=== PATIENT | male | born 1935 | race Caucasian/White ===

== ENCOUNTER → 2016-12-24 | Outpatient (CLI) | payer OTHER ==
[~2016-12-24] MED LIST: ASPCH81 PO; CYAN100020 PO; EZET10TA63 PO; FLAX1CAP6 PO; METO25TA3 PO; METO25TA56 PO; NAPR1CAP12 PO; NIAC500T11 PO; ULT/50 PO; Vitamin D3 PO
[2016-12-30 02:35] LABS: ANTI-CENTROMERE AB <1.0 NEG AI (<1.0 NEG); ANTI-SS-A <1.0 NEG AI (<1.0 NEG); ANTI-SS-B <1.0 NEG AI (<1.0 NEG); DNA ds CRITHIDIA NEGATIVE (NEGATIVE); Sm Antibody <1.0 NEG AI (<1.0 NEG)
== END | disposition home or self-care (01) ==
LOC: C.LABBC 09:54
PROVIDERS: ATTEND Psychiatry & Neurology Neurology
DX: M48.06 Spinal stenosis, lumbar region (principal)

== ENCOUNTER 2017-06-17 08:20 | Day surgery (SDC) | payer OTHER ==
[2017-06-17] VITALS (11 sets, daily range): BP systolic 119–146; BP diastolic 53–66; PULSE 55–61; TEMP 36.7–37; O2SAT 93–98; Ht 177.8 cm; Wt 109.0 kg
[~2017-06-17] VITALS: Ht 177.8 cm; Wt 109.0 kg
[~2017-06-17 08:20] MED LIST changes: -CYAN100020 PO; -METO25TA56 PO; -Vitamin D3 PO
[2017-06-17] MEDS ORDERED: METO25TA56 PO (09:19)
[2017-06-17] MEDS ORDERED: CYAN100020 PO (09:23)
[2017-06-17] MEDS ORDERED: Vitamin D3 PO (09:23)
--- NOTE | 2017-06-17 11:27 | Discharge Instructions ---
Discharge Instructions Procedure Procedure Date: Jun 17, 2017. Reason for visit: Cidp *With Opening Pressure*. Discharge Discharge Date: Jun 17, 2017. Discharge Diagnosis: same Instructions Activity Recommendations: No limitations Return to School/Work: no limitations Recommended Home Diet: Resume Previous Diet Provider Instructions: ACTIVITY RECOMMENDATIONS: * Rest today. * Resume regular activity in one day. MEDICATIONS: * May take Tylenol or Ibuprofen as needed for pain. DIET: * Resume previous diet. SPECIAL CARE INSTRUCTIONS: Call your doctor if: * Temperature above 101 degrees F. * Pain not relieved by pain medicine ordered. * Increased drainage or redness from incision. * Notify your doctor with any questions or concerns. Call your doctor or go to the nearest Emergency Department if you experience: * Increased chest pain or shortness of breath. FOLLOW UP VISIT: Follow-up with Referring Physician as scheduled. Allergies Coded Allergies: HMG-CoA-R Inhibitors (Verified Allergy, Unknown, "STATIN" ALLERGY, 06/17/17) Iodine (Verified Allergy, Unknown, 06/17/17) Uncoded Allergies: CONTRASTMEDIA (Allergy, Unknown, 12/15/09) [facility] Recommendations: Call your doctor if: * Temperature above 101 degrees * Pain not relieved by pain medicine ordered * There is increased drainage or redness from any incision * You have any unanswered questions or concerns. Your Doctors Instructions noted above were prepared by provider Collin Olson. Patient Signature Section: Patient Instructions Signature Page Dhaval Mcgraw Patient (or Guardian) Signature/Date: I have read and understand the instructions given to me by my caregivers. Caregiver/RN/Doctor Signature/Date: The above-named patient and/or guardian has received patient instructions on this date. + Original Patient Signature Page (only) stays with chart. Please make copy for patient.
--- NOTE | 2017-06-17 11:29 | DIAGNOSTIC IMAGING REPORT ---
FLUOROSCOPICALLY GUIDED LUMBAR PUNCTURE CLINICAL HISTORY: Polyneuropathy FLUOROSCOPY TIME: 0.2 minutes. A single fluoroscopic spot image. PROCEDURE: The procedure, risks and benefits were discussed with the patient including the risk of spinal headache, bleeding and infection. The patient agreed to the procedure and informed written consent was obtained. The procedure was performed by Dr. Olson following a timeout. The left L5-S1 interlaminar space was targeted. Skin overlying the space was prepped and draped in the usual sterile fashion and local anesthesia was achieved with 1% lidocaine. Under intermittent fluoroscopic guidance, a 20-gauge x 3 1/2 in. Sprotte needle was inserted into the thecal sac. A total of 10 cc of clear, colorless cerebral spinal fluid was obtained and spread amongst 4 vials. The patient tolerated the procedure well. There were no immediate complications. The specimens were sent to the laboratory at the request of the referring physician. IMPRESSION: Successful fluoroscopic guided lumbar puncture with removal of 10 cc of clear, colorless cerebral spinal fluid. No immediate complications. Opening pressure was 16 cm of H2O. Electronically signed by: Collin Olson M.D. 06/17/2017 11:28 AM Dictated Date/Time: 06/17/2017 11:25 AM
[2017-06-17 11:57] LABS: CSF TOTAL PROTEIN 52.9 mg/dl (15.0-45.0)
[2017-06-17 12:00] LABS: CSF APPEARANCE CLEAR; CSF COLOR COLORLESS; CSF XANTHOCHROMIC NO XANTHOCHROMIA
[2017-06-23 08:19] LABS: ALBUMIN 4.3 g/dL (3.2-4.6); IGG CSF 3.5 mg/dL (0.8-7.7); IGG SERUM 1300 mg/dL (694-1618); LYME DNA PCR CSF OR SYNOVIAL Not detected (Not Detected); LYME DNA SOURCE CSF; LYME IGG CSF NO BANDS DETECTED; LYME IGM CSF NO BANDS DETECTED; MYELIN BASIC PROTEIN 663 <2.0 mcg/L (0.0-4.0)
--- NOTE | 2017-06-24 07:31 | CODING QUERY MEDICAL NECESSITY ---
CQSUPPORTING DIAGNOSIS NEEDED A supporting diagnosis is required for the test/procedure performed on this patient in order for us to be reimbursed by the patient's insurance. Please provide a supporting diagnosis for the following test/procedure listed below next to the test name along with your signature. *If there is no additional diagnosis for this patient that would support the following test/procedure please document that below next to the test/procedure. Test(s)/Procedure(s) that require a supporting diagnosis: DOS 06/17/17 BLOOD GLUCOSE TEST SCREENING FOR SEXUALLY TRANSMITTED DISEASES TEST Provider Signature: Date: Thank you Martha [facility] Once completed, please kindly fax back to [phone] For questions please call [phone]
== END 2017-06-17 15:53 | disposition home or self-care (01) ==
LOC: C.ACU 08:20
PROVIDERS: ATTEND Psychiatry & Neurology Neurology
DX: G61.81 Chronic inflammatory demyelinating polyneuritis (principal); G62.9 Polyneuropathy, unspecified

== ENCOUNTER → 2018-01-07 | Outpatient (CLI) | payer OTHER ==
[~2018-01-07] MED LIST changes: +CYAN100020 PO; -EZET10TA63 PO; -METO25TA3 PO; +METO25TA56 PO; -NAPR1CAP12 PO; -NIAC500T11 PO; -ULT/50 PO; +Vitamin D3 PO
[2018-01-07 17:20] LABS: ALBUMIN 3.8 gm/dl (3.4-5.0); ALT/SGPT 27 U/L (12-78); AST/SGOT 26 U/L (15-37); BLOOD UREA NITROGEN 17 mg/dl (7-18); CALCIUM 9.4 mg/dl (8.5-10.1); CARBON DIOXIDE 27 mmol/L (21-32); CHOLESTEROL 295 mg/dl (0-200); CREATININE 1.01 mg/dl (0.60-1.40); GLUCOSE 93 mg/dl (70-99); POTASSIUM 4.3 mmol/L (3.5-5.1); SODIUM 137 mmol/L (136-145); TOTAL PROTEIN 8.2 gm/dl (6.4-8.2)
[2018-01-07 17:30] LABS: ALKALINE PHOSPHATASE 55 U/L (45-117); LDL CHOLESTEROL CALCULATED 208 mg/dl
[2018-01-08 06:51] LABS: HEMOGLOBIN A1C 5.5 % (4.5-5.6)
== END | disposition home or self-care (01) ==
LOC: C.LABBC 12:31
PROVIDERS: ATTEND Internal Medicine
DX: I25.10 Atherosclerotic heart disease of native coronary artery without angina pectoris (principal); I10 Essential (primary) hypertension; R06.09 Other forms of dyspnea; E78.5 Hyperlipidemia, unspecified; G61.81 Chronic inflammatory demyelinating polyneuritis; E55.9 Vitamin D deficiency, unspecified; G47.33 Obstructive sleep apnea (adult) (pediatric)

== ENCOUNTER 2018-12-22 09:43 | Observation (INO) ==
[2018-12-22] MEDS ORDERED: MECLIZINE HCL 25 MG TAB PO STA (09:59)
[2018-12-22] MEDS ORDERED: SODIUM CHLORIDE 0.9% 1000ML 1,000 ML IV SCH (10:00)
[2018-12-22 10:28] LABS: Basophils # (auto) 0.05 K/uL (0-0.2); Basophils % (auto) 0.9 %; Eosinophils # (auto) 0.09 K/uL (0-0.5); Eosinophils % (auto) 1.6 %; Hematocrit (blood only) 40.4 % (42-52); Hemoglobin 14.4 g/dL (14.0-18.0); Immature Granulocytes # (auto) 0.02 K/uL (0.00-0.02); Immature Granulocytes % (auto) 0.4 %; Lymphocytes # (auto) 2.15 K/uL (1.2-3.4); Lymphocytes % (auto) 37.8 %; Mean Corpuscular Hgb Conc 35.6 g/dL (32-36); Mean Corpuscular Volume 94.6 fL (80-100); Mean Platelet Volume 9.3 fL (7.4-10.4); Monocytes # (auto) 0.44 K/uL (0.11-0.59); Monocytes % (auto) 7.7 %; Neutrophils # (auto) 2.94 K/uL (1.4-6.5); Neutrophils % (auto) 51.6 %; Platelet Count 183 K/uL (130-400); RDW Coefficient of Variation 12.5 % (11.5-14.5); RDW Standard Deviation 43.4 fL (36.4-46.3); Red Blood Count 4.27 M/uL (4.7-6.1); White Blood Count 5.69 K/uL (4.8-10.8)
--- NOTE | 2018-12-22 10:32 | XRay Report ---
XR chest 1V portable CLINICAL HISTORY: dizzy COMPARISON STUDY: 01/17/2013 FINDINGS: There are postsurgical changes of midline sternotomy. The heart is normal in size. There is no failure. There is no focal pulmonary consolidation. There are no significant pleural effusions.[ IMPRESSION: No active disease in the chest. Electronically signed by: Fortunato Waller M.D. 12/22/2018 10:31 AM
[2018-12-22 10:40] LABS: Prothrombin Time 10.3 Seconds (9.0-12.0)
[2018-12-22 10:45] LABS: Alanine Aminotransferase 16 U/L (12-78); Albumin Level 3.8 gm/dl (3.4-5.0); Aspartate Aminotransferase 26 U/L (15-37); BUN Creatinine Ratio 14.1 (10-20); Blood Urea Nitrogen 13 mg/dl (7-18); Calcium 8.7 mg/dl (8.5-10.1); Carbon Dioxide 27 mmol/L (21-32); Chloride 105 mmol/L (98-107); Creatinine Clr Calc Pharmacy 73.3 ml/min; Est GFR (African American) 86.1; Est GFR (Non-African American) 74.2; Glucose 98 mg/dl (70-99); Potassium 3.9 mmol/L (3.5-5.1); Sodium 137 mmol/L (136-145)
[2018-12-22 10:49] LABS: Albumin Globulin Ratio 1.1 (0.9-2); Alkaline Phosphatase 51 U/L (45-117); Bilirubin,Total 0.5 mg/dl (0.2-1); Globulin 3.5 gm/dl (2.5-4.0); Total Protein 7.3 gm/dl (6.4-8.2); Troponin I < 0.015 ng/ml (0-0.045)
--- NOTE | 2018-12-22 10:55 | CT Scan Report ---
HEAD CT NONCONTRAST CT DOSE: 1232.78 mGy.cm HISTORY: dizzy with recurrent falls TECHNIQUE: Multiaxial CT images of the head were performed without the use of intravenous contrast. A utomated exposure control was utilized for this study. A dose lowering technique was utilized adheri ng to the principles of ALARA. Comparison: Head CT 08/13/2009. Findings: The paranasal sinuses and mastoid air cells are clear. The calvarium and skull base are int act. There is no mass, hematoma, midline shift, acute infarct. White matter hypodensity is nonspecifi c but suggestive of microvascular ischemic change. The ventricles and sulci demonstrate mild age-rela fabiana involutional changes. Impression: No acute intracranial abnormality. Atrophy and microvascular ischemic changes. Electronically signed by: Collin Olson M.D. 12/22/2018 10:53 AM
--- NOTE | 2018-12-22 11:02 | CT Scan Report ---
CERVICAL SPINE CT CT DOSE: HISTORY: recurrent falls TECHNIQUE: Multiaxial CT images of the cervical spine were performed and reformatted in the sagittal and coronal plane without the use of contrast. A dose lowering technique was utilized adhering to th e principles of ALARA. COMPARISON: None. FINDINGS: No fractures. No subluxation. Prevertebral soft tissues and the C1-C2 interval are intact. No pneumothorax. Moderate to space narrowing at C6-C7 and mild disc space narrowing at C7-T1 with end plate osteophytes. IMPRESSION: No fractures within the cervical spine. Electronically signed by: Collin Olson M.D. 12/22/2018 11:00 AM
--- NOTE | 2018-12-22 12:05 | History & Physical Report ---
Date of Service December 22, 2018 Assessment & Plan (1) Lightheaded: Leading to loss of balance and falls over the last 48hrs 1st degree AV block noted on EKG, no other EKGs in [facility] or [facility], family denies being told about this prior If new, could be cause of sx Given vision changes and sudden onset, will also pursue CVA workup CT head neg MRI/MRA pending ECHO 05/2018 with EF 60-65% and mild , will hold on repeat at this time pending neuro workup CBC, PRP, trop WNL B12, B1 pending Follows with Dr. Benítez and Dr. 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 Seems suddenly much worse Still taking sinemet Extensive neuro workup with [facility] [place] (4) Hyperlipidemia: Statin intolerant (5) HTN (hypertension): continue home meds (6) Aortic stenosis: ECHO as above (7) CAD (coronary artery disease): 81mg aspirin (8) ROBERT (obstructive sleep apnea): CPAP at home, continue (9) DVT prophylaxis: SCDs, Lovenox for DVT proph History of Present Illness Primary Care Provider: Mingo Sanches MD 83 y/o M c/o falls. Pt has fallen several times in the last 48 hrs. He fell 4 times yesterday and once today. He states he gets "dizzy" and then cannot maintain his balance. "Dizzy" is further defined as more of a lightheadedness, not room spinning. He described several settings where this occurred when he was bending over to do something. Pt does have hx of vertigo, but states this is different. He feels fine between these episodes. Pt denies fever, SOB, chest pain, abd pain, n/v/c/d, LE pain or swelling. Family states that pt has some word finding issues at times, but never any adeline confusion or hallucinations. Pt does feel that his peripheral vision is cloudy, which is also new. He has been eating without issue. Pt received meclizine in the ED and states his "head feels better". He cannot describe what this means other than noting his vision is more clear in the periphery. Pt has recently been worked up for possible Parkinson's due to a tremor. Family states that his workup is neg and current dx is chronic inflammatory demyelinating polyneuropathy. Denies being told that he has had 1st degree AV block on prior EKG. Allergies Allergy/AdvReac Type Severity Reaction Status Date / Time iodine Allergy Unknown Verified 12/22/18 10:48 CONTRASTMEDIA Allergy Unknown Unknown Uncoded 12/22/18 10:48 HMG-CoA-R Inhibitors Allergy Unknown "STATIN" Uncoded 12/22/18 10:48 ALLERGY Home Medications Home Medications Medication Instructions Recorded Confirmed Type aspirin 81 mg PO HS 12/22/18 12/22/18 History carbidopa-levodopa 2 tab PO TID 12/22/18 12/22/18 History fish oil-E-fatty [id number] 1 cap PO QAM 12/22/18 12/22/18 History [Flax, Fish and Borage Oil] metoprolol tartrate 25 mg PO BID 12/22/18 12/22/18 History pseudoephedrine HCl [Sudafed 24 240 mg PO DAILY PRN 12/22/18 12/22/18 History Hour] Past Med/Surg History Medical History Arrhythmia (Acute) Surgical History History of hernia surgery x3 Hx of CABG x4 Hx of shoulder surgery right and left Family History Father Heart attack Social History Current Living Situation: Spouse Other Information That Helps Us Care for You: No Feels Safe at Home: Yes Safety Concerns: Feels Safe At This Time Smoking Status: Former smoker Hx Alcohol Use: No Hx Substance Use: No Beliefs That Will Affect Care: None Preferred Language: [place]ambian Communication Ability: Effective Review of Systems Pertinent positives and negatives reviewed in HPI--all others negative Physical Exam 2 Vital Signs (Past 24 Hours): Last Vital Signs Temp 36.7 C 12/22/18 09:46 Pulse 58 L 12/22/18 11:36 Resp 20 12/22/18 11:36 BP 133/63 12/22/18 11:36 Pulse Ox 99 12/22/18 11:36 Constitutional: WD/WN, vitals as above Eyes: normal visual moore by confrontation and + anicteric sclerae Neck: normal visual inspection and trachea midline Respiratory: normal respiratory effort, lungs clear to auscultation Cardiovascular: Rate/Rhythm: regular rate and regular rhythm Gastrointestinal (Abdomen): Inspection/Auscultation: abdomen not distended Percussion/Palpation: abdomen soft; abdomen nontender Musculoskeletal: Head/Neck/Chest: normocephalic and head atraumatic negative for edema, peripheral pulses intact Skin: no rashes, warm and dry Neurologic: awake; not confused Speech / Cognition: normal speech Motor/ Sensory: + tremor (R UE) and + abnormal movement (R LE spasms) Psychiatric: A+Ox3, euthymic affect Results & Data Diagnostic Findings CT head: neg for acute CXR: neg for acute CT c-spine: neg for acute ECG Findings: + 1st degree AV block Code Status & VTE Plan Code Status Full code VTE Prophylaxis Plan VTE Prophylaxis will be ordered: Yes
--- NOTE | 2018-12-22 12:20 | Emergency Department Note ---
Entered by Herlinda Simmons acting as a scribe for Marin Abraham DO History of Present Illness General Chief complaint: Dizziness Stated complaint: DIZZY Time Seen by Provider: 12/22/18 09:50 Source: patient History of Present Illness Provider complaint: dizziness Onset (ago): day(s) 2 Location: head Quality: + other (dizziness) Associated symptoms: + denies other symptoms (denies abdominal pain) and + other (falls); no nausea/vomiting, no shortness of breath and no weakness (in legs) The patient is an 83 year old male who presents to the Emergency Room with complaints of dizziness beginning 2 days ago. The patient states that he has also been falling a lot and cannot walk secondary to the dizziness over the last 2 days. He states that he has fallen 4-5 times but denies hitting his head and denies any injuries from the falls. He reports that he has used a cane to walk over the last 2 days and states that otherwise he does not use a cane. The patient reports feeling unsteady on his feet. He states that he feels like everything is "not in focus" and reports that he is having this problem with both eyes. The patient denies having weakness or numbness in his legs or any ringing in his ears. He denies any new shortness of breath, nausea, vomiting, and abdominal pain. The patient does report that there was blood on the toilet seat this morning. He states that he takes Aspirin daily and states that he has not been placed on new medications recently. Home Medications Home Medications Medication Instructions Recorded Confirmed Type aspirin 81 mg PO HS 12/22/18 12/22/18 History carbidopa-levodopa 2 tab PO TID 12/22/18 12/22/18 History fish oil-E-fatty [id number] 1 cap PO QAM 12/22/18 12/22/18 History [Flax, Fish and Borage Oil] metoprolol tartrate 25 mg PO BID 12/22/18 12/22/18 History pseudoephedrine HCl [Sudafed 24 240 mg PO DAILY PRN 12/22/18 12/22/18 History Hour] Allergies Allergy/AdvReac Type Severity Reaction Status Date / Time iodine Allergy Unknown Verified 12/22/18 10:48 CONTRASTMEDIA Allergy Unknown Unknown Uncoded 12/22/18 10:48 HMG-CoA-R Inhibitors Allergy Unknown "STATIN" Uncoded 12/22/18 10:48 ALLERGY Past Med/Surg History Medical History Arrhythmia (Acute) Surgical History History of hernia surgery x3 Hx of CABG x4 Hx of shoulder surgery right and left Social History Current Living Situation: Spouse Other Information That Helps Us Care for You: No Feels Safe at Home: Yes Safety Concerns: Feels Safe At This Time Smoking Status: Former smoker Hx Alcohol Use: No Hx Substance Use: No Beliefs That Will Affect Care: None Preferred Language: [place]se Communication Ability: Effective Review of Systems See HPI for pertinent positives & negatives. and A total of 10 systems reviewed and were otherwise negative Physical Exam Vital Signs Vital Signs - 24 hr 12/22/18 09:46 12/22/18 10:23 12/22/18 10:49 Temperature 36.7 C Temperature Source Oral Sepsis Recent Fever Within 48 Hours No Sepsis New/Unexplained Change in Mental Status No Sepsis Action Taken by Nursing No Action Required Pulse Rate - Lying 59 L Pulse Rate - Sitting 62 Pulse Rate - Standing 60 Pulse Rate 61 Pulse Rate [Apical] 61 Respiratory Rate 18 16 Respiratory Effort / Characteristics Non-Labored Spontaneous Respiratory Depth Normal Respiratory Pattern Regular Blood Pressure - Lying 143/72 H Blood Pressure - Sitting 136/69 Blood Pressure- Standing 133/68 Blood Pressure 140/78 Blood Pressure [Left Arm] 133/63 Blood Pressure Mean 98 Blood Pressure Mean [Left Arm] 86 Pulse Oximetry 94 96 96 Oxygen Delivery Method Room Air Room Air Room Air 12/22/18 11:36 12/22/18 12:17 Temperature Temperature Source Sepsis Recent Fever Within 48 Hours Sepsis New/Unexplained Change in Mental Status Sepsis Action Taken by Nursing Pulse Rate - Lying Pulse Rate - Sitting Pulse Rate - Standing Pulse Rate Pulse Rate [Apical] 58 L 61 Respiratory Rate 20 22 Respiratory Effort / Characteristics Non-Labored Spontaneous Respiratory Depth Normal Respiratory Pattern Regular Blood Pressure - Lying Blood Pressure - Sitting Blood Pressure- Standing Blood Pressure Blood Pressure [Left Arm] 133/63 133/73 Blood Pressure Mean Blood Pressure Mean [Left Arm] 86 93 Pulse Oximetry 99 95 Oxygen Delivery Method Room Air Room Air GENERAL: Sitting up in bed, disheveled, alert, well appearing, well nourished, no acute distress, non-toxic EYE EXAM: normal conjunctiva. PERRL and EOM's intact. OROPHARYNX: no exudate, no erythema, lips, buccal mucosa, and tongue normal and mucous membranes are moist NECK: supple, no nuchal rigidity, no adenopathy, non-tender LUNGS: Clear to auscultation. Normal chest wall mechanics HEART: no murmurs, S1 normal and S2 normal ABDOMEN: abdomen soft, non-tender, normo-active bowel, sounds, no masses, no rebound or guarding. BACK: Back is symmetrical on inspection and there is no deformity, no midline tenderness, no CVA tenderness. SKIN: no rashes and no bruising UPPER EXTREMITIES: upper extremities are grossly normal. LOWER EXTREMITIES: No pitting edema. NEURO EXAM: Normal sensorium, cranial nerves II-XII grossly intact, normal speech, no gross weakness of arms, no gross weakness of legs. No drift. Finger to nose intact. Gross sensation intact. Resting tremor bilateral upper extremities. Course ED COURSE: Vital signs were reviewed and were normal. The patients medical record was reviewed The above diagnostic studies were performed and reviewed. ED treatments and interventions as stated above. 0951: Past medical records reviewed. The patient was evaluated in room B11B, and a complete history and physical examination were performed. 1113: I updated the patient who verbalized agreement and understanding of the treatment plan. 1116: I discussed the patient's case with Dr. Nelson Cunningham who will evaluate the patient for further management. Consultations Consultation #1: Dr. Nelson Cunningham Time: 11:16 Administered Medications Discontinued Medications Sodium Chloride (Nss 1000ml) 1,000 mls @ 999 mls/hr IV .Q1H1M JOSE J Stop: 12/22/18 11:00 Last Infusion: 12/22/18 11:29 Dose: 0 mls/hr Admin: 12/22/18 10:28 Dose: 999 mls/hr Meclizine HCl (Antivert) 25 mg PO NOW STA Stop: 12/22/18 10:00 Last Admin: 12/22/18 10:28 Dose: 25 mg Medical Decision Making Differential Diagnosis Differential diagnosis includes etiologies such as benign positional vertigo, dehydration, hypovolemia, anemia, tumor, infection, hypoglycemia, electrolyte abnormalities, cardiac sources, intracerebral event, toxicologic, neurologic, as well as others were entertained. Medical Records Attestation: I reviewed the patient's medical records. Home Medications Current Medication List: was personally reviewed by me Laboratory Data Attestation: I reviewed the patient's lab results. Result diagrams: 12/22/18 10:15 12/22/18 10:15 Lab Results 12/22/18 12/22/18 12/22/18 Range/Units 10:15 10:15 10:15 WBC 5.69 (4.8-10.8) K/uL RBC 4.27 L (4.7-6.1) M/uL Hgb 14.4 (14.0-18.0) g/dL Hct 40.4 L (42-52) % MCV 94.6 (80-100) fL MCH 33.7 (25-34) pg MCHC 35.6 (32-36) g/dL RDW Std Deviation 43.4 (36.4-46.3) fL RDW Coeff of Clau 12.5 (11.5-14.5) % Plt Count 183 (130-400) K/uL MPV 9.3 (7.4-10.4) fL Immature Gran % (Auto) 0.4 % Neut % (Auto) 51.6 % Lymph % (Auto) 37.8 % [place] % (Auto) 7.7 % Eos % (Auto) 1.6 % Baso % (Auto) 0.9 % Immature Gran # (Auto) 0.02 (0.00-0.02) K/uL Neut # (Auto) 2.94 (1.4-6.5) K/uL Lymph # (Auto) 2.15 (1.2-3.4) K/uL [place] # (Auto) 0.44 (0.11-0.59) K/uL Eos # (Auto) 0.09 (0-0.5) K/uL Baso # (Auto) 0.05 (0-0.2) K/uL PT 10.3 (9.0-12.0) Seconds INR 1.0 (0.9-1.1) Sodium 137 (136-145) mmol/L Potassium 3.9 (3.5-5.1) mmol/L Chloride 105 (98-107) mmol/L Carbon Dioxide 27 (21-32) mmol/L Anion Gap 5.0 (3-11) BUN 13 (7-18) mg/dl Creatinine 0.95 (0.6-1.4) mg/dl Est Cr Clr Drug Dosing 73.3 ml/min Est GFR ( Amer) 86.1 Est GFR (Non-Af Amer) 74.2 BUN/Creatinine Ratio 14.1 (10-20) Glucose 98 (70-99) mg/dl Calcium 8.7 (8.5-10.1) mg/dl Total Bilirubin 0.5 (0.2-1) mg/dl AST 26 (15-37) U/L ALT 16 (12-78) U/L Alkaline Phosphatase 51 (45-117) U/L Troponin I < 0.015 (0-0.045) ng/ml Total Protein 7.3 (6.4-8.2) gm/dl Albumin 3.8 (3.4-5.0) gm/dl Globulin 3.5 (2.5-4.0) gm/dl Albumin/Globulin Ratio 1.1 (0.9-2) Imaging Data Radiologist's Impression: Radiology results as stated below per my review and the radiologist's interpretation: XR chest 1V portable CLINICAL HISTORY: dizzy COMPARISON STUDY: 01/17/2013 FINDINGS: There are postsurgical changes of midline sternotomy. The heart is normal in size. There is no failure. There is no focal pulmonary consolidation. There are no significant pleural effusions.[ IMPRESSION: No active disease in the chest. Electronically signed by: Fortunato Waller M.D. 12/22/2018 10:[address] DOSE: 1232.78 mGy.cm HISTORY: dizzy with recurrent falls TECHNIQUE: Multiaxial CT images of the head were performed without the use of intravenous contrast. Automated exposure control was utilized for this study. A dose lowering technique was utilized adhering to the principles of ALARA. Comparison: Head CT 08/13/2009. Findings: The paranasal sinuses and mastoid air cells are clear. The calvarium and skull base are intact. There is no mass, hematoma, midline shift, acute infarct. White matter hypodensity is nonspecific but suggestive of microvascular ischemic change. The ventricles and sulci demonstrate mild age- related involutional changes. Impression: No acute intracranial abnormality. Atrophy and microvascular ischemic changes. Electronically signed by: Collin Olson M.D. 12/22/2018 10:[address] DOSE: HISTORY: recurrent falls TECHNIQUE: Multiaxial CT images of the cervical spine were performed and reformatted in the sagittal and coronal plane without the use of contrast. A dose lowering technique was utilized adhering to the principles of ALARA. COMPARISON: None. FINDINGS: No fractures. No subluxation. Prevertebral soft tissues and the C1-C2 interval are intact. No pneumothorax. Moderate to space narrowing at C6-C7 and mild disc space narrowing at C7-T1 with endplate osteophytes. IMPRESSION: No fractures within the cervical spine. Electronically signed by: Collin Olson M.D. 12/22/2018 11:00 AM ECG Data Attestation: I personally reviewed and interpreted this ECG as follows: Indication: other (dizziness) Rate (beats per minute): 60 Rhythm: sinus rhythm Findings: + left axis deviation; no PVC Blood Pressure Blood Pressure Findings: Normal blood pressure MDM Narrative Patient is an 83-year-old male who presents the ER for dizziness which is been present for the past 2-3 days. Patient notes he has been extremely unsteady on his feet. Has fallen 5 times in the past 24 hours. Labs were obtained and showed no significant leukocytosis or anemia. BMP along with LFTs and troponin was negative. EKG chest x-ray and CT head were unremarkable. Patient was updated bedside. He was given Antivert. He was neurologically intact. I discussed case with the patient and family and I am concerned that this could be a possible posterior CVA. Updated patient and discussed with the hospitalist for observation due to 5 falls in the dizziness. was updated at bedside. Previous charts were reviewed. Impression & Plan Dizziness, Ambulatory dysfunction, Recurrent falls Discharge Plan Visit Data Chief Complaint: Dizziness Stated Complaint: DIZZY ED Provider: Marin Abraham Discharge Problem: Dizziness, Ambulatory dysfunction, Recurrent falls Patient Disposition: Being Evaluated by Hospitalist Discharge Instructions Interventions: ED Discharge Assessment Last Done: 12/22/18 12:34 Forms Stand Alone Forms: My [facility] [employer] Prescriptions Prescriptions: No Action pseudoephedrine HCl [Sudafed 24 Hour] 240 mg Tablet Extended Release 24 Hr 240 mg PO DAILY PRN (Reason: Congestion) RF: 0 metoprolol tartrate 50 mg Tablet 25 mg PO BID RF: 0 aspirin 81 mg Tablet,Chewable 81 mg PO HS RF: 0 carbidopa-levodopa 25-100 mg Tablet 2 tab PO TID RF: 0 fish oil-E-fatty acid5-[id number] [Flax, Fish and Borage Oil] 400-5 mg-unit Capsule 1 cap PO QAM RF: 0 Referrals Referrals: Mingo Sanches MD [Primary Care Provider] - The scribe's documentation has been prepared under my direction and personally reviewed by me in its entirety. I confirm that the note above accurately reflects all work, treatment, procedures, and medical decision making performed by me.
[2018-12-22] MEDS ORDERED: MAGNESIUM HYDROXIDE SUSP 30 ML UDC PO PRN (12:58)
[2018-12-22] MEDS ORDERED: ONDANSETRON INJ 2 MG/ML 2 ML VIAL IV PRN (12:58)
[2018-12-22] MEDS ORDERED: PHARMACIST DISCHARGE MED REC CONSULT PRN (12:58)
[2018-12-22] MEDS ORDERED: ACETAMINOPHEN 325 MG TAB PO PRN (12:58)
[2018-12-22 13:47] LABS: Estimated Average Glucose 126 mg/dl
[2018-12-22] MEDS: CARBIDOPA/LEVODOPA 25/100MG TAB PO SCH ×2 (14:19→20:38)
[2018-12-22] MEDS ORDERED: GADOBUTROL 65ML VIAL IV PRN (17:46)
--- NOTE | 2018-12-22 17:49 | Magnetic Resonance Report ---
MR angio neck wo/w con HISTORY: Mental status change vision changes TECHNIQUE: Multiaxial CT angiography of the neck was performed IV contrast: 8.4 All measuremen ts were calculated based on NASCET criteria. Maximum intensity projection images were also obtained. A dose lowering technique was utilized adhering to the principles of ALARA. COMPARISON STUDY: None. FINDINGS: The aortic arch and proximal great vessels are widely patent. There is no significant sten osis, occlusion, or dissection identified within the bilateral common carotid, internal carotid, or v ertebral arteries. IMPRESSION: No significant stenosis, occlusion, or dissection identified within the carotid or vertebral arteries . Mild scattered atherosclerotic change. The above report was generated using voice recognition software. It may contain grammatical, syntax or spelling errors. Electronically signed by: Lucian Mcdowell M.D. 12/22/2018 5:48 PM
--- NOTE | 2018-12-22 17:50 | Magnetic Resonance Report ---
MR angio head wo con HISTORY: Mental status change vision changes TECHNIQUE: 3-D [id number] MRA of the brain was performed without contrast. COMPARISON STUDY: None. FINDINGS: Visualized intracranial internal carotid arteries, distal vertebral arteries, and basilar a rtery are widely patent. There is no significant stenosis, occlusion, or aneurysm seen within the lorin ateral ACAs, MCAs, or asset specialist. IMPRESSION: No significant stenosis, occlusion, or aneurysm within the [place]. The above report was generated using voice recognition software. It may contain grammatical, syntax or spelling errors. Electronically signed by: Lucian Mcdowell M.D. 12/22/2018 5:49 PM
--- NOTE | 2018-12-22 17:56 | Magnetic Resonance Report ---
MR brain wo/w con CLINICAL HISTORY: vision changes COMPARISON STUDY: No previous studies for comparison. TECHNIQUE: Utilizing a 1.5 Mary magnet and dedicated coil, multiplanar, multiecho imaging of the br ain was performed pre and postcontrast administration. IV administration of 8 mL of Gadavist contras t was uneventful. FINDINGS: Diffusion-weighted images are negative for an acute ischemic event. Ventricular system is m idline. There are moderate findings of chronic small vessel change throughout both cerebral hemispher es. The sella and parasellar regions are unremarkable. Postcontrast images show no evidence for abnor mal postcontrast enhancement. IMPRESSION: 1. Age-related atrophy and chronic small vessel change. No acute process. The above report was generated using voice recognition software. It may contain grammatical, syntax or spelling errors. Electronically signed by: Lucian Mcdowell M.D. 12/22/2018 5:55 PM
[2018-12-22] MEDS: METOPROLOL TARTRATE 25 MG TAB PO SCH (20:37)
[2018-12-22] MEDS ORDERED: ASPIRIN 81 MG CHEW PO SCH (21:00)
[2018-12-23 08:39] LABS: Chol HDL Ratio 9; Cholesterol 290 mg/dl (0-200); HDL Cholesterol 34 mg/dl; LDL Cholesterol Calculated 193 mg/dl; Triglycerides 317 mg/dl (0-150); VLDL Cholesterol 63 mg/dl
[2018-12-23] MEDS: CARBIDOPA/LEVODOPA 25/100MG TAB PO SCH ×2 (08:51→13:00)
[2018-12-23] MEDS: METOPROLOL TARTRATE 25 MG TAB PO SCH (08:51)
[2018-12-23] MEDS ORDERED: ENOXAPARIN INJ 40 MG/0.4 ML SYR SQ SCH (09:00)
--- NOTE | 2018-12-23 15:22 | Discharge Summary ---
Date of Service December 23, 2018 Admission HPI Per Admitting Provider 83 y/o M c/o falls. Pt has fallen several times in the last 48 hrs. He fell 4 times yesterday and once today. He states he gets "dizzy" and then cannot maintain his balance. "Dizzy" is further defined as more of a lightheadedness, not room spinning. He described several settings where this occurred when he was bending over to do something. Pt does have hx of vertigo, but states this is different. He feels fine between these episodes. Pt denies fever, SOB, chest pain, abd pain, n/v/c/d, LE pain or swelling. Family states that pt has some word finding issues at times, but never any adeline confusion or hallucinations. Pt does feel that his peripheral vision is cloudy, which is also new. He has been eating without issue. Pt received meclizine in the ED and states his "head feels better". He cannot describe what this means other than noting his vision is more clear in the periphery. Pt has recently been worked up for possible Parkinson's due to a tremor. Family states that his workup is neg and current dx is chronic inflammatory demyelinating polyneuropathy. Denies being told that he has had 1st degree AV block on prior EKG. Principal Diagnosis Near syncope Discharge Exam Constitutional WD/WN, vitals as above Eyes PERRL, conjunctivae normal, anicteric sclerae ENMT external ear and nose normal, oropharynx normal Neck trachea midline, no thyromegaly Respiratory normal respiratory effort, lungs clear to auscultation Cardiovascular Rate/Rhythm: regular rate and regular rhythm Heart Sounds: + murmur (2 out of 6 systolic) Gastrointestinal (Abdomen) normal bowel sounds, soft, nontender, no hepatosplenomegaly Musculoskeletal no cyanosis or clubbing, extremities motor strength 5/5 Skin no rashes, warm and dry Neurologic PERRL, EOMI, accommodation nl, no face palsy, no dysarthria normal touch/pain/proprioception, CN's II-XI intact bilaterally, moves all extremities and awake Discharge Data Allergies Allergy/AdvReac Type Severity Reaction Status Date / Time iodine Allergy Unknown Unknown Verified 12/23/18 13:56 Iodinated Contrast- Oral and Allergy Unknown Verified 12/23/18 13:56 IV Dye Smpzzom-Jol-Qnp Reductase Allergy Unknown Verified 12/23/18 13:56 Inhibitor Consultations 12/22/18 11:16 ED Decision to Admit Stat 12/22/18 12:58 Consult Case Management - Discharge Planning Routine Consult Case Management - Discharge Planning Routine Consult Health Information Management Stat Ordered Studies 12/22/18 09:59 CT cervical spine wo con Stat CT head/brain wo con Stat 12/22/18 12:58 MR angio head wo con Urgent MR angio neck wo/w con Routine MR brain wo/w con Routine [place], [place] [phone] Magnetic Resonance Report Patient: BRANDI MCGRAW EAdmit Date: 12/22/18 MR#: [id number]: [id number] Acct ID:[id number]: Date: 1935[facility] Zip: [place] [address] Age: 83Location: 2W Sex: M Room/Bed: [facility] Att Phy: Fabiana Garcia DODiagnosis: DIZZY Porsha Phy: Mingo Sanches M.D.Service Date: 12/22/18 Fam Phy: Interpreting Phy: Lucian Mcdowell MD Admit Phy: Fabaina Garcia DO Ordering Phy: Fabiana Garcia DO cc: ~ MR angio neck wo/w con HISTORY: Mental status change vision changes TECHNIQUE: Multiaxial CT angiography of the neck was performed IV contrast : 8.4 All measurements were calculated based on NASCET criteria. Maximum intensity projection images were also obtained. A dose lowering technique was utilized adhering to the principles of ALARA. COMPARISON STUDY: None. FINDINGS: The aortic arch and proximal great vessels are widely patent. There is no significant stenosis, occlusion, or dissection identified within the bilateral common carotid, internal carotid, or vertebral arteries. IMPRESSION: No significant stenosis, occlusion, or dissection identified within the carotid or vertebral arteries. Mild scattered atherosclerotic change. The above report was generated using voice recognition software. It may contain grammatical, syntax or spelling errors. Electronically signed by: Lucian Mcdowell M.D. Patient: BRANDI MCGRAW EAdmit Date: 12/22/18 MR#: [id number]: [id number] Acct ID:[id number]: Date: 1935[facility] Zip: [place] [address] Age: 83Location: 2W Sex: M Room/Bed: W253-2 Att Phy: Fabiana Garcia, DODiagnosis: DIZZY Porsha Phy: Mingo Sanches M.D.Service Date: 12/22/18 Fam Phy: Interpreting Phy: Lucian Mcdwoell MD Admit Phy: Fabiana Garcia DO Ordering Phy: Fabiana Garcia, cc: ~ MR angio head wo con HISTORY: Mental status change vision changes TECHNIQUE: 3-D [id number] MRA of the brain was performed without contrast. COMPARISON STUDY: None. FINDINGS: Visualized intracranial internal carotid arteries, distal vertebral arteries, and basilar artery are widely patent. There is no significant stenosis , occlusion, or aneurysm seen within the bilateral ACAs, MCAs, or play therapist. IMPRESSION: No significant stenosis, occlusion, or aneurysm within the [place]. The above report was generated using voice recognition software. It may contain grammatical, syntax or spelling errors. [facility], [place] [phone] Magnetic Resonance Report Patient: BRANDI MCGRAW EAit Date: 12/22/18 MR#: [id number]: [id number] Acct ID:[id number]: Date: [address] [place] [address] Zip: [place] [address] Age: 83Location: 2W Sex: M Room/Bed: W253-2 Att Phy: Fabiana Garcia, DODiagnosis: DIZZY Porsha Phy: Mingo Sanches M.D.Service Date: 12/22/18 Fam Phy: Interpreting Phy: Lucian Mcdowell MD Admit Phy: Fabiana Garcia DO Ordering Phy: Fabiana Garcia DO cc: ~ MR brain wo/w con CLINICAL HISTORY: vision changes COMPARISON STUDY: No previous studies for comparison. TECHNIQUE: Utilizing a 1.5 Mary magnet and dedicated coil, multiplanar, multiecho imaging of the brain was performed pre and postcontrast administration. IV administration of 8 mL of Gadavist contrast was uneventful. FINDINGS: Diffusion-weighted images are negative for an acute ischemic event. Ventricular system is midline. There are moderate findings of chronic small vessel change throughout both cerebral hemispheres. The sella and parasellar regions are unremarkable. Postcontrast images show no evidence for abnormal postcontrast enhancement. IMPRESSION: 1. Age-related atrophy and chronic small vessel change. No acute process. The above report was generated using voice recognition software. It may contain grammatical, syntax or spelling errors. Electronically signed by: Lucian Mcdowell M.D. 12/22/2018 5:55 PM Dictated: 12/22/181749 Transcribed: 12/22/181749 Hospital Course (1) Lightheaded: 83-year-old male with a past medical history of CAD status post CABG, hyperlipidemia, hypertension presents with dizziness and blurred peripheral vision for the past couple days. He has a past medical history of a tremor that is been worked up by neurology and is currently on Sinemet. Throughout the hospital course, we tried to evaluate potential causes for the patient's symptoms, including life-threatening causes such as stroke or carotid stenosis. CT and MRI imaging of the brain were negative for acute findings and showed small vessel changes. Head and neck MRA were negative for stenosis, occlusion, dissection. The patient states that his symptoms resolved in the ED following treatment with IV fluids and meclizine. EKG in the hospital demonstrated first-degree AV block. Patient was discharged with changes to the following medications�� reduction of dose of metoprolol to 12.5 mg twice daily and instructions to stop taking pseudoephedrine. His orthostatic vitals were checked at the time of discharge and they were negative. Symptoms possibly were multifactorial - dehydration, vertigo, sinemet. We recommend PCP follow-up with the first available appointment. (2) CAD (coronary artery disease): (3) Chronic inflammatory demyelinating neuropathy: (4) Aortic stenosis: (5) HTN (hypertension): (6) Hyperlipidemia: (7) ROBERT (obstructive sleep apnea): (8) Dizziness: (9) Ambulatory dysfunction: (10) Recurrent falls: Total Time Total Time Spent Total Time Spent (In Minutes): Greater than 30 minutes Total Time Includes: Examination of the Patient, Discharge Planning, Medication Reconciliation and Communication With Other Providers Discharge Plan Discharge Items Patient Disposition: Home - Home Health Services Reason For Visit: DIZZY Discharge Diagnosis: Near syncope Discharge Goals: Diagnostic testing Activity: Per 'Additional Instructions' section Non-emergency contact: Primary Care Provider and Neurologist Call non-emergency contact if: you have any medication questions Follow-up/Referrals: Mingo Sanches MD [Primary Care Provider] - 01/01/19 3:00 pm (Please, follow up with Dr. Mingo Sanches on FridayJanuary 01 at 3:00 pm. *If you need to change this appointment, call the office at [phone].) Diet: Heart Healthy [facility] Provider Instructions: Mr. Mcgraw, You were evaluated for recent visual changes and dizziness. The goal of our diagnostics here in the hospital were to determine if there was a life- threatening cause of your symptoms, such as a stroke or a hemorrhage. Imaging of your brain did not show concern for these issues. In addition, imaging of the vessels of your neck and head did not show any signs of significant disease of the blood vessels. We are recommending that you follow-up with your primary care doctor, your medical insurance claims specialist and your neurologist regarding your symptoms. We also think it is a good idea for you to get an eye appointment to evaluate your vision. While we did not find specifically the cause of your symptoms, there are some possibilities that it is related to the medications you take, namely metoprolol and Sinemet. We recommend cutting your dose of metoprolol to 12.5 mg twice daily. We are giving a new prescription for 25 mg pills that you can cut in half. We would like you to discuss the dosing of Sinemet with your doctors in the outpatient setting prior to making any changes. On your home medication list, I saw that you are on pseudoephedrine for sinus congestion. This medication is not recommended for you at your age and with your past medical history of heart disease. You would instead benefit from using a nasal steroid spray or a oral medication such as Claritin or Zyrtec. Prescriptions: New metoprolol tartrate 25 mg tablet 12.5 mg PO BID 30 Days Qty: 30 RF: 6 Continue aspirin 81 mg Tablet,Chewable 81 mg PO HS RF: 0 carbidopa-levodopa 25-100 mg Tablet 2 tab PO TID RF: 0 fish oil-E-fatty [id number] [Flax, Fish and Borage Oil] 400-5 mg-unit Capsule 1 cap PO QAM RF: 0 Discontinued pseudoephedrine HCl [Sudafed 24 Hour] 240 mg Tablet Extended Release 24 Hr 240 mg PO DAILY PRN (Reason: Congestion) RF: 0 metoprolol tartrate 50 mg Tablet 25 mg PO BID RF: 0 Stand-Alone Forms: [facility] Discharge Orders: Discharge Order (Routine); Ordered 12/23/18 Ordered By: Tacos Zhong Admission Data Admit Date/Time: 12/22/18 12:04 Attending Provider: Jasmine Thao Admit Provider: Fabiana Garcia Primary Care Provider: Mingo Sancehs Other Providers: Fabiana Garcia Service: Telemetry Other Interventions: Discharge Summary Assessment (RN) Last Done: 12/23/18 15:31 DC Date/Time DO NOT enter until pt leaves facility: 12/23/18 16:20 Supervising Physician Co-Signing Physician Notes Resident Physician Supervision Note: I independently interviewed and examined the patient and verified the bird history and physical, reviewed labs and image studies, discussed the case with the resident Dr. Zhong and agree with the findings and care plan. Time spent in discharge 35 min Resident Activity Tracking Resident Involvement: Resident Care Provided Care Provided: Adult Hospital Medicine
[2018-12-23] MEDS ORDERED: METOPROLOL TARTRATE 25 MG TAB PO SCH (21:00)
== END 2018-12-23 16:20 | disposition home health service (06) ==
LOC: ED 09:43 → 2W 09:43 → SUATTDRO 12:04 → 2W 12:34

== ENCOUNTER 2019-09-08 12:38 | Inpatient (IN) ==
[2019-09-08] MEDS ORDERED: SODIUM CHLORIDE 0.9% 500 ML IV SCH (14:00)
--- NOTE | 2019-09-08 14:47 | XRay Report ---
XR chest 1V portable CLINICAL HISTORY: weakness COMPARISON STUDY: 08/29/2019 FINDINGS: There are postsurgical changes of midline sternotomy. Linear basilar opacities are felt to represent subsegmental atelectasis. There is no failure. There is no lobar consolidation. There are n o significant pleural effusions.[ IMPRESSION: Minor basilar atelectasis. Otherwise no acute findings. Electronically signed by: Fortunato Waller M.D. 09/08/2019 2:46 PM
--- NOTE | 2019-09-08 14:48 | XRay Report ---
KUB HISTORY: Acute constipation constipation COMPARISON: Chest radiograph of same day, CT abdomen and pelvis 09/06/2019 FINDINGS: There multiple air-filled loops of both large and small bowel noted within the abdomen and pelvis with mild gaseous distention of the colon. No significant fecal impaction to suggest constipat ion. Prior median sternotomy. There is no organomegaly. No renal calculi. No ureteral calculi. No pn eumoperitoneum or pneumatosis. Degenerative changes of the spine, pelvis and hips. No fracture. IMPRESSION: 1. No evidence of significant constipation. 2. Mild gaseous distention of the colon. 3. Nonobstructive bowel gas pattern without evidence of pneumoperitoneum. Electronically signed by: Aureliano Lopez M.D. 09/08/2019 2:47 PM
[2019-09-08 14:55] LABS: INR 1.1 (0.9-1.1); Partial Thromboplastin Ratio 1.1; Partial Thromboplastin Time 30.2 Seconds (21.0-31.0); Prothrombin Time 11.2 Seconds (9.0-12.0)
--- NOTE | 2019-09-08 14:57 | CT Scan Report ---
LUMBAR SPINE CT WITHOUT CONTRAST CLINICAL HISTORY: fall, pain COMPARISON STUDY: Lumbar spine MRI November 18, 2016. TECHNIQUE: Axial images of the lumbar spine were obtained without IV contrast. Sagittal and coronal r econstructions were viewed. Automated exposure control was utilized for the study. A dose lowering t echnique was utilized adhering to the principles of ALARA. FINDINGS: For purposes of numbering on this exam, the L5-S1 disc space is assigned to axial image 331 of 387. Vertebral body heights are maintained. Note is made of a left L5 pars defect. There is no re trolisthesis. No acute lumbar spine fracture is noted. A Schmorl's node along the inferior endplate o f L3 is noted. No suspicious osseous lesion is identified. Paravertebral soft tissues are unremarkabl e. Central canal and neural foramen are suboptimally assessed given CT. There is moderate disc space narrowing at L3-L4 and L4-L5. There is severe facet arthrosis. There is no evidence for severe centra l canal stenosis. Suspected mild multilevel central canal stenosis is noted with moderate multilevel neural foraminal stenosis. IMPRESSION: 1. No acute lumbar spine fracture or subluxation. 2. Moderate multilevel degenerative disc disease and facet arthrosis within the lumbar spine. No mark anthony re central canal stenosis. Suspected mild multilevel central canal and moderate neural foraminal sten osis. 3. Left L5 pars defect. No anterolisthesis. Electronically signed by: Dagoberto Madrid M.D. 09/08/2019 2:55 PM
[2019-09-08 15:01] LABS: BUN Creatinine Ratio 12.6 (10-20); Calcium 9.4 mg/dl (8.5-10.1); Creatinine Clr Calc Pharmacy 59.1 ml/min; Est GFR (African American) 67.8; Est GFR (Non-African American) 58.5; Magnesium 2.2 mg/dl (1.8-2.4); Potassium 3.7 mmol/L (3.5-5.1)
[2019-09-08 15:23] LABS: Hematocrit (blood only) 43.8 % (42-52); Hemoglobin 15.7 g/dL (14.0-18.0); Mean Corpuscular Hemoglobin 33.1 pg (25-34); Mean Corpuscular Hgb Conc 35.8 g/dL (32-36); Mean Corpuscular Volume 92.2 fL (80-100); Mean Platelet Volume 9.8 fL (7.4-10.4); Platelet Count 56 K/uL (130-400); RDW Coefficient of Variation 12.6 % (11.5-14.5); RDW Standard Deviation 42.7 fL (36.4-46.3); Red Blood Count 4.75 M/uL (4.7-6.1); White Blood Count 2.96 K/uL (4.8-10.8)
[2019-09-08 15:24] LABS: Basophils # (auto) 0.01 K/uL (0-0.2); Basophils % (auto) 0.3 %; Immature Granulocytes # (auto) 0.02 K/uL (0.00-0.02); Immature Granulocytes % (auto) 0.7 %; Lymphocytes # (auto) 0.34 K/uL (1.2-3.4); Lymphocytes % (auto) 11.5 %; Monocytes # (auto) 0.09 K/uL (0.11-0.59); Neutrophils % (auto) 84.5 %; Platelet Estimate Decreased (Normal)
[2019-09-08] MEDS ORDERED: ONDANSETRON INJ 2 MG/ML 2 ML VIAL IV STA (15:31)
[2019-09-08] MEDS ORDERED: DOXYCYCLINE HYCLATE 100 MG CAP PO STA (15:33)
[2019-09-08] MEDS ORDERED: cefTRIAXone SODIUM 1,000 MG/50 ML BAG IV STA (15:33)
[2019-09-08] MEDS: fentaNYL citrate 100 MCG/2 ML VIAL IV PRN ×2 (15:41→18:44)
[2019-09-08 15:45] LABS: Appearance Urine Clear (Clear); Bacteria Urine Automated Negative (Negative); Bilirubin Urine Negative (Negative); Blood Urine 3+ (Negative); Color Urine Dark Yellow; Glucose Urine UA Negative (Negative); Ketones Urine Negative (Negative); Leukocyte Esterase Urine Negative (Negative); Nitrite Urine Negative (Negative); Protein Urine 2+ (Negative); Specific Gravity Urine 1.013 (1.000-1.030); Urobilinogen Urine Negative (Negative)
[2019-09-08 15:49] LABS: Lyme Ab IgG w/WB Rflx Negative (Negative); Lyme Ab IgM w/WB Rflx Negative (Negative)
[2019-09-08 16:07] LABS: Albumin Globulin Ratio 0.9 (0.9-2); Bilirubin,Total 1.2 mg/dl (0.2-1); Globulin 4.3 gm/dl (2.5-4.0); Thyroid Stimulating Hormone 1.72 uIu/ml (0.300-4.500); Total Protein 8.3 gm/dl (6.4-8.2); Troponin I 0.075 ng/ml (0-0.045)
--- NOTE | 2019-09-08 16:47 | Emergency Department Note ---
Entered by Mayelin Heart acting as a scribe for Edwin Pulido DO History of Present Illness General Chief complaint: Illness Stated complaint: FALL, BACK PAIN Source: patient History of Present Illness Provider complaint: Back Pain Onset (ago): day(s) 2 Location: back Radiation: non-radiation Maximum Pain Intensity: 4 Relieved By: + none Exacerbated By: + movement Associated symptoms: + denies other symptoms (Hematuria ) and + nausea/vomiting; no chest pain and no shortness of breath The patient is a 84 year old male who presents to the Emergency Room with complaints of back pain from a fall that occurred 2 days ago and reoccurred today. The patient states the pain does not radiate anywhere else on his body and is exacerbated by movement but is not relieved by anything specific. The patient reports experiencing nausea/vomiting but denies any chest pain, hematuria, or shortness of breath. The patient mentioned that he was at the ED on Friday for back problems that began when he noticed that he was constipated. The patient denies any history of strokes and does not have Parkinson's disease but does have noticeable tremors/ Home Medications Home Medications Medication Instructions Recorded Confirmed Type omega-3 acid ethyl esters 1 gram 1 cap PO DAILY cap 04/20/19 09/08/19 History capsule aspirin 81 mg chewable tablet 81 mg PO DAILY tab 05/21/19 09/08/19 History borage (borago officinalis) 1,000 0 mg PO DAILY cap 05/21/19 09/08/19 History mg capsule flaxseed oil 1,000 mg capsule 1,000 mg PO DAILY cap 05/21/19 09/08/19 History cyclobenzaprine 5 mg PO TID PRN #30 tab 09/06/19 09/08/19 Rx metoprolol tartrate 25 mg PO BID 09/06/19 09/08/19 History ondansetron 4 mg PO Q8H PRN #30 tab 09/06/19 09/08/19 Rx carbidopa-levodopa 1 tab PO UNKNOWN 09/08/19 09/08/19 History Allergies Allergy/AdvReac Type Severity Reaction Status Date / Time iodine Allergy Unknown Unknown Verified 09/08/19 14:53 atorvastatin Allergy Verified 09/08/19 14:53 Iodinated Contrast Media Allergy Unknown Verified 09/08/19 14:53 [Iodinated Contrast- Oral and IV Dye] rosuvastatin Allergy Verified 09/08/19 14:53 Ceekpuf-Ioy-Mju Reductase Allergy Unknown Verified 09/08/19 14:53 Inhibitor Contrast Media Ready-Box MISC Allergy Unknown Uncoded 09/08/19 14:53 Past Med/Surg History Family History Father Myocardial infarction Alcohol abuse Sister Cancer Breast cancer Social History Preferred Language: Wolof Communication Ability: Effective Scientific Photographer Required: No Beliefs That Will Affect Care: None marital status: Current Living Situation: Spouse Other Information That Helps Us Care for You: No Feels Safe at Home: Yes Safety Concerns: Feels Safe At This Time Smoking Status: Never smoker Hx Alcohol Use: No Hx Substance Use: No Review of Systems See HPI for pertinent positives & negatives. and A total of 10 systems reviewed and were otherwise negative Physical Exam Vital Signs Vital Signs - 24 hr 09/08/19 12:45 09/08/19 12:59 09/08/19 13:00 Temperature 37.4 C Temperature Source Oral Sepsis Recent Fever Within 48 Hours No Sepsis Action Taken by Nursing No Action Required Pulse Rate - Lying Pulse Rate - Sitting Pulse Rate - Standing Pulse Rate 91 H 91 H 83 Pulse Rate [Apical] Pulse Rate from SpO2 Sensor Pulse Rhythm Regular Respiratory Rate 20 16 23 Respiratory Effort / Characteristics Non-Labored Spontaneous Non-Labored Spontaneous Respiratory Depth Normal Normal Respiratory Pattern Regular Regular Blood Pressure - Lying Blood Pressure - Sitting Blood Pressure- Standing Blood Pressure 132/75 134/77 Blood Pressure [Right Arm] Blood Pressure Mean 94 96 Blood Pressure Mean [Right Arm] Pulse Oximetry 94 95 Oxygen Delivery Method Room Air Room Air 09/08/19 13:03 09/08/19 13:15 09/08/19 13:30 Temperature Temperature Source Sepsis Recent Fever Within 48 Hours Sepsis Action Taken by Nursing Pulse Rate - Lying Pulse Rate - Sitting Pulse Rate - Standing Pulse Rate 85 87 86 Pulse Rate [Apical] Pulse Rate from SpO2 Sensor 82 87 85 Pulse Rhythm Respiratory Rate 24 23 22 Respiratory Effort / Characteristics Respiratory Depth Respiratory Pattern Blood Pressure - Lying Blood Pressure - Sitting Blood Pressure- Standing Blood Pressure 155/73 H Blood Pressure [Right Arm] Blood Pressure Mean 100 Blood Pressure Mean [Right Arm] Pulse Oximetry 95 95 96 Oxygen Delivery Method 09/08/19 13:31 09/08/19 13:33 09/08/19 13:45 Temperature Temperature Source Sepsis Recent Fever Within 48 Hours Sepsis Action Taken by Nursing Pulse Rate - Lying Pulse Rate - Sitting Pulse Rate - Standing Pulse Rate 86 91 H Pulse Rate [Apical] 88 Pulse Rate from SpO2 Sensor 86 87 Pulse Rhythm Respiratory Rate 21 16 16 Respiratory Effort / Characteristics Respiratory Depth Respiratory Pattern Blood Pressure - Lying Blood Pressure - Sitting Blood Pressure- Standing Blood Pressure Blood Pressure [Right Arm] 155/73 H Blood Pressure Mean Blood Pressure Mean [Right Arm] 100 Pulse Oximetry 95 97 95 Oxygen Delivery Method Room Air 09/08/19 14:00 09/08/19 14:01 09/08/19 14:07 Temperature Temperature Source Sepsis Recent Fever Within 48 Hours Sepsis Action Taken by Nursing Pulse Rate - Lying Pulse Rate - Sitting Pulse Rate - Standing Pulse Rate 90 90 90 Pulse Rate [Apical] Pulse Rate from SpO2 Sensor 89 90 90 Pulse Rhythm Respiratory Rate 22 15 20 Respiratory Effort / Characteristics Respiratory Depth Respiratory Pattern Blood Pressure - Lying Blood Pressure - Sitting Blood Pressure- Standing Blood Pressure 158/82 H 169/87 H Blood Pressure [Right Arm] Blood Pressure Mean 107 114 Blood Pressure Mean [Right Arm] Pulse Oximetry 97 98 98 Oxygen Delivery Method 09/08/19 14:09 09/08/19 14:10 09/08/19 14:12 Temperature Temperature Source Sepsis Recent Fever Within 48 Hours Sepsis Action Taken by Nursing Pulse Rate - Lying 90 Pulse Rate - Sitting 93 H Pulse Rate - Standing 97 H Pulse Rate 93 H 101 H Pulse Rate [Apical] Pulse Rate from SpO2 Sensor 91 H 93 H Pulse Rhythm Respiratory Rate 24 21 Respiratory Effort / Characteristics Respiratory Depth Respiratory Pattern Blood Pressure - Lying 169/87 H Blood Pressure - Sitting 118/101 H Blood Pressure- Standing 150/89 H Blood Pressure 118/101 H 150/89 H Blood Pressure [Right Arm] Blood Pressure Mean 106 109 Blood Pressure Mean [Right Arm] Pulse Oximetry 98 Oxygen Delivery Method 09/08/19 14:15 09/08/19 15:28 09/08/19 15:30 Temperature Temperature Source Sepsis Recent Fever Within 48 Hours Sepsis Action Taken by Nursing Pulse Rate - Lying Pulse Rate - Sitting Pulse Rate - Standing Pulse Rate 90 94 H 91 H Pulse Rate [Apical] Pulse Rate from SpO2 Sensor 90 299 H 300 H Pulse Rhythm Respiratory Rate 31 H 19 34 H Respiratory Effort / Characteristics Respiratory Depth Respiratory Pattern Blood Pressure - Lying Blood Pressure - Sitting Blood Pressure- Standing Blood Pressure 166/97 H 172/90 H Blood Pressure [Right Arm] Blood Pressure Mean 120 117 Blood Pressure Mean [Right Arm] Pulse Oximetry 96 90 90 Oxygen Delivery Method 09/08/19 16:00 09/08/19 16:30 Temperature Temperature Source Sepsis Recent Fever Within 48 Hours Sepsis Action Taken by Nursing Pulse Rate - Lying Pulse Rate - Sitting Pulse Rate - Standing Pulse Rate 101 H 99 H Pulse Rate [Apical] Pulse Rate from SpO2 Sensor 223 H 99 H Pulse Rhythm Respiratory Rate 31 H 34 H Respiratory Effort / Characteristics Respiratory Depth Respiratory Pattern Blood Pressure - Lying Blood Pressure - Sitting Blood Pressure- Standing Blood Pressure 164/86 H 156/84 H Blood Pressure [Right Arm] Blood Pressure Mean 112 108 Blood Pressure Mean [Right Arm] Pulse Oximetry 76 L 100 Oxygen Delivery Method Room Air GENERAL: The patient is awake and responds to verbal commands. He appears to be somewhat uncomfortable. EYES: The conjunctivae are clear. The pupils are round and reactive. EARS, NOSE, MOUTH AND THROAT: The nose is without any evidence of any deformity. Mucous membranes are moist tongue is midline NECK: The neck is nontender and supple. RESPIRATORY: Normal respiratory effort is noted there is no evidence of wheezing rhonchi or rales CARDIOVASCULAR: Regular rate and rhythm noted there no murmurs rubs or gallops normal S1 normal S2 GASTROINTESTINAL: The abdomen is soft. Bowel sounds are present in all quadrants. Abdomen is nontender BACK: Lower lumbar spine tenderness was noted to palpation. There is no step- off. MUSCULOSKELETAL/EXTREMITIES: There is no evidence of gross deformity full range of motion is noted in the hips and shoulders SKIN: There is no obvious evidence of any rash. Pedal edema was noted bilaterally. NEUROLOGIC: Patient is oriented to person place and situation. Strength was symmetric but diminished in both lower extremities. Patellar tendon reflexes were 1+ bilaterally. Course 1350: Past medical records reviewed. The patient was evaluated in room C10. A complete history and physical exam was performed. 1654: I spoke with Dr. Hudson- Hospitalist about the patient's case and he charlie l accept the patient for further evaluation. Administered Medications Acetaminophen (Tylenol) 1,000 mg PO Q8H PRN PRN Reason: Pain or Fever Stop: 10/08/19 18:23 Last Admin: 09/08/19 18:44 Dose: 1,000 mg Documented by: [id number] Fentanyl Citrate (Fentanyl Citrate) 50 mcg IV Q15M PRN PRN Reason: Pain Stop: 09/22/19 15:30 Last Admin: 09/08/19 18:44 Dose: 50 mcg Documented by: [id number] Admin: 09/08/19 15:41 Dose: 50 mcg Documented by: [id number] Discontinued Medications Doxycycline Hyclate (Vibramycin) 100 mg PO NOW STA Stop: 09/08/19 15:34 Last Admin: 09/08/19 15:42 Dose: 100 mg Documented by: [id number] Sodium Chloride (Nss) 500 mls @ 999 mls/hr IV .Q31M JOSE J Stop: 09/08/19 14:30 Last Infusion: 09/08/19 15:10 Dose: 0 mls/hr Documented by: [id number] Admin: 09/08/19 14:35 Dose: 999 mls/hr Documented by: [id number] Ceftriaxone Sodium (Rocephin) 1,000 mg in 50 mls @ 100 mls/hr IV NOW STA Stop: 09/08/19 16:02 Last Infusion: 09/08/19 17:04 Dose: 0 mls/hr Documented by: [id number] Admin: 09/08/19 15:42 Dose: 100 mls/hr Documented by: [id number] Ondansetron HCl (Zofran) 4 mg IV NOW STA Stop: 09/08/19 15:32 Last Admin: 09/08/19 15:42 Dose: 4 mg Documented by: [id number] Medical Decision Making Differential Diagnosis Differential Diagnosis includes but is not limited to dehydration, stroke, anemia, hypoglycemia, hyponatremia, hypernatremia, urinary tract infection, pneumonia, bronchitis, sepsis, gastroenteritis, additional abdominal pathology, metabolic abnormalities and infections. Medical Records Attestation: I reviewed the patient's medical records. Home Medications Current Medication List: was personally reviewed by me Laboratory Data Attestation: I reviewed the patient's lab results. Result diagrams: 09/08/19 14:27 09/08/19 14:27 Lab Results 09/08/19 09/08/19 09/08/19 Range/Units 14:27 14:27 14:27 WBC 2.96 L (4.8-10.8) K/uL RBC 4.75 (4.7-6.1) M/uL Hgb 15.7 (14.0-18.0) g/dL Hct 43.8 (42-52) % MCV 92.2 (80-100) fL MCH 33.1 (25-34) pg MCHC 35.8 (32-36) g/dL RDW Std Deviation 42.7 (36.4-46.3) fL RDW Coeff of Clau 12.6 (11.5-14.5) % Plt Count 56 L (130-400) K/uL MPV 9.8 (7.4-10.4) fL Immature Gran % (Auto) 0.7 % Neut % (Auto) 84.5 % Lymph % (Auto) 11.5 % Sharkey % (Auto) 3.0 % Eos % (Auto) 0.0 % Baso % (Auto) 0.3 % Immature Gran # (Auto) 0.02 (0.00-0.02) K/uL Neut # (Auto) 2.50 (1.4-6.5) K/uL Lymph # (Auto) 0.34 L (1.2-3.4) K/uL Sharkey # (Auto) 0.09 L (0.11-0.59) K/uL Eos # (Auto) 0.00 (0-0.5) K/uL Baso # (Auto) 0.01 (0-0.2) K/uL Absolute Nucleated RBC 0.00 (0-0) K/uL Nucleated RBC % (auto) 0.0 % Platelet Estimate Decreased L (Normal) Peripher Smr Path Cons PT 11.2 (9.0-12.0) Seconds INR 1.1 (0.9-1.1) APTT 30.2 (21.0-31.0) Seconds PTT Ratio 1.1 Sodium 131 L (136-145) mmol/L Potassium 3.7 (3.5-5.1) mmol/L Chloride 96 L (98-107) mmol/L Carbon Dioxide 27 (21-32) mmol/L Anion Gap 8.0 (3-11) BUN 14 (7-18) mg/dl Creatinine 1.15 (0.6-1.4) mg/dl Est Cr Clr Drug Dosing 59.1 ml/min Est GFR ( Amer) 67.8 Est GFR (Non-Af Amer) 58.5 BUN/Creatinine Ratio 12.6 (10-20) Glucose 109 H (70-99) mg/dl Calcium 9.4 (8.5-10.1) mg/dl Magnesium 2.2 (1.8-2.4) mg/dl Total Bilirubin 1.2 H (0.2-1) mg/dl AST 305 H (15-37) U/L ALT 107 H (12-78) U/L Alkaline Phosphatase 95 (45-117) U/L Total Creatine Kinase 10996 H (39-308) U/L Troponin I 0.075 H* (0-0.045) ng/ml Total Protein 8.3 H (6.4-8.2) gm/dl Albumin 4.0 (3.4-5.0) gm/dl Globulin 4.3 H (2.5-4.0) gm/dl Albumin/Globulin Ratio 0.9 (0.9-2) TSH 1.720 (0.300-4.500) uIu/ml Urine Color Urine Appearance (Clear) Urine pH (4.5-7.5) Ur Specific [place] (1.000-1.030) Urine Protein (Negative) Urine Glucose (UA) (Negative) Urine Ketones (Negative) Urine Blood (Negative) Urine Nitrite (Negative) Urine Bilirubin (Negative) Urine Urobilinogen (Negative) Ur Leukocyte Esterase (Negative) Urine WBC (Auto) (0-5) /hpf Urine RBC (Auto) (0-4) /hpf U Hyaline Cast (Auto) (0-5) /lpf U Epithel Cells (Auto) (0-5) /lpf Urine Bacteria (Auto) (Negative) Anaplasma Smear See Comment A Lyme Disease IgG Ab (Negative) Lyme Disease IgM Ab (Negative) 09/08/19 09/08/19 Range/Units 14:27 15:20 WBC (4.8-10.8) K/uL RBC (4.7-6.1) M/uL Hgb (14.0-18.0) g/dL Hct (42-52) % MCV (80-100) fL MCH (25-34) pg MCHC (32-36) g/dL RDW Std Deviation (36.4-46.3) fL RDW Coeff of Clau (11.5-14.5) % Plt Count (130-400) K/uL MPV (7.4-10.4) fL Immature Gran % (Auto) % Neut % (Auto) % Lymph % (Auto) % Sharkey % (Auto) % Eos % (Auto) % Baso % (Auto) % Immature Gran # (Auto) (0.00-0.02) K/uL Neut # (Auto) (1.4-6.5) K/uL Lymph # (Auto) (1.2-3.4) K/uL Sharkey # (Auto) (0.11-0.59) K/uL Eos # (Auto) (0-0.5) K/uL Baso # (Auto) (0-0.2) K/uL Absolute Nucleated RBC (0-0) K/uL Nucleated RBC % (auto) % Platelet Estimate (Normal) Peripher Smr Path Cons PT (9.0-12.0) Seconds INR (0.9-1.1) APTT (21.0-31.0) Seconds PTT Ratio Sodium (136-145) mmol/L Potassium (3.5-5.1) mmol/L Chloride (98-107) mmol/L Carbon Dioxide (21-32) mmol/L Anion Gap (3-11) BUN (7-18) mg/dl Creatinine (0.6-1.4) mg/dl Est Cr Clr Drug Dosing ml/min Est GFR ( Amer) Est GFR (Non-Af Amer) BUN/Creatinine Ratio (10-20) Glucose (70-99) mg/dl Calcium (8.5-10.1) mg/dl Magnesium (1.8-2.4) mg/dl Total Bilirubin (0.2-1) mg/dl AST (15-37) U/L ALT (12-78) U/L Alkaline Phosphatase (45-117) U/L Total Creatine Kinase (39-308) U/L Troponin I (0-0.045) ng/ml Total Protein (6.4-8.2) gm/dl Albumin (3.4-5.0) gm/dl Globulin (2.5-4.0) gm/dl Albumin/Globulin Ratio (0.9-2) TSH (0.300-4.500) uIu/ml Urine Color Dark Yellow Urine Appearance Clear (Clear) Urine pH 6.0 (4.5-7.5) Ur Specific [place] 1.013 (1.000-1.030) Urine Protein 2+ H (Negative) Urine Glucose (UA) Negative (Negative) Urine Ketones Negative (Negative) Urine Blood 3+ H (Negative) Urine Nitrite Negative (Negative) Urine Bilirubin Negative (Negative) Urine Urobilinogen Negative (Negative) Ur Leukocyte Esterase Negative (Negative) Urine WBC (Auto) 1-5 (0-5) /hpf Urine RBC (Auto) 10-30 H (0-4) /hpf U Hyaline Cast (Auto) 1-5 (0-5) /lpf U Epithel Cells (Auto) 10-20 H (0-5) /lpf Urine Bacteria (Auto) Negative (Negative) Anaplasma Smear Lyme Disease IgG Ab Negative (Negative) Lyme Disease IgM Ab Negative (Negative) Imaging Data Radiologist's Impression: Radiology results as stated below per my review and the radiologist's interpretation: KUB HISTORY: Acute constipation constipation COMPARISON: Chest radiograph of same day, CT abdomen and pelvis 09/06/2019 FINDINGS: There multiple air-filled loops of both large and small bowel noted within the abdomen and pelvis with mild gaseous distention of the colon. No significant fecal impaction to suggest constipation. Prior median sternotomy. There is no organomegaly. No renal calculi. No ureteral calculi. No pneumoperitoneum or pneumatosis. Degenerative changes of the spine, pelvis and hips. No fracture. IMPRESSION: 1. No evidence of significant constipation. 2. Mild gaseous distention of the colon. 3. Nonobstructive bowel gas pattern without evidence of pneumoperitoneum. Electronically signed by: Aureliano Lopez M.D. 09/08/2019 2:47 PM XR chest 1V portable CLINICAL HISTORY: weakness COMPARISON STUDY: 08/29/2019 FINDINGS: There are postsurgical changes of midline sternotomy. Linear basilar opacities are felt to represent subsegmental atelectasis. There is no failure. There is no lobar consolidation. There are no significant pleural effusions.[ IMPRESSION: Minor basilar atelectasis. Otherwise no acute findings. Electronically signed by: Fortunato Waller M.D. 09/08/2019 2:[address] WITHOUT CONTRAST CLINICAL HISTORY: fall, pain COMPARISON STUDY: Lumbar spine MRI November 18, 2016. TECHNIQUE: Axial images of the lumbar spine were obtained without IV contrast. Sagittal and coronal reconstructions were viewed. Automated exposure control was utilized for the study. A dose lowering technique was utilized adhering to the principles of ALARA. FINDINGS: For purposes of numbering on this exam, the L5-S1 disc space is assig tamara to axial image 331 of 387. Vertebral body heights are maintained. Note is made of a left L5 pars defect. There is no retrolisthesis. No acute lumbar spine fracture is noted. A Schmorl's node along the inferior endplate of L3 is noted. No suspicious osseous lesion is identified. Paravertebral soft tissues are unremarkable. Central canal and neural foramen are suboptimally assessed given CT. There is moderate disc space narrowing at L3-L4 and L4-L5. There is severe facet arthrosis. There is no evidence for severe central canal stenosis. Suspected mild multilevel central canal stenosis is noted with moderate multilevel neural foraminal stenosis. IMPRESSION: 1. No acute lumbar spine fracture or subluxation. 2. Moderate multilevel degenerative disc disease and facet arthrosis within the lumbar spine. No severe central canal stenosis. Suspected mild multilevel central canal and moderate neural foraminal stenosis. 3. Left L5 pars defect. No anterolisthesis. Electronically signed by: Dagoberto Madrid M.D. 09/08/2019 2:55 PM ECG Data Attestation: I personally reviewed and interpreted this ECG as follows: Indication: back/shoulder pain Rate (beats per minute): 89 Rhythm: normal sinus ECG ST segments: Normal ST segments ECG Findings: Other (Low voltage throughout) Comparison ECG Date: from (09/06/2019) Change: no significant change Blood Pressure Blood Pressure Findings: Elevated blood pressure Blood Pressure Disposition: further management by hospitalist MDM Narrative The patient is an 84-year-old male who presented to the emergency department with multiple complaints including back pain and frequent falls. The patient was seen in our facility recently with similar complaints. The patient did have a recent tick bite. Patient was treated with pain medication in the emergency department. He was also treated with IV antibiotic's. The patient was found to have signs of anaplasmosis on peripheral smear but also had other signs of possible other tickborne illnesses. He was treated with Rocephin and doxycycline. He was reevaluated multiple times. I discussed the patient's laboratory and radiographic studies with him. I also discussed his case with the on-call [facility] hospitalist group. They have agreed to evaluate the patient in the emergency department for further management disposition. Impression & Plan Weakness, Anaplasmosis, Thrombocytopenia, Chronic lower back pain, Hematuria, Rhabdomyolysis, Abnormal LFTs Discharge Plan Visit Data Chief Complaint: Illness Stated Complaint: FALL, BACK PAIN ED Provider: Edwin Pulido Discharge Problem: Weakness, Anaplasmosis, Thrombocytopenia, Chronic lower back pain, Hematuria, Rhabdomyolysis, Abnormal LFTs Patient Disposition: Still a Patient Discharge Instructions Interventions: ED Discharge Assessment Last Done: 09/08/19 19:29 Discharge Problem: Chronic lower back pain Qualifiers: Back pain laterality: unspecified Sciatica presence: unspecified whether sciatica present Qualified Code(s): M54.5 - Low back pain Hematuria Qualifiers: Hematuria type: unspecified type Qualified Code(s): R31.9 - Hematuria, unspecified Rhabdomyolysis Qualifiers: Rhabdomyolysis type: non-traumatic Qualified Code(s): M62.82 - Rhabdomyolysis The scribe's documentation has been prepared under my direction and personally reviewed by me in its entirety. I confirm that the note above accurately reflects all work, treatment, procedures, and medical decision making performed by me.
--- NOTE | 2019-09-08 16:57 | History & Physical Report ---
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 No severe central canal stenosis. Suspected mild multilevel central canal and moderate neural foraminal stenosis. PT/OT (5) Obstructive sleep apnea: May use own cpap (6) Parkinsonism: Continue home carbidopa-levodopa (7) Elevated troponin: Trop 0.075, will repeat in 6 hours Denies chest pain or sob, no acute changes on EKG (8) Rhabdomyolysis: CK 15,496 - patient did have a number of falls over the last couple of days will repeat am Gentle fluids given history of CAD - NSS @ 80 mls/hr (9) Dilated pupil: left pupil is dilated and fixed but otherwise no focal findings. Family reports they have never noticed this before, I don't see it documented in his last admission or pcp visit. CT head without bleeding MR brain to rule out CVA (10) DVT prophylaxis: SCDs, TEDS, no chemoprophylaxis for thrombocytopenia History of Present Illness Mr. Mcgraw presents with his and daughter for increased weakness and falls. He presented to the emergency department on Friday for the same complaint and has been getting worse since that time. He denies any fevers but does feel he has aches and chills. He is rather drowsy while we talk but oriented and able to answer questions. His family reports he has had multiple falls but has not hit his head. He denies headache or neck stiffness but has been dizzy. His lumbar spine is very painful and has been since Friday but does not extend into his legs. 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, no alcohol Family hx: non contributory Primary Care Provider: Mingo Sanches MD Allergies Allergy/AdvReac Type Severity Reaction Status Date / Time iodine Allergy Unknown Unknown Verified 09/08/19 14:53 atorvastatin Allergy Verified 09/08/19 14:53 Iodinated Contrast Media Allergy Unknown Verified 09/08/19 14:53 [Iodinated Contrast- Oral and IV Dye] rosuvastatin Allergy Verified 09/08/19 14:53 Tzhzocz-Zrq-Zqj Reductase Allergy Unknown Verified 09/08/19 14:53 Inhibitor Contrast Media Ready-Box MISC Allergy Unknown Uncoded 09/08/19 14:53 Home Medications Home Medications Medication Instructions Recorded Confirmed Type omega-3 acid ethyl esters 1 gram 1 cap PO DAILY cap 04/20/19 09/08/19 History capsule aspirin 81 mg chewable tablet 81 mg PO DAILY tab 05/21/19 09/08/19 History borage (borago officinalis) 1,000 0 mg PO DAILY cap 05/21/19 09/08/19 History mg capsule flaxseed oil 1,000 mg capsule 1,000 mg PO DAILY cap 05/21/19 09/08/19 History cyclobenzaprine 5 mg PO TID PRN #30 tab 09/06/19 09/08/19 Rx metoprolol tartrate 25 mg PO BID 09/06/19 09/08/19 History ondansetron 4 mg PO Q8H PRN #30 tab 09/06/19 09/08/19 Rx carbidopa-levodopa 1 tab PO UNKNOWN 09/08/19 09/08/19 History Past Med/Surg History Family History Father Myocardial infarction Alcohol abuse Sister Cancer Breast cancer Social History Preferred Language: Korean Communication Ability: Effective Beliefs That Will Affect Care: None marital status: Current Living Situation: Spouse Feels Safe at Home: Yes Smoking Status: Never smoker Hx Alcohol Use: No Hx Substance Use: No Review of Systems Review of Systems: All systems reviewed & are unremarkable except as noted in HPI & below Physical Exam Physical Exam: General: no distress Eyes: normal inspection, left pupil enlarged and non reactive Respiratory: chest non tender, clear to auscultation, normal breath sounds, no respiratory distress, no accessory muscle use Cardiac: regular rate and rhythm, no rub or gallop, no murmur, no edema, no jvd GI/: active bowel sounds, no abd pain or tenderness, soft, non distended Extremities: normal range of motion, normal strength, non tender Neuro/Psych: drowsy and oriented x 3, normal mood and affect, besides pupil finding, other hand umbrella tipper intact, no drift Skin: normal color, dry Results & Data Vital Signs (Past 12 Hours) Vital Signs Temp Pulse Pulse Resp BP BP Pulse Ox 09/08/19 16:30 99 H 34 H 156/84 H 100 09/08/19 16:00 101 H 31 H 164/86 H 76 L 09/08/19 15:30 91 H 34 H 172/90 H 90 09/08/19 15:28 94 H 19 166/97 H 90 09/08/19 14:15 90 31 H 96 09/08/19 14:10 101 H 21 150/89 H 09/08/19 14:09 93 H 24 118/101 H 98 09/08/19 14:07 90 20 169/87 H 98 09/08/19 14:01 90 15 98 09/08/19 14:00 90 22 158/82 H 97 09/08/19 13:45 91 H 16 95 09/08/19 13:33 88 16 155/73 H 97 09/08/19 13:31 86 21 95 09/08/19 13:30 86 22 155/73 H 96 09/08/19 13:15 87 23 95 09/08/19 13:03 85 24 95 09/08/19 13:00 83 23 134/77 09/08/19 12:59 91 H 16 95 09/08/19 12:45 37.4 C 91 H 20 132/75 94 PG Care Time/CCT Total # of Minutes Spent Total Time Spent with Patient: Total time spent is greater than 50% in coordination of care (as documented) at patient's floor/unit and/or counseling patient: (1) Coronary artery disease Associated angina: without angina Coronary Disease-Associated Artery/Lesion type: [place] artery [place] vs. transplanted heart: [place] heart Qualified Code(s): I25.10 - Atherosclerotic heart disease of [place] coronary artery without angina pectoris (2) Rhabdomyolysis Rhabdomyolysis type: non-traumatic Qualified Code(s): M62.82 - Rhabdomyolysis (3) Parkinsonism Parkinsonism type: Parkinson's disease Qualified Code(s): G20 - Parkinson's disease
--- NOTE | 2019-09-08 17:29 | CT Scan Report ---
CT head/brain wo con CT DOSE: 614.27 mGy.cm HISTORY: Mental status change rule out hemorrhage TECHNIQUE: Multiaxial CT images of the head were performed without the use of intravenous contrast. A dose lowering technique was utilized adhering to the principles of ALARA. Comparison: 09/06/2019 Findings: The paranasal sinuses and mastoid air cells are clear. The calvarium and skull base are int act. The ventricles and sulci are within normal limits. There is no mass, hematoma, midline shift, or acute infarct. Age-related atrophy and chronic small vessel change Impression: No acute intracranial abnormality. Chronic and age-related change. No change from the prior study. The above report was generated using voice recognition software. It may contain grammatical, syntax or spelling errors. Electronically signed by: Lucian Mcdowell M.D. 09/08/2019 5:28 PM
[2019-09-08] MEDS ORDERED: HYDROCODONE/APAP 2.5MG/108MG ELIX 5 ML UDP PO PRN (18:24)
[2019-09-08] MEDS: ACETAMINOPHEN 500 MG TAB PO PRN (18:44)
[2019-09-08] MEDS ORDERED: SODIUM CHLORIDE 0.9% 1000ML 1,000 ML IV SCH (20:57)
[2019-09-08] MEDS ORDERED: ONDANSETRON INJ 2 MG/ML 2 ML VIAL IV PRN (20:57)
[2019-09-08] MEDS ORDERED: POLYETHYLENE (MIRALAX) 17 GM PACK PO PRN (20:57)
[2019-09-08] MEDS ORDERED: DOXYCYCLINE HYCLATE 100 MG in DEXTROSE 5% 100 ML IV SCH (21:00)
[2019-09-08] MEDS ORDERED: HYDROCODONE/ACETAMOPHEN 5/325MG TAB PO PRN (21:01)
[2019-09-08] MEDS: METOPROLOL TARTRATE 25 MG TAB PO SCH (21:23)
--- NOTE | 2019-09-08 22:14 | Magnetic Resonance Report ---
MR brain wo con HISTORY: Mental status change rule out cva TECHNIQUE: Multiplanar multisequence MRI of the brain was performed without the use of contrast. COMPARISON STUDY: CT 09/08/2019 MRI 12/22/2018 FINDINGS: There are no areas of restricted diffusion to suggest acute infarction. The midline structu res are intact. The paranasal sinuses are clear. The mastoid air cells are clear. The ventricles and sulci are within normal limits for age. There is no mass, hematoma, midline shift. The major vascular flow-voids at the skull base are well maintained. Age-related components of cerebellar as well as ce rebral atrophy. Age-related chronic small vessel change of the periventricular and deep white matter regions. IMPRESSION: 1. No acute intracranial abnormality. 2. Age-related atrophy and components of chronic small vessel change. 3. No change from the prior exam. The above report was generated using voice recognition software. It may contain grammatical, syntax or spelling errors. Electronically signed by: Lucian Mcdowell M.D. 09/08/2019 10:12 PM
[2019-09-08] MEDS: SODIUM CHLORIDE 0.9% 1000ML 1,000 ML IV SCH (22:18)
[2019-09-08] MEDS: CARBIDOPA/LEVODOPA 25/100MG TAB PO SCH (22:18)
[2019-09-08] MEDS: DOXYCYCLINE HYCLATE 100 MG in DEXTROSE 5% 100 ML IV SCH (23:39)
[2019-09-09] MEDS: ACETAMINOPHEN 500 MG TAB PO PRN (02:32)
[2019-09-09 04:04] LABS: Hematocrit (blood only) 38.3 % (42-52); Hemoglobin 13.5 g/dL (14.0-18.0); Mean Corpuscular Hemoglobin 32.8 pg (25-34); Mean Corpuscular Hgb Conc 35.2 g/dL (32-36); RDW Coefficient of Variation 12.8 % (11.5-14.5); RDW Standard Deviation 43.4 fL (36.4-46.3); Red Blood Count 4.12 M/uL (4.7-6.1); White Blood Count 2.03 K/uL (4.8-10.8)
[2019-09-09 04:05] LABS: BUN Creatinine Ratio 12.6 (10-20); Bilirubin Direct 0.2 mg/dl (0-0.2); Calcium 8.4 mg/dl (8.5-10.1); Creatinine Clr Calc Pharmacy 57.1 ml/min; Est GFR (African American) 65.1; Est GFR (Non-African American) 56.2; Potassium 3.3 mmol/L (3.5-5.1)
[2019-09-09 04:07] LABS: Mean Platelet Volume 10.1 fL (7.4-10.4); Platelet Count 50 K/uL (130-400)
[2019-09-09 04:10] LABS: Basophils # (auto) 0.01 K/uL (0-0.2); Basophils % (auto) 0.5 %; Lymphocytes # (auto) 0.49 K/uL (1.2-3.4); Lymphocytes % (auto) 24.1 %; Monocytes # (auto) 0.13 K/uL (0.11-0.59); Monocytes % (auto) 6.4 %; RBC Morphology Unremarkable
[2019-09-09 04:29] LABS: Bilirubin,Total 0.7 mg/dl (0.2-1); Total Protein 6.6 gm/dl (6.4-8.2)
[2019-09-09 04:30] LABS: Troponin I 0.083 ng/ml (0-0.045)
[2019-09-09] MEDS ORDERED: POTASSIUM CHLORIDE 20 MEQ TABCR PO STA (08:05)
[2019-09-09] MEDS: CARBIDOPA/LEVODOPA 25/100MG TAB PO SCH ×4 (08:29→20:19)
[2019-09-09] MEDS: METOPROLOL TARTRATE 25 MG TAB PO SCH ×2 (08:29→20:20)
[2019-09-09] MEDS: DOXYCYCLINE HYCLATE 100 MG in DEXTROSE 5% 100 ML IV SCH (08:33)
--- NOTE | 2019-09-09 10:39 | Infectious Disease Consult ---
Date of Consultation September 09, 2019 Assessment & Plan (1) Anaplasmosis: 84-year-old male with anaplasmosis. Doxycycline appropriate therapy, can change to oral doxycycline and would give 7-day course. Expect full recovery. Monitor platelet count and white count along with liver enzymes over the next several days. Will follow while in hospital. History of Present Illness Reason for Consultation: Anaplasmosis Attending Physician: Shara Carvalho MD History of Present Illness 84-year-old male with history of hypertension, hyperlipidemia, aortic stenosis, obstructive sleep apnea, coronary artery disease, chronic inflammatory demyelinating neuropathy, who was in usual state of health until 2 days prior to admission when he was noted to have increasing weakness and fatigue, and suffered several falls. He did not have any fever, but noted chills and mild myalgias. He was brought to the hospital where he was found to have neutropenia and thrombocytopenia along with elevation of AST, and review of peripheral smear showed inclusions consistent with a diagnosis of anaplasmosis. He has been started on IV doxycycline and feels significantly better this morning. Has remained afebrile. Of note, patient remembers removing a tick from his leg several weeks ago. Allergies Allergy/AdvReac Type Severity Reaction Status Date / Time iodine Allergy Unknown Unknown Verified 09/08/19 14:53 atorvastatin Allergy Verified 09/08/19 14:53 Iodinated Contrast Media Allergy Unknown Verified 09/08/19 14:53 [Iodinated Contrast- Oral and IV Dye] rosuvastatin Allergy Verified 09/08/19 14:53 Blcndak-Ywf-Zdo Reductase Allergy Unknown Verified 09/08/19 14:53 Inhibitor Contrast Media Ready-Box MISC Allergy Unknown Uncoded 09/08/19 14:53 Home Medications Home Medications Medication Instructions Recorded Confirmed Type omega-3 acid ethyl esters 1 gram 1 cap PO DAILY cap 04/20/19 09/08/19 History capsule aspirin 81 mg chewable tablet 81 mg PO DAILY tab 05/21/19 09/08/19 History borage (borago officinalis) 1,000 0 mg PO DAILY cap 05/21/19 09/08/19 History mg capsule flaxseed oil 1,000 mg capsule 1,000 mg PO DAILY cap 05/21/19 09/08/19 History cyclobenzaprine 5 mg PO TID PRN #30 tab 09/06/19 09/08/19 Rx metoprolol tartrate 25 mg PO BID 09/06/19 09/08/19 History ondansetron 4 mg PO Q8H PRN #30 tab 09/06/19 09/08/19 Rx carbidopa-levodopa 1 tab PO UNKNOWN 09/08/19 09/08/19 History Patient History Medical History Mild aortic stenosis (Acute) Hypertension (Acute) Hyperlipidemia (Acute) History of basal cell carcinoma (Acute) Coronary artery disease (Acute) Arrhythmia (Acute) Surgical History History of hernia surgery x3 Hx of CABG x4 Hx of shoulder surgery right and left Family History Father Myocardial infarction Alcohol abuse Sister Cancer Breast cancer Social History Preferred Language: Slovenian Communication Ability: Effective 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 Photographer Required: No Beliefs That Will Affect Care: None marital status: Current Living Situation: Spouse Other Information That Helps Us Care for You: No Feels Safe at Home: Yes Safety Concerns: Feels Safe At This Time Smoking Status: Never smoker Hx Alcohol Use: No Hx Substance Use: No Review of Systems Review of Systems: All systems reviewed & are unremarkable except as noted in HPI & below Physical Exam Constitutional: WD/WN, vitals as above comfortable; no acute distress Eyes: PERRL, conjunctivae normal, anicteric sclerae ENMT: external ear and nose normal, oropharynx normal Neck: trachea midline, no thyromegaly neck nontender Respiratory: normal respiratory effort, lungs clear to auscultation normal percussion; does not use accessory muscles Cardiovascular: Rate/Rhythm: regular rate and regular rhythm Heart Sounds: normal S1 and normal S2; no gallop, no murmur and no cardiac rub Vessels: normal peripheral pulses; no JVD Gastrointestinal (Abdomen): normal bowel sounds, soft, nontender, no hepatosplenomegaly Musculoskeletal: no cyanosis or clubbing, extremities motor strength 5/5 Spine: thoracic spine normal to inspection and lumbar spine normal to inspection; no cervical spinal tenderness Skin: no rashes, warm and dry normal turgor; no lesions Neurologic: patellar DTR's 2+ bilat, sensation intact no focal motor deficits Psychiatric: A+Ox3, euthymic affect Orientation: cooperative Lymphatic: no cervical or axillary lymphadenopathy no inguinal lymphadenopathy Results & Data Vital Signs (Past 12 Hours) Vital Signs Temp Pulse Pulse Resp BP BP Pulse Ox 09/09/19 07:51 36.6 C 68 18 105/66 96 09/09/19 00:57 36.8 C 74 20 107/64 95 09/08/19 23:05 71 Laboratory Results Short CBC 09/08/19 09/09/19 Range/Units 14:27 02:12 WBC 2.96 L 2.03 L (4.8-10.8) K/uL Hgb 15.7 13.5 L (14.0-18.0) g/dL Hct 43.8 38.3 L (42-52) % Plt Count 56 L 50 L (130-400) K/uL BMP 09/08/19 09/09/19 14:27 02:12 Sodium 131 L 136 Potassium 3.7 3.3 L Chloride 96 L 101 Carbon Dioxide 27 29 BUN 14 15 Creatinine 1.15 1.19 Glucose 109 H 116 H Calcium 9.4 8.4 L Cardiac Enzymes 09/08/19 09/08/19 09/09/19 Range/Units 14:27 21:13 02:12 Total Creatine Kinase 86175 H 61907 H (39-308) U/L Troponin I 0.075 H* 0.130 H* 0.083 H* (0-0.045) ng/ml Liver Function 09/08/19 09/09/19 Range/Units 14:27 02:12 Total Bilirubin 1.2 H 0.7 D (0.2-1) mg/dl Direct Bilirubin 0.2 (0-0.2) mg/dl AST 305 H 295 H (15-37) U/L ALT 107 H 33 (12-78) U/L Alkaline Phosphatase 95 92 (45-117) U/L Albumin 4.0 3.0 L (3.4-5.0) gm/dl Urine 09/08/19 Range/Units 15:20 Urine Color Dark Yellow Urine Appearance Clear (Clear) Urine pH 6.0 (4.5-7.5) Ur Specific [place] 1.013 (1.000-1.030) Urine Protein 2+ H (Negative) Urine Glucose (UA) Negative (Negative) Diagnostic Findings cc: ~ MR brain wo con HISTORY: Mental status change rule out cva TECHNIQUE: Multiplanar multisequence MRI of the brain was performed without the use of contrast. COMPARISON STUDY: CT 09/08/2019 MRI 12/22/2018 FINDINGS: There are no areas of restricted diffusion to suggest acute infarction. The midline structures are intact. The paranasal sinuses are clear. The mastoid air cells are clear. The ventricles and sulci are within normal limits for age. There is no mass, hematoma, midline shift. The major vascular flow-voids at the skull base are well maintained. Age-related components of cerebellar as well as cerebral atrophy. Age-related chronic small vessel change of the periventricular and deep white matter regions. IMPRESSION: 1. No acute intracranial abnormality. 2. Age-related atrophy and components of chronic small vessel change. 3. No change from the prior exam. The above report was generated using voice recognition software. It may contain grammatical, syntax or spelling errors. PG Care Time/CCT Total # of Minutes Spent Total Time Spent with Patient: Total time spent is greater than 50% in coordination of care (as documented) at patient's floor/unit and/or counseling patient:
[2019-09-09] MEDS: SODIUM CHLORIDE 0.9% 1000ML 1,000 ML IV SCH ×2 (13:04→18:42)
[2019-09-09] MEDS ORDERED: METOPROLOL TARTRATE 25 MG TAB PO SCH (13:20)
[2019-09-09] MEDS ORDERED: CYCLOBENZAPRINE HCL 5 MG TAB PO PRN (13:20)
[2019-09-09] MEDS ORDERED: CARBIDOPA/LEVODOPA 25/100MG TAB PO SCH (13:20)
--- NOTE | 2019-09-09 14:32 | Hospitalist Progress Note ---
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 No severe central canal stenosis. Suspected mild multilevel central canal and moderate neural foraminal stenosis. PT/OT (5) Obstructive sleep apnea: May use own cpap (6) Parkinsonism: Continue home carbidopa-levodopa (7) Elevated troponin: Secondary to demand ischemia due to infection Trop peaked at 0.13 and trended down No chest pain or sob, no acute changes on EKG Will order echo, patient sees Dr. Chaves and will need to follow up Will resume ASA once platelets are rebounding (8) Rhabdomyolysis: CK peaked 15,496 and is trending down- patient did have a number of falls over the last couple of days. His daughter reports his CK runs high but I don't see past values in our system Gentle fluids given history of CAD - NSS @ 80 mls/hr (9) Dilated pupil: left pupil is dilated and fixed but otherwise no focal findings. Family reports they have never noticed this before, I din't see it documented in his last admission or pcp visit so sent patient for MRI and CT head given patient's presentation and also decreased platelets with history of fall placed him at higher risk for bleed. Both were negative for acute * follow up with ophthalmology after discharge. Patient sees Dr. Owens (10) DVT prophylaxis: SCDs, TEDS, no chemoprophylaxis for thrombocytopenia Supervising Physician Co-Signing Physician Notes I examined and seen patient with TESSIE Barboza and agree with assessment and plan. Subjective Mr. Mcgraw is feeling much better today than yesterday. He has no complaints. His daughter is bedside and I answered all of their questions ROS Constitutional: no chills, aches, sweats or fever Respiratory: no sob,cough, sputum, or wheezing Cardiac: no chest pain, palpitations, edema, orthopnea or lightheadedness GI: no abdominal pain, nausea, vomiting, diarrhea or constipation : no dysuria or hesitancy Extremities: no joint pain or weakness Skin: no rash All other systems reviewed and negative Physical Exam Physical Exam: General: no distress Eyes: normal inspection, left pupil larger than right Respiratory: chest non tender, clear to auscultation, normal breath sounds, no respiratory distress, no accessory muscle use Cardiac: regular rate and rhythm, no rub or gallop, no murmur, no edema, no jvd GI/: active bowel sounds, no abd pain or tenderness, soft, non distended Extremities: normal range of motion, normal strength, non tender Neuro/Psych: alert and oriented x 3, normal mood and affect Skin: normal color, dry Results & Data Vital Signs (Past 12 Hours) Vital Signs Temp Pulse Pulse Resp BP Pulse Ox 09/09/19 11:30 36.9 C 63 18 112/64 94 09/09/19 08:20 66 09/09/19 07:51 36.6 C 68 18 105/66 96 PG Care Time/CCT Total # of Minutes Spent Total Time Spent with Patient: Total time spent is greater than 50% in coordination of care (as documented) at patient's floor/unit and/or counseling p atient: (1) Coronary artery disease Associated angina: without angina Coronary Disease-Associated Artery/Lesion type: [place] artery [place] vs. transplanted heart: [place] heart Qualified Code(s): I25.10 - Atherosclerotic heart disease of [place] coronary artery without angina pectoris (2) Rhabdomyolysis Rhabdomyolysis type: non-traumatic Qualified Code(s): M62.82 - Rhabdomyolysis (3) Parkinsonism Parkinsonism type: Parkinson's disease Qualified Code(s): G20 - Parkinson's disease
[2019-09-09] MEDS ORDERED: ALUMINUM/MAGNESIUM SUSP 30 ML UDC PO PRN (17:43)
[2019-09-09] MEDS ORDERED: ALUMINUM/MAGNESIUM SUSP 72 ML, LIDOCAINE HCL VISCOUS 2% 24 ML, BARCODE IDENTIFIER 1 EA PO PRN (19:00)
[2019-09-09] MEDS: DOXYCYCLINE HYCLATE 100 MG CAP PO SCH (20:20)
[2019-09-09] MEDS ORDERED: HydrALAZINE HCL 20 MG/ML VIAL IV ONE (20:29)
[2019-09-09] MEDS ORDERED: ACETAMINOPHEN 325 MG TAB PO STA (20:59)
[2019-09-09] MEDS: HYDROCODONE/ACETAMOPHEN 5/325MG TAB PO PRN (22:48)
[2019-09-10] MEDS ORDERED: FAMOTIDINE 20 MG in SYRINGE 3 ML IV ONE (01:15)
[2019-09-10 06:41] LABS: Hematocrit (blood only) 41.1 % (42-52); Hemoglobin 14.9 g/dL (14.0-18.0); Mean Corpuscular Hgb Conc 36.3 g/dL (32-36); Mean Corpuscular Volume 90.9 fL (80-100); RDW Coefficient of Variation 12.7 % (11.5-14.5); RDW Standard Deviation 42.7 fL (36.4-46.3); Red Blood Count 4.52 M/uL (4.7-6.1); White Blood Count 7.25 K/uL (4.8-10.8)
--- NOTE | 2019-09-10 06:47 | XRay Report ---
XR KUB/Abdomen 1 view CLINICAL HISTORY: abdominal pain COMPARISON STUDY: 09/08/2019 FINDINGS: There is gas present within nondilated colonic and small bowel loops. There are no transiti on zones indicate bowel obstruction. Pelvic basin calcifications remain similar to the prior study an d likely represent phleboliths. IMPRESSION: No evidence of pathologic bowel dilatation. Electronically signed by: Fortunato Waller M.D. 09/10/2019 6:46 AM
[2019-09-10 06:51] LABS: Mean Platelet Volume 10.6 fL (7.4-10.4); Platelet Count 52 K/uL (130-400)
[2019-09-10 07:05] LABS: BUN Creatinine Ratio 13.5 (10-20); Calcium 8.4 mg/dl (8.5-10.1); Creatinine Clr Calc Pharmacy 80.3 ml/min; Est GFR (African American) 94.3; Est GFR (Non-African American) 81.4; Potassium 3.7 mmol/L (3.5-5.1)
[2019-09-10] MEDS: SODIUM CHLORIDE 0.9% 1000ML 1,000 ML IV SCH ×2 (07:26→20:29)
[2019-09-10 07:41] LABS: ANC (manual) 4.89 K/uL (1.4-6.5); Lymphocytes # (manual) 1.21 K/uL (1.2-3.4); Lymphocytes % (manual) 16.7 %; Monocytes # (manual) 0.25 K/uL (0.11-0.59); Monocytes % (manual) 3.5 %; Neutrophils # (manual) 4.89 K/uL (1.4-6.5); Neutrophils % (manual) 67.5 %; RBC Morphology Unremarkable; Reactive Lymphocytes # (manual) 0.89 K/uL; Reactive Lymphocytes % (manual) 12.3 %
[2019-09-10] MEDS: HYDROCODONE/ACETAMOPHEN 5/325MG TAB PO PRN (08:05)
[2019-09-10] MEDS: DOXYCYCLINE HYCLATE 100 MG CAP PO SCH ×2 (08:53→20:30)
[2019-09-10] MEDS: CARBIDOPA/LEVODOPA 25/100MG TAB PO SCH ×4 (08:54→20:30)
[2019-09-10] MEDS: METOPROLOL TARTRATE 25 MG TAB PO SCH ×2 (08:54→20:31)
[2019-09-10] MEDS: FAMOTIDINE 20 MG in SYRINGE 3 ML IV SCH ×2 (09:26→20:32)
[2019-09-10 11:09] LABS: Troponin I 0.045 ng/ml (0-0.045)
--- NOTE | 2019-09-10 11:28 | Ultrasound Report ---
US abdomen limited CLINICAL HISTORY: epigastric pain COMPARISON STUDY: 09/06/2019 FINDINGS: The pancreas was not visualized. No focal hepatic masses are visualized. The pancreas was essentially nonvisualized due to overlying bowel gas shadowing. The gallbladder was distended measuring 12.5 x 6.1 x 5.9 cm. There is evidence for echogenic bile/slu dge. No shadowing calculi are visualized. There is no wall thickening. The technologist reports a neg ative sonographic Gibbs sign. There is no ductal dilatation. The common bile duct measures 5 mm. There is no right-sided hydronephrosis IMPRESSION: 1. Nondiagnostic evaluation of pancreas 2. Distended gallbladder containing echogenic bile/sludge. No shadowing calculi identified 3. No evidence of ductal dilatation Electronically signed by: Fortunato Waller M.D. 09/10/2019 11:27 AM
--- NOTE | 2019-09-10 14:09 | Hospitalist Progress Note ---
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 Continue doxycycline 100 mg bid Lyme is negative (2) Thrombocytopenia: Platelets about the same as yesterday 52,000 Secondary to anaplasmosis repeat CBC am (3) Coronary artery disease: Hold ASA for thrombocytopenia, continue metoprolol (4) Abdominal pain: 09/10 - Right upper quadrant pain/epigastric pain Lipase, troponin wnl, no changes on EKG RUQ US with biliary sludge and gallbladder distention - will consult gen surg (5) Lumbar back pain: Pain control with hydrocodone/apap prn CT lumbar spine IMPRESSION: No acute lumbar spine fracture or subluxation, Moderate multilevel degenerative disc disease and facet arthrosis within the lumbar spine. No severe central canal stenosis. Suspected mild multilevel central canal and moderate neural foraminal stenosis. PT/OT (6) Obstructive sleep apnea: May use own cpap (7) Parkinsonism: Continue home carbidopa-levodopa (8) Elevated troponin: Secondary to demand ischemia due to infection Trop peaked at 0.13 and trended down Echo without WMA, normal EF Patient sees Dr. 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 His daughter reports his CK runs high but I don't see past values in our system Gentle fluids given history of CAD - NSS @ 80 mls/hr (10) Dilated pupil: left pupil is dilated and fixed but otherwise no focal findings. Family reports they have never noticed this before, I didn't see it documented in his last admission or pcp visit so sent patient for MRI and CT head given patient's presentation and also decreased platelets with history of fall placed him at higher risk for bleed. Both were negative for acute * follow up with ophthalmology after discharge. Patient sees Dr. Owens (11) DVT prophylaxis: SCDs, TEDS, no chemoprophylaxis for thrombocytopenia Subjective Mr. Mcgraw is having severe right upper quadrant/epigastric/substernal pain start over the night. He reports some mild sob. KUB over the night did not show any obstruction. No nausea or vomiting ROS Constitutional: no chills, aches, sweats or fever Respiratory: no sob,cough, sputum, or wheezing Cardiac: no chest pain, palpitations, edema, orthopnea or lightheadedness GI: see HPI : no dysuria or hesitancy Extremities: no joint pain or weakness Skin: no rash All other systems reviewed and negative Physical Exam Physical Exam: General: no distress Eyes: normal inspection, PERLL Respiratory: chest non tender, clear to auscultation, normal breath sounds, no respiratory distress, no accessory muscle use Cardiac: regular rate and rhythm, no rub or gallop, no murmur, no edema, no jvd GI/: active bowel sounds, right upper quadrant/epigastric tenderness to palpation, soft, non distended Extremities: normal range of motion, normal strength, non tender Neuro/Psych: alert and oriented x 3, normal mood and affect Skin: normal color, dry Results & Data Vital Signs (Past 12 Hours) Vital Signs Temp Pulse Pulse Resp BP BP Pulse Ox 09/10/19 12:58 37.2 C 70 20 173/77 H 93 09/10/19 12:53 37.2 C 70 20 173/77 H 93 09/10/19 08:24 37.3 C 82 18 163/85 H 92 09/10/19 07:16 85 09/10/19 04:35 36.9 C 75 18 157/83 H 95 PG Care Time/CCT Total # of Minutes Spent Total Time Spent with Patient: Total time spent is greater than 50% in coordination of care (as documented) at patient's floor/unit and/or counseling patient: (1) Coronary artery disease Coronary Disease-Associated Artery/Lesion type: [place] artery Ruby vs. transplanted heart: [place] heart Associated angina: without angina Qualified Code(s): I25.10 - Atherosclerotic heart disease of [place] coronary artery without angina pectoris (2) Parkinsonism Parkinsonism type: Parkinson's disease Qualified Code(s): G20 - Parkinson's disease (3) Rhabdomyolysis Rhabdomyolysis type: non-traumatic Qualified Code(s): M62.82 - Rhabdomyolysis (4) Abdominal pain Abdominal location: unspecified location Qualified Code(s): R10.9 - Unspecified abdominal pain
--- NOTE | 2019-09-10 14:43 | Surgery Consultation ---
Date of Consultation September 10, 2019 Assessment & Plan (1) Abdominal pain: pt is a 84 year-old male who had 2 days history RUQ pain, U/S study- US abdomen limited CLINICAL HISTORY: epigastric pain COMPARISON STUDY: 09/06/2019 FINDINGS: The pancreas was not visualized. No focal hepatic masses are visualized. The pancreas was essentially nonvisualized due to overlying bowel gas shadowing. The gallbladder was distended measuring 12.5 x 6.1 x 5.9 cm. There is evidence for echogenic bile/sludge. No shadowing calculi are visualized. There is no wall thickening. The technologist reports a negative sonographic Gibbs sign. There is no ductal dilatation. The common bile duct measures 5 mm. There is no right-sided hydronephrosis IMPRESSION: 1. Nondiagnostic evaluation of pancreas 2. Distended gallbladder containing echogenic bile/sludge. No shadowing calculi identified 3. No evidence of ductal dilatation IMP: acute abdominal pain, gallbladder sludge, possible cholecystitis, Plan, I recommend spikemaking supervisor consult for pre-op cardiac clearance, for possible laparoscopic cholecystectomy on Friday please order MRCP, to R/O acute cholecystitis, possible transfusion platelet pre-surgery if platelet lower than 8,0000 repeat labs in am, pt can have clear diet if he can tolerated it. NPO after MN on 09/12/2019 education reviewer surgeon will cover this weekend thanks, History of Present Illness Attending Physician: Jamin Yeboah MD CC: abdominal pain for 2 days, HPI: Mr. Mcgraw presents with his and daughter for increased weakness and falls. He presented to the emergency department on Friday for the same complaint and has been getting worse since that time. He denies any fevers but does feel he has aches and chills. He is rather drowsy while we talk but oriented and able to answer questions. His family reports he has had multiple falls but has not hit his head. He denies headache or neck stiffness but has been dizzy. His lumbar spine is very painful and has been since Friday but does not extend into his legs. I ( Bharath Rosenberg MD ) reviewed pt's H/P with pt, pt started to have RUQ pain for 2 days ago, some nausea, no vomiting, the pain is localed at RUQ, pt denies fever, no back pain, no chest pain, I also reviewed U/S study. 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, never smoker, no alcohol Family hx: non contributory Allergies Allergy/AdvReac Type Severity Reaction Status Date / Time iodine Allergy Unknown Unknown Verified 09/08/19 14:53 atorvastatin Allergy Verified 09/08/19 14:53 Iodinated Contrast Media Allergy Unknown Verified 09/08/19 14:53 [Iodinated Contrast- Oral and IV Dye] rosuvastatin Allergy Verified 09/08/19 14:53 [id number] Reductase Allergy Unknown Verified 09/08/19 14:53 Inhibitor Contrast Media Ready-Box MISC Allergy Unknown Uncoded 09/08/19 14:53 Home Medications Home Medications Medication Instructions Recorded Confirmed Type omega-3 acid ethyl esters 1 gram 1 cap PO DAILY cap 04/20/19 09/08/19 History capsule aspirin 81 mg chewable tablet 81 mg PO DAILY tab 05/21/19 09/08/19 History borage (borago officinalis) 1,000 0 mg PO DAILY cap 05/21/19 09/08/19 History mg capsule flaxseed oil 1,000 mg capsule 1,000 mg PO DAILY cap 05/21/19 09/08/19 History cyclobenzaprine 5 mg PO TID PRN #30 tab 09/06/19 09/08/19 Rx metoprolol tartrate 25 mg PO BID 09/06/19 09/08/19 History ondansetron 4 mg PO Q8H PRN #30 tab 09/06/19 09/08/19 Rx carbidopa-levodopa 1 tab PO UNKNOWN 09/08/19 09/08/19 History Patient History Medical History Mild aortic stenosis (Acute) Hypertension (Acute) Hyperlipidemia (Acute) History of basal cell carcinoma (Acute) Coronary artery disease (Acute) Arrhythmia (Acute) Surgical History History of hernia surgery x3 Hx of CABG x4 Hx of shoulder surgery right and left Family History Father Myocardial infarction Alcohol abuse Sister Cancer Breast cancer Social History Preferred Language: [place] Communication Ability: Effective Service Center Representative Required: No Beliefs That Will Affect Care: None marital status: Current Living Situation: Spouse Other Information That Helps Us Care for You: No Feels Safe at Home: Yes Safety Concerns: Feels Safe At This Time Smoking Status: Never smoker Hx Alcohol Use: No Hx Substance Use: No Review of Systems Review of Systems: All systems reviewed & are unremarkable except as noted in HPI & below Physical Exam Constitutional: WD/WN, vitals as above well developed and well nourished ENMT: external ear and nose normal, oropharynx normal Neck: trachea midline, no thyromegaly normal visual inspection Respiratory: normal respiratory effort, lungs clear to auscultation normal respiratory effort Cardiovascular: RRR, no murmur, no edema Rate/Rhythm: regular rate and regular rhythm Heart Sounds: normal S1 and normal S2 middle line scar on chest, Gastrointestinal (Abdomen): normal bowel sounds, soft, nontender, no hepatosplenomegaly Inspection/Auscultation: abdomen normal to inspection Percussion/Palpation: + abdomen tender and abdomen soft tenderness at RUQ, no rebound pain, BS + Musculoskeletal: no cyanosis or clubbing, extremities motor strength 5/5 Skin: no rashes, warm and dry Neurologic: patellar DTR's 2+ bilat, sensation intact Psychiatric: Orientation: alert and oriented x 3 Results & Data Vital Signs (Past 12 Hours) Vital Signs Temp Pulse Pulse Resp BP BP Pulse Ox 09/10/19 12:58 37.2 C 70 20 173/77 H 93 09/10/19 12:53 37.2 C 70 20 173/77 H 93 09/10/19 08:24 37.3 C 82 18 163/85 H 92 09/10/19 07:16 85 09/10/19 04:35 36.9 C 75 18 157/83 H 95 Laboratory Results Abnormal lab results 09/10/19 09/10/19 09/10/19 Range/Units 06:25 06:25 10:11 RBC 4.52 L (4.7-6.1) M/uL Hct 41.1 L (42-52) % MCHC 36.3 H (32-36) g/dL Plt Count 52 L (130-400) K/uL MPV 10.6 H (7.4-10.4) fL Sodium 133 L (136-145) mmol/L Glucose 132 H (70-99) mg/dl Calcium 8.4 L (8.5-10.1) mg/dl Total Creatine Kinase 7311 H (39-308) U/L Diagnostic Findings US abdomen limited CLINICAL HISTORY: epigastric pain COMPARISON STUDY: 09/06/2019 FINDINGS: The pancreas was not visualized. No focal hepatic masses are visualized. The pancreas was essentially nonvisualized due to overlying bowel gas shadowing. The gallbladder was distended measuring 12.5 x 6.1 x 5.9 cm. There is evidence for echogenic bile/sludge. No shadowing calculi are visualized. There is no wall thickening. The technologist reports a negative sonographic Gibbs sign. There is no ductal dilatation. The common bile duct measures 5 mm. There is no right-sided hydronephrosis IMPRESSION: 1. Nondiagnostic evaluation of pancreas 2. Distended gallbladder containing echogenic bile/sludge. No shadowing calculi identified 3. No evidence of ductal dilatation (1) Abdominal pain Abdominal location: unspecified location Qualified Code(s): R10.9 - Unspecified abdominal pain
--- NOTE | 2019-09-10 15:34 | Infectious Disease Progress Nt ---
Date of Service September 10, 2019 Assessment & Plan (1) Anaplasmosis: 84-year-old male with anaplasmosis. To be continued on doxycycline. Although can experience significant abdominal complaints with Anaplasma infection, further work-up for possible cholecystitis in progress. Will follow. Subjective Patient seen in follow-up for anaplasmosis. Complaining of severe abdominal pain, sonogram with biliary sludge and dilatation, MRCP ordered. Surgical consult noted. Review of Systems Review of Systems: All systems reviewed & are unremarkable except as noted in HPI & below Physical Exam Constitutional: WD/WN, vitals as above comfortable; no acute distress Eyes: PERRL, conjunctivae normal, anicteric sclerae ENMT: external ear and nose normal, oropharynx normal Neck: trachea midline, no thyromegaly neck nontender Respiratory: normal respiratory effort, lungs clear to auscultation normal percussion; does not use accessory muscles Cardiovascular: Rate/Rhythm: regular rate and regular rhythm Heart Sounds: normal S1 and normal S2; no gallop, no murmur and no cardiac rub Vessels: normal peripheral pulses; no JVD Gastrointestinal (Abdomen): Inspection/Auscultation: normal bowel sounds Percussion/Palpation: + abdomen tender (Right upper quadrant); no hepatosplenomegaly and no abdominal mass Musculoskeletal: no cyanosis or clubbing, extremities motor strength 5/5 Spine: thoracic spine normal to inspection and lumbar spine normal to inspection; no cervical spinal tenderness Skin: no rashes, warm and dry normal turgor; no lesions Neurologic: patellar DTR's 2+ bilat, sensation intact no focal motor deficits Psychiatric: A+Ox3, euthymic affect Orientation: cooperative Lymphatic: no cervical or axillary lymphadenopathy no inguinal lymphadenopathy Results & Data Vital Signs (Past 12 Hours) Vital Signs Temp Pulse Pulse Resp BP BP Pulse Ox 09/10/19 12:58 37.2 C 70 20 173/77 H 93 09/10/19 12:53 37.2 C 70 20 173/77 H 93 09/10/19 08:24 37.3 C 82 18 163/85 H 92 09/10/19 07:16 85 09/10/19 04:35 36.9 C 75 18 157/83 H 95 Laboratory Results Short CBC 09/10/19 Range/Units 06:25 WBC 7.25 (4.8-10.8) K/uL Hgb 14.9 (14.0-18.0) g/dL Hct 41.1 L (42-52) % Plt Count 52 L (130-400) K/uL BMP 09/10/19 06:25 Sodium 133 L Potassium 3.7 Chloride 99 Carbon Dioxide 28 BUN 11 Creatinine 0.83 D Glucose 132 H Calcium 8.4 L Cardiac Enzymes 09/10/19 09/10/19 Range/Units 10:11 10:11 Total Creatine Kinase Cancelled 7311 H Troponin I 0.045 (0-0.045) ng/ml Diagnostic Findings cc: ~ US abdomen limited CLINICAL HISTORY: epigastric pain COMPARISON STUDY: 09/06/2019 FINDINGS: The pancreas was not visualized. No focal hepatic masses are visualized. The pancreas was essentially nonvisualized due to overlying bowel gas shadowing. The gallbladder was distended measuring 12.5 x 6.1 x 5.9 cm. There is evidence for echogenic bile/sludge. No shadowing calculi are visualized. There is no wall thickening. The technologist reports a negative sonographic Gibbs sign. There is no ductal dilatation. The common bile duct measures 5 mm. There is no right-sided hydronephrosis IMPRESSION: 1. Nondiagnostic evaluation of pancreas 2. Distended gallbladder containing echogenic bile/sludge. No shadowing calculi identified 3. No evidence of ductal dilatation Electronically signed by: Fortunato Waller M.D. 09/10/2019 11:27 AM Dictated: 09/10/19 1125 PG Care Time/CCT Total # of Minutes Spent Total Time Spent with Patient: Total time spent is greater than 50% in coordination of care (as documented) at patient's floor/unit and/or counseling patient:
--- NOTE | 2019-09-10 17:05 | Magnetic Resonance Report ---
MRCP CLINICAL HISTORY: RUQ pain TECHNIQUE: Utilizing a 1.5 Mary magnet and dedicated coil, multiplanar, multiecho imaging of the upp er abdomen was performed utilizing heavily T2 weighted pulsing sequences without IV contrast. COMPARISON STUDY: CT of the abdomen and pelvis August 29, 2019. Abdominal ultrasound performed renay ier today. FINDINGS: The gallbladder is markedly distended. This has increased since CT of September 06, 2019. The re is trace pericholecystic fluid. Trace perihepatic fluid is noted. No calculi within the gallbladde r are noted. No common bile duct are noted. There is no biliary ductal dilatation. The course and rosalee iber of the main pancreatic duct is normal. Unenhanced images of the liver, spleen, adrenal glands an d pancreas are unremarkable with the exception of a few suspected subcentimeter right renal cysts. Th ere is no hydronephrosis. IMPRESSION: 1. Marked gallbladder distention with mild pericholecystic fluid. No calculi identified. Acalculus ch olecystitis cannot be excluded. 2. No biliary ductal dilatation. No common bile duct calculi. Electronically signed by: Dagoberto Madrid M.D. 09/10/2019 5:04 PM
[2019-09-10] MEDS ORDERED: PIPERACILL/TAZOBAC CONSULT ACTIVE PRN (17:22)
[2019-09-10] MEDS ORDERED: PIPERACILLIN/TAZOBACTAM 4.5 GM in DEXTROSE 5% 100 ML IV ONE (18:00)
[2019-09-10] MEDS: PIPERACILLIN/TAZOBACTAM 4.5 GM in DEXTROSE 5% 100 ML IV SCH (23:39)
[2019-09-11 07:15] LABS: Hematocrit (blood only) 37.1 % (42-52); Hemoglobin 13.5 g/dL (14.0-18.0); Mean Corpuscular Hemoglobin 33.3 pg (25-34); Mean Corpuscular Hgb Conc 36.4 g/dL (32-36); Mean Corpuscular Volume 91.6 fL (80-100); Mean Platelet Volume 10.4 fL (7.4-10.4); Platelet Count 83 K/uL (130-400); RDW Standard Deviation 43.8 fL (36.4-46.3); Red Blood Count 4.05 M/uL (4.7-6.1); White Blood Count 10.13 K/uL (4.8-10.8)
[2019-09-11 07:28] LABS: Albumin Level 2.7 gm/dl (3.4-5.0); BUN Creatinine Ratio 9.9 (10-20); Bilirubin Direct 0.3 mg/dl (0-0.2); Calcium 8.3 mg/dl (8.5-10.1); Est GFR (African American) 86.6; Est GFR (Non-African American) 74.7; Potassium 3.4 mmol/L (3.5-5.1)
[2019-09-11] MEDS: SODIUM CHLORIDE 0.9% 1000ML 1,000 ML IV SCH (07:37)
[2019-09-11] MEDS: PIPERACILLIN/TAZOBACTAM 4.5 GM in DEXTROSE 5% 100 ML IV SCH (07:37)
[2019-09-11 07:43] LABS: Total Protein 6.3 gm/dl (6.4-8.2)
[2019-09-11] MEDS ORDERED: POTASSIUM CHLORIDE 20 MEQ TABCR PO STA (07:53)
[2019-09-11 08:09] LABS: ALC (manual) 5.46 K/uL (1.2-3.4); Lymphocytes # (manual) 0.97 K/uL (1.2-3.4); Lymphocytes % (manual) 9.6 %; Monocytes # (manual) 0.17 K/uL (0.11-0.59); Monocytes % (manual) 1.7 %; Neutrophils % (manual) 44.4 %; RBC Morphology Unremarkable; Reactive Lymphocytes # (manual) 4.49 K/uL; Reactive Lymphocytes % (manual) 44.3 %
[2019-09-11] MEDS: METOPROLOL TARTRATE 25 MG TAB PO SCH ×3 (08:10→20:35)
[2019-09-11] MEDS: FAMOTIDINE 20 MG in SYRINGE 3 ML IV SCH ×2 (08:10→20:35)
[2019-09-11] MEDS: CARBIDOPA/LEVODOPA 25/100MG TAB PO SCH ×4 (08:10→20:36)
[2019-09-11] MEDS: DOXYCYCLINE HYCLATE 100 MG CAP PO SCH ×2 (08:10→20:36)
--- NOTE | 2019-09-11 09:10 | Cardiology Consultation ---
Date of Consultation September 11, 2019 Assessment & Plan (1) Preop cardiovascular exam: (2) CAD (coronary artery disease), [place] coronary artery: (3) Rhabdomyolysis: (4) Elevated troponin I level: (5) Moderate aortic stenosis: (6) Acalculous cholecystitis: (7) Anaplasmosis: (8) Thrombocytopenia: 84-year-old patient evaluated for preoperative cardiovascular stratification prior to cholecystectomy secondary to acalculus cholecystitis. Patient is moderate cardiovascular risk for perioperative complications. Mildly elevated troponin likely secondary to rhabdomyolysis on admission in the setting of multiple falls. CPK trending downward. No ischemic ECG changes or regional wall motion abnormalities per echocardiogram. Moderate aortic stenosis noted. Fluid balance positive > 2.5L since admission. Recommend Lasix 20 mg IV x1 now. Titrate metoprolol to 25 mg 3 times daily to improve blood pressure control and lower resting heart rate. Other cardiovascular medications will be continued as previously ordered. Follow platelet count daily. Restart aspirin in a.m. if platelets continue to trend upward. Antibiotics per infectious disease. Thank you for allowing to participate in the care of your patient. History of Present Illness Reason for Consultation: Preoperative cardiovascular evaluation. Requesting Physician: Dr. Jamin Yeboah Attending Physician: Jamin Yeboah MD History of Present Illness 84-year-old patient admitted with falls and subsequently diagnosed with anaplasmosis. Treated with doxycycline for the past few days. Rhabdomyolysis noted on admission with CPK in excess of 15,000. Fluid balance positive more than 2.5 L. Patient reported abdominal discomfort approximately for the last 2 days. MRCP demonstrates possible acalculous cholecystitis. Cardiology consultation requested for preoperative or stratification. Patient feeling well from a cardiovascular perspective. Denies chest pain or unusual shortness of breath. Chronic dyspnea on exertion stable. Notes ambulatory dysfunction and utilizes a cane to avoid falls. Denies any recent decline in functional capacity. ECGs performed during admission demonstrates sinus rhythm without ischemic changes. A resting 2D transthoracic echocardiogra m demonstrates preserved LV systolic function, no regional wall motion on normalities, and moderate aortic stenosis. Mildly elevated troponins noted in the setting of rhabdomyolysis. Carries a history of coronary artery bypass grafting x4 in 2001. Most recent stress test on record performed 2006. Lost to cardiology follow-up for nearly 9 years. Currently patient is resting comfortably. Tolerating a clear liquid diet however notes right lower quadrant abdominal discomfort. Denies nausea or vomiting. No diarrhea or melena. Somewhat of a poor historian. Offers no other concerns/complaints at this time. Denies orthopnea, PND, lower extremity edema, palpitations, lightheadedness, dizziness, or claudication. Telemetry demonstrates sinus rhythm with occasional PVCs. Allergies Allergy/AdvReac Type Severity Reaction Status Date / Time Iodinated Contrast Media Allergy Intermediate Hypotension Verified 09/10/19 18:34 [Iodinated Contrast- Oral and IV Dye] iodine Allergy Unknown Unknown Verified 09/08/19 14:53 atorvastatin AdvReac Intermediate Muscle Pain Verified 09/10/19 18:34 rosuvastatin AdvReac Intermediate Muscle Pain Verified 09/10/19 18:34 Home Medications Home Medications Medication Instructions Recorded Confirmed Type omega-3 acid ethyl esters 1 gram 1 cap PO DAILY cap 04/20/19 09/08/19 History capsule aspirin 81 mg chewable tablet 81 mg PO DAILY tab 05/21/19 09/08/19 History borage (borago officinalis) 1,000 0 mg PO DAILY cap 05/21/19 09/08/19 History mg capsule flaxseed oil 1,000 mg capsule 1,000 mg PO DAILY cap 05/21/19 09/08/19 History cyclobenzaprine 5 mg PO TID PRN #30 tab 09/06/19 09/08/19 Rx metoprolol tartrate 25 mg PO BID 09/06/19 09/08/19 History ondansetron 4 mg PO Q8H PRN #30 tab 09/06/19 09/08/19 Rx carbidopa-levodopa 1 tab PO UNKNOWN 09/08/19 09/08/19 History Patient History Medical History Abdominal pain (Acute) Mild aortic stenosis (Acute) Hypertension (Acute) Hyperlipidemia (Acute) History of basal cell carcinoma (Acute) Coronary artery disease (Acute) Arrhythmia (Acute) Surgical History History of hernia surgery x3 Hx of CABG x4 Hx of shoulder surgery right and left Family History Father Myocardial infarction Alcohol abuse Sister Cancer Breast cancer Social History (Reviewed 09/11/19 @ 09:06 by NELDA Redmond Preferred Language: [place]adeshi Communication Ability: Effective Electrical Controls Designer Required: No Beliefs That Will Affect Care: None marital status: Current Living Situation: Spouse Other Information That Helps Us Care for You: No Feels Safe at Home: Yes Safety Concerns: Feels Safe At This Time Smoking Status: Never smoker Hx Alcohol Use: No Hx Substance Use: No Review of Systems Review of Systems: All systems reviewed & are unremarkable except as noted in HPI & below Right-sided abdominal discomfort. Chronic dyspnea on exertion. Physical Exam Physical Exam: General: NAD, AAO x3, well nourished.Overweight. HEENT: Normocephalic. Atraumatic. Conjunctiva pink, no scleral icterus. Neck: No carotid bruits, the carotid upstrokes are brisk. No JVD. No HJR Heart: Regular normal S-1 and S-2. 3/6 low pitched mid peaking systolic ejection murmur heard throughout the precordium, however, best at the right second intercostal space without radiation. PMI is not displaced. No RV heave. Lungs: Clear bilateral without rales , rhonchi, or wheeze. Abdomen: Soft, diffusely tender. No rebound or guarding. + Bowel sounds. Extremities: No clubbing, cyanosis, or edema. Pulses: radial=2/4, Dorsalis pedis =2/4, posterior tibial=2/4. Neuro: Cranial nerves grossly intact. No focal motor deficit. Results & Data Vital Signs (Past 12 Hours) Vital Signs Temp Pulse Pulse Resp BP BP Pulse Ox 09/11/19 07:48 36.8 C 82 18 146/79 H 92 09/11/19 07:23 74 09/11/19 02:43 37 C 77 19 135/74 91 09/11/19 01:20 36.9 C 09/10/19 22:48 37.8 C H 76 18 137/73 93
[2019-09-11] MEDS ORDERED: FUROSEMIDE 20 MG in SYRINGE 0 ML IV ONE (09:15)
--- NOTE | 2019-09-11 12:54 | Surgery Progress Note ---
Date of Service pt feels better, some lower abdominal pain, no nausea, no vomiting, no fever, MRCP reviewed- IMPRESSION: 1. Marked gallbladder distention with mild pericholecystic fluid. No calculi identified. Acalculus cholecystitis cannot be excluded. 2. No biliary ductal dilatation. No common bile duct calculi. September 11, 2019 Assessment & Plan (1) Abdominal pain: pt is a 84 year-old male who had 2 days history RUQ pain, U/S study- US abdomen limited CLINICAL HISTORY: epigastric pain COMPARISON STUDY: 09/06/2019 FINDINGS: The pancreas was not visualized. No focal hepatic masses are visualized. The pancreas was essentially nonvisualized due to overlying bowel gas shadowing. The gallbladder was distended measuring 12.5 x 6.1 x 5.9 cm. There is evidence for echogenic bile/sludge. No shadowing calculi are visualized. There is no wall thickening. The technologist reports a negative sonographic Gibbs sign. There is no ductal dilatation. The common bile duct measures 5 mm. There is no right-sided hydronephrosis IMPRESSION: 1. Nondiagnostic evaluation of pancreas 2. Distended gallbladder containing echogenic bile/sludge. No shadowing calculi identified 3. No evidence of ductal dilatation IMP: acute abdominal pain, gallbladder sludge, possible cholecystitis, Plan, I recommend manager automotive consult for pre-op cardiac clearance, for possible laparoscopic cholecystectomy on Friday please order MRCP, to R/O acute cholecystitis, possible transfusion platelet pre-surgery if platelet lower than 8,0000 repeat labs in am, pt can have clear diet if he can tolerated it. 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 Complaining of severe abdominal pain, sonogram with biliary sludge and dilatation, MRCP ordered. Surgical consult noted. Physical Exam Constitutional: WD/WN, vitals as above well developed and well nourished Neck: trachea midline, no thyromegaly Respiratory: normal respiratory effort, lungs clear to auscultation Cardiovascular: RRR, no murmur, no edema Gastrointestinal (Abdomen): soft, mild tenderness at lower abdomen, no distend, no rebound pain, Results & Data Vital Signs (Past 12 Hours) Vital Signs Temp Pulse Pulse Resp BP BP Pulse Ox 09/11/19 07:48 36.8 C 82 18 146/79 H 92 09/11/19 07:23 74 09/11/19 02:43 37 C 77 19 135/74 91 09/11/19 01:20 36.9 C Laboratory Results Abnormal lab results 09/11/19 09/11/19 Range/Units 06:49 06:49 RBC 4.05 L (4.7-6.1) M/uL Hgb 13.5 L (14.0-18.0) g/dL Hct 37.1 L (42-52) % MCHC 36.4 H (32-36) g/dL Plt Count 83 L D (130-400) K/uL Lymphocytes # (Manual) 0.97 L (1.2-3.4) K/uL Total Abs Lymphocytes 5.46 H (1.2-3.4) K/uL Potassium 3.4 L (3.5-5.1) mmol/L BUN/Creatinine Ratio 9.9 L (10-20) Glucose 109 H (70-99) mg/dl Calcium 8.3 L (8.5-10.1) mg/dl Direct Bilirubin 0.3 H (0-0.2) mg/dl AST 215 H (15-37) U/L Total Creatine Kinase 2891 H (39-308) U/L Total Protein 6.3 L (6.4-8.2) gm/dl Albumin 2.7 L (3.4-5.0) gm/dl Diagnostic Findings MRCP-IMPRESSION: 1. Marked gallbladder distention with mild pericholecystic fluid. No calculi identified. Acalculus cholecystitis cannot be excluded. 2. No biliary ductal dilatation. No common bile duct calculi. (1) Abdominal pain Abdominal location: unspecified location Qualified Code(s): R10.9 - Unspecifi ed abdominal pain
--- NOTE | 2019-09-11 13:52 | Hospitalist Progress Note ---
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 Continue Zosyn Plan tentatively is for cholecystectomy Friday, NPO Friday night Continue clear liquid diet Cardiology consulted for preop clearance - feel he is a moderate risk for perioperative complications Will order CXR for am to help assess fluid balance preop (5) Lumbar back pain: Pain control with hydrocodone/apap prn CT lumbar spine IMPRESSION: No acute lumbar spine fracture or subluxation, Moderate multilevel degenerative disc disease and facet arthrosis within the lumbar spine. No severe central canal stenosis. Suspected mild multilevel central canal and moderate neural foraminal stenosis. PT/OT (6) Obstructive sleep apnea: May use own cpap (7) Parkinsonism: Continue home carbidopa-levodopa (8) Elevated troponin: Secondary to demand ischemia due to infection Trop peaked at 0.13 and trended down Echo without WMA, normal EF Patient sees Dr. 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 Family reports they have never noticed this before, I didn't see it documented in his last admission or pcp visit so sent patient for MRI and CT head given patient's presentation and also decreased platelets with history of fall placed him at higher risk for bleed. Both were negative for acute * follow up with ophthalmology after discharge. Patient sees Dr. Owens (11) Fluid overload: Echo without reduced EF Patient up 2.5 liters secondary to fluids for rhabdomyolysis - stopped fluids, cardiology gave dose of lasix (12) DVT prophylaxis: SCDs, TEDS, no chemoprophylaxis for thrombocytopenia Dispo: PT/OT evals. CM consulted. Of note, patient's mentioned that at times he can be very angry which was previously out of character for him but occasionally makes her fear for her safety. Discussed with her and her daughter. I did discuss the need for a plan to get to safety should there be an instance at home that escalates however she did not really feel that the situation was extreme enough that she would need that. She is more concerned for the change in his demeanor. I did recommend re-evaluation with neuro who he sees for Parkinsons after he gets through this admission. Appreciate any help CM could provide for support services. Subjective Mr. Mcgraw has intermittent mild abdominal pain. No nausea or vomiting. No chest pain. He is somewhat short of breath. Daughter and were at bedside and updated ROS Constitutional: no chills, aches, sweats or fever Respiratory: no cough, sputum, or wheezing Cardiac: no chest pain, palpitations, edema, orthopnea or lightheadedness GI: no abdominal pain, nausea, vomiting, diarrhea or constipation : no dysuria or hesitancy Extremities: no joint pain or weakness Skin: no rash All other systems reviewed and negative Physical Exam Physical Exam: General: no distress Eyes: normal inspection, PERLL Respiratory: chest non tender, clear to auscultation, normal breath sounds, no respiratory distress, no accessory muscle use Cardiac: regular rate and rhythm, no rub or gallop, no murmur, no edema, no jvd GI/: active bowel sounds, no abd pain or tenderness, soft, non distended Extremities: normal range of motion, normal strength, non tender Neuro/Psych: alert and oriented x 3, normal mood and affect Skin: normal color, dry Results & Data Vital Signs (Past 12 Hours) Vital Signs Temp Pulse Pulse Resp BP BP Pulse Ox 09/11/19 13:20 89 126/65 09/11/19 07:48 36.8 C 82 18 146/79 H 92 09/11/19 07:23 74 09/11/19 02:43 37 C 77 19 135/74 91 PG Care Time/CCT Total # of Minutes Spent Total Time Spent with Patient: Total time spent is greater than 50% in emergency preparedness coordinator rdination of care (as documented) at patient's floor/unit and/or counseling patient: (1) Coronary artery disease Coronary Disease-Associated Artery/Lesion type: [place] artery [place] vs. transplanted heart: [place] heart Associated angina: without angina Qualified Code(s): I25.10 - Atherosclerotic heart disease of [place] coronary artery without angina pectoris (2) Abdominal pain Abdominal location: unspecified location Qualified Code(s): R10.9 - Unspecified abdominal pain (3) Parkinsonism Parkinsonism type: Parkinson's disease Qualified Code(s): G20 - Parkinson's disease (4) Rhabdomyolysis Rhabdomyolysis type: non-traumatic Qualified Code(s): M62.82 - Rhabdomyolysis
[2019-09-11 14:31] LABS: Ehrlichia chaff DNA Bld Not Detected (Not Detected)
[2019-09-11] MEDS: PIPERACILLIN/TAZOBACTAM 3.375 GM in DEXTROSE 5% 100 ML IV SCH ×2 (16:36→23:54)
[2019-09-12 07:07] LABS: Hematocrit (blood only) 37.6 % (42-52); Hemoglobin 13.2 g/dL (14.0-18.0); Mean Corpuscular Hgb Conc 35.1 g/dL (32-36); Platelet Count 123 K/uL (130-400); RDW Coefficient of Variation 13.4 % (11.5-14.5); RDW Standard Deviation 46.3 fL (36.4-46.3); White Blood Count 9.65 K/uL (4.8-10.8)
--- NOTE | 2019-09-12 07:29 | XRay Report ---
SINGLE VIEW CHEST CLINICAL HISTORY: Fluid overload. FINDINGS: An AP, portable, upright chest radiograph is compared to study dated 09/08/2019 and correla fabiana with chest CT dated 08/13/2009. The examination is degraded by portable technique and patient rota tion. The patient is status post midline sternotomy. The heart is top normal for projection. The pulm onary vasculature is noncongested. There is dependent atelectasis. Trace pleural effusions are suspec fabiana. No pneumothorax is seen. The skeletal structures are osteopenic. The bony thorax is grossly inta ct. IMPRESSION: 1. There is no radiographic evidence of congestive failure. 2. There is dependent atelectasis and trace pleural effusions are suspected. Electronically signed by: Gómez Freeman M.D. 09/12/2019 7:28 AM
[2019-09-12 07:37] LABS: Creatinine Clr Calc Pharmacy 69.8 ml/min; Est GFR (African American) 85.5; Est GFR (Non-African American) 73.7
[2019-09-12] MEDS: PIPERACILLIN/TAZOBACTAM 3.375 GM in DEXTROSE 5% 100 ML IV SCH ×2 (07:43→16:29)
[2019-09-12] MEDS: METOPROLOL TARTRATE 25 MG TAB PO SCH ×3 (08:04→20:25)
[2019-09-12] MEDS: DOXYCYCLINE HYCLATE 100 MG CAP PO SCH ×2 (08:04→20:25)
[2019-09-12] MEDS: CARBIDOPA/LEVODOPA 25/100MG TAB PO SCH ×4 (08:04→20:25)
[2019-09-12] MEDS: FAMOTIDINE 20 MG in SYRINGE 3 ML IV SCH ×2 (08:05→20:25)
[2019-09-12] MEDS: ASPIRIN 81 MG ECTAB PO SCH (08:19)
[2019-09-12 08:49] LABS: Basophils # (auto) 0.03 K/uL (0-0.2); Basophils % (auto) 0.3 %; Eosinophils # (auto) 0.07 K/uL (0-0.5); Eosinophils % (auto) 0.7 %; Immature Granulocytes # (auto) 0.06 K/uL (0.00-0.02); Immature Granulocytes % (auto) 0.6 %; Lymphocytes # (auto) 4.96 K/uL (1.2-3.4); Lymphocytes % (auto) 51.4 %; Monocytes # (auto) 0.75 K/uL (0.11-0.59); Monocytes % (auto) 7.8 %; Neutrophils # (auto) 3.78 K/uL (1.4-6.5); Neutrophils % (auto) 39.2 %
--- NOTE | 2019-09-12 10:24 | Hospitalist Progress Note ---
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 Continue Zosyn Surgery originally was considering lap viri on Friday but will cancel in favor of a HIDA scan first. Continue clear liquid diet Cardiology consulted for preop clearance - feel he is a moderate risk for perioperative complications CXR without evidence of CHF - does have trace pleural effusions (5) Lumbar back pain: Pain control with hydrocodone/apap prn CT lumbar spine IMPRESSION: No acute lumbar spine fracture or subluxation, Moderate multilevel degenerative disc disease and facet arthrosis within the lumbar spine. No severe central canal stenosis. Suspected mild multilevel central canal and moderate neural foraminal stenosis. PT/OT (6) Obstructive sleep apnea: May use own cpap (7) Parkinsonism: Continue home carbidopa-levodopa (8) Elevated troponin: Secondary to demand ischemia due to infection Trop peaked at 0.13 and trended down Echo without WMA, normal EF Patient sees Dr. 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 Family reports they have never noticed this before, I didn't see it documented in his last admission or pcp visit so sent patient for MRI and CT head given patient's presentation and also decreased platelets with history of fall placed him at higher risk for bleed. Both were negative for acute * follow up with ophthalmology after discharge. Patient sees Dr. Owens (11) Fluid overload: Echo without reduced EF Given lasix 09/12 by cardiology CXR without congestion, patient no longer feeling sob (12) DVT prophylaxis: SCDs, TEDS, no chemoprophylaxis for thrombocytopenia Dispo: PT/OT evals. CM consulted. Of note, patient's mentioned that at times he can be very angry which was previously out of character for him but occasionally makes her fear for her safety. Discussed with her and her daughter. I did discuss the need for a plan to get to safety should there be an instance at home that escalates however she did not really feel that the situation was extreme enough that she would need that. She is more concerned for the change in his demeanor. I did recommend re-evaluation with neuro who he sees for Parkinsons after he gets through this admission. Appreciate any help CM could provide for support services. Subjective Mr. Mcgraw continues to have mild pain on the right side of his abdomen. He otherwise has no complaints. SOB has resolved ROS Constitutional: no chills, aches, sweats or fever Respiratory: no sob,cough, sputum, or wheezing Cardiac: no chest pain, palpitations, edema, orthopnea or lightheadedness GI: no nausea, vomiting, diarrhea or constipation : no dysuria or hesitancy Extremities: no joint pain or weakness Skin: no rash All other systems reviewed and negative Physical Exam Physical Exam: General: no distress Eyes: normal inspection, PERLL Respiratory: chest non tender, clear to auscultation, normal breath sounds, no respiratory distress, no accessory muscle use Cardiac: regular rate and rhythm, no rub or gallop, no murmur, no edema, no jvd GI/: active bowel sounds, right abdominal tenderness, soft, non distended Extremities: normal range of motion, normal strength, non tender Neuro/Psych: alert and oriented x 3, normal mood and affect Skin: normal color, dry Results & Data Vital Signs (Past 12 Hours) Vital Signs Temp Pulse Pulse Resp BP Pulse Ox 09/12/19 07:33 36.6 C 69 16 116/72 93 09/12/19 07:10 64 09/12/19 03:26 37.3 C 69 18 121/69 93 09/12/19 02:19 60 09/11/19 23:46 36.5 C 66 19 125/71 93 PG Care Time/CCT Total # of Minutes Spent Total Time Spent with Patient: Total time spent is greater than 50% in coordination of care (as documented) at patient's floor/unit and/or counseling patient: (1) Coronary artery disease Coronary Disease-Associated Artery/Lesion type: [place] artery [place] vs. transplanted heart: [place] heart Associated angina: without angina Qualified Code(s): I25.10 - Atherosclerotic heart disease of [place] coronary artery without angina pectoris (2) Abdominal pain Abdominal location: unspecified location Qualified Code(s): R10.9 - Unspecified abdominal pain (3) Parkinsonism Parkinsonism type: Parkinson's disease Qualified Code(s): G20 - Parkinson's disease (4) Rhabdomyolysis Rhabdomyolysis type: non-traumatic Qualified Code(s): M62.82 - Rhabdomyolysis
--- NOTE | 2019-09-12 11:52 | Surgery Progress Note ---
Date of Service September 12, 2019 Assessment & Plan (1) Abdominal pain: The patient still has right upper quadrant discomfort Ultrasound showed minimal findings Plan is for HIDA scan tomorrow and further decisions to be made after the results of that are available. Subjective Patient still with some mild right upper quadrant discomfort Denies nausea and vomiting Denies fever and chills Physical Exam Gastrointestinal (Abdomen): Inspection/Auscultation: normal bowel sounds; abdomen not distended Percussion/Palpation: + abdomen tender (Mild right upper quadrant) and abdomen soft Results & Data Vital Signs (Past 12 Hours) Vital Signs Temp Pulse Pulse Resp BP Pulse Ox 09/12/19 11:18 36.8 C 94 H 16 125/63 93 09/12/19 07:33 36.6 C 69 16 116/72 93 09/12/19 07:10 64 09/12/19 03:26 37.3 C 69 18 121/69 93 09/12/19 02:19 60 Laboratory Results 09/12/19 09/12/19 09/12/19 Range/Units 08:10 06:55 06:55 WBC 9.65 (4.8-10.8) K/uL RBC 4.00 L (4.7-6.1) M/uL Hgb 13.2 L (14.0-18.0) g/dL Hct 37.6 L (42-52) % MCV 94.0 (80-100) fL MCH 33.0 (25-34) pg MCHC 35.1 (32-36) g/dL RDW Std Deviation 46.3 (36.4-46.3) fL RDW Coeff of Clau 13.4 (11.5-14.5) % Plt Count 123 L (130-400) K/uL MPV 10.0 (7.4-10.4) fL Immature Gran % (Auto) 0.6 % Neut % (Auto) 39.2 % Lymph % (Auto) 51.4 % [place] % (Auto) 7.8 % Eos % (Auto) 0.7 % Baso % (Auto) 0.3 % Immature Gran # (Auto) 0.06 H (0.00-0.02) K/uL Neut # (Auto) 3.78 (1.4-6.5) K/uL Lymph # (Auto) 4.96 H (1.2-3.4) K/uL [place] # (Auto) 0.75 H (0.11-0.59) K/uL Eos # (Auto) 0.07 (0-0.5) K/uL Baso # (Auto) 0.03 (0-0.2) K/uL Creatinine 0.95 (0.6-1.4) mg/dl Est Cr Clr Drug Dosing 69.8 ml/min Est GFR ( Amer) 85.5 Est GFR (Non-Af Amer) 73.7 Total Creatine Kinase 1965 H (39-308) U/L E.chaffeensis DNA (PCR) (Not Detected) 09/08/19 Range/Units 16:52 WBC (4.8-10.8) K/uL RBC (4.7-6.1) M/uL Hgb (14.0-18.0) g/dL Hct (42-52) % MCV (80-100) fL MCH (25-34) pg MCHC (32-36) g/dL RDW Std Deviation (36.4-46.3) fL RDW Coeff of Clau (11.5-14.5) % Plt Count (130-400) K/uL MPV (7.4-10.4) fL Immature Gran % (Auto) % Neut % (Auto) % Lymph % (Auto) % [place] % (Auto) % Eos % (Auto) % Baso % (Auto) % Immature Gran # (Auto) (0.00-0.02) K/uL Neut # (Auto) (1.4-6.5) K/uL Lymph # (Auto) (1.2-3.4) K/uL [place] # (Auto) (0.11-0.59) K/uL Eos # (Auto) (0-0.5) K/uL Baso # (Auto) (0-0.2) K/uL Creatinine (0.6-1.4) mg/dl Est Cr Clr Drug Dosing ml/min Est GFR ( Amer) Est GFR (Non-Af Amer) Total Creatine Kinase (39-308) U/L E.chaffeensis DNA (PCR) Not Detected (Not Detected) (1) Abdominal pain Abdominal location: unspecified location Qualified Code(s): R10.9 - Unspecified abdominal pain
--- NOTE | 2019-09-12 11:56 | Cardiology Progress Note ---
Date of Service September 12, 2019 Assessment & Plan (1) Preop cardiovascular exam: (2) CAD (coronary artery disease), [place] coronary artery: (3) Rhabdomyolysis: (4) Elevated troponin I level: (5) Moderate aortic stenosis: (6) Acalculous cholecystitis: (7) Anaplasmosis: (8) Thrombocytopenia: Respiratory status improved with IV Lasix. Appears compensated/euvolemic today. Continue current cardiovascular medications including beta-michael, and aspirin. Statin intolerance documented. Consider addition of PCSK9 inhibitor at follow-up appointment in the outpatient setting. Repeat resting 2D transthoracic echocardiogram in 6 months for reassessment of moderate aortic stenosis. All questions answered satisfaction both patient and his family members. Subjective Patient seen and examined at the bedside. Weight is down approximately 3 pounds with diuretic therapy. Respiratory status improved. Mild abdominal discomfort improving. Denies chest pain or shortness of breath. No dysrhythmias on telemetry. Family present at bedside. Patient offers no other complaints at this time. Review of Systems Review of Systems: All systems reviewed & are unremarkable except as noted in HPI & below Physical Exam Physical Exam: General: NAD, AAO x3, well nourished.Overweight. HEENT: Normocephalic. Atraumatic. Conjunctiva pink, no scleral icterus. Neck: No carotid bruits, the carotid upstrokes are brisk. No JVD. No HJR Heart: Regular normal S-1 and S-2. 3/6 low pitched mid peaking systolic ejection murmur heard throughout the precordium, however, best at the right second intercostal space without radiation. PMI is not displaced. No RV heave. Lungs: Clear bilateral without rales , rhonchi, or wheeze. Abdomen: Soft, diffusely tender. No rebound or guarding. + Bowel sounds. Extremities: No clubbing, cyanosis, or edema. Pulses: radial=2/4, Dorsalis pedis =2/4, posterior tibial=2/4. Neuro: Cranial nerves grossly intact. No focal motor deficit. Results & Data Vital Signs (Past 12 Hours) Vital Signs Temp Pulse Pulse Resp BP Pulse Ox 09/12/19 11:18 36.8 C 94 H 16 125/63 93 09/12/19 07:33 36.6 C 69 16 116/72 93 09/12/19 07:10 64 09/12/19 03:26 37.3 C 69 18 121/69 93 09/12/19 02:19 60
[2019-09-12 15:59] LABS: Ehrlichia chaff IgG Ab <1:64 (<1:64); Ehrlichia chaff IgM Ab <1:20 (<1:20)
[2019-09-13] MEDS: PIPERACILLIN/TAZOBACTAM 3.375 GM in DEXTROSE 5% 100 ML IV SCH ×3 (00:53→16:19)
[2019-09-13 07:06] LABS: BUN Creatinine Ratio 8.5 (10-20); Calcium 9.1 mg/dl (8.5-10.1); Creatinine Clr Calc Pharmacy 65.2 ml/min; Est GFR (African American) 78.4; Est GFR (Non-African American) 67.7; Potassium 3.3 mmol/L (3.5-5.1)
[2019-09-13 07:09] LABS: Albumin Globulin Ratio 0.8 (0.9-2); Bilirubin,Total 0.9 mg/dl (0.2-1); Globulin 3.7 gm/dl (2.5-4.0); Total Protein 6.7 gm/dl (6.4-8.2)
[2019-09-13] MEDS: FAMOTIDINE 20 MG in SYRINGE 3 ML IV SCH ×2 (08:16→21:07)
[2019-09-13] MEDS ORDERED: POTASSIUM CHLORIDE 20 MEQ TABCR PO ONE (08:30)
--- NOTE | 2019-09-13 08:54 | Surgery Progress Note ---
Date of Service pt feels better, less abdominal pain, pt will have HIDA can today, September 13, 2019 Assessment & Plan (1) Abdominal pain: The patient still has right upper quadrant discomfort Ultrasound showed minimal findings Plan is for HIDA scan tomorrow and further decisions to be made after the results of that are available. 09/13/2019 8:53am pt will have HIDA can today, depend on HIDA scan result, to do lap viri or not, will F/U pt understood, I answered all questions, Subjective Patient seen and examined at the bedside. Weight is down approximately 3 pounds with diuretic therapy. Respiratory status improved. Mild abdominal discomfort improving. Denies chest pain or shortness of breath. No dysrhythmias on telemetry. Family present at bedside. Patient offers no other complaints at this time. Physical Exam Constitutional: WD/WN, vitals as above well developed and well nourished ENMT: external ear and nose normal, oropharynx normal Neck: trachea midline, no thyromegaly normal visual inspection Respiratory: normal respiratory effort, lungs clear to auscultation normal respiratory effort Cardiovascular: RRR, no murmur, no edema Rate/Rhythm: regular rate and regular rhythm Heart Sounds: normal S1 and normal S2 Gastrointestinal (Abdomen): normal bowel sounds, soft, nontender, no hepatosplenomegaly Inspection/Auscultation: abdomen normal to inspection Percussion/Palpation: + abdomen tender and abdomen soft Musculoskeletal: no cyanosis or clubbing, extremities motor strength 5/5 Skin: no rashes, warm and dry Neurologic: patellar DTR's 2+ bilat, sensation intact Psychiatric: Orientation: alert and oriented x 3 Results & Data Vital Signs (Past 12 Hours) Vital Signs Temp Pulse Pulse Resp BP Pulse Ox 09/13/19 07:23 37.4 C 63 18 137/73 93 09/13/19 07:10 70 09/13/19 04:45 37.1 C 71 18 122/65 92 09/13/19 01:04 68 09/12/19 22:53 37.4 C 63 18 119/68 91 (1) Abdominal pain Abdominal location: unspecified location Qualified Code(s): R10.9 - Unspecified abdominal pain
[2019-09-13] MEDS ORDERED: SINCALIDE 2 MCG in 0.9 % SODIUM CHLORIDE 100 ML IV SCH (11:30)
[2019-09-13] MEDS ORDERED: MoRPHine SULFATE 2 MG/ML CARP ONE (12:04)
[2019-09-13] MEDS: DOXYCYCLINE HYCLATE 100 MG CAP PO SCH ×2 (12:36→21:04)
--- NOTE | 2019-09-13 12:51 | Nuclear Medicine Report ---
NM hepatobiliary CLINICAL HISTORY: 84 years-old Male with ruq oain. Acute right upper quadrant abdominal pain TECHNIQUE: Sequential anterior abdominal images were obtained through 105 minutes following the intr avenous administration of 5.5 mCi of technetium-99m Choletec. 2 mg morphine administered intravenous ly was also given. COMPARISON: MRCP 09/10/2019 FINDINGS: There is prompt, uniform accumulation of the tracer by the liver. There is normal filling of the int rahepatic ducts, common bile duct and normal excretion of the tracer into the duodenum. At 60 minute s, no activity within the gallbladder identified. Morphine was then given. Delayed images demonstrate no activity within the gallbladder. Mildly increased activity within the inferior right hepatic lobe may reflect acute inflammation. Images were obtained through 105 minutes. IMPRESSION: 1. Nonvisualization of the gallbladder compatible with cystic duct obstruction, likely secondary to a cute acalculus cholecystitis. 2. No evidence of common bile duct obstruction. The above report was generated using voice recognition software. It may contain grammatical, syntax o r spelling errors. Electronically signed by: Aureliano Lopez M.D. 09/13/2019 12:49 PM
[2019-09-13] MEDS: CARBIDOPA/LEVODOPA 25/100MG TAB PO SCH ×4 (12:55→21:04)
[2019-09-13] MEDS: METOPROLOL TARTRATE 25 MG TAB PO SCH ×3 (12:55→21:03)
[2019-09-13] MEDS: ASPIRIN 81 MG ECTAB PO SCH (12:56)
--- NOTE | 2019-09-13 14:09 | Infectious Disease Progress Nt ---
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 To be continued on doxycycline to complete 7 days of therapy, counts improving. Await further decision regarding need for cholecystectomy. Will follow. Continue Zosyn for now. Subjective Patient seen in follow-up for Anaplasma infection. Undergoing diuresis for heart failure with improvement. Awaiting HIDA scan to determine need for cholecystectomy. No other new specific complaints. Platelet count improving steadily on doxycycline. White count normalized. Continues on Zosyn for acalculous cholecystitis. Review of Systems Review of Systems: All systems reviewed & are unremarkable except as noted in HPI & below Physical Exam Constitutional: WD/WN, vitals as above comfortable; no acute distress Eyes: PERRL, conjunctivae normal, anicteric sclerae ENMT: external ear and nose normal, oropharynx normal Neck: trachea midline, no thyromegaly neck nontender Respiratory: normal respiratory effort, lungs clear to auscultation normal percussion; does not use accessory muscles Cardiovascular: Rate/Rhythm: regular rate and regular rhythm Heart Sounds: normal S1 and normal S2; no gallop, no murmur and no cardiac rub Vessels: normal peripheral pulses; no JVD Gastrointestinal (Abdomen): normal bowel sounds, soft, nontender, no hepatosplenomegaly Inspection/Auscultation: normal bowel sounds Percussion/Palpation: + abdomen tender (Right upper quadrant); no hepatosplenomegaly and no abdominal mass Musculoskeletal: no cyanosis or clubbing, extremities motor strength 5/5 Spine: thoracic spine normal to inspection and lumbar spine normal to inspec tion; no cervical spinal tenderness Skin: no rashes, warm and dry normal turgor; no lesions Neurologic: patellar DTR's 2+ bilat, sensation intact no focal motor deficits Psychiatric: A+Ox3, euthymic affect Orientation: cooperative Lymphatic: no cervical or axillary lymphadenopathy no inguinal lymphadenopathy Results & Data Vital Signs (Past 12 Hours) Vital Signs Temp Pulse Pulse Resp BP Pulse Ox 09/13/19 07:23 37.4 C 63 18 137/73 93 09/13/19 07:10 70 09/13/19 04:45 37.1 C 71 18 122/65 92 Laboratory Results [facility] 09/13/19 06:09 Sodium 138 Potassium 3.3 L Chloride 104 Carbon Dioxide 28 BUN 9 Creatinine 1.02 Glucose 106 H Calcium 9.1 Liver Function 09/13/19 Range/Units 06:09 Total Bilirubin 0.9 (0.2-1) mg/dl AST 170 H (15-37) U/L ALT 73 (12-78) U/L Alkaline Phosphatase 98 (45-117) U/L Albumin 3.0 L (3.4-5.0) gm/dl Diagnostic Findings SINGLE VIEW CHEST CLINICAL HISTORY: Fluid overload. FINDINGS: An AP, portable, upright chest radiograph is compared to study dated 09/08/2019 and correlated with chest CT dated 08/13/2009. The examination is degraded by portable technique and patient rotation. The patient is status post midline sternotomy. The heart is top normal for projection. The pulmonary vasculature is noncongested. There is dependent atelectasis. Trace pleural effusions are suspected. No pneumothorax is seen. The skeletal structures are osteopenic. The bony thorax is grossly intact. IMPRESSION: 1. There is no radiographic evidence of congestive failure. 2. There is dependent atelectasis and trace pleural effusions are suspected. Electronically signed by: Gómez Freeman M.D. 09/12/2019 7:28 AM Dictated: 09/12/19 0726 PG Care Time/CCT Total # of Minutes Spent Total Time Spent with Patient: Total time spent is greater than 50% in coordination of care (as documented) at patient's floor/unit and/or counseling patient:
--- NOTE | 2019-09-13 15:42 | Cardiology Progress Note ---
Date of Service September 13, 2019 Assessment & Plan (1) Preop cardiovascular exam: (2) CAD (coronary artery disease), [place] coronary artery: (3) Rhabdomyolysis: (4) Elevated troponin I level: (5) Moderate aortic stenosis: (6) Acalculous cholecystitis: (7) Anaplasmosis: (8) Thrombocytopenia: Heart rate improved with titration of beta-michael therapy. Appears compensated/euvolemic today. Continue current cardiovascular medications including beta-michael, and aspirin. Statin intolerance documented. Consider addition of PCSK9 inhibitor at follow-up appointment in the outpatient setting. Repeat resting 2D transthoracic echocardiogram in 6 months for reassessment of moderate aortic stenosis. All questions answered satisfaction both patient and his . Subjective Patient seen and examined at the bedside. Denies chest pain or shortness of breath. No dysrhythmias on telemetry. Abdominal discomfort unchanged. Offers no new concerns/complaints at this time. Review of Systems Review of Systems: All systems reviewed & are unremarkable except as noted in HPI & below Physical Exam Physical Exam: General: NAD, AAO x3, well nourished.Overweight. HEENT: Normocephalic. Atraumatic. Conjunctiva pink, no scleral icterus. Neck: No carotid bruits, the carotid upstrokes are brisk. No JVD. No HJR Heart: Regular normal S-1 and S-2. 3/6 low pitched mid peaking systolic ejection murmur heard throughout the precordium, however, best at the right second intercostal space without radiation. PMI is not displaced. No RV heave. Lungs: Clear bilateral without rales , rhonchi, or wheeze. Abdomen: Soft, diffusely tender. No rebound or guarding. + Bowel sounds. Extremities: No clubbing, cyanosis, or edema. Pulses: radial=2/4, Dorsalis pedis =2/4, posterior tibial=2/4. Neuro: Cranial nerves grossly intact. No focal motor deficit. Results & Data Vital Signs (Past 12 Hours) Vital Signs Temp Pulse Pulse Resp BP Pulse Ox 09/13/19 14:52 36.6 C 67 20 131/67 95 09/13/19 07:23 37.4 C 63 18 137/73 93 09/13/19 07:10 70 09/13/19 04:45 37.1 C 71 18 122/65 92
--- NOTE | 2019-09-13 17:55 | Hospitalist Progress Note ---
Date of Service September 13, 2019 Assessment & Plan (1) Anaplasmosis: Patient with peripheral smear with inclusion bodies Continue doxycycline [address] Diaz's recommendations. Continue Zosyn. Lyme is negative (2) Thrombocytopenia: Platelets rebounding from low of 50,000 Secondary to anaplasmosis repeat CBC am (3) Coronary artery disease: resumed ASA as platelets are nearly wnl Metoprolol made TID by cardiology (4) Abdominal pain: 09/10 - Right upper quadrant pain/epigastric pain Lipase, troponin wnl, no changes on EKG RUQ US with biliary sludge and gallbladder distention General surgery consulted - ordered MRCP which was equivocal for cholecystitis. Continue Zosyn Surgery originally was considering lap viri on Friday but will cancel in favor of a HIDA scan first. Continue clear liquid diet Cardiology consulted for preop clearance - feel he is a moderate risk for perioperative complications CXR without evidence of CHF - does have trace pleural effusions (5) Lumbar back pain: Pain control with hydrocodone/apap prn CT lumbar spine IMPRESSION: No acute lumbar spine fracture or subluxation, Moderate multilevel degenerative disc disease and facet arthrosis within the lumbar spine. No severe central canal stenosis. Suspected mild multilevel central canal and moderate neural foraminal stenosis. PT/OT (6) Obstructive sleep apnea: May use own cpap (7) Parkinsonism: Continue home carbidopa-levodopa (8) Elevated troponin: Appreciate cardiology recommendations continue current cardiovascular medication including beta-blockers and aspirin. Statin intolerance documented. Consider PC SK 9 inhibitor and follow-up appointment in the outpatient setting. Repeat resting 2D transthoracic echocardiogram in 6 months for reassessment of moderate aortic stenosis. 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 Family reports they have never noticed this before, I didn't see it documented in his last admission or pcp visit so sent patient for MRI and CT head given patient's presentation and also decreased platelets with history of fall placed him at higher risk for bleed. Both were negative for acute issue. Follow up with ophthalmology after discharge. Patient sees Dr. Owens (11) Fluid overload: Echo without reduced EF Given lasix 09/12 by cardiology CXR without congestion, patient no longer feeling sob (12) DVT prophylaxis: SCDs, TEDS, no chemoprophylaxis for thrombocytopenia Dispo: PT/OT evals. CM consulted. Of note, patient's mentioned that at times he can be very angry which was previously out of character for him but occasionally makes her fear for her safety. Discussed with her and her daughter. I did discuss the need for a plan to get to safety should there be an instance at home that escalates however she did not really feel that the situation was extreme enough that she would need that. She is more concerned for the change in his demeanor. I did recommend re-evaluation with neuro who he sees for Parkinsons after he gets through this admission. Appreciate any help CM could provide for support services. Subjective Patient seen and examined at the bedside. Afebrile. Patient denies fever, chills, chest pain, shortness of breath, abdominal pain, frequency, urgency. Denies syncope or near syncope. He reports a vague right upper quadrant abdominal pain. Patient is poor historian. Patient underwent HIDA scan today:1. Nonvisualization of the gallbladder compatible with cystic duct obstruction, likely secondary to acute acalculus cholecystitis. 2. No evidence of common bile duct obstruction. Review of Systems Review of Systems: All systems reviewed & are unremarkable except as noted in HPI & below Physical Exam Constitutional: WD/WN, vitals as above well developed Eyes: PERRL, conjunctivae normal, anicteric sclerae ENMT: external ear and nose normal, oropharynx normal Neck: trachea midline, no thyromegaly Respiratory: normal respiratory effort, lungs clear to auscultation Cardiovascular: RRR, no murmur, no edema Gastrointestinal (Abdomen): normal bowel sounds, soft, nontender, no hepatosplenomegaly Musculoskeletal: no cyanosis or clubbing, extremities motor strength 5/5 Skin: no rashes, warm and dry Neurologic: patellar DTR's 2+ bilat, sensation intact Results & Data Vital Signs (Past 12 Hours) Vital Signs Temp Pulse Pulse Resp BP Pulse Ox 09/13/19 16:09 65 09/13/19 14:52 36.6 C 67 20 131/67 95 09/13/19 07:23 37.4 C 63 18 137/73 93 09/13/19 07:10 70 PG Care Time/CCT Total # of Minutes Spent Total Time Spent with Patient: Total time spent is greater than 50% in coordination of care (as documented) at patient's floor/unit and/or counseling patient: (1) Coronary artery disease Coronary Disease-Associated Artery/Lesion type: [place] artery [place] vs. transplanted heart: [place] heart Associated angina: without angina Qualified Code(s): I25.10 - Atherosclerotic heart disease of [place] coronary artery without angina pectoris (2) Abdominal pain Abdominal location: unspecified location Qualified Code(s): R10.9 - Unspecified abdominal pain (3) Parkinsonism Parkinsonism type: Parkinson's disease Qualified Code(s): G20 - Parkinson's disease (4) Rhabdomyolysis Rhabdomyolysis type: non-traumatic Qualified Code(s): M62.82 - Rhabdomyolysis
[2019-09-14] MEDS: PIPERACILLIN/TAZOBACTAM 3.375 GM in DEXTROSE 5% 100 ML IV SCH ×4 (00:24→23:47)
--- NOTE | 2019-09-14 00:54 | Anesthesiology Consultation ---
Date of Service September 14, 2019 Assessment & Plan (1) Encounter for pre-operative examination: Chart Review Chart Review: Patient NOT seen in Pre Admission Testing and block setter gypsum initiated Consults Requested none Additional Notes 84 yo male with PMH significant for parkinsons, ORBERT, CAD, HTN, HLD, aortic stenosis, chronic back pain, and neuropathy who was admitted on 09/08 and diagnosed with anaplasmosis, thrombocytopenia secondary to anaplasmosis, rhabdomyolysis believed secondary to multiple recent falls, elevated troponin without regional wall motion abnormalities on echo, and studies consistent with acalculus cholecystitis. Pt developed fluid overload after admission that required dieresis - now improved. Per cardiac note date 09/11 - "Patient is moderate cardiovascular risk for perioperative complications. Mildly elevated troponin likely secondary to rhabdomyolysis on admission in the setting of multiple falls. CPK trending downward. No ischemic ECG changes or regional wall motion abnormalities per echocardiogram. Moderate aortic stenosis noted." History Surgery Operation Date: 09/13/19 11:55 Proposed Procedures p Laparoscopic Cholecystectomy, No Cholangiogram - Bharath Rosenberg MD Operation Date: 09/14/19 12:00 Proposed Procedures p Laparoscopic Cholecystectomy - Bharath Rosenberg MD Height/Weight Height: 5 ft 10 in Weight: 100.5 kg Allergies Allergy/AdvReac Type Severity Reaction Status Date / Time Iodinated Contrast Media Allergy Intermediate Hypotension Verified 09/10/19 18:34 [Iodinated Contrast- Oral and IV Dye] iodine Allergy Unknown Unknown Verified 09/08/19 14:53 atorvastatin AdvReac Intermediate Muscle Pain Verified 09/10/19 18:34 rosuvastatin AdvReac Intermediate Muscle Pain Verified 09/10/19 18:34 Medications Home Medications Medication Instructions Recorded Confirmed Last Taken omega-3 acid ethyl esters 1 gram 1 cap PO DAILY cap 04/20/19 09/08/19 Unknown capsule aspirin 81 mg chewable tablet 81 mg PO DAILY tab 05/21/19 09/08/19 Unknown borage (borago officinalis) 1,000 0 mg PO DAILY cap 05/21/19 09/08/19 Unknown mg capsule flaxseed oil 1,000 mg capsule 1,000 mg PO DAILY cap 05/21/19 09/08/19 Unknown cyclobenzaprine 5 mg PO TID PRN #30 tab 09/06/19 09/08/19 Unknown metoprolol tartrate 25 mg PO BID 09/06/19 09/08/19 Unknown ondansetron 4 mg PO Q8H PRN #30 tab 09/06/19 09/08/19 Unknown carbidopa-levodopa 1 tab PO UNKNOWN 09/08/19 09/08/19 Unknown Active Medications Generic Name Dose Route Start Last Admin Trade Name Freq PRN Reason Stop Dose Admin Acetaminophen 1,000 mg 09/08/19 18:24 09/09/19 02:32 Tylenol PO 10/08/19 18:23 1,000 mg Q8H PRN Administration Pain or Fever Hydrocodone Bitart/Acetaminophen 0.5 tab 09/08/19 21:10 09/10/19 08:05 Bruin 5/325 PO 09/22/19 21:09 0.5 tab Q6H PRN Administration Pain Al Hydrox/Mg Hydrox/Simethicone 15 ml 09/09/19 17:43 09/09/19 18:42 Maalox PO 10/09/19 17:42 15 ml Q6H PRN Administration epigastric pain Aspirin 81 mg 09/12/19 09:00 09/13/19 12:56 Ecotrin Ectab PO 10/12/19 08:59 81 mg DAILY JOSE J Administration Carbidopa/Levodopa 1 tab 09/08/19 21:00 09/13/19 21:04 Sinemet 25/100 Mg PO 10/08/19 20:59 1 tab QID JOSE J Administration Al Hydrox/Mg Hydrox/ 0 ml 09/09/19 19:00 09/09/19 20:54 Simethicone 72 ml/ Lidocaine PO 10/09/19 18:59 24 ml HCl 24 ml/ BARCODE IDENTIFIER Q4H PRN Administration 1 ea epigastric pain Doxycycline Hyclate 100 mg 09/09/19 21:00 09/13/19 21:04 Vibramycin PO 09/23/19 20:59 100 mg BID JOS EJ Administration Famotidine 20 mg/ Syringe 5 mls @ 2.5 mls/min 09/10/19 09:00 09/13/19 21:07 IV 10/10/19 08:59 2.5 mls/min BID JOSE J Administration Piperacillin Sod/Tazobactam 115 mls @ 28.75 mls/hr 09/11/19 16:00 09/14/19 00:24 Sod 3.375 gm/ Dextrose IV 11/11/19 17:59 28.8 mls/hr Q8H JOSE J Administration Protocol Metoprolol Tartrate 25 mg 09/11/19 14:00 09/13/19 21:03 Lopressor PO 10/11/19 13:59 25 mg TID JOSE J Administration Ondansetron HCl 4 mg 09/08/19 20:57 09/09/19 16:30 Zofran IV 10/08/19 20:56 4 mg Q6H PRN Administration Nausea Past Medical History Medical History Abdominal pain (Acute) Mild aortic stenosis (Acute) Hypertension (Acute) Hyperlipidemia (Acute) History of basal cell carcinoma (Acute) Coronary artery disease (Acute) Arrhythmia (Acute) Past Family History Family History Father Myocardial infarction Alcohol abuse Sister Cancer Breast cancer Past Surgical History Surgical History History of hernia surgery x3 Hx of CABG x4 Hx of shoulder surgery right and left Social History Smoking Status: Never smoker Hx Alcohol Use: No Hx Substance Use: No Physical Exam Vital Signs Last Vital Signs Temp 36.9 C 09/13/19 19:12 Pulse 73 09/13/19 20:59 Resp 18 09/13/19 19:12 BP 114/65 09/13/19 20:59 Pulse Ox 94 09/13/19 20:59 Testing Laboratory Results 09/12/19 06:55 09/13/19 06:09 PT 11.2 Seconds (9.0-12.0) 09/08/19 14:27 INR 1.1 (0.9-1.1) 09/08/19 14:27 APTT 30.2 Seconds (21.0-31.0) 09/08/19 14:27 Urine Color Dark Yellow 09/08/19 15:20 Urine Appearance Clear (Clear) 09/08/19 15:20 Urine pH 6.0 (4.5-7.5) 09/08/19 15:20 Ur Specific [place] 1.013 (1.000-1.030) 09/08/19 15:20 Urine Protein 2+ (Negative) H 09/08/19 15:20 Urine Glucose (UA) Negative (Negative) 09/08/19 15:20 Urine Ketones Negative (Negative) 09/08/19 15:20 Urine Nitrite Negative (Negative) 09/08/19 15:20 Ur Leukocyte Esterase Negative (Negative) 09/08/19 15:20 Urine WBC (Auto) 1-5 /hpf (0-5) 09/08/19 15:20 Urine RBC (Auto) 10-30 /hpf (0-4) H 09/08/19 15:20 U Hyaline Cast (Auto) 1-5 /lpf (0-5) 09/08/19 15:20 U Epithel Cells (Auto) 10-20 /lpf (0-5) H 09/08/19 15:20 Urine Bacteria (Auto) Negative (Negative) 09/08/19 15:20 Electrocardiogram Date: 09/09/19 Findings: + NSR @ (64) Left axis deviation, Incomplete RBBB, Inferior infarct (cited on or before 08-SEP-2019), no significant change compared with ECG of 09-SEP-2019. Chest X-Ray Date: 09/12/19 FINDINGS: An AP, portable, upright chest radiograph is compared to study dated 09/08/2019 and correlated with chest CT dated 08/13/2009. The examination is degraded by portable technique and patient rotation. The patient is status post midline sternotomy. The heart is top normal for projection. The pulmonary vasculature is noncongested. There is dependent atelectasis. Trace pleural effusions are suspected. No pneumothorax is seen. The skeletal structures are osteopenic. The bony thorax is grossly intact. IMPRESSION: 1. There is no radiographic evidence of congestive failure. 2. There is dependent atelectasis and trace pleural effusions are suspected. Echocardiogram Date: 09/09/19 EF: 60-65% LV Function: normal RWMA: + none Other Findings: + diastolic dysfunction (type 2) Valvular Disease: + MS (moderate with trace regurg., Ao mean PG 20.8, CHUYITA 1.1) Nl RVSP Other Testing Troponin peaked at 0.130 on 09/08/19 and normalized on 09/10 CK peaked at 15,496 on 09/08/19 and dropped to 1965 on 09/12
[2019-09-14 06:13] LABS: INR 1.1 (0.9-1.1); Partial Thromboplastin Time 27.1 Seconds (21.0-31.0)
[2019-09-14 06:41] LABS: Albumin Level 2.7 gm/dl (3.4-5.0); BUN Creatinine Ratio 8.8 (10-20); Calcium 8.5 mg/dl (8.5-10.1); Creatinine Clr Calc Pharmacy 69.3 ml/min; Est GFR (African American) 84.4; Est GFR (Non-African American) 72.8; Potassium 3.5 mmol/L (3.5-5.1)
[2019-09-14 06:44] LABS: Albumin Globulin Ratio 0.8 (0.9-2); Bilirubin,Total 0.9 mg/dl (0.2-1); Globulin 3.5 gm/dl (2.5-4.0); Total Protein 6.2 gm/dl (6.4-8.2)
--- NOTE | 2019-09-14 07:02 | Surgery Progress Note ---
Date of Service pt is still have some RUQ pain, pt had HIDA scan which dx obstruction on cyst duct, September 14, 2019 Assessment & Plan (1) Abdominal pain: The patient still has right upper quadrant discomfort Ultrasound showed minimal findings Plan is for HIDA scan tomorrow and further decisions to be made after the results of that are available. 09/13/2019 8:53am pt will have HIDA can today, depend on HIDA scan result, to do lap viri or not, will F/U pt understood, I answered all questions, 09/14/2019 7:00am I reviewed HIDA scan, agree with dx Acalculus cholecystitis I recommend to do laparoscopic cholecystectomy, possible oepn or cholangiogram, D/W benefits, risks and alternatives of the surgery, the rissk - infection, sepsis, bleeding, injury CBD, TN, DVT, stroke, , pt understood, he agrees with the surgery, I answeed all questions, other option is percutaneous drainage gallbladder, but pt wants to have laparoscopic cholecystectomy. Subjective Patient seen and examined at the bedside. Afebrile. Patient denies fever, chills, chest pain, shortness of breath, abdominal pain, frequency, urgency. Denies syncope or near syncope. He reports a vague right upper quadrant abdominal pain. Patient is poor historian. Patient underwent HIDA scan today:1. Nonvisualization of the gallbladder compatible with cystic duct obstruction, likely secondary to acute acalculus cholecystitis. 2. No evidence of common bile duct obstruction. Physical Exam Constitutional: WD/WN, vitals as above well developed and well nourished ENMT: external ear and nose normal, oropharynx normal Neck: trachea midline, no thyromegaly normal visual inspection Respiratory: normal respiratory effort, lungs clear to auscultation normal respiratory effort Cardiovascular: RRR, no murmur, no edema Rate/Rhythm: regular rate and regular rhythm Heart Sounds: normal S1 and normal S2 Gastrointestinal (Abdomen): normal bowel sounds, soft, nontender, no hepatosplenomegaly Inspection/Auscultation: abdomen normal to inspection Percussion/Palpation: + abdomen tender and abdomen soft Musculoskeletal: no cyanosis or clubbing, extremities motor strength 5/5 Skin: no rashes, warm and dry Neurologic: patellar DTR's 2+ bilat, sensation intact Psychiatric: Orientation: alert and oriented x 3 Results & Data Vital Signs (Past 12 Hours) Vital Signs Temp Pulse Pulse Resp BP Pulse Ox 09/14/19 03:02 36.8 C 60 18 137/69 95 09/13/19 23:15 36.8 C 66 18 108/59 L 94 09/13/19 22:20 63 09/13/19 20:59 73 114/65 94 09/13/19 19:12 36.9 C 71 18 100/64 95 Laboratory Results Abnormal lab results 09/13/19 09/14/19 Range/Units 06:09 05:43 Potassium 3.3 L (3.5-5.1) mmol/L BUN/Creatinine Ratio 8.5 L 8.8 L (10-20) Glucose 106 H 109 H (70-99) mg/dl AST 170 H 117 H (15-37) U/L Alkaline Phosphatase 160 H (45-117) U/L Total Protein 6.2 L (6.4-8.2) gm/dl Albumin 3.0 L 2.7 L (3.4-5.0) gm/dl Albumin/Globulin Ratio 0.8 L 0.8 L (0.9-2) Diagnostic Findings NM hepatobiliary CLINICAL HISTORY: 84 years-old Male with ruq oain. Acute right upper quadrant abdominal pain TECHNIQUE: Sequential anterior abdominal images were obtained through 105 minutes following the intravenous administration of 5.5 mCi of technetium-99m Choletec. 2 mg morphine administered intravenously was also given. COMPARISON: MRCP 09/10/2019 FINDINGS: There is prompt, uniform accumulation of the tracer by the liver. There is normal filling of the intrahepatic ducts, common bile duct and normal excretion of the tracer into the duodenum. At 60 minutes, no activity within the gallbladder identified. Morphine was then given. Delayed images demonstrate no activity within the gallbladder. Mildly increased activity within the inferior right hepatic lobe may reflect acute inflammation. Images were obtained through 105 minutes. IMPRESSION: 1. Nonvisualization of the gallbladder compatible with cystic duct obstruction, likely secondary to acute acalculus cholecystitis. 2. No evidence of common bile duct obstruction. (1) Abdominal pain Abdominal location: unspecified location Qualified Code(s): R10.9 - Unspecified abdominal pain
[2019-09-14] MEDS: METOPROLOL TARTRATE 25 MG TAB PO SCH ×3 (08:59→20:43)
[2019-09-14] MEDS: ASPIRIN 81 MG ECTAB PO SCH ×2 (08:59→09:00)
[2019-09-14] MEDS: FAMOTIDINE 20 MG in SYRINGE 3 ML IV SCH (08:59)
[2019-09-14] MEDS: DOXYCYCLINE HYCLATE 100 MG CAP PO SCH ×2 (08:59→20:46)
[2019-09-14] MEDS: CARBIDOPA/LEVODOPA 25/100MG TAB PO SCH ×4 (08:59→20:44)
[2019-09-14] MEDS ORDERED: fentaNYL citrate 100 MCG/2 ML VIAL ONE ×2 (12:25→13:23)
[2019-09-14] MEDS ORDERED: CEFAZOLIN 2000MG 2,000 MG/15 ML SYR IV ONE (12:34)
--- NOTE | 2019-09-14 12:34 | History & Physical Bridge Note ---
Date of Service September 14, 2019 History & Physical Bridge Note I have examined the patient, reviewed the History & Physical and in the interval since the performance of the History & Physical I have noted the following changes of clinical significance: no changes noted Supervising Physician Co-Signing Physician Notes I examined and seen patient with TESSIE Barboza and agree with assessment and plan.
[2019-09-14] MEDS ORDERED: BACITRACIN OINT 15 GM TUBE ONE (12:36)
[2019-09-14] MEDS ORDERED: BUPIVACAINE 0.5 % 5 MG/1 ML MPF 30ML VIAL ONE (12:36)
[2019-09-14] MEDS ORDERED: LIDOCAINE HCL 1% 20 ML VIAL ONE (12:36)
[2019-09-14] MEDS ORDERED: ONDANSETRON INJ 2 MG/ML 2 ML VIAL IV PRN ×2 (12:42→12:52)
[2019-09-14] MEDS ORDERED: fentaNYL citrate 100 MCG/2 ML VIAL IV PRN ×2 (12:42→12:52)
[2019-09-14] MEDS ORDERED: DEXAMETHASONE SOD INJ 4 MG/ML VIAL IV PRN (12:42)
[2019-09-14] MEDS ORDERED: PROMETHAZINE HCL 12.5 MG in SODIUM CHLORIDE 0.9% 50 ML IV PRN (12:42)
[2019-09-14] MEDS ORDERED: METOCLOPRAMIDE HCL INJ 5 MG/ML 2 ML VIAL IV PRN (12:42)
[2019-09-14] MEDS ORDERED: ATROPINE SULFATE 0.1 MG/ML 10ML SYR IV PRN ×2 (12:42→12:52)
[2019-09-14] MEDS ORDERED: ePHEDrine sulfate 50 MG/ML AMP IV PRN ×2 (12:42→12:52)
[2019-09-14] MEDS ORDERED: HYDROmorphone INJ 2 MG/ML SYR/VIAL IV PRN ×2 (12:42→12:52)
--- NOTE | 2019-09-14 12:47 | Cardiology Progress Note ---
Date of Service September 14, 2019 Assessment & Plan (1) Preop cardiovascular exam: (2) CAD (coronary artery disease), [place] coronary artery: (3) Rhabdomyolysis: (4) Elevated troponin I level: (5) Moderate aortic stenosis: (6) Acalculous cholecystitis: (7) Anaplasmosis: (8) Thrombocytopenia: Appears compensated/euvolemic today. Continue current cardiovascular medications including beta-michael, and aspirin. Statin intolerance documented. Moderate cardiovascular risk reviewed. Patient understands risk and is willing to proceed with laparoscopic cholecystectomy as scheduled. Consider addition of PCSK9 inhibitor at follow-up appointment in the outpatient setting. Repeat resting 2D transthoracic echocardiogram in 6 months for reassessment of moderate aortic stenosis. All questions answered satisfaction both patient and his . Subjective Patient seen and examined the bedside. Mild diffuse right-sided abdominal discomfort unchanged. Denies chest pain or unusual shortness of breath. HIDA scan demonstrated nonvisualization of the gallbladder consistent with cystic duct obstruction. Scheduled for laparoscopic cholecystectomy today. Review of Systems Review of Systems: All systems reviewed & are unremarkable except as noted in HPI & below Physical Exam Physical Exam: General: NAD, AAO x3, well nourished. Overweight. HEENT: Normocephalic. Atraumatic. Conjunctiva pink, no scleral icterus. Neck: No carotid bruits, the carotid upstrokes are brisk. No JVD. No HJR Heart: Regular normal S-1 and S-2. 3/6 low pitched mid peaking systolic ejection murmur heard throughout the precordium, however, best at the right second intercostal space without radiation. PMI is not displaced. No RV heave. Lungs: Clear bilateral without rales , rhonchi, or wheeze. Abdomen: Soft, diffusely tender. No rebound or guarding. + Bowel sounds. Extremities: No clubbing, cyanosis, or edema. Pulses: radial=2/4, Dorsalis pedis =2/4, posterior tibial=2/4. Neuro: Cranial nerves grossly intact. No focal motor deficit. Results & Data Vital Signs (Past 12 Hours) Vital Signs Temp Pulse Pulse Resp BP Pulse Ox 09/14/19 12:39 36.6 C 64 20 132/66 95 09/14/19 11:33 36.8 C 61 18 118/64 95 09/14/19 07:50 37.0 C 83 18 127/64 90 09/14/19 07:20 63 09/14/19 03:02 36.8 C 60 18 137/69 95
[2019-09-14] MEDS ORDERED: ONDANSETRON INJ 2 MG/ML 2 ML VIAL ONE (13:27)
[2019-09-14] MEDS ORDERED: GLYCOPYRROLATE 0.2 MG/ML VIAL ONE (13:27)
[2019-09-14] MEDS ORDERED: LABETALOL HCL IV 5 MG/ML 20ML IV ONE (13:27)
[2019-09-14] MEDS ORDERED: NEOSTIGMINE METHYLSULFATE 5 MG/5 ML SYR ONE (13:27)
[2019-09-14] MEDS ORDERED: ROCURONIUM BROMIDE 10 MG/ML 5 ML VIAL ONE ×3 (13:27→15:10)
[2019-09-14] MEDS ORDERED: LARYING-O-JET KIT (LTA) ONE (13:27)
[2019-09-14] MEDS ORDERED: LIDOCAINE HCL 2% 2 ML VIAL/AMP(20MG/ML) INFIL ONE (13:27)
[2019-09-14] MEDS ORDERED: PROPOFOL IV EMULSION 10 MG/ML 20 ML VIAL IV ONE (13:27)
[2019-09-14] MEDS ORDERED: ePHEDrine sulfate 50 MG/ML SYR ONE (14:42)
[2019-09-14] MEDS: EZETIMIBE 10 MG TABLET PO SCH (15:09)
--- NOTE | 2019-09-14 15:17 | Post Operative Brief Note ---
Immediate Post Op Note v1 Date of Surgery September 14, 2019 Pre & Post Diagnosis Operation Date: 09/13/19 11:55 Operation Date: 09/14/19 12:00 Pre-Op Diagnosis: acute Cholecystitis Post-Op Diagnosis: acute Cholecystitis, gangrenous gallbaldder I identified the patient and participated in the time-out.: Yes Procedure Operation Date: 09/13/19 11:55 Operation Date: 09/14/19 12:00 Actual Procedures p Laparoscopic Cholecystectomy(Not Applicable) - Bharath Rosenberg MD Surgeon Bharath Rosenberg MD Chassis Inspector HIRO Kelly Estimated Blood Loss 150 Findings Consistent with Post-Op Diagnosis acute cholecystitis, significant inflammation on gallbladder wall with gangrene. Fluids 500ml Specimens gallbladder Drains Ismael-Leonard Drain (10 flat) Anesthesia Type General Complications none Disposition Accompanied Patient To Recovery: Yes Disposition: Recovery Room Overlapping Procedure I was immediately available: during the entire case.
--- NOTE | 2019-09-14 15:21 | Hospitalist Progress Note ---
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 Diaz's recommendations. Continue Zosyn. Lyme is negative (2) Thrombocytopenia: Platelets rebounding from low of 50,000 Secondary to anaplasmosis repeat CBC am (3) Coronary artery disease: resumed ASA after surgery as platelets are nearly wnl Metoprolol made TID by cardiology (4) Abdominal pain: 09/10 - Right upper quadrant pain/epigastric pain Lipase, troponin wnl, no changes on EKG RUQ US with biliary sludge and gallbladder distention General surgery consulted MRCP :1. Nonvisualization of the gallbladder compatible with cystic duct obstruction, likely secondary to acute acalculus cholecystitis. 2. No evidence of common bile duct obstruction. Continue Zosyn N.p.o. 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 No severe central canal stenosis. Suspected mild multilevel central canal and moderate neural foraminal stenosis. PT/OT (6) Obstructive sleep apnea: May use own cpap (7) Parkinsonism: Continue home carbidopa-levodopa (8) Elevated troponin: Appreciate cardiology recommendations continue current cardiovascular medication including beta-blockers and aspirin. Statin intolerance documented. Plan to start Zetia 10 mg p.o. every morning since hospital does not have PC SK 9 inhibitor. After discharge patient will follow up with cardiology and he can obtain Repatha with his post form remover. Repeat resting 2D transthoracic echocardiogram in 6 months for reassessment of moderate aortic stenosis. (9) Rhabdomyolysis: CK peaked 15,496 and is trending down- patient did have a number of falls over last couple of days [employer]. 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 Family reports they have never noticed this before, I didn't see it documented in his last admission or pcp visit so sent patient for MRI and CT head given patient's presentation and also decreased platelets with history of fall placed him at higher risk for bleed. Both were negative for acute issue. Follow up with ophthalmology after discharge. Patient sees Dr. Owens (11) Fluid overload: Echo without reduced EF Given lasix 09/12 by cardiology CXR without congestion, patient no longer feeling sob (12) DVT prophylaxis: SCDs, TEDS, no chemoprophylaxis for thrombocytopenia Dispo: PT/OT evals. CM consulted. Of note, patient's mentioned that at times he can be very angry which was previously out of character for him but occasionally makes her fear for her safety. Discussed with her and her daughter. I did discuss the need for a plan to get to safety should there be an instance a t home that escalates however she did not really feel that the situation was extreme enough that she would need that. She is more concerned for the change in his demeanor. I did recommend re-evaluation with neuro who he sees for Parkinsons after he gets through this admission. Appreciate any help CM could provide for support services. Subjective Patient seen and examined the bedside. Mild diffuse right-sided abdominal discomfort unchanged. Denies chest pain or unusual shortness of breath. HIDA scan demonstrated nonvisualization of the gallbladder consistent with cystic duct obstruction. Scheduled for laparoscopic cholecystectomy today. She denies fever chills, chest pain, shortness of breath, frequency or urgency. Review of Systems Review of Systems: All systems reviewed & are unremarkable except as noted in HPI & below Physical Exam Constitutional: WD/WN, vitals as above well developed Eyes: PERRL, conjunctivae normal, anicteric sclerae ENMT: external ear and nose normal, oropharynx normal Neck: trachea midline, no thyromegaly Respiratory: normal respiratory effort, lungs clear to auscultation Cardiovascular: RRR, no murmur, no edema Gastrointestinal (Abdomen): normal bowel sounds, soft, nontender, no hepatosplenomegaly Musculoskeletal: no cyanosis or clubbing, extremities motor strength 5/5 Skin: no rashes, warm and dry Neurologic: patellar DTR's 2+ bilat, sensation intact Results & Data Vital Signs (Past 12 Hours) Vital Signs Temp Pulse Pulse Resp BP Pulse Ox 09/14/19 13:26 63 09/14/19 12:39 36.6 C 64 20 132/66 95 09/14/19 11:33 36.8 C 61 18 118/64 95 09/14/19 07:50 37.0 C 83 18 127/64 90 09/14/19 07:20 63 PG Care Time/CCT Total # of Minutes Spent Total Time Spent with Patient: Total time spent is greater than 50% in coordination of care (as documented) at patient's floor/unit and/or counseling patient: (1) Coronary artery disease Associated angina: without angina Coronary Disease-Associated Artery/Lesion type: [place] artery [place] vs. transplanted heart: [place] heart Qualified Code(s): I25.10 - Atherosclerotic heart disease of [place] coronary artery without angina pectoris (2) Rhabdomyolysis Rhabdomyolysis type: non-traumatic Qualified Code(s): M62.82 - Rhabdomyolysis (3) Parkinsonism Parkinsonism type: Parkinson's disease Qualified Code(s): G20 - Parkinson's disease (4) Abdominal pain Abdominal location: unspecified location Qualified Code(s): R10.9 - Unspecified abdominal pain
[2019-09-14] MEDS ORDERED: ONDANSETRON 4 MG TAB PO PRN (16:41)
[2019-09-14] MEDS ORDERED: CYCLOBENZAPRINE HCL 5 MG TAB PO PRN (16:41)
--- NOTE | 2019-09-14 16:42 | Anesthesiology Progress Note ---
Date of Service September 14, 2019 Anesthesia Post Procedure Vital Signs Vital Signs: Temp Pulse Pulse Pulse Resp BP Pulse Ox 09/14/19 16:20 36.6 C 70 17 130/73 96 09/14/19 16:10 75 18 138/74 95 09/14/19 16:00 78 22 136/70 98 09/14/19 15:50 78 23 148/60 H 98 09/14/19 15:41 36.2 C L 78 19 150/46 H 99 09/14/19 13:26 63 09/14/19 12:39 36.6 C 64 20 132/66 95 09/14/19 11:33 36.8 C 61 18 118/64 95 09/14/19 07:50 37.0 C 83 18 127/64 90 09/14/19 07:20 63 09/14/19 03:02 36.8 C 60 18 137/69 95 09/13/19 23:15 36.8 C 66 18 108/59 L 94 09/13/19 22:20 63 09/13/19 20:59 73 114/65 94 09/13/19 19:12 36.9 C 71 18 100/64 95 Pain Intensity Back: Pain Intensity: 6 Abdomen: Pain Intensity: 4 Transfer of Care Handoff Completed per policy Notes Mental Status: alert / awake / arousable and participated in evaluation Patient Amnestic to Procedure: Yes Nausea / Vomiting: adequately controlled Pain: adequately controlled Airway Patency, RR, SpO2: stable & adequate BP & HR: stable & adequate Hydration State: stable & adequate Anesthetic Complications: no major complications apparent and Pt Satisfied with anesthetic care
--- NOTE | 2019-09-14 17:15 | Operative Report ---
DATE OF OPERATION: 09/14/2019 PREOPERATIVE DIAGNOSIS: Acute cholecystitis. POSTOPERATIVE DIAGNOSES: Acute cholecystitis, gangrene gallbladder. OPERATION: Laparoscopic cholecystectomy, PAULETTE drainage x1. SURGEON: Bharath Rosenberg MD. ANESTHESIA: General. GANG INVESTIGATOR: Fabiana Cano PA-C. ESTIMATED BLOOD LOSS: About 150 mL. FINDINGS: Acute cholecystitis with gangrene gallbladder. COMPLICATIONS: None. INDICATIONS FOR THE PROCEDURE: This is an 84-year-old gentleman who was admitted to the hospital for abdominal pain and patient had a HIDA scan shows acute cholecystitis. I recommended to do the laparoscopic cholecystectomy, possible open, possible cholangiogram. I did talk to the patient about the benefit and risk, alternate procedure. I indicated the risks may include but not limited such as bleeding, infection, injury to common bile duct, bile leak, may need ERCP, myocardial infarction, DVT, stroke, even . The patient understands. He signed informed consent and I answered all questions. DETAILS OF PROCEDURE: We brought the patient to the OR, put the patient in the supine position. The patient received SCD on bilateral legs to prevent DVT. Also, patient received 2 grams Ancef IV for prophylactic antibiotic. The patient received general anesthesia without difficulty. The abdomen was appropriately draped in routine sterile fashion. After time out, I injected local anesthesia by using 1% lidocaine mixed with 0.5% Marcaine just above umbilicus. Then I made a small incision just above umbilicus, opened fascia and opened peritoneum and under direct vision put a Linda trocar in, connected to CO2 to create pneumoperitoneum. Flow rate at 6 liter per minute. Pressure not more than 14 mmHg. Once we got a nice pneumoperitoneum, we put a camera in, looked around the abdomen shows normal finding on the liver. However, the gallbladder shows significant acute cholecystitis with gangrene gallbladder and omentum covers the gallbladder with inflammation, confirmed diagnosis of acute cholecystitis. Then, we put another two 5 mm trocar on the right upper quadrant, one 12 trocar on the epigastric area. Once all trocars in, when we peeled the omentum shows a significant gangrene gallbladder. Once we mobilized the gallbladder, is some gallbladder rupture. We suctioned all of the bile fluid and based on significant inflammation near the cystic duct, we decided to use the top-down technique to take down gallbladder; however, based on the significant inflammation and we tried a couple times in to lobes and still inflammation on the gallbladder. At this moment, we mobilized the gallbladder near the cystic duct and then we used the Endo staple transection near the cystic duct. Then we used the harmonic to take down the gangrene gallbladder and hemostasis obtained. Then we removed the gallbladder through the catch bag then we reinserted Linda trocar in, connected to CO2 to create pneumoperitoneum, again looked around the abdomen, no significant bile leak or active bleeding from the liver bed, so I put a 10 mm PAULETTE drainage near the liver bed and then we removed all trocar under direct vision. No active bleeding from the trocar site. Pneumoperitoneum was released. I closed the umbilical incision, fascial layer by using #1 Vicryl [id number] x2, closed subcutaneous layer by using 2-0 Vicryl interrupted, closed skin by using 4-0 Vicryl continuous running, closed another 12 trocar fascial layer by using #1 Vicryl [id number] x2 subcutaneous layer by using 2-0 Vicryl interrupted, closed skin by using 4-0 Vicryl interruptedly and closed another 5 mm trocar on the right upper quadrant layer skin only by using 4-0 Vicryl. Then, we used a 2-0 Vicryl to fix the PAULETTE drain on the skin and then we put the dressing on. The patient tolerated the procedure well. All instrument, needle and sponge count were correct x2 at the end the case. The patient's vital signs were stable during the procedure and the specimen sent to pathology. After procedure, the patient transferred to the recovery room in stable condition. After procedure, I did talk to the patient's and the patient's daughter about the OR finding and procedure we did, they understand. I attest to the content of the Intraoperative Record and any orders documented therein. Any exception s are noted below.
[2019-09-14] MEDS: HYDROCODONE/ACETAMOPHEN 5/325MG TAB PO PRN (20:52)
[2019-09-15] MEDS: ACETAMINOPHEN 500 MG TAB PO PRN ×2 (01:49→12:44)
[2019-09-15] MEDS: HYDROCODONE/ACETAMOPHEN 5/325MG TAB PO PRN ×2 (04:16→16:37)
[2019-09-15 06:58] LABS: Basophils # (auto) 0.02 K/uL (0-0.2); Basophils % (auto) 0.2 %; Eosinophils # (auto) 0.07 K/uL (0-0.5); Eosinophils % (auto) 0.7 %; Hematocrit (blood only) 29.5 % (42-52); Hemoglobin 10.4 g/dL (14.0-18.0); Immature Granulocytes # (auto) 0.11 K/uL (0.00-0.02); Immature Granulocytes % (auto) 1.2 %; Lymphocytes # (auto) 2.81 K/uL (1.2-3.4); Mean Corpuscular Hgb Conc 35.3 g/dL (32-36); Mean Corpuscular Volume 93.7 fL (80-100); Mean Platelet Volume 9.1 fL (7.4-10.4); Monocytes % (auto) 14.9 %; Neutrophils # (auto) 4.96 K/uL (1.4-6.5); Platelet Count 310 K/uL (130-400); RDW Coefficient of Variation 13.4 % (11.5-14.5); RDW Standard Deviation 45.7 fL (36.4-46.3); Red Blood Count 3.15 M/uL (4.7-6.1); White Blood Count 9.37 K/uL (4.8-10.8)
[2019-09-15 07:30] LABS: Albumin Level 2.5 gm/dl (3.4-5.0); Calcium 8.5 mg/dl (8.5-10.1); Creatinine Clr Calc Pharmacy 58.3 ml/min; Est GFR (African American) 67.8; Est GFR (Non-African American) 58.5; Potassium 3.6 mmol/L (3.5-5.1)
[2019-09-15 07:33] LABS: Albumin Globulin Ratio 0.7 (0.9-2); Bilirubin,Total 0.7 mg/dl (0.2-1); Globulin 3.5 gm/dl (2.5-4.0)
[2019-09-15] MEDS: PIPERACILLIN/TAZOBACTAM 3.375 GM in DEXTROSE 5% 100 ML IV SCH ×3 (08:33→23:25)
[2019-09-15] MEDS: OMEGA-3 (PURIFIED FISH OIL) 1 GM CAP PO SCH (08:34)
[2019-09-15] MEDS: METOPROLOL TARTRATE 25 MG TAB PO SCH ×3 (08:34→20:28)
[2019-09-15] MEDS: CARBIDOPA/LEVODOPA 25/100MG TAB PO SCH ×4 (08:35→20:28)
[2019-09-15] MEDS: DOXYCYCLINE HYCLATE 100 MG CAP PO SCH ×2 (08:36→20:28)
[2019-09-15] MEDS: EZETIMIBE 10 MG TABLET PO SCH (08:36)
[2019-09-15] MEDS ORDERED: BORAGE PO SCH (09:00)
[2019-09-15] MEDS ORDERED: NON-FORMULARY MEDICATION (Flaxseed Oil 1,000 MG) PO SCH (09:00)
--- NOTE | 2019-09-15 09:31 | Cardiology Progress Note ---
Date of Service September 15, 2019 Assessment & Plan (1) CAD (coronary artery disease), [place] coronary artery: (2) Moderate aortic stenosis: (3) Rhabdomyolysis: (4) Elevated troponin I level: (5) Acalculous cholecystitis: (6) Anaplasmosis: (7) Thrombocytopenia: Appears compensated/euvolemic today. Continue current cardiovascular medications including beta-michael, and aspirin. Statin intolerance documented. Follow fluid balance and daily weight. Utilize Lasix as needed to maintain even fluid balance. Consider addition of PCSK9 inhibitor at follow-up appointment in the outpatient setting. Repeat resting 2D transthoracic echocardiogram in 6 months for reassessment of moderate aortic stenosis. All questions answered satisfaction both patient and his . Subjective Patient seen and examined the bedside. Laparoscopic cholecystectomy performed 09/14/2019 without complication. Reports abdominal discomfort and poor appetite today. No nausea, vomiting, diarrhea. Denies chest pain or shortness of breath. Elevated heart rate in sinus rhythm this morning. Patient did not receive afternoon or evening dose of beta-michael 09/14/2019. Review of Systems Review of Systems: All systems reviewed & are unremarkable except as noted in HPI & below Physical Exam Physical Exam: General: NAD, AAO x3, well nourished. Overweight. HEENT: Normocephalic. Atraumatic. Conjunctiva pink, no scleral icterus. Neck: No carotid bruits, the carotid upstrokes are brisk. No JVD. No HJR Heart: Regular normal S-1 and S-2. 3/6 low pitched mid peaking systolic ejection murmur heard throughout the precordium however best at the right second intercostal space with radiation to the carotid arteries bilaterally. No murmurs or rub appreciated. PMI is not displaced. No RV heave. Lungs: Clear bilateral without rales , rhonchi, or wheeze. Abdomen: Mild distention, no rebound or guarding, normal bowel sounds. Extremities: No clubbing, cyanosis, or edema. Pulses: radial=2/4, Dorsalis pedis =2/4, posterior tibial=2/4. Neuro: Cranial nerves grossly intact. No focal motor deficit. Results & Data Vital Signs (Past 12 Hours) Vital Signs Temp Pulse Pulse Pulse Resp BP Pulse Ox 09/15/19 07:40 36.9 C 93 H 22 117/62 93 09/15/19 07:10 92 H 09/15/19 03:42 37 C 98 H 18 104/71 94 09/15/19 01:12 98 H 09/14/19 23:24 37.1 C 104 H 16 107/66 93 Laboratory Results Laboratory Results - last 24 hr 09/15/19 09/15/19 06:24 06:24 WBC 9.37 RBC 3.15 L Hgb 10.4 L Hct 29.5 L MCV 93.7 MCH 33.0 MCHC 35.3 RDW Std Deviation 45.7 RDW Coeff of Clau 13.4 Plt Count 310 MPV 9.1 Immature Gran % (Auto) 1.2 Neut % (Auto) 53.0 Lymph % (Auto) 30.0 Camp % (Auto) 14.9 Eos % (Auto) 0.7 Baso % (Auto) 0.2 Immature Gran # (Auto) 0.11 H Neut # (Auto) 4.96 Lymph # (Auto) 2.81 [place] # (Auto) 1.40 H Eos # (Auto) 0.07 Baso # (Auto) 0.02 Sodium 138 Potassium 3.6 Chloride 105 Carbon Dioxide 28 Anion Gap 5.0 BUN 15 D Creatinine 1.15 Est Cr Clr Drug Dosing 58.3 Est GFR ( Amer) 67.8 Est GFR (Non-Af Amer) 58.5 BUN/Creatinine Ratio 13.0 Glucose 131 H Calcium 8.5 Total Bilirubin 0.7 AST 77 H ALT 34 Alkaline Phosphatase 118 H Total Protein 6.0 L Albumin 2.5 L Globulin 3.5 Albumin/Globulin Ratio 0.7 L
--- NOTE | 2019-09-15 11:41 | Surgery Progress Note ---
Date of Service S/P lap viri. pod 1 doing fine, less abdominal pain, no nausea, no vomiting, PAULETTE 90ml bloody, no active bleeding, September 15, 2019 Assessment & Plan (1) Abdominal pain: The patient still has right upper quadrant discomfort Ultrasound showed minimal findings Plan is for HIDA scan tomorrow and further decisions to be made after the results of that are available. 09/13/2019 8:53am pt will have HIDA can today, depend on HIDA scan result, to do lap viri or not, will F/U pt understood, I answered all questions, 09/14/2019 7:00am I reviewed HIDA scan, agree with dx Acalculus cholecystitis I recommend to do laparoscopic cholecystectomy, possible open or cholangiogram, D/W benefits, risks and alternatives of the surgery, the risks - infection, sepsis, bleeding, injury CBD, HI, DVT, stroke, , pt understood, he agrees with the surgery, I answered all questions, other option is percutaneous drainage gallbladder, but pt wants to have laparoscopic cholecystectomy. 09/15/2019 11:39AM stable, doing fine, regular diet, possible resume 81mg ASA on 09/17/2019, will F/U Subjective Patient seen and examined the bedside. Laparoscopic cholecystectomy performed 09/14/2019 without complication. Reports abdominal discomfort today. No nausea, vomiting, diarrhea. Denies chest pain or shortness of breath. Elevated heart rate in sinus rhythm this morning. Patient did not receive afternoon or evening dose of beta-michael 09/14/2019. Physical Exam Constitutional: WD/WN, vitals as above well developed and well nourished ENMT: external ear and nose normal, oropharynx normal Neck: trachea midline, no thyromegaly normal visual inspection Respiratory: normal respiratory effort, lungs clear to auscultation normal respiratory effort Cardiovascular: RRR, no murmur, no edema Rate/Rhythm: regular rate and regular rhythm Heart Sounds: normal S1 and normal S2 Gastrointestinal (Abdomen): normal bowel sounds, soft, nontender, no hepatosplenomegaly Inspection/Auscultation: abdomen normal to inspection Percussion/Palpation: + abdomen tender and abdomen soft all incisions intact, no redness, Musculoskeletal: no cyanosis or clubbing, extremities motor strength 5/5 Skin: no rashes, warm and dry Neurologic: patellar DTR's 2+ bilat, sensation intact Psychiatric: Orientation: alert and oriented x 3 Results & Data Vital Signs (Past 12 Hours) Vital Signs Temp Pulse Pulse Pulse Resp BP Pulse Ox 09/15/19 07:40 36.9 C 93 H 22 117/62 93 09/15/19 07:10 92 H 09/15/19 03:42 37 C 98 H 18 104/71 94 09/15/19 01:12 98 H (1) Abdominal pain Abdominal location: unspecified location Qualified Code(s): R10.9 - Unspecified abdominal pain
--- NOTE | 2019-09-15 18:42 | Hospitalist Progress Note ---
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 Diaz's recommendations. Continue Zosyn. Lyme is negative (2) Thrombocytopenia: Resolved .Platelets rebounding from low of 50,000 to normal 310 Secondary to anaplasmosis (3) Coronary artery disease: Resumed ASA Metoprolol 25 mg p.o. TID by cardiology We will start Repatha as an outpatient Since hospital can provide all only Zetia patient started on it since he has statin intolerance (4) Abdominal pain: 09/10 - Right upper quadrant pain/epigastric pain 09/14 status post laparoscopic cholecystectomy for biliary sludge and gallbladder distention Lipase, troponin wnl, no changes on EKG Plan to give 2 more doses of Zosyn and then stop. Given prophylactically. 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 No severe central canal stenosis. Suspected mild multilevel central canal and moderate neural foraminal stenosis. PT/OT (6) Obstructive sleep apnea: May use own cpap (7) Parkinsonism: Continue home carbidopa-levodopa (8) Elevated troponin: Appreciate cardiology recommendations continue current cardiovascular medication including beta-blockers and aspirin. Statin intolerance documented. Plan to start Zetia 10 mg p.o. every morning since hospital does not have PC SK 9 inhibitor. 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 Repeat resting 2D transthoracic echocardiogram in 6 months for reassessment of moderate aortic stenosis. (9) Rhabdomyolysis: Resolved (10) Dilated pupil: left pupil is dilated and fixed but otherwise no focal findings. Family reports they have never noticed this before, I didn't see it documented in his last admission or pcp visit so sent patient for MRI and CT head given patient's presentation and also decreased platelets with history of fall placed him at higher risk for bleed. Both were negative for acute issue. Follow up with ophthalmology after discharge. Patient sees Dr. Owens (11) Fluid overload: Resolved Continue Lasix as recommended by cardiology (12) DVT prophylaxis: SCDs, TEDS, Will start Lovenox when safe status post cholecystectomy. Patient platelets are normal now. Dispo: PT/OT evals. CM consulted. Subjective Patient seen and examined the bedside. Resting in the bed. laparoscopic cholecystectomy performed 09/14/2019 without complication. Patient reports some abdominal discomfort at the sites of incision and has a drain with approximately 3 cc of sanguinous fluid in the piggy bag. Reports no nausea, vomiting, headache fever chills, chest pain, shortness of breath, abdominal pain, urgency, frequency. Tolerated procedure well. diarrhea. Review of Systems Review of Systems: All systems reviewed & are unremarkable except as noted in HPI & below Physical Exam Constitutional: WD/WN, vitals as above well developed Eyes: PERRL, conjunctivae normal, anicteric sclerae ENMT: external ear and nose normal, oropharynx normal Neck: trachea midline, no thyromegaly Respiratory: normal respiratory effort, lungs clear to auscultation Cardiovascular: RRR, no murmur, no edema Gastrointestinal (Abdomen): normal bowel sounds, soft, nontender, no hepatosplenomegaly Musculoskeletal: no cyanosis or clubbing, extremities motor strength 5/5 Skin: no rashes, warm and dry Neurologic: patellar DTR's 2+ bilat, sensation intact Results & Data Vital Signs (Past 12 Hours) Vital Signs Temp Pulse Pulse Pulse Resp BP BP 09/15/19 15:30 78 09/15/19 15:08 36.6 C 75 18 106/58 L 09/15/19 12:01 36.6 C 81 18 106/61 09/15/19 07:40 36.9 C 93 H 22 117/62 09/15/19 07:10 92 H Pulse Ox 09/15/19 15:30 09/15/19 15:08 94 09/15/19 12:01 92 09/15/19 07:40 93 09/15/19 07:10 PG Care Time/CCT Total # of Minutes Spent Total Time Spent with Patient: Total time spent is greater than 50% in coordination of care (as documented) at patient's floor/unit and/or counseling patient: (1) Coronary artery disease Coronary Disease-Associated Artery/Lesion type: [place] artery [place] vs. transplanted heart: [place] heart Associated angina: without angina Qualified Code(s): I25.10 - Atherosclerotic heart disease of [place] coronary artery without angina pectoris (2) Abdominal pain Abdominal location: unspecified location Qualified Code(s): R10.9 - Unspecified abdominal pain (3) Parkinsonism Parkinsonism type: Parkinson's disease Qualified Code(s): G20 - Parkinson's disease (4) Rhabdomyolysis Rhabdomyolysis type: non-traumatic Qualified Code(s): M62.82 - Rhabdomyolysis
[2019-09-16] MEDS: HYDROCODONE/ACETAMOPHEN 5/325MG TAB PO PRN ×2 (03:02→16:29)
[2019-09-16 07:25] LABS: Basophils # (auto) 0.02 K/uL (0-0.2); Basophils % (auto) 0.2 %; Eosinophils # (auto) 0.14 K/uL (0-0.5); Eosinophils % (auto) 1.6 %; Hematocrit (blood only) 27.3 % (42-52); Hemoglobin 9.9 g/dL (14.0-18.0); Immature Granulocytes # (auto) 0.11 K/uL (0.00-0.02); Immature Granulocytes % (auto) 1.3 %; Lymphocytes # (auto) 2.94 K/uL (1.2-3.4); Lymphocytes % (auto) 33.4 %; Mean Corpuscular Hemoglobin 34.1 pg (25-34); Mean Corpuscular Hgb Conc 36.3 g/dL (32-36); Mean Corpuscular Volume 94.1 fL (80-100); Mean Platelet Volume 9.5 fL (7.4-10.4); Monocytes # (auto) 1.08 K/uL (0.11-0.59); Monocytes % (auto) 12.3 %; Neutrophils % (auto) 51.2 %; Platelet Count 293 K/uL (130-400); RDW Coefficient of Variation 13.2 % (11.5-14.5); RDW Standard Deviation 45.5 fL (36.4-46.3); White Blood Count 8.79 K/uL (4.8-10.8)
[2019-09-16 08:01] LABS: Albumin Level 2.6 gm/dl (3.4-5.0); BUN Creatinine Ratio 13.8 (10-20); Calcium 8.3 mg/dl (8.5-10.1); Creatinine Clr Calc Pharmacy 79.8 ml/min; Est GFR (African American) 94.3; Est GFR (Non-African American) 81.4; Potassium 3.7 mmol/L (3.5-5.1)
[2019-09-16 08:07] LABS: Albumin Globulin Ratio 0.7 (0.9-2); Bilirubin,Total 0.8 mg/dl (0.2-1); Globulin 3.8 gm/dl (2.5-4.0); Total Protein 6.4 gm/dl (6.4-8.2)
[2019-09-16] MEDS: CARBIDOPA/LEVODOPA 25/100MG TAB PO SCH ×4 (08:25→20:09)
[2019-09-16] MEDS: EZETIMIBE 10 MG TABLET PO SCH (08:25)
[2019-09-16] MEDS: METOPROLOL TARTRATE 25 MG TAB PO SCH ×3 (08:25→20:08)
[2019-09-16] MEDS: OMEGA-3 (PURIFIED FISH OIL) 1 GM CAP PO SCH (08:25)
[2019-09-16] MEDS: DOXYCYCLINE HYCLATE 100 MG CAP PO SCH ×2 (08:25→20:09)
--- NOTE | 2019-09-16 08:55 | Surgery Progress Note ---
Date of Service doing better, less abdominal pain, PAULETTE 15ml/day September 16, 2019 Assessment & Plan (1) Abdominal pain: The patient still has right upper quadrant discomfort Ultrasound showed minimal findings Plan is for HIDA scan tomorrow and further decisions to be made after the results of that are available. 09/13/2019 8:53am pt will have HIDA can today, depend on HIDA scan result, to do lap viri or not, will F/U pt understood, I answered all questions, 09/14/2019 7:00am I reviewed HIDA scan, agree with dx [place] cholecystitis I recommend to do laparoscopic cholecystectomy, possible open or cholangiogram, D/W benefits, risks and alternatives of the surgery, the risks - infection, sepsis, bleeding, injury CBD, RI, DVT, stroke, , pt understood, he agrees with the surgery, I answered all questions, other option is percutaneous drainage gallbladder, but pt wants to have laparoscopic cholecystectomy. 09/15/2019 11:39AM stable, doing fine, regular diet, possible resume 81mg ASA on 09/17/2019, will F/U 09/16/2019 8:54am doing fine, after speech test, if it is okay, pt can have full liquid diet today will F/U Subjective Patient seen and examined the bedside. Resting in the bed. laparoscopic cholecystectomy performed 09/14/2019 without complication. Patient reports some abdominal discomfort at the sites of incision and has a drain with approximately 3 cc of sanguinous fluid in the piggy bag. Reports no nausea, vomiting, headache fever chills, chest pain, shortness of breath, abdominal pain, urgency, frequency. Tolerated procedure well. diarrhea. Physical Exam Constitutional: WD/WN, vitals as above well developed and well nourished ENMT: external ear and nose normal, oropharynx normal Neck: trachea midline, no thyromegaly normal visual inspection Respiratory: normal respiratory effort, lungs clear to auscultation normal respiratory effort Cardiovascular: RRR, no murmur, no edema Rate/Rhythm: regular rate and regular rhythm Heart Sounds: normal S1 and normal S2 Gastrointestinal (Abdomen): normal bowel sounds, soft, nontender, no hepatosplenomegaly Inspection/Auscultation: abdomen normal to inspection Percussion/Palpation: + abdomen tender and abdomen soft Musculoskeletal: no cyanosis or clubbing, extremities motor strength 5/5 Skin: no rashes, warm and dry Neurologic: patellar DTR's 2+ bilat, sensation intact Psychiatric: Orientation: alert and oriented x 3 Results & Data Vital Signs (Past 12 Hours) Vital Signs Temp Pulse Pulse Pulse Pulse Resp BP 09/16/19 07:40 108 H 09/16/19 07:13 36.9 C 86 18 141/68 H 09/16/19 04:00 37.2 C 92 H 20 136/70 09/16/19 00:09 75 09/15/19 23:59 37.1 C 76 18 BP Pulse Ox 09/16/19 07:40 09/16/19 07:13 91 09/16/19 04:00 92 09/16/19 00:09 09/15/19 23:59 116/67 90 (1) Abdominal pain Abdominal location: unspecified location Qualified Code(s): R10.9 - Unspecifi ed abdominal pain
--- NOTE | 2019-09-16 10:33 | Cardiology Progress Note ---
Date of Service September 16, 2019 Assessment & Plan (1) CAD (coronary artery disease), [place] coronary artery: (2) Moderate aortic stenosis: (3) Rhabdomyolysis: (4) Elevated troponin I level: (5) Acalculous cholecystitis: (6) Anaplasmosis: (7) Postoperative anemia: Encouraged patient to utilize incentive spirometry. PT/OT as tolerated. Advance diet as per surgical recommendations. Patient appears compensated and euvolemic to hypovolemic today. Continue to monitor fluid balance and daily weights. Encouraged oral hydration. Continue current cardiovascular medications include beta-michael, and aspirin. Documented statin intolerance. Consider addition of PCSK9 inhibitor as an outpatient. Repeat resting 2D transthoracic echocardiogram for surveillance of moderate aortic stenosis in 6 months. Subjective Patient seen and examined the bedside. Family present at bedside. Voiced concern regarding shallow breaths and abdominal discomfort. Patient currently on aspiration precautions. Appetite remains poor. Abdominal discomfort unchanged. Denies nausea or vomiting. Telemetry demonstrates sinus rhythm with premature ventricular complexes. Review of Systems Review of Systems: All systems reviewed & are unremarkable except as noted in HPI & below Physical Exam Physical Exam: General: NAD, AAO x3, well nourished. Overweight. HEENT: Normocephalic. Atraumatic. Conjunctiva pink, no scleral icterus. Neck: No carotid bruits, the carotid upstrokes are brisk. No JVD. No HJR Heart: Regular normal S-1 and S-2. 3/6 low pitched mid peaking systolic ejection murmur heard throughout the precordium however best at the right second intercostal space with radiation to the carotid arteries bilaterally. No murmurs or rub appreciated. PMI is not displaced. No RV heave. Lungs: Diminished breath sounds at the bases with scant crackles. Poor inspiratory effort noted. Abdomen: Diffuse tenderness. Mild distention, no rebound or guarding, normal bowel sounds. Extremities: No clubbing, cyanosis, or edema. Pulses: radial=2/4, Dorsalis pedis =2/4, posterior tibial=2/4. Neuro: Cranial nerves grossly intact. No focal motor deficit. Results & Data Vital Signs (Past 12 Hours) Vital Signs Temp Pulse Pulse Pulse Pulse Resp BP 09/16/19 10:00 36.9 C 108 H 92 H 86 76 18 141/68 H 09/16/19 07:40 108 H 09/16/19 07:13 36.9 C 86 18 141/68 H 09/16/19 04:00 37.2 C 92 H 20 136/70 09/16/19 00:09 75 09/15/19 23:59 37.1 C 76 18 BP Pulse Ox 09/16/19 10:00 116/67 91 09/16/19 07:40 09/16/19 07:13 91 09/16/19 04:00 92 09/16/19 00:09 09/15/19 23:59 116/67 90 Laboratory Results Laboratory Results - last 24 hr 09/16/19 09/16/19 06:51 06:51 WBC 8.79 RBC 2.90 L Hgb 9.9 L Hct 27.3 L MCV 94.1 MCH 34.1 H MCHC 36.3 H RDW Std Deviation 45.5 RDW Coeff of Cl[place] 13.2 Plt Count 293 MPV 9.5 Immature Gran % (Auto) 1.3 Neut % (Auto) 51.2 Lymph % (Auto) 33.4 [place] % (Auto) 12.3 Eos % (Auto) 1.6 Baso % (Auto) 0.2 Immature Gran # (Auto) 0.11 H Neut # (Auto) 4.50 Lymph # (Auto) 2.94 [place] # (Auto) 1.08 H Eos # (Auto) 0.14 Baso # (Auto) 0.02 Sodium 137 Potassium 3.7 Chloride 104 Carbon Dioxide 26 Anion Gap 7.0 BUN 11 Creatinine 0.83 D Est Cr Clr Drug Dosing 79.8 Est GFR ( Amer) 94.3 Est GFR (Non-Af Amer) 81.4 BUN/Creatinine Ratio 13.8 Glucose 99 Calcium 8.3 L Total Bilirubin 0.8 AST 56 H ALT 30 Alkaline Phosphatase 104 NT-Pro-B Natriuret Pep 303 Total Protein 6.4 Albumin 2.6 L Globulin 3.8 Albumin/Globulin Ratio 0.7 L
--- NOTE | 2019-09-16 14:13 | Hospitalist Progress Note ---
Date of Service September 16, 2019 Assessment & Plan (1) Anaplasmosis: Improving .Patient with peripheral smear with inclusion bodies Continue doxycycline [address] Diaz's recommendations. Lyme is negative (2) Thrombocytopenia: Resolved .Platelets rebounding from low of 50,000 to normal 310 Secondary to anaplasmosis (3) Coronary artery disease: Resumed ASA Metoprolol 25 mg p.o. TID by cardiology We will start Repatha as an outpatient Since hospital can provide all only Zetia patient started on it since he has statin intolerance (4) Abdominal pain: 09/10 - Right upper quadrant pain/epigastric pain 09/14 status post laparoscopic cholecystectomy for biliary sludge and gallbladder distention Lipase, troponin wnl, no changes on EKG Zosyn discontinued. No signs of infection. Given prophylactically. 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 No severe central canal stenosis. Suspected mild multilevel central canal and moderate neural foraminal stenosis. PT/OT (6) Obstructive sleep apnea: May use own cpap (7) Parkinsonism: Continue home carbidopa-levodopa (8) Elevated troponin: Appreciate cardiology recommendations continue current cardiovascular medication including beta-blockers and aspirin. Statin intolerance documented. Plan to start Zetia 10 mg p.o. every morning since hospital does not have PC SK 9 inhibitor. 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 Repeat resting 2D transthoracic echocardiogram in 6 months for reassessment of moderate aortic stenosis. (9) Rhabdomyolysis: Resolved (10) Dilated pupil: left pupil is dilated and fixed but otherwise no focal findings. Family reports they have never noticed this before, I didn't see it documented in his last admission or pcp visit so sent patient for MRI and CT head given patient's presentation and also decreased platelets with history of fall placed him at higher risk for bleed. Both were negative for acute issue. Follow up with ophthalmology after discharge. Patient sees Dr. Owens (11) Fluid overload: Resolved Continue Lasix as recommended by cardiology (12) DVT prophylaxis: SCDs, TEDS, Will start Lovenox when safe status post cholecystectomy. Patient platelets are normal now. Dispo: PT/OT evals. CM consulted. Subjective Patient seen and examined the bedside. Patient found to have difficulty tolerating liquids yesterday and patient therapy was consulted .they recommended to initiate a full liquid diet to due to recent surgery recommended advance as tolerated patient swallow without any difficulty but did have some lingual retention that cleared with a liquid wash no other issues identified. Denies fever, chills, chest pain, shortness of breath, abdominal pain, frequency, urgency. His abdomen is appropriate Huseyin tender status post laparoscopic cholecystectomy. His drain produced only 1 cc of serosanguineous fluid. The wound is healing properly. He is now using incentive spirometry every hour. Review of Systems Review of Systems: All systems reviewed & are unremarkable except as noted in HPI & below Physical Exam Constitutional: WD/WN, vitals as above well developed Eyes: PERRL, conjunctivae normal, anicteric sclerae ENMT: external ear and nose normal, oropharynx normal Neck: trachea midline, no thyromegaly Respiratory: normal respiratory effort, lungs clear to auscultation Cardiovascular: RRR, no murmur, no edema Gastrointestinal (Abdomen): normal bowel sounds, soft, nontender, no hepatosplenomegaly Musculoskeletal: no cyanosis or clubbing, extremities motor strength 5/5 Skin: no rashes, warm and dry Neurologic: patellar DTR's 2+ bilat, sensation intact Results & Data Vital Signs (Past 12 Hours) Vital Signs Temp Pulse Pulse Pulse Pulse Resp BP 09/16/19 11:29 37.2 C 74 18 110/65 09/16/19 10:00 36.9 C 108 H 92 H 86 76 18 141/68 H 09/16/19 07:40 108 H 09/16/19 07:13 36.9 C 86 18 141/68 H 09/16/19 04:00 37.2 C 92 H 20 136/70 BP Pulse Ox 09/16/19 11:29 93 09/16/19 10:00 116/67 91 09/16/19 07:40 09/16/19 07:13 91 09/16/19 04:00 92 PG Care Time/CCT Total # of Minutes Spent Total Time Spent with Patient: Total time spent is greater than 50% in coordination of care (as documented) at patient's floor/unit and/or counseling patient: (1) Coronary artery disease Associated angina: without angina Coronary Disease-Associated Artery/Lesion type: [place] artery [place] vs. transplanted heart: [place] heart Qualified Code(s): I25.10 - Atherosclerotic heart disease of [place] coronary artery without angina pectoris (2) Rhabdomyolysis Rhabdomyolysis type: non-traumatic Qualified Code(s): M62.82 - Rhabdomyolysis (3) Parkinsonism Parkinsonism type: Parkinson's disease Qualified Code(s): G20 - Parkinson's disease (4) Abdominal pain Abdominal location: unspecified location Qualified Code(s): R10.9 - Unspecified abdominal pain
[2019-09-17] MEDS: HYDROCODONE/ACETAMOPHEN 5/325MG TAB PO PRN ×3 (01:57→16:44)
[2019-09-17 06:11] LABS: Basophils # (auto) 0.02 K/uL (0-0.2); Basophils % (auto) 0.2 %; Eosinophils # (auto) 0.11 K/uL (0-0.5); Eosinophils % (auto) 1.2 %; Hematocrit (blood only) 28.3 % (42-52); Hemoglobin 9.7 g/dL (14.0-18.0); Immature Granulocytes # (auto) 0.12 K/uL (0.00-0.02); Immature Granulocytes % (auto) 1.3 %; Lymphocytes # (auto) 3.25 K/uL (1.2-3.4); Lymphocytes % (auto) 36.2 %; Mean Corpuscular Hemoglobin 32.4 pg (25-34); Mean Corpuscular Hgb Conc 34.3 g/dL (32-36); Mean Corpuscular Volume 94.6 fL (80-100); Mean Platelet Volume 9.8 fL (7.4-10.4); Monocytes # (auto) 1.14 K/uL (0.11-0.59); Monocytes % (auto) 12.7 %; Neutrophils # (auto) 4.35 K/uL (1.4-6.5); Neutrophils % (auto) 48.4 %; Platelet Count 259 K/uL (130-400); RDW Coefficient of Variation 13.2 % (11.5-14.5); RDW Standard Deviation 45.9 fL (36.4-46.3); Red Blood Count 2.99 M/uL (4.7-6.1); White Blood Count 8.99 K/uL (4.8-10.8)
[2019-09-17 06:47] LABS: Albumin Level 2.6 gm/dl (3.4-5.0); BUN Creatinine Ratio 10.6 (10-20); Calcium 8.8 mg/dl (8.5-10.1); Creatinine Clr Calc Pharmacy 79.8 ml/min; Est GFR (African American) 94.3; Est GFR (Non-African American) 81.4; Potassium 3.9 mmol/L (3.5-5.1)
[2019-09-17 06:50] LABS: Albumin Globulin Ratio 0.7 (0.9-2); Bilirubin,Total 0.7 mg/dl (0.2-1); Globulin 3.9 gm/dl (2.5-4.0); Total Protein 6.5 gm/dl (6.4-8.2)
[2019-09-17] MEDS: METOPROLOL TARTRATE 25 MG TAB PO SCH ×3 (07:58→20:21)
[2019-09-17] MEDS: CARBIDOPA/LEVODOPA 25/100MG TAB PO SCH ×4 (07:58→20:21)
[2019-09-17] MEDS: EZETIMIBE 10 MG TABLET PO SCH (07:58)
[2019-09-17] MEDS: DOXYCYCLINE HYCLATE 100 MG CAP PO SCH ×2 (07:58→20:21)
[2019-09-17] MEDS: OMEGA-3 (PURIFIED FISH OIL) 1 GM CAP PO SCH (07:59)
[2019-09-17] MEDS: ASPIRIN 81 MG ECTAB PO SCH (07:59)
--- NOTE | 2019-09-17 11:42 | Hospitalist Progress Note ---
Date of Service September 17, 2019 Assessment & Plan (1) Anaplasmosis: Improving .Patient with peripheral smear with inclusion bodies Continue doxycycline 100 mg bid complete 7 days of therapy. Appreciate Dr. Diaz's recommendations. Lyme is negative (2) Thrombocytopenia: Resolved .Platelets rebounding from low of 50,000 to normal 310 Secondary to anaplasmosis (3) Coronary artery disease: Resumed ASA Metoprolol 25 mg p.o. TID by cardiology We will start Repatha as an outpatient Since hospital can provide all only Zetia patient started on it since he has statin intolerance (4) Abdominal pain: 09/10 - Right upper quadrant pain/epigastric pain 09/14 status post laparoscopic cholecystectomy for biliary sludge and gallbladder distention Lipase, troponin wnl, no changes on EKG Zosyn discontinued. No signs of infection. Given prophylactically. 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 No severe central canal stenosis. Suspected mild multilevel central canal and moderate neural foraminal stenosis. PT/OT (6) Obstructive sleep apnea: May use own cpap (7) Parkinsonism: Continue home carbidopa-levodopa (8) Elevated troponin: Appreciate cardiology recommendations continue current cardiovascular medication including beta-blockers and aspirin. Statin intolerance documented. Plan to start Zetia 10 mg p.o. every morning since hospital does not have PC SK 9 inhibitor. 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 Repeat resting 2D transthoracic echocardiogram in 6 months for reassessment of moderate aortic stenosis. (9) Rhabdomyolysis: Resolved (10) Dilated pupil: left pupil is dilated and fixed but otherwise no focal findings. Family reports they have never noticed this before, I didn't see it documented in his last admission or pcp visit so sent patient for MRI and CT head given patient's presentation and also decreased platelets with history of fall placed him at higher risk for bleed. Both were negative for acute issue. Follow up with ophthalmology after discharge. Patient sees Dr. Owens (11) Fluid overload: Resolved Continue Lasix as recommended by cardiology (12) DVT prophylaxis: SCDs, TEDS, Will start Lovenox when safe status post cholecystectomy. Patient platelets are normal now. Dispo: PT/OT evals. CM consulted. Subjective Patient seen and examined the bedside. P.o. intake is good today. Patient tolerated heart healthy lunch and breakfast. His wound status post cholecystectomy POD #2 is healing properly. Patient states that he is ready to be discharged to [facility] but there is no room available yet for physical and occupational therapy.Denies fever, chills, chest pain, shortness of breath, abdominal pain, frequency, urgency. His abdomen is appropriate tender status post laparoscopic cholecystectomy. His drain produced only 1 cc of serosanguineous fluid.He is now using incentive spirometry every hour. Review of Systems Review of Systems: All systems reviewed & are unremarkable except as noted in HPI & below Physical Exam Constitutional: WD/WN, vitals as above well developed Eyes: PERRL, conjunctivae normal, anicteric sclerae ENMT: external ear and nose normal, oropharynx normal Neck: trachea midline, no thyromegaly Respiratory: normal respiratory effort, lungs clear to auscultation Cardiovascular: RRR, no murmur, no edema Gastrointestinal (Abdomen): normal bowel sounds, soft, nontender, no hepatosplenomegaly Musculoskeletal: no cyanosis or clubbing, extremities motor strength 5/5 Skin: no rashes, warm and dry Neurologic: patellar DTR's 2+ bilat, sensation intact Results & Data Vital Signs (Past 12 Hours) Vital Signs Temp Pulse Pulse Pulse Resp BP BP 09/17/19 07:27 36.7 C 78 18 144/74 H 09/17/19 07:06 80 09/17/19 04:18 09/17/19 04:10 36.8 C 74 17 162/78 H 09/17/19 00:23 36.8 C 71 19 150/70 H Pulse Ox 09/17/19 07:27 96 09/17/19 07:06 09/17/19 04:18 94 09/17/19 04:10 80 L 09/17/19 00:23 89 L PG Care Time/CCT Total # of Minutes Spent Total Time Spent with Patient: Total time spent is greater than 50% in coordination of care (as documented) at patient's floor/unit and/or counseling patient: (1) Coronary artery disease Associated angina: without angina Coronary Disease-Associated Artery/Lesion type: [place] artery [place] vs. transplanted heart: [place] heart Qualified Code(s): I25.10 - Atherosclerotic heart disease of [place] coronary artery without angina pectoris (2) Rhabdomyolysis Rhabdomyolysis type: non-traumatic Qualified Code(s): M62.82 - Rhabdomyolysis (3) Parkinsonism Parkinsonism type: Parkinson's disease Qualified Code(s): G20 - Parkinson's disease (4) Abdominal pain Abdominal location: unspecified location Qualified Code(s): R10.9 - Unspecified abdominal pain
--- NOTE | 2019-09-17 12:25 | Surgery Progress Note ---
Date of Service doing better, tolerated diet, no nausea, no vomiting, PAULETTE 20ml September 17, 2019 Assessment & Plan (1) Abdominal pain: The patient still has right upper quadrant discomfort Ultrasound showed minimal findings Plan is for HIDA scan tomorrow and further decisions to be made after the results of that are available. 09/13/2019 8:53am pt will have HIDA can today, depend on HIDA scan result, to do lap viri or not, will F/U pt understood, I answered all questions, 09/14/2019 7:00am I reviewed HIDA scan, agree with dx Acalculus cholecystitis I recommend to do laparoscopic cholecystectomy, possible open or cholangiogram, D/W benefits, risks and alternatives of the surgery, the risks - infection, sepsis, bleeding, injury CBD, CT, DVT, stroke, , pt understood, he agrees with the surgery, I answered all questions, other option is percutaneous drainage gallbladder, but pt wants to have laparoscopic cholecystectomy. 09/15/2019 11:39AM stable, doing fine, regular diet, possible resume 81mg ASA on 09/17/2019, will F/U 09/16/2019 8:54am doing fine, after speech test, if it is okay, pt can have full liquid diet today will F/U 09/17/2019 12:22PM doing fine, regular diet, pt can be discharged from surgical point, keep the PAULETTE drainage in, he can take a shower tomorrow, Follow up me in 1 week, , invertebrate paleontologist surgeon will cover this weekend, thanks, Subjective Patient seen and examined the bedside. Patient found to have difficulty tolerating liquids yesterday and patient therapy was consulted .they recommended to initiate a full liquid diet to due to recent surgery recommended advance as tolerated patient swallow without any difficulty but did have some lingual retention that cleared with a liquid wash no other issues identified. Denies fever, chills, chest pain, shortness of breath, abdominal pain, frequency, urgency. His abdomen is appropriate Huseyin tender status post laparoscopic cholecystectomy. His drain produced only 1 cc of serosanguineous fluid. The wound is healing properly. He is now using incentive spirometry every hour. Physical Exam Constitutional: WD/WN, vitals as above well developed and well nourished ENMT: external ear and nose normal, oropharynx normal Neck: trachea midline, no thyromegaly normal visual inspection Respiratory: normal respiratory effort, lungs clear to auscultation normal respiratory effort Cardiovascular: RRR, no murmur, no edema Rate/Rhythm: regular rate and regular rhythm Heart Sounds: normal S1 and normal S2 Gastrointestinal (Abdomen): normal bowel sounds, soft, nontender, no hepatosplenomegaly Inspection/Auscultation: abdomen normal to inspection Percussion/Palpation: + abdomen tender and abdomen soft Musculoskeletal: no cyanosis or clubbing, extremities motor strength 5/5 Skin: no rashes, warm and dry Neurologic: patellar DTR's 2+ bilat, sensation intact Psychiatric: Orientation: alert and oriented x 3 Results & Data Vital Signs (Past 12 Hours) Vital Signs Temp Pulse Pulse Pulse Resp BP BP 09/17/19 12:04 36.6 C 75 18 124/74 09/17/19 07:27 36.7 C 78 18 144/74 H 09/17/19 07:06 80 09/17/19 04:18 09/17/19 04:10 36.8 C 74 17 162/78 H 09/17/19 00:23 36.8 C 71 19 150/70 H Pulse Ox 09/17/19 12:04 96 09/17/19 07:27 96 09/17/19 07:06 09/17/19 04:18 94 09/17/19 04:10 80 L 09/17/19 00:23 89 L Laboratory Results Abnormal lab results 09/17/19 09/17/19 Range/Units 05:52 05:52 RBC 2.99 L (4.7-6.1) M/uL Hgb 9.7 L (14.0-18.0) g/dL Hct 28.3 L (42-52) % Immature Gran # (Auto) 0.12 H (0.00-0.02) K/uL [place] # (Auto) 1.14 H (0.11-0.59) K/uL Glucose 103 H (70-99) mg/dl AST 46 H (15-37) U/L Albumin 2.6 L (3.4-5.0) gm/dl Albumin/Globulin Ratio 0.7 L (0.9-2) (1) Abdominal pain Abdominal location: unspecified location Qualified Code(s): R10.9 - Unspecified abdominal pain
--- NOTE | 2019-09-17 14:38 | Infectious Disease Progress Nt ---
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 To be continued on doxycycline to complete 7 days of therapy, counts improving. Will follow. Subjective Patient seen in follow-up for Anaplasma infection and now status post cholecystectomy for gangrenous gallbladder. Having trouble taking p.o. Remains afebrile. Review of Systems 2 Review of Systems: All systems reviewed & are unremarkable except as noted in HPI & below Physical Exam Constitutional: WD/WN, vitals as above comfortable; no acute distress Eyes: PERRL, conjunctivae normal, anicteric sclerae ENMT: external ear and nose normal, oropharynx normal Neck: trachea midline, no thyromegaly neck nontender Respiratory: normal respiratory effort, lungs clear to auscultation normal percussion; does not use accessory muscles Cardiovascular: Rate/Rhythm: regular rate and regular rhythm Heart Sounds: normal S1 and normal S2; no gallop, no murmur and no cardiac rub Vessels: normal peripheral pulses; no JVD Gastrointestinal (Abdomen): normal bowel sounds, soft, nontender, no hepatosplenomegaly Inspection/Auscultation: normal bowel sounds Percussion/Palpation: + abdomen tender (Right upper quadrant); no hepatosplenomegaly and no abdominal mass Musculoskeletal: no cyanosis or clubbing, extremities motor strength 5/5 Spine: thoracic spine normal to inspection and lumbar spine normal to inspection; no cervical spinal tenderness Skin: no rashes, warm and dry normal turgor; no lesions Neurologic: patellar DTR's 2+ bilat, sensation intact no focal motor deficits Psychiatric: A+Ox3, euthymic affect Orientation: cooperative Lymphatic: no cervical or axillary lymphadenopathy no inguinal ly mphadenopathy Results & Data Vital Signs (Past 12 Hours) Vital Signs Temp Pulse Pulse Pulse Resp BP BP 09/17/19 12:04 36.6 C 75 18 124/74 09/17/19 07:27 36.7 C 78 18 144/74 H 09/17/19 07:06 80 09/17/19 04:18 09/17/19 04:10 36.8 C 74 17 162/78 H Pulse Ox 09/17/19 12:04 96 09/17/19 07:27 96 09/17/19 07:06 09/17/19 04:18 94 09/17/19 04:10 80 L Laboratory Results Short CBC 09/17/19 Range/Units 05:52 WBC 8.99 (4.8-10.8) K/uL Hgb 9.7 L (14.0-18.0) g/dL Hct 28.3 L (42-52) % Plt Count 259 (130-400) K/uL BMP 09/17/19 05:52 Sodium 138 Potassium 3.9 Chloride 107 Carbon Dioxide 26 BUN 9 Creatinine 0.83 Glucose 103 H Calcium 8.8 Liver Function 09/17/19 Range/Units 05:52 Total Bilirubin 0.7 (0.2-1) mg/dl AST 46 H (15-37) U/L ALT 27 (12-78) U/L Alkaline Phosphatase 101 (45-117) U/L Albumin 2.6 L (3.4-5.0) gm/dl PG Care Time/CCT Total # of Minutes Spent Total Time Spent with Patient: Total time spent is greater than 50% in coordination of care (as documented) at patient's floor/unit and/or counseling patient:
[2019-09-18] MEDS: HYDROCODONE/ACETAMOPHEN 5/325MG TAB PO PRN ×2 (00:27→07:28)
[2019-09-18 07:18] LABS: Basophils # (auto) 0.04 K/uL (0-0.2); Basophils % (auto) 0.4 %; Eosinophils # (auto) 0.12 K/uL (0-0.5); Eosinophils % (auto) 1.3 %; Hematocrit (blood only) 29.8 % (42-52); Hemoglobin 10.2 g/dL (14.0-18.0); Immature Granulocytes # (auto) 0.13 K/uL (0.00-0.02); Immature Granulocytes % (auto) 1.4 %; Lymphocytes % (auto) 32.7 %; Mean Corpuscular Hemoglobin 32.1 pg (25-34); Mean Corpuscular Hgb Conc 34.2 g/dL (32-36); Mean Corpuscular Volume 93.7 fL (80-100); Mean Platelet Volume 9.1 fL (7.4-10.4); Monocytes % (auto) 10.9 %; Neutrophils # (auto) 4.88 K/uL (1.4-6.5); Neutrophils % (auto) 53.3 %; Platelet Count 383 K/uL (130-400); RDW Coefficient of Variation 13.1 % (11.5-14.5); Red Blood Count 3.18 M/uL (4.7-6.1); White Blood Count 9.17 K/uL (4.8-10.8)
[2019-09-18] MEDS: DOXYCYCLINE HYCLATE 100 MG CAP PO SCH (07:29)
[2019-09-18] MEDS: CARBIDOPA/LEVODOPA 25/100MG TAB PO SCH (07:29)
[2019-09-18] MEDS: ASPIRIN 81 MG ECTAB PO SCH (07:29)
[2019-09-18] MEDS: METOPROLOL TARTRATE 25 MG TAB PO SCH (07:29)
[2019-09-18] MEDS: EZETIMIBE 10 MG TABLET PO SCH (07:29)
[2019-09-18] MEDS: OMEGA-3 (PURIFIED FISH OIL) 1 GM CAP PO SCH (07:29)
[2019-09-18 07:50] LABS: Albumin Level 2.8 gm/dl (3.4-5.0); BUN Creatinine Ratio 14.6 (10-20); Calcium 8.9 mg/dl (8.5-10.1); Creatinine Clr Calc Pharmacy 78.1 ml/min; Est GFR (African American) 93.8; Potassium 3.9 mmol/L (3.5-5.1)
[2019-09-18 07:52] LABS: Albumin Globulin Ratio 0.7 (0.9-2); Bilirubin,Total 0.8 mg/dl (0.2-1); Globulin 4.2 gm/dl (2.5-4.0)
--- NOTE | 2019-09-18 08:57 | Surgery Progress Note ---
Date of Service September 18, 2019 Assessment & Plan (1) Abdominal pain: 09/18/19 s/p laparoscopic cholecystectomy tolerating a regular diet PAULETTE serosang with about 20cc output okay to shower today Okay to discharge to facility from surgical standpoint with follow up with Dr. dunham patient seen and examined with dr. dover Subjective Patient states he feels well. He is tolerating a regular diet. Anticipating discharge to facility today. Physical Exam Gastrointestinal (Abdomen): Inspection/Auscultation: + abdominal surgical incision (c/d/i with surgical dressings in place.) and + abdominal surgical drain present (PAULETTE serosang. 20cc) Results & Data Vital Signs (Past 12 Hours) Vital Signs Temp Pulse Pulse Pulse Resp BP Pulse Ox 09/18/19 08:26 37.2 C 74 20 126/67 92 09/18/19 04:52 33.6 C L 69 18 137/73 93 09/17/19 23:17 79 09/17/19 23:00 33.2 C L 75 20 139/73 93 PG Care Time/CCT Total # of Minutes Spent Total Time Spent with Patient: Total time spent is greater than 50% in coordination of care (as documented) at patient's floor/unit and/or counseling patient: (1) Abdominal pain Abdominal location: unspecified location Qualified Code(s): R10.9 - Unspecified abdominal pain
--- NOTE | 2019-09-18 10:58 | Hospitalist Progress Note ---
Date of Service September 18, 2019 Assessment & Plan (1) Anaplasmosis: Resolved .Patient with peripheral smear with inclusion bodies Pt completed 10 days of doxycycline [address] Diaz's recommendations. Lyme is negative (2) Thrombocytopenia: Resolved .Platelets rebounding from low of 50,000 to normal 310 Secondary to anaplasmosis (3) Coronary artery disease: Resumed ASA Metoprolol 25 mg p.o. TID by cardiology We will start Repatha as an outpatient Since hospital can provide all only Zetia patient started on it since he has statin intolerance (4) Abdominal pain: 09/10 - Right upper quadrant pain/epigastric pain 09/14 status post laparoscopic cholecystectomy for biliary sludge and gallbladder distention Lipase, troponin wnl, no changes on EKG Zosyn discontinued. No signs of infection. Given prophylactically. 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 No severe central canal stenosis. Suspected mild multilevel central canal and moderate neural foraminal stenosis. PT/OT (6) Obstructive sleep apnea: May use own cpap (7) Parkinsonism: Continue home carbidopa-levodopa (8) Elevated troponin: Appreciate cardiology recommendations continue current cardiovascular medication including beta-blockers and aspirin. Statin intolerance documented. Plan to start Zetia 10 mg p.o. every morning since hospital does not have PC SK 9 inhibitor. After discharge patient will follow up with cardiology and he can obtain Repatha with his bone tender. Repeat resting 2D transthoracic echocardiogram in 6 months for reassessment of moderate aortic stenosis. (9) Rhabdomyolysis: Resolved (10) Dilated pupil: left pupil is dilated and fixed but otherwise no focal findings. Family reports they have never noticed this before, I didn't see it documented in his last admission or pcp visit so sent patient for MRI and CT head given patient's presentation and also decreased platelets with history of fall placed him at higher risk for bleed. Both were negative for acute issue. Follow up with ophthalmology after discharge. Patient sees Dr. Owens (11) Fluid overload: Resolved Continue Lasix as recommended by cardiology (12) DVT prophylaxis: SCDs, TEDS, Will start Lovenox when safe status post cholecystectomy. Patient platelets are normal now. Dispo: PT/OT evals. CM consulted. Subjective Patient states he feels well. He is tolerating a regular diet. Anticipating discharge to facility today. Review of Systems Review of Systems: All systems reviewed & are unremarkable except as noted in HPI & below Physical Exam Constitutional: WD/WN, vitals as above well developed ENMT: external ear and nose normal, oropharynx normal Neck: trachea midline, no thyromegaly Respiratory: normal respiratory effort, lungs clear to auscultation Cardiovascular: RRR, no murmur, no edema Gastrointestinal (Abdomen): normal bowel sounds, soft, nontender, no hepatosplenomegaly Status post cholecystectomy. Wound clean dry and intact. PEG tube drains approximately 20 cc serosanguineous fluid. Musculoskeletal: no cyanosis or clubbing, extremities motor strength 5/5 Skin: no rashes, warm and dry Neurologic: patellar DTR's 2+ bilat, sensation intact Genitourinary: no testicular masses, no penis abnormality Lymphatic: no cervical or axillary lymphadenopathy Results & Data Vital Signs (Past 12 Hours) Vital Signs Temp Pulse Pulse Pulse Pulse Resp BP 09/18/19 10:13 37.2 C 69 74 76 20 126/67 09/18/19 10:04 79 09/18/19 08:26 37.2 C 74 20 126/67 09/18/19 04:52 33.6 C L 69 18 137/73 09/17/19 23:17 79 09/17/19 23:00 33.2 C L 75 20 139/73 BP Pulse Ox 09/18/19 10:13 124/74 92 09/18/19 10:04 09/18/19 08:26 92 09/18/19 04:52 93 09/17/19 23:17 09/17/19 23:00 93 PG Care Time/CCT Total # of Minutes Spent Total Time Spent with Patient: Total time spent is greater than 50% in coordination of care (as documented) at patient's floor/unit and/or counseling patient: (1) Coronary artery disease Associated angina: without angina Coronary Disease-Associated Artery/Lesion type: [place] artery [place] vs. transplanted heart: [place] heart Qualified Code(s): I25.10 - Atherosclerotic heart disease of [place] coronary artery without angina pectoris (2) Rhabdomyolysis Rhabdomyolysis type: non-traumatic Qualified Code(s): M62.82 - Rhabdomyolysis (3) Parkinsonism Parkinsonism type: Parkinson's disease Qualified Code(s): G20 - Parkinson's disease (4) Abdominal pain Abdominal location: unspecified location Qualified Code(s): R10.9 - Unspecified abdominal pain
--- NOTE | 2019-09-18 17:35 | Discharge Summary ---
Date of Service September 18, 2019 Admission HPI Per Admitting Provider Mr. Mcgraw presents with his and daughter for increased weakness and falls. He presented to the emergency department on Friday for the same complaint and has been getting worse since that time. He denies any fevers but does feel he has aches and chills. He is rather drowsy while we talk but oriented and able to answer questions. His family reports he has had multiple falls but has not hit his head. He denies headache or neck stiffness but has been dizzy. His lumbar spine is very painful and has been since Friday but does not extend into his legs. 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, no alcohol Family hx: non contributory Principal Diagnosis none Discharge Exam Constitutional WD/WN, vitals as above well developed Eyes PERRL, conjunctivae normal, anicteric sclerae ENMT external ear and nose normal, oropharynx normal Neck trachea midline, no thyromegaly Respiratory normal respiratory effort, lungs clear to auscultation Cardiovascular RRR, no murmur, no edema Gastrointestinal (Abdomen) normal bowel sounds, soft, nontender, no hepatosplenomegaly Musculoskeletal no cyanosis or clubbing, extremities motor strength 5/5 Skin no rashes, warm and dry Neurologic patellar DTR's 2+ bilat, sensation intact Genitourinary no testicular masses, no penis abnormality Lymphatic no cervical or axillary lymphadenopathy Discharge Data Allergies Allergy/AdvReac Type Severity Reaction Status Date / Time Iodinated Contrast Media Allergy Intermediate Hypotension Verified 09/10/19 18:34 [Iodinated Contrast- Oral and IV Dye] iodine Allergy Unknown Unknown Verified 09/08/19 14:53 atorvastatin AdvReac Intermediate Muscle Pain Verified 09/10/19 18:34 rosuvastatin AdvReac Intermediate Muscle Pain Verified 09/10/19 18:34 Consultations 09/08/19 16:00 ED Decision to Admit Stat 09/08/19 20:57 Consult Case Management - Discharge Planning Routine Consult Infectious Diseases Routine 09/10/19 13:11 Consult General Surgery Routine 09/10/19 15:29 Consult Cardiology Routine 09/11/19 08:00 Consult Cardiology Routine Procedures Performed Operation Date: 09/13/19 11:55 <No data on this case meets the specified criteria> Operation Date: 09/14/19 12:00 Actual Procedures p Laparoscopic Cholecystectomy(Not Applicable) - Bharath Rosenberg MD Ordered Studies 09/08/19 13:54 CT lumbar spine wo con Stat 09/08/19 16:49 MR brain wo con Stat 09/08/19 16:53 CT head/brain wo con Stat 09/10/19 08:29 US abdomen limited Urgent 09/10/19 15:28 MR MRCP Routine Hospital Course (1) Anaplasmosis: Resolved .Patient with peripheral smear with inclusion bodies Pt completed 10 days of doxycycline [address] Diaz's recommendations. Lyme is negative (2) Thrombocytopenia: Resolved .Platelets rebounding from low of 50,000 to normal 310 Secondary to anaplasmosis (3) Coronary artery disease: Resumed ASA Metoprolol 25 mg p.o. TID by cardiology We will start Repatha as an outpatient Since hospital can provide all only Zetia patient started on it since he has statin intolerance (4) Abdominal pain: 09/10 - Right upper quadrant pain/epigastric pain 09/14 status post laparoscopic cholecystectomy for biliary sludge and gallbladder distention Lipase, troponin wnl, no changes on EKG Zosyn discontinued. No signs of infection. Given prophylactically. 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 No severe central canal stenosis. Suspected mild multilevel central canal and moderate neural foraminal stenosis. PT/OT (6) Obstructive sleep apnea: May use own cpap (7) Parkinsonism: Continue home carbidopa-levodopa (8) Elevated troponin: Appreciate cardiology recommendations continue current cardiovascular medication including beta-blockers and aspirin. Statin intolerance documented. Plan to start Zetia 10 mg p.o. every morning since hospital does not have PC SK 9 inhibitor. After discharge patient will follow up with cardiology and he can obtain Repatha with his crating and moving estimator. Repeat resting 2D transthoracic echocardiogram in 6 months for reassessment of moderate aortic stenosis. (9) Rhabdomyolysis: Resolved (10) Dilated pupil: left pupil is dilated and fixed but otherwise no focal findings. Family reports they have never noticed this before, I didn't see it documented in his last admission or pcp visit so sent patient for MRI and CT head given patient's presentation and also decreased platelets with history of fall placed him at higher risk for bleed. Both were negative for acute issue. Follow up with ophthalmology after discharge. Patient sees Dr. Owens (11) Fluid overload: Resolved Continue Lasix as recommended by cardiology (12) DVT prophylaxis: SCDs, TEDS, Will start Lovenox when safe status post cholecystectomy. Patient platelets are normal now. Dispo: PT/OT evals. CM consulted. Total Time Total Time Spent Total Time Spent (In Minutes): over 30 min Discharge Plan Discharge Items Patient Disposition: Transfer Alf Fac Reason For Visit: ANAPLASMOSIS Discharge Diagnosis: acute cholecystitis, anaplasmosis Condition on Discharge: Good Activity: As commented below Lifting: Gradually increase as tolerated and No more than 5 pounds Bathing: No limitations Bathing Comment: may shower. no soaking in tubs Weightbearing: Full weightbearing Non-emergency contact: Primary Care Provider, Surgeon and Train Brake Operator Call non-emergency contact if: you have any medication questions, your symptoms worsen, your pain is not controlled, your pain is worsening, your pain is unusual for you, your pain is concerning for you, you have a fever, your temperature is above 101, your temperature is above 101.5, your wound has increased redness, your wound has increased drainage and your wound pain has increased Follow-up/Referrals: Mingo Sanches MD [Primary Care Provider] - Bharath Rosenberg MD [Physician] - (Follow up within 1 week.) Diet: Heart Healthy Addtl Attending Provider Instructions: Follow up with Dr. Hosea Weller within 2 weeks. Repeat resting 2D transthoracic Echocardiogram for surveillance of moderate aortic stenosis in [address] Gary Weller crating and moving estimator to switch you from Zetia to Repatha when you see him on follow up appointment. Follow up with surgery for wound check status post cholecystitis and drain removal when they scheduled with you. Remind your SNF house physician to give you prescription for lift chair. Follow up with PCP in 7 days and check labs CBC and CMP. Pending Studies at Discharge: No Stand-Alone Forms: My [employer] Skilled Items Patient informed of condition?: Yes DNR: No Discharge Level of Care: Skilled Communicable Disease: No Discharge Prognosis: Stable Lines: None Urinary Catheter: No Medications and DC Order Prescriptions: New ezetimibe [Zetia] 10 mg Tablet 10 mg PO QAM Qty: 30 RF: 0 metoprolol tartrate 25 mg Tablet 25 mg PO TID Qty: 90 RF: 0 Val-Sequels (iron-vit c) 200 mg (65 mg iron)-25 mg tablet extended release 1 tab PO DAILY Qty: 30 RF: 0 Continued omega-3 acid ethyl esters 1 gram capsule 1 cap PO DAILY RF: 0 borage (borago officinalis) 1,000 mg capsule PO DAILY RF: 0 flaxseed oil 1,000 mg capsule 1,000 mg PO DAILY RF: 0 aspirin 81 mg tablet,chewable 81 mg PO DAILY RF: 0 ondansetron 4 mg tablet,disintegrating 4 mg PO Q8H PRN (Reason: nausea and vomiting) Qty: 30 RF: 0 cyclobenzaprine 5 mg tablet 5 mg PO TID PRN (Reason: muscle spasm) Qty: 30 RF: 0 carbidopa-levodopa 25-100 mg tablet 1 tab PO UNKNOWN RF: 0 Discontinued metoprolol tartrate 25 mg tablet 25 mg PO BID RF: 0 Discharge Orders: Discharge Order (Routine); Ordered 09/18/19 Ordered By: Shara Carvalho Admission Data Admit Date/Time: 09/08/19 17:19 Attending Provider: Shara Carvalho Admit Provider: Shara Carvalho Primary Care Provider: Mingo Sanches Other Providers: Jamin Yeboah ; Edvin Chaves ; Jerome Hudson ; Lasha Diaz ; Bharath Rosenberg ; Valente Roberson ; Nikolai Jeronimo ; Gary Weller ; MinoTacos rose ; Lucian Abraham ; Christa Blount ; Marley Cosme Other Interventions: Discharge Summary Assessment (RN) Last Done: 09/18/19 10:13 DC Date/Time DO NOT enter until pt leaves facility: 09/18/19 12:00
== END 2019-09-18 12:00 | DRG 854 ==
LOC: ED 12:38 → SUATTDRO 17:19 → 2N 17:19

== ENCOUNTER 2021-10-30 11:08 | Inpatient (IN) ==
--- NOTE | 2021-10-30 12:15 | Emergency Department Note ---
Impression & Plan Fracture of proximal end of left humerus, Syncope, Fall from slipping on ice, Parkinson disease ED Provider Note NAME: BRANDI OLVERA AGE: 86 SEX: M ARRIVES VIA: Walk-In INFORMANT: Patient, ED PROVIDER(S): Anthony Gibson MD CHIEF COMPLAINT: Fall, pain PLAN: Disposition: Admit MEDICAL DECISION MAKING: The patient is a pleasant 86-year-old gentleman with a past medical history of dementia, Parkinson disease, hypertension, hyperlipidemia, gait imbalance who presents to the emergency department accompanied by his daughter and for evaluation after having a fall where he was going down a wooden ramp and slipped falling backwards hitting his head. He complains mostly of left shoulder pain unable to move it because of the pain. He had reported neck pain prior to arrival but reports this is resolved. He is not on anticoagulation. He takes a baby aspirin daily. Prior to today he has been in his normal state of health denies fevers, chills, cough, congestion, GI or symptoms. On arrival the patient is uncomfortable no acute distress, afebrile stable vital signs. He is head is atraumatic. He has no midline CTL spine tenderness to palpation or step-offs. He has subtle deformity and tenderness of the left proximal upper arm. Range of motion is limited secondary to pain. There is a hematoma of the dorsal proximal forearm with minor excoriations/skin tears. Range of motion of the elbow is normal. Distal PMS is intact. Patient's pelvis is stable. Hips with full range of motion bilaterally. Patient reports minimal pain when at rest. Family and patient prefers to avoid narcotics given risk of confusion. CT of the head and cervical spine were performed and were negative for acute traumatic findings. Plain films of the chest including rib series, left shoulder, humerus and forearm demonstrate isolated fracture of the left proximal humerus. I did review the images with [facility] [place] [place], Dr. Courtney (kayla harvey has followed with Dr. Yeung in the past) in order to facilitate outpatient follow-up. Appreciate recommendations for a CT scan to help inform outpatient management. I did review the plan for sling outpatient follow-up with the patient, his and daughter at the bedside. All were in agreement with the plan. Unfortunately upon the patient's discharge he initially ambulated well for his ambulatory trial but then it is suspected he had a vasovagal syncopal episode secondary to the pain from his fracture, in the setting of his Parkinson disease, noted to be diaphoretic but he did recover. Given the patient's syncopal episode in the setting of his Parkinson's disease in the setting of his pain there is concern that the patient may be at greater risk for additional falls or syncope in the setting. EKG was unremarkable. Blood work was ordered. However, the patient and family agree with plan for admission for further management including PT/OT for possible placement, pain co ntrol. WBC and platelets wnl. H/H similar to prior. Chemistry without acidosis. Electrolytes unremarkable. LFTs without significant abnormality. Troponin negative/undetectable. Dr. Foreman, [facility] [place], to evaluate the patient for admission. Triage Nursing notes reviewed and agree them. Prior medical records reviewed Vital Signs: reviewed and remarkable for no significant abnormalities Differential diagnosis: Fracture, dislocation, contusion, intra-abdominal, pneumothorax, intrathoracic, intracranial, neurologic, compartment syndrome, rhabdomyolysis, as well as other pathologies. ER treatment provided: See below. Diagnostics interpreted by me: ECG: Sinus bradycardia, 57 bpm, no ectopy, No overt ST elevation or depression. Cardiac Monitoring: An order for continuous cardiac monitoring was placed and demonstrated Sinus bradycardia, 57 bpm, no ectopy. Laboratory studies: See below Imaging studies: See below Consultation(s): Dr. Courtney, [facility] [place]. Case was discussed with Dr. Foreman, [facility] hospitalist, who will evaluate the patient for admission. HPI: The patient is a pleasant 86-year-old gentleman with a past medical history of dementia, Parkinson disease, hypertension, hyperlipidemia, gait imbalance who presents emergency department accompanied by his daughter and for eval uation after having a fall where he was going down a wooden ramp and slipped falling backwards hitting his head. He complains mostly of left shoulder pain unable to move it because of the pain. He had reported neck pain prior to arrival but reports this is resolved. He is not on anticoagulation. He takes a baby aspirin daily. Prior to today he has been in his normal state of health denies fevers, chills, cough, congestion, GI or symptoms. ROS: See above HPI for pertinent positives & negatives. A total of 10 systems reviewed and were otherwise negative. PAST MEDICAL HISTORY:See Below PAST SURGICAL HISTORY:See Below FAMILY HISTORY:See Below SOCIAL HISTORY:See Below HOME MEDICATIONS:See Below ALLERGIES:See Below VITALS:See Below PHYSICAL EXAMINATION: GENERAL: Awake, alert, uncomfortable-appearing, in no distress HENT: Normocephalic, atraumatic. Oropharynx with dry mucous membranes and otherwise unremarkable. EYES: Normal conjunctiva. Sclera non-icteric. EOMI. No nystamgus. PEARRL. NECK: Supple. No nuchal rigidity. FROM. No JVD. RESPIRATORY: Clear to auscultation. CARDIAC: Regular rate, normal rhythm. Extremities warm and well perfused. Pulses equal. ABDOMEN: Soft, non-distended. No tenderness to palpation. No rebound or guarding. No masses. RECTAL: Deferred. MUSCULOSKELETAL: Chest examination reveals no tenderness. The back is symmet rical on inspection without obvious abnormality. There is no CVA tenderness to palpation. No midline CTL spine tenderness to palpation or step-offs. Deformity and tenderness of the left proximal upper arm. Range of motion is limited secondary to pain. 4cm hematoma of the dorsal proximal forearm with minor excoriations/skin tears. Range of motion of the elbow is normal. Distal PMS is intact. Pelvis is stable. Hips with full range of motion bilaterally. LOWER EXTREMITIES: Calves are equal size bilaterally and non-tender. No edema. No discoloration. NEURO: No focal sensory or motor deficits noted. Masked fascies. Slow motor movements at baseline. SKIN: No rash or jaundice noted. Anthony Gibson MD Past Med/Surg History Medical History Abdominal pain Acalculous cholecystitis Anaplasmosis Arrhythmia Carotid bruit Chronic lower back pain Coronary artery disease Encounter for pre-operative examination Fall Generalized osteoarthritis of multiple sites Hearing difficulty History of basal cell carcinoma Hyperlipidemia Hypertension Moderate aortic stenosis Obstructive sleep apnea Parkinson disease Polyneuropathy Postoperative anemia Proteinuria Recurrent falls Spinal stenosis, lumbar region, with neurogenic claudication Thrombocytopenia Tremor Vitamin D deficiency Surgical History History of hernia surgery x3 History of laparoscopic cholecystectomy History of vasectomy Hx of CABG x4 Hx of shoulder surgery right and left Family History Father Myocardial infarction Alcohol abuse Sister Cancer Breast cancer Denies family history of Ovarian cancer Prostate cancer Colorectal cancer Stroke Social History Smoking Status: Never smoker Second Hand Exposure: No; Hx Alcohol Use: No Hx Substance Use: No Preferred Language: Bulgarian Communication Ability: Effective Visual Impairment: Limited Hearing Ability: Use of Hearing Aid Hardwood Floor 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 Required: No Beliefs That Will Affect Care: None marital status: Current Living Situation: Spouse and Family Current Living Situation Comment: [facility] current occupational status: retired How many Children do You have: 2 Feels Safe at Home: Yes Childhood Exposure to Second-Hand Smoke: Yes caffeine: No Dental Care, Regularly: Yes Physical Activity Frequency: Does not Exercise Seatbelt Use: always Sunscreen Use: No Assistive Devices: Glasses Allergies Allergies Allergy/AdvReac Type Severity Reaction Status Date / Time Iodinated Contrast Media Allergy Intermediate Hypotension Verified 10/30/21 13:31 [Iodinated Contrast- Oral and IV Dye] iodine Allergy Unknown Unknown Verified 10/30/21 13:31 atorvastatin AdvReac Intermediate Muscle Pain Verified 10/30/21 13:31 rosuvastatin AdvReac Intermediate Muscle Pain Verified 10/30/21 13:31 Home Meds Home Medications Medication Instructions Recorded Confirmed aspirin 81 mg chewable tablet 81 mg PO HS tab 05/21/19 10/30/21 ezetimibe 10 mg tablet (Zetia) 10 mg PO QAM 07/18/20 10/30/21 pravastatin 10 mg tablet 10 mg PO HS 02/16/21 10/30/21 fish oil-vit E-fat acids 1 cap PO QAM 10/30/21 10/30/21 comb.5-herbal comb. 137 400 mg-5 unit capsule (Flax, Fish and Borage Oil) metoprolol tartrate 25 mg tablet 12.5 mg PO QAM 10/30/21 10/30/21 sertraline 50 mg tablet 50 mg PO HS 10/30/21 10/30/21 Results & Data (ED) Vital Signs Vital Signs - 24 hr 10/30/21 11:12 10/30/21 11:41 10/30/21 13:30 Temperature 36.3 C L Temperature Source Temporal Artery Scan Pulse Rate 60 Pulse Rate [Right Finger] 64 63 Respiratory Rate 18 17 14 Respiratory Effort / Characteristics Respiratory Depth Normal Blood Pressure 130/63 Blood Pressure [Right Arm] 176/80 H 144/81 H Blood Pressure Mean 85 Blood Pressure Mean [Right Arm] 112 102 Blood Pressure Position [Right Arm] Lying Pulse Oximetry 96 94 96 Oxygen Delivery Method Room Air Room Air Room Air Sepsis Recent Fever Within 48 Hours No Sepsis New/Unexplained Change in Mental Status No Sepsis Action Taken by Nursing No Action Required 10/30/21 14:00 10/30/21 14:30 10/30/21 15:00 Temperature Temperature Source Pulse Rate Pulse Rate [Right Finger] 62 54 L 63 Respiratory Rate 19 20 14 Respiratory Effort / Characteristics Respiratory Depth Blood Pressure Blood Pressure [Right Arm] 110/69 123/87 138/86 Blood Pressure Mean Blood Pressure Mean [Right Arm] 82 99 103 Blood Pressure Position [Right Arm] Pulse Oximetry 95 92 95 Oxygen Delivery Method Sepsis Recent Fever Within 48 Hours Sepsis New/Unexplained Change in Mental Status Sepsis Action Taken by Nursing 10/30/21 16:00 10/30/21 16:37 10/30/21 18:19 Temperature Temperature Source Pulse Rate Pulse Rate [Right Finger] 64 69 Respiratory Rate 14 20 19 Respiratory Effort / Characteristics Respiratory Depth Blood Pressure Blood Pressure [Right Arm] 146/74 H 177/113 H 107/62 Blood Pressure Mean Blood Pressure Mean [Right Arm] 98 134 77 Blood Pressure Position [Right Arm] Pulse Oximetry 93 96 Oxygen Delivery Method Room Air Room Air Sepsis Recent Fever Within 48 Hours Sepsis New/Unexplained Change in Mental Status Sepsis Action Taken by Nursing 10/30/21 18:52 10/30/21 18:57 10/30/21 20:40 Temperature Temperature Source Pulse Rate Pulse Rate [Right Finger] 65 86 Respiratory Rate 20 18 Respiratory Effort / Characteristics Non-Labored Spontaneous Respiratory Depth Normal Normal Blood Pressure Blood Pressure [Right Arm] 104/60 110/64 Blood Pressure Mean Blood Pressure Mean [Right Arm] 74 79 Blood Pressure Position [Right Arm] Pulse Oximetry 95 93 Oxygen Delivery Method Room Air Room Air Room Air Sepsis Recent Fever Within 48 Hours Sepsis New/Unexplained Change in Mental Status Sepsis Action Taken by Nursing Laboratory Data Attestation: I reviewed the patient's lab results. Result diagrams: 10/30/21 18:54 10/30/21 18:54 Lab Results 10/30/21 10/30/21 10/30/21 Range/Units 18:54 18:54 19:03 WBC 8.95 (4.8-10.8) K/uL RBC 4.03 L (4.7-6.1) M/uL Hgb 13.4 L (14.0-18.0) g/dL Hct 38.9 L (42-52) % MCV 96.5 (80-100) fL MCH 33.3 (25-34) pg MCHC 34.4 (32-36) g/dL RDW Std Deviation 46.6 H (36.4-46.3) fL RDW Coeff of Clau 13.1 (11.5-14.5) % Plt Count 203 (130-400) K/uL MPV 9.5 (7.4-10.4) fL Immature Gran % (Auto) 0.2 % Neut % (Auto) 72.0 % Lymph % (Auto) 21.1 % [place] % (Auto) 6.6 % Eos % (Auto) 0.0 % Baso % (Auto) 0.1 % Neut # (Auto) 6.44 (1.4-6.5) K/uL Lymph # (Auto) 1.89 (1.2-3.4) K/uL [place] # (Auto) 0.59 (0.11-0.59) K/uL Eos # (Auto) 0.00 (0-0.5) K/uL Baso # (Auto) 0.01 (0-0.2) K/uL Immature Gran # (Auto) 0.02 (0.00-0.02) K/uL Sodium 138 (136-145) mmol/L Potassium 4.0 (3.5-5.1) mmol/L Chloride 105 (98-107) mmol/L Carbon Dioxide 27 (21-32) mmol/L Anion Gap 6.0 (3-11) BUN 17 (7-18) mg/dl Creatinine 0.90 (0.6-1.4) mg/dl Est Cr Clr Drug Dosing Not Reportable Est GFR ( Amer) 89.9 ml/min Est GFR (Non-Af Amer) 77.6 ml/min BUN/Creatinine Ratio 19.1 (10-20) Glucose 121 H (70-99) mg/dl Calcium 9.1 (8.5-10.1) mg/dl Phosphorus 2.7 (2.5-4.9) mg/dl Magnesium 2.1 (1.8-2.4) mg/dl Total Bilirubin 0.8 (0.2-1) mg/dl AST 31 (15-37) U/L ALT 31 (12-78) Alkaline Phosphatase 74 (45-117) U/L Troponin I < 0.015 (0-0.045) ng/ml Total Protein 7.0 (6.4-8.2) gm/dl Albumin 3.6 (3.4-5.0) gm/dl Globulin 3.4 (2.5-4.0) gm/dl Albumin/Globulin Ratio 1.1 (0.9-2) Lipase 107 (73-393) U/L SARS-CoV-2, RNA, NAAT NEGATIVE (NEGATIVE) Administered Medications Discontinued Medications Acetaminophen (Acetaminophen 500 Mg Tab) Confirm Administered Dose 1,000 mg .ROUTE .STK-MED ONE Stop: 10/30/21 17:53 Last Admin: 10/30/21 18:15 Dose: 1,000 mg Documented by: [id number] Acetaminophen (Acetaminophen 500 Mg Tab) 1,000 mg PO NOW STA Stop: 10/30/21 17:53 Last Admin: 10/30/21 19:00 Dose: Not Given Documented by: [id number] Sodium Chloride (Nss 1000ml) 1,000 mls @ 999 mls/hr IV .Q1H1M ONE Stop: 10/30/21 19:45 Last Infusion: 10/30/21 20:05 Dose: 0 mls/hr Documented by: [id number] Admin: 10/30/21 19:01 Dose: 999 mls/hr Documented by: [id number] Imaging Data Radiologist's Impression: Cervical Spine CT 10/30/21 12:07 CT cervical spine wo con CLINICAL HISTORY: Status post fall with neck pain COMPARISON STUDY: 09/06/2019 CT DOSE: TECHNIQUE: Standard CT of the Cervical Spine was performed without IV contrast. A dose lowering technique was utilized adhering to the principles of ALARA. FINDINGS: Bones: The bones are osteopenic. There is no evidence for an acute fracture or malalignment. The heights of the vertebral bodies are maintained. The vertebral bodies are in anatomic alignment. The odontoid is intact. Degenerative changes are seen at the atlantoaxial articulation. Disc spaces:There is again marked disc space narrowing at C6-7. Apophyseal joints:Degenerative apophyseal joint disease is seen particularly at C7-T1 on the right. Soft tissues:The prevertebral soft tissues are within normal limits. IMPRESSION: Osteopenia with no acute abnormality. Degenerative disc and degener ative joint disease. ACT 112: Negative or not required by law. Electronically signed by: Sumit Parham M.D. 10/30/2021 12:39 PM Forearm X-Ray 10/30/21 12:07 XR humerus LT 2V, XR shoulder LT min 2V routine, XR forearm LT 2V HISTORY: 86 years-old Male pain fall acute pain of the left upper extremity status post fall COMPARISON: Chest radiograph 09/12/2019 TECHNIQUE: 2 views of the left shoulder with 2 views of the left humerus and 2 views of the left forearm FINDINGS: SHOULDER: Moderate glenohumeral and AC joint osteoarthritis. There is an acute transverse fracture involving the proximal humeral diaphysis which is displaced laterally 1.2 cm demonstrate a mild apex medial angulation with associated impaction. There is no dislocation or additional acute fracture identified. Prior median sternotomy with CABG. HUMERUS: No additional acute fracture or dislocation. FOREARM: Osteoarthritis of the elbow, hand and wrist. Mild proximal forearm soft tissue swelling. No acute fracture or dislocation. IMPRESSION: Acute mildly displaced, angulated and impacted fracture of the proximal humeral diaphysis. ACT 112: Negative or not required by law. The above report was generated using voice recognition software. It may contain grammatical, syntax or spelling errors. Electronically signed by: Yoandy Lopez M.D. 10/30/2021 1:[address] 10/30/21 12:07 CT head/brain wo con CLINICAL HISTORY: Status post fall with head pain COMPARISON STUDY: 09/08/2019 CT DOSE: 1139.06 mGy.cm TECHNIQUE: Standard CT of the Brain was performed without IV contrast. A dose lowering technique was utilized adhering to the principles of ALARA. FINDINGS: Extraaxial space: There is no evidence for subdural hematoma. There are no extra-axial fluid collections. Ventricles and cisterns: The ventricles are mildly dilated bilaterally. There is no evidence for midline shift or mass effect. Parenchyma: There is no subarachnoid or intraparenchymal hemorrhage. There is no evidence for an acute infarct or cerebral edema. There is mild cerebral cortical atrophy and decreased attenuation in the periventricular white matter representing remote small vessel disease. There are no gross mass lesions. Osseous structures: There is no evidence for an acute fracture. The visualized paranasal sinuses are clear. The mastoid air cells are clear bilaterally. Soft tissues: There is no evidence for focal soft tissue swelling. IMPRESSION: No acute intracerebral pathology. Mild cerebral cortical atrophy and remote small vessel disease. ACT 112: Negative or not required by law. Electronically signed by: Sumit Parham M.D. 10/30/2021 12:36 PM Humerus X-Ray 10/30/21 12:07 XR humerus LT 2V, XR shoulder LT min 2V routine, XR forearm LT 2V HISTORY: 86 years-old Male pain fall acute pain of the left upper extremity status post fall COMPARISON: Chest radiograph 09/12/2019 TECHNIQUE: 2 views of the left shoulder with 2 views of the left humerus and 2 views of the left forearm FINDINGS: SHOULDER: Moderate glenohumeral and AC joint osteoarthritis. There is an acute transverse fracture involving the proximal humeral diaphysis which is displaced laterally 1.2 cm demonstrate a mild apex medial angulation with associated impaction. There is no dislocation or additional acute fracture identified. Prior median sternotomy with CABG. HUMERUS: No additional acute fracture or dislocation. FOREARM: Osteoarthritis of the elbow, hand and wrist. Mild proximal forearm soft tissue swelling. No acute fracture or dislocation. IMPRESSION: Acute mildly displaced, angulated and impacted fracture of the proximal humeral diaphysis. ACT 112: Negative or not required by law. The above report was generated using voice recognition software. It may contain grammatical, syntax or spelling errors. Electronically signed by: Yoandy Lopez M.D. 10/30/2021 1:28 PM Ribs w/Chest X-Ray 10/30/21 12:07 XR ribs LT min 2V w [id number] CLINICAL HISTORY: Status post fall with pain. COMPARISON STUDY: 09/12/2019 TECHNIQUE: Frontal view of the chest. Left rib series is performed. FINDINGS: Single frontal view of the chest demonstrates the cardiomediastinal silhouette to be within normal limits. The patient is status post previous cardiothoracic surgery. The lungs are clear of acute infiltrates. There is no evidence for pleural effusion. There is no evidence for vascular congestion. There is a displaced humeral neck fracture. Separate shoulder films were obtained. Multiple views of the ribs demonstrate no evidence for displaced fracture. IMPRESSION: No acute chest disease. No evidence for rib fracture. Displaced left humeral neck fracture. ACT 112: Negative or not required by law. Electronically signed by: Sumit Parham M.D. 10/30/2021 1:34 PM Shoulder X-Ray 10/30/21 12:07 XR humerus LT 2V, XR shoulder LT min 2V routine, XR forearm LT 2V HISTORY: 86 years-old Male pain fall acute pain of the left upper extremity status post fall COMPARISON: Chest radiograph 09/12/2019 TECHNIQUE: 2 views of the left shoulder with 2 views of the left humerus and 2 views of the left forearm FINDINGS: SHOULDER: Moderate glenohumeral and AC joint osteoarthritis. There is an acute transverse fracture involving the proximal humeral diaphysis which is displaced laterally 1.2 cm demonstrate a mild apex medial angulation with associated impaction. There is no dislocation or additional acute fracture identified. Prior median sternotomy with CABG. HUMERUS: No additional acute fracture or dislocation. FOREARM: Osteoarthritis of the elbow, hand and wrist. Mild proximal forearm soft tissue swelling. No acute fracture or dislocation. IMPRESSION: Acute mildly displaced, angulated and impacted fracture of the proximal humeral diaphysis. ACT 112: Negative or not required by law. The above report was generated using voice recognition software. It may contain grammatical, syntax or spelling errors. Electronically signed by: Yoandy Lopez M.D. 10/30/2021 1:[address] 10/30/21 14:25 CT shoulder LT wo con HISTORY: 86 years-old Male eval, humerus fx acute fracture of the left humerus COMPARISON: Left shoulder and humerus radiographs of same day TECHNIQUE: Multiple axial CT images of the left shoulder were obtained without the use of IV contrast. A dose lowering technique was used consistent with the principals of ALARA. FINDINGS: The imaged lung moore appear clear. There is no pneumothorax. The study is degraded by respiratory motion artifact. Extensive coronary artery calcifications are noted with cardiomegaly, prior median sternotomy and CABG. Degenerative changes are noted throughout the imaged thoracic spine. Moderate glenohumeral and AC joint osteoarthritis. Rotator cuff calcific tendinosis. Tendons and ligaments are not well evaluated by CT technique. There is an acute mildly comminuted fracture of the proximal metadiaphyseal humerus which demonstrates approximately 57 degrees of apex volar angulation and approximately 23 degrees of apex medial angulation with lateral and volar displacement measuring up to 1.5 cm. Mild associated impaction. Postoperative changes of the humeral head suggestive of prior rotator cuff repair. The humeral head, greater and lesser tuberosities appear intact. Hemorrhage is noted extending into the musculature of the deltoid and upper arm. No intra-articular loose body. IMPRESSION: 1. Acute, comminuted, displaced, impacted and angulated fracture of the proximal humeral metadiaphysis. 2. Moderate glenohumeral and AC joint osteoarthritis. No dislocation. 3. Rotator cuff calcific tendinosis with postoperative changes of prior rotator cuff repair. 4. Acute posttraumatic intramuscular hemorrhage of the shoulder and upper arm. 5. No intra-articular loose body identified. ACT 112: Negative or not required by law. The above report was generated using voice recognition software. It may contain grammatical, syntax or spelling errors. Electronically signed by: Yoandy Lopez M.D. 10/30/2021 3:45 PM Chest X-Ray 10/30/21 18:46 XR chest 1V portable CLINICAL HISTORY: Atypical chest pain. COMPARISON STUDY: Chest radiograph performed earlier today. FINDINGS: An acute comminuted displaced fracture of the proximal metadiaphysis of the left humerus is again noted. Lung volumes are diminished. Left basilar opacity favors atelectasis. There is no pneumothorax. There is no evidence for pulmonary edema or pneumonia. Median sternotomy wires are noted. IMPRESSION: 1. Low lung volumes with left basilar opacity which favors atelectasis. 2. Redemonstration of an acute fracture of the proximal metadiaphysis of the left humerus. ACT 112: Negative or not required by law. Electronically signed by: Dagoberto Madrid M.D. 10/30/2021 7:46 PM Discharge Plan Visit Data Chief Complaint: Fall Stated Complaint: FELL AND HURT LEFT SIDE ED Provider: Anthony Gibson Discharge Problem: Fracture of proximal end of left humerus, Syncope, Fall from slipping on ice, Parkinson disease Patient Disposition: Being Evaluated by Hospitalist Discharge Instructions Krames/Other Patient Handouts: Understanding a Humerus Fracture, ED Fracture, Upper Extremity Prescriptions Prescriptions: No Action ezetimibe [Zetia] 10 mg tablet 10 mg PO QAM RF: 0 pravastatin 10 mg tablet 10 mg PO HS RF: 0 aspirin 81 mg tablet,chewable 81 mg PO HS RF: 0 Flax, Fish and Borage Oil 400-5 mg-unit Capsule 1 cap PO QAM RF: 0 sertraline 50 mg tablet 50 mg PO HS RF: 0 metoprolol tartrate 25 mg tablet 12.5 mg PO QAM RF: 0 Referrals Referrals: Mingo Sanches MD [Primary Care Provider] - Luis Courtney DO [Surgeon] - Jatin Yeung MD [Surgeon] - Discharge Problem: Fracture of proximal end of left humerus Qualifiers: Encounter type: initial encounter Fracture type: closed Fracture morphology: other fracture Fracture alignment: displaced Qualified Code(s): S42.292A - Other displaced fracture of upper end of left humerus, initial encounter for closed fracture Syncope Qualifiers: Syncope type: vasovagal syncope Qualified Code(s): R55 - Syncope and collapse Fall from slipping on ice Qualifiers: Encounter type: initial encounter Qualified Code(s): W00.9XXA - Unspecified fall due to ice and snow, initial encounter
--- NOTE | 2021-10-30 12:37 | CT Scan Report ---
CT head/brain wo con CLINICAL HISTORY: Status post fall with head pain COMPARISON STUDY: 09/08/2019 CT DOSE: 1139.06 mGy.cm TECHNIQUE: Standard CT of the Brain was performed without IV contrast. A dose lowering technique was utilized adhering to the principles of ALARA. FINDINGS: Extraaxial space: There is no evidence for subdural hematoma. There are no extra-axial fluid collecti ons. Ventricles and cisterns: The ventricles are mildly dilated bilaterally. There is no evidence for mid line shift or mass effect. Parenchyma: There is no subarachnoid or intraparenchymal hemorrhage. There is no evidence for an acu te infarct or cerebral edema. There is mild cerebral cortical atrophy and decreased attenuation in th e periventricular white matter representing remote small vessel disease. There are no gross mass lesi ons. Osseous structures: There is no evidence for an acute fracture. The visualized paranasal sinuses are clear. The mastoid air cells are clear bilaterally. Soft tissues: There is no evidence for focal soft tissue swelling. IMPRESSION: No acute intracerebral pathology. Mild cerebral cortical atrophy and remote small vessel disease. ACT 112: Negative or not required by law. Electronically signed by: Sumit Parham M.D. 10/30/2021 12:36 PM
--- NOTE | 2021-10-30 12:41 | CT Scan Report ---
CT cervical spine wo con CLINICAL HISTORY: Status post fall with neck pain COMPARISON STUDY: 09/06/2019 CT DOSE: TECHNIQUE: Standard CT of the Cervical Spine was performed without IV contrast. A dose lowering te chnique was utilized adhering to the principles of ALARA. FINDINGS: Bones: The bones are osteopenic. There is no evidence for an acute fracture or malalignment. The heig hts of the vertebral bodies are maintained. The vertebral bodies are in anatomic alignment. The odont oid is intact. Degenerative changes are seen at the atlantoaxial articulation. Disc spaces:There is again marked disc space narrowing at C6-7. Apophyseal joints:Degenerative apophyseal joint disease is seen particularly at C7-T1 on the right. Soft tissues:The prevertebral soft tissues are within normal limits. IMPRESSION: Osteopenia with no acute abnormality. Degenerative disc and degenerative joint disease. ACT 112: Negative or not required by law. Electronically signed by: Sumit Parham M.D. 10/30/2021 12:39 PM
--- NOTE | 2021-10-30 13:29 | XRay Report ---
XR humerus LT 2V, XR shoulder LT min 2V routine, XR forearm LT 2V HISTORY: 86 years-old Male pain fall acute pain of the left upper extremity status post fall COMPARISON: Chest radiograph 09/12/2019 TECHNIQUE: 2 views of the left shoulder with 2 views of the left humerus and 2 views of the left fore arm FINDINGS: SHOULDER: Moderate glenohumeral and AC joint osteoarthritis. There is an acute transverse fracture involving th e proximal humeral diaphysis which is displaced laterally 1.2 cm demonstrate a mild apex medial angul ation with associated impaction. There is no dislocation or additional acute fracture identified. Porsha or median sternotomy with CABG. HUMERUS: No additional acute fracture or dislocation. FOREARM: Osteoarthritis of the elbow, hand and wrist. Mild proximal forearm soft tissue swelling. No acute fra cture or dislocation. IMPRESSION: Acute mildly displaced, angulated and impacted fracture of the proximal humeral diaphysis . ACT 112: Negative or not required by law. The above report was generated using voice recognition software. It may contain grammatical, syntax o r spelling errors. Electronically signed by: Yoandy Lopez M.D. 10/30/2021 1:28 PM
--- NOTE | 2021-10-30 13:35 | XRay Report ---
XR ribs LT min 2V w CXR1V CLINICAL HISTORY: Status post fall with pain. COMPARISON STUDY: 09/12/2019 TECHNIQUE: Frontal view of the chest. Left rib series is performed. FINDINGS: Single frontal view of the chest demonstrates the cardiomediastinal silhouette to be within normal li mits. The patient is status post previous cardiothoracic surgery. The lungs are clear of acute infilt rates. There is no evidence for pleural effusion. There is no evidence for vascular congestion. There is a displaced humeral neck fracture. Separate shoulder films were obtained. Multiple views of the ribs demonstrate no evidence for displaced fracture. IMPRESSION: No acute chest disease. No evidence for rib fracture. Displaced left humeral neck fractur e. ACT 112: Negative or not required by law. Electronically signed by: Sumit Parham M.D. 10/30/2021 1:34 PM
--- NOTE | 2021-10-30 15:47 | CT Scan Report ---
CT shoulder LT wo con HISTORY: 86 years-old Male eval, humerus fx acute fracture of the left humerus COMPARISON: Left shoulder and humerus radiographs of same day TECHNIQUE: Multiple axial CT images of the left shoulder were obtained without the use of IV contrast . A dose lowering technique was used consistent with the principals of POWER. FINDINGS: The imaged lung moore appear clear. There is no pneumothorax. The study is degraded by respiratory m otion artifact. Extensive coronary artery calcifications are noted with cardiomegaly, prior median st ernotomy and CABG. Degenerative changes are noted throughout the imaged thoracic spine. Moderate glenohumeral and AC cathy nt osteoarthritis. Rotator cuff calcific tendinosis. Tendons and ligaments are not well evaluated by CT technique. There is an acute mildly comminuted fracture of the proximal metadiaphyseal humerus whi ch demonstrates approximately 57 degrees of apex volar angulation and approximately 23 degrees of ape x medial angulation with lateral and volar displacement measuring up to 1.5 cm. Mild associated impac tion. Postoperative changes of the humeral head suggestive of prior rotator cuff repair. The humeral head, greater and lesser tuberosities appear intact. Hemorrhage is noted extending into the musculatu re of the deltoid and upper arm. No intra-articular loose body. IMPRESSION: 1. Acute, comminuted, displaced, impacted and angulated fracture of the proximal humeral metadiaphysi s. 2. Moderate glenohumeral and AC joint osteoarthritis. No dislocation. 3. Rotator cuff calcific tendinosis with postoperative changes of prior rotator cuff repair. 4. Acute posttraumatic intramuscular hemorrhage of the shoulder and upper arm. 5. No intra-articular loose body identified. ACT 112: Negative or not required by law. The above report was generated using voice recognition software. It may contain grammatical, syntax o r spelling errors. Electronically signed by: Yoandy Lopez M.D. 10/30/2021 3:45 PM
[2021-10-30] MEDS ORDERED: ACETAMINOPHEN 500 MG TAB PO STA (17:52)
[2021-10-30] MEDS ORDERED: ACETAMINOPHEN 500 MG TAB ONE (17:52)
[2021-10-30] MEDS ORDERED: SODIUM CHLORIDE 0.9% 1000ML 1,000 ML IV ONE (18:45)
[2021-10-30 19:07] LABS: Basophils # (auto) 0.01 K/uL (0-0.2); Basophils % (auto) 0.1 %; Hematocrit (blood only) 38.9 % (42-52); Hemoglobin 13.4 g/dL (14.0-18.0); Immature Granulocytes # (auto) 0.02 K/uL (0.00-0.02); Immature Granulocytes % (auto) 0.2 %; Lymphocytes # (auto) 1.89 K/uL (1.2-3.4); Lymphocytes % (auto) 21.1 %; Mean Corpuscular Hemoglobin 33.3 pg (25-34); Mean Corpuscular Hgb Conc 34.4 g/dL (32-36); Mean Corpuscular Volume 96.5 fL (80-100); Mean Platelet Volume 9.5 fL (7.4-10.4); Monocytes # (auto) 0.59 K/uL (0.11-0.59); Monocytes % (auto) 6.6 %; Neutrophils # (auto) 6.44 K/uL (1.4-6.5); Platelet Count 203 K/uL (130-400); RDW Coefficient of Variation 13.1 % (11.5-14.5); RDW Standard Deviation 46.6 fL (36.4-46.3); Red Blood Count 4.03 M/uL (4.7-6.1); White Blood Count 8.95 K/uL (4.8-10.8)
[2021-10-30 19:24] LABS: Alanine Aminotransferase 31 (12-78); Albumin Level 3.6 gm/dl (3.4-5.0); Aspartate Aminotransferase 31 U/L (15-37); BUN Creatinine Ratio 19.1 (10-20); Blood Urea Nitrogen 17 mg/dl (7-18); Calcium 9.1 mg/dl (8.5-10.1); Carbon Dioxide 27 mmol/L (21-32); Chloride 105 mmol/L (98-107); Est GFR (African American) 89.9 ml/min; Est GFR (Non-African American) 77.6 ml/min; Glucose 121 mg/dl (70-99); Lipase 107 U/L (73-393); Magnesium 2.1 mg/dl (1.8-2.4); Sodium 138 mmol/L (136-145)
[2021-10-30 19:30] LABS: Albumin Globulin Ratio 1.1 (0.9-2); Alkaline Phosphatase 74 U/L (45-117); Bilirubin,Total 0.8 mg/dl (0.2-1); Globulin 3.4 gm/dl (2.5-4.0); Phosphorus 2.7 mg/dl (2.5-4.9); Troponin I < 0.015 ng/ml (0-0.045)
--- NOTE | 2021-10-30 19:47 | XRay Report ---
XR chest 1V portable CLINICAL HISTORY: Atypical chest pain. COMPARISON STUDY: Chest radiograph performed earlier today. FINDINGS: An acute comminuted displaced fracture of the proximal metadiaphysis of the left humerus is again noted. Lung volumes are diminished. Left basilar opacity favors atelectasis. There is no pneum othorax. There is no evidence for pulmonary edema or pneumonia. Median sternotomy wires are noted. IMPRESSION: 1. Low lung volumes with left basilar opacity which favors atelectasis. 2. Redemonstration of an acute fracture of the proximal metadiaphysis of the left humerus. ACT 112: Negative or not required by law. Electronically signed by: Dagoberto Madrid M.D. 10/30/2021 7:46 PM
--- NOTE | 2021-10-30 20:31 | History & Physical Report ---
Date of Service October 30, 2021 Assessment & Plan (1) Syncope: (2) Fracture of proximal end of left humerus: (3) Functional gait disorder with tremor: (4) CAD (coronary artery disease), [place] coronary artery: (5) Parkinson disease: Plan: 86 yo M Hx CAD, ROBERT, HTN, HLD, Parkinson's disease admitted for syncope and ambulatory dysfunction. Syncope: In the setting of no PO intake (food or fluids) since dinner last evening. Orthostatic syncope is suspected cause given the above. EKG withouts evidence of ACS. BP at this time 100s systolic; will give NSS bolus and hold metoprolol. Telemetry for cardiac monitoring. Echo ordered for AM. History of moderate on Echo in 2019. Orthostatic vitals ordered. Left humeral fracture: Occurred secondary to fall at home. On XR and CT noted to have acute, comminuted, displaced, impacted and angulated fracture of the proximal humeral metadiaphysis, as well as intramuscular hemorrhage, Sling placed on patient during my interview. Ortho consulted and appreciate recommendations. Ambulatory dysfunctions, Parkinson's disease: With fallat home (slipped backwards going down a ramp). Concern expressed by family members regarding patient's ability to ambulate effectively. PT and OT ordered; patient may benefit from acute rehab if so indicated by PT and OT services. CAD: Continue home pravastatin. Holding aspirin due to intramuscular hemorrhage, and holding metoprolol due to syncope and hypotension. Depression: Continue sertraline. Code Status: FULL CODE FEN: Heart healthy diet DVT ppx: holding medical ppx given intramuscular hemorrhage. SCDs at this time Dispo: Med/Tele History of Present Illness Chief Complaint: fall, syncope Primary Care Provider: Mingo Sanches MD 86 yo M Hx CAD, RBOERT, HTN, HLD, Parkinson's disease presented to the ER following a fall at home, where he slipped going down a ramp and hit his head. CBC and BMP in ER without acute abnormalities. Given patient hit his head CT Head was performed which did not show any evidence of acute bleeding or skull fractures. Left arm XRays revealed acute mildly displaced, angulated and impacted fracture of the proximal humeral diaphysis. CT Shoulder confirmed fracture as well as posttraumatic intramuscular hemorrhage of the shoulder and upper arm. Patient was initially discharged to home but on ambulating out of the ER had a syncopal event. EKG showed sinus bradycardia to 57. Troponin negative. Hospitalist service was consulted for admission for syncope as well as for concern from family regarding ambulatory dysfunction. Patient on my interview reports some left shoulder pain worst with movement of the arm. Sling not in place during my interview. He admits that he did not have any food or anything to drink today and his last meal was yesterday at dinnertime. He reports a history of low blood pressure. He takes metoprolol 12.5mg daily for Hx CAD.He does not endorse recent illness. He did not lose consciousness when he hit his head earlier today when he slipped and fell. He lives at home with his . Allergies Allergy/AdvReac Type Severity Reaction Status Date / Time Iodinated Contrast Media Allergy Intermediate Hypotension Verified 10/30/21 13:31 [Iodinated Contrast- Oral and IV Dye] iodine Allergy Unknown Unknown Verified 10/30/21 13:31 atorvastatin AdvReac Intermediate Muscle Pain Verified 10/30/21 13:31 rosuvastatin AdvReac Intermediate Muscle Pain Verified 10/30/21 13:31 Home Medications Medication Instructions Recorded Confirmed Type aspirin 81 mg chewable tablet 81 mg PO HS tab 05/21/19 10/30/21 History ezetimibe 10 mg tablet (Zetia) 10 mg PO QAM 07/18/20 10/30/21 History pravastatin 10 mg tablet 10 mg PO HS 02/16/21 10/30/21 History fish oil-vit E-fat acids 1 cap PO QAM 10/30/21 10/30/21 History comb.5-herbal comb. 137 400 mg-5 unit capsule (Flax, Fish and Borage Oil) metoprolol tartrate 25 mg tablet 12.5 mg PO QAM 10/30/21 10/30/21 History sertraline 50 mg tablet 50 mg PO HS 10/30/21 10/30/21 History Past Med/Surg History Medical History Abdominal pain Acalculous cholecystitis Anaplasmosis Arrhythmia Carotid bruit Chronic lower back pain Coronary artery disease Fall Generalized osteoarthritis of multiple sites Hearing difficulty History of basal cell carcinoma Hyperlipidemia Hypertension Moderate aortic stenosis Obstructive sleep apnea Parkinson disease Polyneuropathy Postoperative anemia Proteinuria Recurrent falls Spinal stenosis, lumbar region, with neurogenic claudication Thrombocytopenia Tremor Vitamin D deficiency Surgical History History of hernia surgery x3 History of laparoscopic cholecystectomy History of vasectomy Hx of CABG x4 Hx of shoulder surgery right and left Family History Father Myocardial infarction Alcohol abuse Sister Cancer Breast cancer Denies family history of Ovarian cancer Prostate cancer Colorectal cancer Stroke Social History Smoking Status: Never smoker Second Hand Exposure: No; Hx Alcohol Use: No Hx Substance Use: No Preferred Language: Wallisian Communication Ability: Effective Visual Impairment: Limited Hearing Ability: Use of Hearing Aid Script Editor Required: No Beliefs That Will Affect Care: None marital status: Current Living Situation: Spouse Current Living Situation Comment: [facility] current occupational status: retired How many Children do You have: 2 Other Information That Helps Us Care for You: No Feels Safe at Home: Yes Safety Concerns: Feels Safe At This Time Childhood Exposure to Second-Hand Smoke: Yes caffeine: No Dental Care, Regularly: Yes Physical Activity Frequency: Does not Exercise Seatbelt Use: always Sunscreen Use: No Assistive Devices: None Review of Systems Review of Systems: All systems reviewed & are unremarkable except as noted in HPI & below Constitutional: no fever, no chills and no malaise Respiratory: no cough and no dyspnea Cardiovascular: no chest pain, no palpitations and no edema Gastrointestinal: no abdominal pain, no constipation and no diarrhea/loose stools Physical Exam Constitutional: WD/WN, vitals as above Eyes: PERRL, conjunctivae normal, anicteric sclerae ENMT: external ear and nose normal, oropharynx normal Neck: normal visual inspection Respiratory: normal respiratory effort, lungs clear to auscultation Cardiovascular: RRR, no murmur, no edema Gastrointestinal (Abdomen): normal bowel sounds, soft, nontender, no hepatosplenomegaly Musculoskeletal: no cyanosis or clubbing, extremities motor strength 5/5 Skin: no rashes, warm and dry Neurologic: Resting tremor of bilateral hands Some difficulty with speech due to tremor of the mouth alert and oriented x3 Psychiatric: A+Ox3, euthymic affect Results & Data Results & Data ([facility]) Vital Signs (Past 12 Hours) Vital Signs Temp Pulse Pulse Resp BP BP Pulse Ox 12/21/21 18:57 65 20 104/60 95 10/30/21 18:19 19 107/62 96 10/30/21 16:37 69 20 177/113 H 93 10/30/21 16:00 64 14 146/74 H 10/30/21 15:00 63 14 138/86 95 10/30/21 14:30 54 L 20 123/87 92 10/30/21 14:00 62 19 110/69 95 10/30/21 13:30 63 14 144/81 H 96 10/30/21 11:41 64 17 176/80 H 94 10/30/21 11:12 36.3 C L 60 18 130/63 96 Supervising Physician Co-Signing Physician Notes Attending addendum: I have physically seen this patient, have supervised the medical residents activities, and agree with the H&P unless as otherwise noted. Assessment and Plan: Left humeral fracture- Secondary to fall at home Consult orthopedic surgery Syncope with fall hypertension/moderate aortic stenosis The patient will be admitted to telemetry for serial cardiac enzymes, serial EKG's, cardiac rhythm monitoring and a 2-D echocardiogram with Dopplers. Most likely orthostatic cause Hold metoprolol IV fluids as noted Continue aspirin Remaining orders and notations as noted Resident Activity Tracking Resident Involvement: Resident Care Provided Care Provided: Adult Hospital Medicine (1) Fracture of proximal end of left humerus Encounter type: initial encounter Fracture alignment: displaced Fracture morphology: other fracture Fracture type: closed Qualified Code(s): S42.292A - Other displaced fracture of upper end of left humerus, initial encounter for closed fracture (2) Syncope Syncope type: vasovagal syncope Qualified Code(s): R55 - Syncope and collapse
[2021-10-30] MEDS ORDERED: ACETAMINOPHEN 325 MG TAB PO PRN (20:47)
[2021-10-30] MEDS ORDERED: ONDANSETRON INJ 2 MG/ML 2 ML VIAL IV PRN (20:47)
[2021-10-31] MEDS: SERTRALINE HCL 50 MG TABLET PO SCH ×2 (00:02→20:24)
[2021-10-31] MEDS: PRAVASTATIN SOD 10 MG TAB PO SCH ×2 (00:03→20:24)
[2021-10-31] MEDS: ASPIRIN 81 MG ECTAB PO SCH (00:52)
[2021-10-31] MEDS: OMEGA-3 (PURIFIED FISH OIL) 1 GM CAP PO SCH (08:03)
[2021-10-31] MEDS: EZETIMIBE 10 MG TABLET PO SCH (08:03)
--- NOTE | 2021-10-31 11:18 | XCELERA ---
[id number]
[2021-10-31] MEDS ORDERED: MoRPHine SULFATE 2 MG/ML CARP IV PRN (15:23)
--- NOTE | 2021-10-31 15:26 | Orthopedic Consultation ---
Date of Consultation October 31, 2021 Assessment & Plan (1) Fracture of proximal end of left humerus: X-rays reviewed by myself and Dr. Yeung. Patient will require ORIF of the left proximal humerus fracture. I have discussed the case with Dr. Boateng who feels patient will be acceptable for surgery. Oxycodone and morphine sulfate ordered for pain control. Patient will be made n.p.o. after midnight. Plan for ORIF of left proximal humerus tomorrow at 11 AM. Thank you for this consult History of Present Illness Reason for Consultation: Left displaced proximal humerus fracture Attending Physician: Marin Boateng DO History of Present Illness 86 yo M Hx CAD, ROBERT, HTN, HLD, Parkinson's disease presented to the ER following a fall at home, where he slipped going down a ramp and hit his head. Patient currently sitting up in bed with a sling on his left upper extremity. Patient having pain off and on during conversation. Patient states he was going up a handicap ramp. The ramp was slippery and he slipped and fell backwards. He did bump his head. He does not remember losing consciousness. He denies any shortness of breath, chest pain, lightheadedness prior to or after the fall. The patient was being discharged from the emergency room for follow-up when he experienced a syncopal episode. This was felt to be vasovagal secondary to pain from his left shoulder. In light of his syncopal episode and other medical history it was felt that he should be admitted for further care. We have been asked to see him for his proximal humerus fracture. Allergies Allergy/AdvReac Type Severity Reaction Status Date / Time Iodinated Contrast Media Allergy Intermediate Hypotension Verified 10/30/21 13:31 [Iodinated Contrast- Oral and IV Dye] iodine Allergy Unknown Unknown Verified 10/30/21 13:31 atorvastatin AdvReac Intermediate Muscle Pain Verified 10/30/21 13:31 rosuvastatin AdvReac Intermediate Muscle Pain Verified 10/30/21 13:31 Home Medications Medication Instructions Recorded Confirmed Type aspirin 81 mg chewable tablet 81 mg PO HS tab 05/21/19 10/30/21 History ezetimibe 10 mg tablet (Zetia) 10 mg PO QAM 07/18/20 10/30/21 History pravastatin 10 mg tablet 10 mg PO HS 02/16/21 10/30/21 History fish oil-vit E-fat acids 1 cap PO QAM 10/30/21 10/30/21 History comb.5-herbal comb. 137 400 mg-5 unit capsule (Flax, Fish and Borage Oil) metoprolol tartrate 25 mg tablet 12.5 mg PO QAM 10/30/21 10/30/21 History sertraline 50 mg tablet 50 mg PO HS 10/30/21 10/30/21 History Patient History Medical History Abdominal pain Acalculous cholecystitis Anaplasmosis Arrhythmia Carotid bruit Chronic lower back pain Coronary artery disease Fall Generalized osteoarthritis of multiple sites Hearing difficulty History of basal cell carcinoma Hyperlipidemia Hypertension Moderate aortic stenosis Obstructive sleep apnea Parkinson disease Polyneuropathy Postoperative anemia Proteinuria Recurrent falls Spinal stenosis, lumbar region, with neurogenic claudication Thrombocytopenia Tremor Vitamin D deficiency Surgical History History of hernia surgery x3 History of laparoscopic cholecystectomy History of vasectomy Hx of CABG x4 Hx of shoulder surgery right and left Family History Father Myocardial infarction Alcohol abuse Sister Cancer Breast cancer Denies family history of Ovarian cancer Prostate cancer Colorectal cancer Stroke Social History Smoking Status: Never smoker Second Hand Exposure: No; Hx Alcohol Use: No Hx Substance Use: No Preferred Language: Wolof Communication Ability: Effective Visual Impairment: Limited Hearing Ability: Use of Hearing Aid Insulation Sprayer Required: No Beliefs That Will Affect Care: None marital status: Current Living Situation: Spouse Current Living Situation Comment: [employer] current occupational status: retired How many Children do You have: 2 Other Information That Helps Us Care for You: No Feels Safe at Home: Yes Safety Concerns: Feels Safe At This Time Childhood Exposure to Second-Hand Smoke: Yes caffeine: No Dental Care, Regularly: Yes Physical Activity Frequency: Does not Exercise Seatbelt Use: always Sunscreen Use: No Assistive Devices: Cane and Walker Physical Exam Physical Exam: On examination, patient is an 86-year-old white male who is well-developed, well-nourished, no acute distress, pleasant and cooperative. During exam patient is experiencing pain in the left upper extremity. He is oriented to person and place. On exam of the left upper extremity, a sling is in place. This is left on during exam. Left shoulder is moderately swollen and tender on palpation. Noted abrasions noted around the mid portion of the humerus. He has no pain on palpation of his left elbow and gentle range of motion is within normal limits. He has no pain in the left wrist with range of motion or palpation and no swelling. He is able to move all of his fingers of the left hand. He states that there is no numbness or tingling in the hand and sensation is intact. Capillary refill is less than 2 seconds. And he has a strong radial pulse. No complaints of right upper extremity discomfort at the shoulder, elbow, wrist. Both lower extremities are essentially benign at this time. No gross motor or sensory loss seen at this time. Results & Data ([facility]) Vital Signs (Past 12 Hours) Vital Signs Temp Pulse Resp BP Pulse Ox Pulse Ox 10/31/21 14:47 36.7 C 68 20 99/60 L 95 10/31/21 11:00 36.6 C 77 18 129/72 94 10/31/21 06:37 97 10/31/21 06:28 65 18 128/64 96 Diagnostic Findings Patient:BRANDI OLVERA Admit Date:10/30/21 MR#:[id number] Address1:[address] [place] [address] Acct ID:[id number] Address2: Date:[address] [facility] Zip:[place] [address] Age:86 Location:ED Sex:M Room/Bed: Att Phy: Diagnosis:FELL AND HURT LEFT SIDE Porsha Phy:Mingo Sanches MD Service Date:10/30/21 [facility] Phy: Interpreting Phy:Yoandy LopezAdmit Phy: Ordering Phy:Anthony Gibson M.D. cc: ~ XR humerus LT 2V, XR shoulder LT min 2V routine, XR forearm LT 2V HISTORY: 86 years-old Male pain fall acute pain of the left upper extremity status post fall COMPARISON: Chest radiograph 09/12/2019 TECHNIQUE: 2 views of the left shoulder with 2 views of the left humerus and 2 views of the left forearm FINDINGS: SHOULDER: Moderate glenohumeral and AC joint osteoarthritis. There is an acute transverse fracture involving the proximal humeral diaphysis which is displaced laterally 1.2 cm demonstrate a mild apex medial angulation with associated impaction. There is no dislocation or additional acute fracture identified. Prior median sternotomy with CABG. HUMERUS: No additional acute fracture or dislocation. FOREARM: Osteoarthritis of the elbow, hand and wrist. Mild proximal forearm soft tissue swelling. No acute fracture or dislocation. IMPRESSION: Acute mildly displaced, angulated and impacted fracture of the proximal humeral diaphysis. CT shoulder LT wo con HISTORY: 86 years-old Male eval, humerus fx acute fracture of the left humerus COMPARISON: Left shoulder and humerus radiographs of same day TECHNIQUE: Multiple axial CT images of the left shoulder were obtained without the use of IV contrast. A dose lowering technique was used consistent with the principals of ALARA. FINDINGS: The imaged lung moore appear clear. There is no pneumothorax. The study is degraded by respiratory motion artifact. Extensive coronary artery calcifications are noted with cardiomegaly, prior median sternotomy and CABG. Degenerative changes are noted throughout the imaged thoracic spine. Moderate glenohumeral and AC joint osteoarthritis. Rotator cuff calcific tendinosis. Tendons and ligaments are not well evaluated by CT technique. There is an acute mildly comminuted fracture of the proximal metadiaphyseal humerus which demonstrates approximately 57 degrees of apex volar angulation and approximately 23 degrees of apex medial angulation with lateral and volar displacement measuring up to 1.5 cm. Mild associated impaction. Postoperative changes of the humeral head suggestive of prior rotator cuff repair. The humeral head, greater and lesser tuberosities appear intact. Hemorrhage is noted extending into the musculature of the deltoid and upper arm. No intra-articular loose body. IMPRESSION: 1. Acute, comminuted, displaced, impacted and angulated fracture of the proximal humeral metadiaphysis. 2. Moderate glenohumeral and AC joint osteoarthritis. No dislocation. 3. Rotator cuff calcific tendinosis with postoperative changes of prior rotator cuff repair. 4. Acute posttraumatic intramuscular hemorrhage of the shoulder and upper arm. 5. No intra-articular loose body identified. (1) Fracture of proximal end of left humerus Encounter type: initial encounter Fracture alignment: displaced Fracture morphology: other fracture Fracture type: closed Qualified Code(s): S42.292A - Other displaced fracture of upper end of left humerus, initial encounter for closed fracture
[2021-10-31] MEDS: oxyCODONE HCL IR 5 MG TAB (IMMEDIATE RELEASE) PO PRN ×2 (15:28→19:41)
--- NOTE | 2021-10-31 15:34 | Anesthesiology Consultation ---
Date of Service October 31, 2021 Assessment & Plan (1) Encounter for pre-operative examination: Chart Review Chart Review: Acceptable Risk for Surgery History Surgery Operation Date: 10/31/21 08:20 Proposed Procedures p Left Proximal Humerus Fracture Open Reduction Internal Fixation - Jatin Yeung MD Operation Date: 11/01/21 11:10 Proposed Procedures p Left Proximal Humerus Fracture Open Reduction Internal Fixation - Jatin esquivel MD Height/Weight Height: 5 ft 6 in Weight: 93.2 kg Allergies Allergy/AdvReac Type Severity Reaction Status Date / Time Iodinated Contrast Media Allergy Intermediate Hypotension Verified 10/30/21 13:31 [Iodinated Contrast- Oral and IV Dye] iodine Allergy Unknown Unknown Verified 10/30/21 13:31 atorvastatin AdvReac Intermediate Muscle Pain Verified 10/30/21 13:31 rosuvastatin AdvReac Intermediate Muscle Pain Verified 10/30/21 13:31 Medications Home Medications Medication Instructions Recorded Confirmed Last Taken aspirin 81 mg chewable tablet 81 mg PO HS tab 05/21/19 10/30/21 10/29/21 ezetimibe 10 mg tablet (Zetia) 10 mg PO QAM 07/18/20 10/30/21 10/30/21 pravastatin 10 mg tablet 10 mg PO HS 02/16/21 10/30/21 10/29/21 fish oil-vit E-fat acids 1 cap PO QAM 10/30/21 10/30/21 10/30/21 comb.5-herbal comb. 137 400 mg-5 unit capsule (Flax, Fish and Borage Oil) metoprolol tartrate 25 mg tablet 12.5 mg PO QAM 10/30/21 10/30/21 10/30/21 sertraline 50 mg tablet 50 mg PO HS 10/30/21 10/30/21 10/29/21 Active Medications Generic Name Dose Route Start Last Admin Trade Name Freq PRN Reason Stop Dose Admin Aspirin 81 mg 10/30/21 23:15 10/31/21 00:52 Aspirin 81 Mg Ectab PO 11/29/21 23:14 Not Given HS [facility] Ezetimibe 10 mg 10/31/21 09:00 10/31/21 08:03 Ezetimibe 10 Mg Tablet PO 11/30/21 08:59 10 mg QAM [facility] Administration Fish Oil 1 gm 10/31/21 09:00 10/31/21 08:03 [place]-3 (Purified Fish Oil) 1 Gm Cap PO 11/30/21 08:59 1 gm QAM JOSE J Administration Oxycodone HCl 5 mg 10/31/21 15:18 10/31/21 15:28 Oxycodone Hcl Ir 5 Mg Tab (Immediate Release) PO 11/14/21 15:17 5 mg Q4H PRN Administration Pain Pravastatin Sodium 10 mg 10/30/21 23:15 10/31/21 00:03 Pravastatin Sod 10 Mg Tab PO 11/29/21 23:14 10 mg HS JOSE J Administration Sertraline HCl 50 mg 10/30/21 23:15 10/31/21 00:02 Sertraline Hcl 50 Mg Tablet PO 11/29/21 23:14 50 mg HS JOSE J Administration Past Medical History Medical History (Updated 10/31/21 @ 15:29 by Jose Cruz MD) Abdominal pain Acalculous cholecystitis Anaplasmosis Arrhythmia Carotid bruit Chronic lower back pain Coronary artery disease Fall Generalized osteoarthritis of multiple sites Hearing difficulty History of basal cell carcinoma Hyperlipidemia Hypertension Moderate aortic stenosis Obstructive sleep apnea Parkinson disease Polyneuropathy Postoperative anemia Proteinuria Recurrent falls Spinal stenosis, lumbar region, with neurogenic claudication Thrombocytopenia Tremor Vitamin D deficiency Past Family History Family History Father Myocardial infarction Alcohol abuse Sister Cancer Breast cancer Denies family history of Ovarian cancer Prostate cancer Colorectal cancer Stroke Past Surgical History Surgical History History of hernia surgery x3 History of laparoscopic cholecystectomy History of vasectomy Hx of CABG x4 Hx of shoulder surgery right and left Social History Smoking Status: Never smoker Hx Alcohol Use: No Hx Substance Use: No Physical Exam Vital Signs Last Vital Signs Temp 36.7 C 10/31/21 14:47 Pulse 68 10/31/21 14:47 Resp 20 10/31/21 14:47 BP 99/60 L 10/31/21 14:47 Pulse Ox 95 10/31/21 14:47 Testing Laboratory Results 10/30/21 18:54 10/30/21 18:54 COVID test negative Electrocardiogram Date: 10/31/21 Findings: + 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
[2021-10-31] MEDS ORDERED: KETOROLAC TROMETHAMINE 15 MG/ML VIAL IV PRN (16:25)
[2021-10-31] MEDS ORDERED: MoRPHine SULFATE 4 MG/ML 1 ML CARP\\VIAL IV PRN (16:25)
[2021-10-31] MEDS: ACETAMINOPHEN 325 MG TAB PO SCH ×2 (16:56→20:24)
--- NOTE | 2021-10-31 19:30 | Hospitalist Progress Note ---
Date of Service October 31, 2021 Assessment & Plan (1) Fracture of proximal end of left humerus: Plan: Pain control (escalate), anticipate surgery tomorrow. Discussed with orthopedicscertainly not low risk, but overall medically acceptable riskasked that anesthesia be made aware of the aortic stenosis in particular. (2) Syncope: Plan: Seems to been a combination of thingsprobably orthostatic from dehydration from not really having eaten or drank yesterday, as well as likely a degree of vagal from the pain from the humerus fracture. Aortic stenosis probably contributingparticularly in the context of the dehydration (lowering the threshold by which she would have a bit of an orthostatic type of the syncope)but overall does not appear to be an unstable issue. (3) Parkinson disease: Plan: Supportive care. Does not appear to be on home meds. (4) CAD (coronary artery disease), [place] coronary artery: Plan: Asymptomatic. Continue home meds, except hold aspirin (5) Hypertension: Plan: Listed in his chart, does not appear to be on any antihypertensives, blood pressure actually more on the low side (6) Depression: Plan: Continue sertraline (7) DVT prophylaxis: Plan: Pharmacologic on hold pending surgery. SCDs for now (8) Discharge planning issues: Plan: For surgery tomorrow, PT/OT eval and treat after Admission and Anticipated Discharge Date Admission Date: October 30, 2021 Subjective Still having a good bit of pain. Discussed with orthopedicsplan for operative repair tomorrow. Patient notes no chest pain or shortness of breath. Notes the fall at home was purely mechanical. Review of Systems Review of Systems: All systems reviewed & are unremarkable except as noted in HPI & below Physical Exam Physical Exam: In general he is awake and alert pleasant but does appear to be uncomfortable with his arm. HEENT normocephalic atraumatic mucous membranes are moist. Cardio is regular with a fairly loud systolic murmur best at the right upper sternal border. Lungs are clear to auscultation bilaterally no rales rhonchi or wheezes good effort. Left upper extremity in a sling. He has a little bit of a resting tremor, soft voice, and a bit of a slow response timeall commiserate with his diagnosis of Parkinson's. Results & Data Results & Data ([facility]) Vital Signs (Past 12 Hours) Vital Signs Temp Pulse Pulse Resp BP Pulse Ox 10/31/21 15:00 70 10/31/21 14:47 98.1 F 68 20 99/60 L 95 10/31/21 11:00 97.9 F 77 18 129/72 94 10/31/21 10:30 66 PG Care Time/CCT Total # of Minutes Spent Total Time Spent with Patient: Total time spent is greater than 50% in coordination of care (as documented) at patient's floor/unit and/or counseling patient: Coding Level of Care Code 70480 Subseq Hosp Care Lvl 3 Diagnoses Fracture of proximal end of left humerus S42.292A Encounter type: initial encounter Fracture alignment: displaced Fracture morphology: other fracture Fracture type: closed Syncope R55 Syncope type: vasovagal syncope Parkinson disease G20 CAD (coronary artery disease), [place] coronary artery I25.10 Hypertension I10 Hypertension type: essential hypertension Depression F32.9 DVT prophylaxis Z29.9 Discharge planning issues Z02.9 (1) Fracture of proximal end of left humerus Encounter type: initial encounter Fracture alignment: displaced Fracture morphology: other fracture Fracture type: closed Qualified Code(s): S42.292A - Other displaced fracture of upper end of left humerus, initial encounter for closed fracture (2) Syncope Syncope type: vasovagal syncope Qualified Code(s): R55 - Syncope and collapse (3) Hypertension Hypertension type: essential hypertension Qualified Code(s): I10 - Essential (primary) hypertension
--- NOTE | 2021-11-01 02:54 | Billing Data ---
Date of Service November 01, 2021 Coding Level of Care Code 68514 Initial Inpt Care Lvl 3
[2021-11-01] MEDS: oxyCODONE HCL IR 5 MG TAB (IMMEDIATE RELEASE) PO PRN (03:30)
[2021-11-01] MEDS ORDERED: ROPIVACAINE 0.5% 5 MG/ML 30 ML VIAL ONE (06:33)
--- NOTE | 2021-11-01 07:08 | Electrocardiogram Report ---
Test Reason : Blood Pressure : / mmHG Vent. Rate : 057 BPM Atrial Rate : 057 BPM P-R Int : 188 ms QRS Dur : 090 ms QT Int : 450 ms P-R-T Axes : 060 -19 065 degrees QTc Int : 438 ms Sinus bradycardia Possible Inferior infarct (cited on or before 08-SEP-2019) Cannot rule out Anterior infarct , age undetermined Nonspecific T wave abnormality Abnormal ECG When compared with ECG of 09-SEP-2019 21:11, Incomplete right bundle branch block is no longer Present Confirmed by Julius Lozano ([id number]) on 11/01/2021 7:08:27 AM Referred By: REFERRED SELF Confirmed By:Julius Lozano
[2021-11-01] MEDS: OMEGA-3 (PURIFIED FISH OIL) 1 GM CAP PO SCH (11:02)
[2021-11-01] MEDS: ACETAMINOPHEN 325 MG TAB PO SCH ×3 (11:02→21:24)
[2021-11-01] MEDS: EZETIMIBE 10 MG TABLET PO SCH (11:02)
[2021-11-01] MEDS ORDERED: ONDANSETRON INJ 2 MG/ML 2 ML VIAL IV PRN (12:02)
[2021-11-01] MEDS ORDERED: ePHEDrine sulfate 50 MG/ML AMP IV PRN (12:02)
[2021-11-01] MEDS ORDERED: ATROPINE SULFATE 0.1 MG/ML 10ML SYR IV PRN (12:02)
[2021-11-01] MEDS ORDERED: fentaNYL citrate 100 MCG/2 ML VIAL IV PRN (12:02)
[2021-11-01] MEDS ORDERED: LIDOCAINE 2% 2 ML VIAL/AMP(20MG/ML) INFIL ONE (12:23)
[2021-11-01] MEDS ORDERED: PROPOFOL IV EMULSION 10 MG/ML 20 ML VIAL IV ONE (12:23)
[2021-11-01] MEDS ORDERED: fentaNYL citrate 100 MCG/2 ML VIAL ONE (12:33)
[2021-11-01] MEDS ORDERED: ACETAMINOPHEN 1000 MG/100 ML IV IV ONE (12:36)
[2021-11-01] MEDS ORDERED: ceFAZolin 2000MG 2,000 MG/15 ML SYR IV ONE (12:48)
[2021-11-01] MEDS ORDERED: ceFAZolin 2,000 MG/15 ML IV PUSH IV ONE (12:50)
[2021-11-01] MEDS ORDERED: TRANEXAMIC ACID 1,000 MG **IV Pre-op IV SCH (13:00)
[2021-11-01] MEDS ORDERED: TRANEXAMIC ACID 100 MG/ML 10 ML VIAL IV ONE ×2 (13:05→13:13)
[2021-11-01] MEDS ORDERED: TRANEXAMIC ACID / 0.7% NACL 1000MG/100ML BAG IV ONE ×2 (13:06→13:11)
--- NOTE | 2021-11-01 13:11 | History & Physical Bridge Note ---
Date of Service November 01, 2021 History & Physical Bridge Note I have examined the patient, reviewed the History & Physical and in the interval since the performance of the History & Physical I have noted the following changes of clinical significance: no changes noted
[2021-11-01] MEDS ORDERED: TRANEXAMIC ACID / 0.7% NACL 1,000 MG/100 ML BAG IV SCH (13:30)
[2021-11-01] MEDS ORDERED: PHENYLEPHRINE 100MCG/ML 5ML SYR ONE (13:38)
[2021-11-01] MEDS ORDERED: ePHEDrine sulfate 50 MG/ML SYR ONE (13:38)
--- NOTE | 2021-11-01 15:13 | Post Operative Brief Note ---
Immediate Post Op Note v1 Date of Surgery November 01, 2021 Pre & Post Diagnosis Operation Date: 10/31/21 08:20 <No data on this case meets the specified criteria> Operation Date: 11/01/21 11:10 Pre-Op Diagnosis: Left displaced proximal humerus fracture Post-Op Diagnosis: Left displaced proximal humerus fracture I identified the patient and participated in the time-out.: Yes Procedure Operation Date: 10/31/21 08:20 <No data on this case meets the specified criteria> Operation Date: 11/01/21 11:10 Actual Procedures p Left Proximal Humerus Fracture Open Reduction Internal Fixation(Left) - Jatin Yeung MD Surgeon Jatin Yeung MD [employer] Equipment Operator Mario BOSCH Estimated Blood Loss 50 Findings Consistent with Post-Op Diagnosis Anesthesia Type General Regional Complications none Disposition Disposition: Recovery Room Overlapping Procedure I was immediately available: during the entire case.
--- NOTE | 2021-11-01 15:57 | Fluoroscopy Report ---
FL shoulder LT min 2V CLINICAL HISTORY: LEFT PROXIMAL HUMERUS COMPARISON STUDY: Left shoulder radiographs and CT of the left shoulder October 30, 2021. FLUOROSCOPY TIME: 31 seconds. FLUOROSCOPIC IMAGES: 4 FINDINGS: Fluoroscopy was provided during internal fixation of the proximal diaphyseal fracture of th e left humerus with plate and screws. Hardware is intact. Fracture alignment has markedly improved an d appears near anatomic. There are no unexpected radiopaque foreign bodies. IMPRESSION: Fluoroscopy provided during internal fixation of the left humeral proximal diaphyseal fr acture. ACT 112: Negative or not required by law. Electronically signed by: Dagoberto Madrid M.D. 11/01/2021 3:55 PM
--- NOTE | 2021-11-01 16:20 | Anesthesiology Progress Note ---
Date of Service November 01, 2021 Anesthesia Post Procedure Vital Signs Vital Signs: Temp Pulse Pulse Pulse Resp BP Pulse Ox 11/01/21 16:00 99.1 F 83 9 L 100/60 96 11/01/21 15:50 99.1 F 84 17 106/50 L 97 11/01/21 15:40 83 17 99/49 L 93 11/01/21 15:30 85 15 L 15 104/46 L 96 11/01/21 15:24 98.2 F 83 16 L 97 H 102/41 L 97 11/01/21 12:11 98.8 F 75 23 119/66 94 11/01/21 11:21 98.1 F 78 16 105/66 92 11/01/21 07:19 71 11/01/21 07:13 98.4 F 79 18 119/67 93 11/01/21 04:10 99.0 F 71 18 101/58 L 92 11/01/21 00:05 71 10/31/21 23:23 98.2 F 74 18 118/69 92 10/31/21 19:31 97.7 F 76 18 96/56 L 93 Pain Intensity Left Shoulder: Pain Intensity: 0 Neck: Pain Intensity: 0 Transfer of Care Handoff Completed per policy Notes Mental Status: alert / awake / arousable and participated in evaluation Patient Amnestic to Procedure: Yes Nausea / Vomiting: adequately controlled Pain: adequately controlled Airway Patency, RR, SpO2: stable & adequate BP & HR: stable & adequate Hydration State: stable & adequate Anesthetic Complications: no major complications apparent and Pt Satisfied with anesthetic care
[2021-11-01] MEDS ORDERED: MAGNESIUM HYDROXIDE SUSP 30 ML UDC PO PRN (17:13)
[2021-11-01] MEDS ORDERED: bisacodyL 10 MG SUPP PR PRN (17:13)
[2021-11-01] MEDS ORDERED: NALOXONE HCL 0.4 MG/1 ML VIAL/CARP IV PRN (17:13)
--- NOTE | 2021-11-01 18:20 | Hospitalist Progress Note ---
Date of Service November 01, 2021 Assessment & Plan (1) Fracture of proximal end of left humerus: Plan: Postop, appears to be doing well. Pain control, PT/OT eval and treat. (2) Syncope: Plan: Seems to been a combination of thingsprobably orthostatic from dehydration from not really having eaten or drank yesterday, as well as likely a degree of vagal from the pain from the humerus fracture. Aortic stenosis probably contributingparticularly in the context of the dehydration (lowering the threshold by which she would have a bit of an orthostatic type of the syncope)but overall does not appear to be an unstable issue. (3) Parkinson disease: Plan: Supportive care. Does not appear to be on home meds. PT/OT eval and treat, with frequent falls, agree with their plan for rehab wholeheartedly (4) CAD (coronary artery disease), [place] coronary artery: Plan: Asymptomatic. Continue home meds, resume aspirin once okay with orthopedics (5) Hypertension: Plan: Listed in his chart, does not appear to be on any antihypertensives, blood pressure actually more on the low side (6) Depression: Plan: Continue sertraline (7) DVT prophylaxis: Plan: Pharmacologic on hold for now, once okay with orthopedics would start pharmacologic prophylaxis SCDs for now (8) Discharge planning issues: Plan: PT/OT eval and treat, discharge plan out of the hospital will be for rehab Plan: updated at bedside, dtr (mena DUNAWAY [phone]) over phone Admission and Anticipated Discharge Date Admission Date: October 30, 2021 Subjective Patient seen postop. Pain under reasonable control. present. No new complaints. No chest pain no shortness of breath. She notes that his swallowing issues are fairly commonthat he tends to choke a lot if he does not drink from a straw. Review of Systems Review of Systems: All systems reviewed & are unremarkable except as noted in HPI & below Physical Exam Physical Exam: In general he is awake and alert pleasant no distress. HEENT normocephalic atraumatic mucous membranes moist. Breathing unlabored no accessory muscle use good effort. Left arm dressed and in a sling. No focal neuro deficits. Skin without rashes, pallor, icterus. Results & Data Results & Data ([facility]) Vital Signs (Past 12 Hours) Vital Signs Temp Pulse Pulse Pulse Resp BP Pulse Ox 11/01/21 17:00 97.5 F L 84 18 95/57 L 95 11/01/21 16:30 98.8 F 82 18 99/62 L 95 11/01/21 16:00 99.1 F 83 9 L 100/60 96 11/01/21 15:50 99.1 F 84 17 106/50 L 97 11/01/21 15:40 83 17 99/49 L 93 11/01/21 15:30 85 15 L 15 104/46 L 96 11/01/21 15:24 98.2 F 83 16 L 97 H 102/41 L 97 11/01/21 12:11 98.8 F 75 23 119/66 94 11/01/21 11:21 98.1 F 78 16 105/66 92 11/01/21 07:19 71 11/01/21 07:13 98.4 F 79 18 119/67 93 PG Care Time/CCT Total # of Minutes Spent Total Time Spent with Patient: Total time spent is greater than 50% in coordination of care (as documented) at patient's floor/unit and/or counseling patient: Coding Level of Care Code 08108 Subseq Hosp Care Lvl 2 Diagnoses Fracture of proximal end of left humerus S42.292A Encounter type: initial encounter Fracture alignment: displaced Fracture morphology: other fracture Fracture type: closed Syncope R55 Syncope type: vasovagal syncope Parkinson disease G20 CAD (coronary artery disease), [place] coronary artery I25.10 Hypertension I10 Hypertension type: essential hypertension Depression F32.9 DVT prophylaxis Z29.9 Discharge planning issues Z02.9 (1) Fracture of proximal end of left humerus Encounter type: initial encounter Fracture alignment: displaced Fracture morphology: other fracture Fracture type: closed Qualified Code(s): S42.292A - Other displaced fracture of upper end of left humerus, initial encounter for closed fracture (2) Syncope Syncope type: vasovagal syncope Qualified Code(s): R55 - Syncope and collapse (3) Hypertension Hypertension type: essential hypertension Qualified Code(s): I10 - Essential (primary) hypertension
[2021-11-01] MEDS: SODIUM CHLORIDE 0.9% 1000ML 1,000 ML IV SCH (21:20)
[2021-11-01] MEDS: DOCUSATE SODIUM 100 MG CAP PO SCH (21:21)
[2021-11-01] MEDS: PRAVASTATIN SOD 10 MG TAB PO SCH (21:24)
[2021-11-01] MEDS: SERTRALINE HCL 50 MG TABLET PO SCH (21:24)
[2021-11-01] MEDS: ceFAZolin 2000MG 2,000 MG/15 ML SYR IV SCH (21:30)
--- NOTE | 2021-11-01 23:05 | Electrocardiogram Report ---
Test Reason : Blood Pressure : / mmHG Vent. Rate : 067 BPM Atrial Rate : 067 BPM P-R Int : 206 ms QRS Dur : 088 ms QT Int : 408 ms P-R-T Axes : 036 -30 047 degrees QTc Int : 431 ms Normal sinus rhythm Left axis deviation Low voltage QRS Possible Inferior infarct Abnormal ECG When compared with ECG of 30-OCT-2021 18:43, No significant change was found Confirmed by Julius Lozano ([id number]) on 11/01/2021 11:05:19 PM Referred By: REFERRED SELF Confirmed By:Julius Lozano
[2021-11-02] MEDS: oxyCODONE HCL IR 5 MG TAB (IMMEDIATE RELEASE) PO PRN ×2 (02:58→15:26)
[2021-11-02] MEDS: ceFAZolin 2000MG 2,000 MG/15 ML SYR IV SCH (05:39)
[2021-11-02] MEDS: SODIUM CHLORIDE 0.9% 1000ML 1,000 ML IV SCH (05:39)
[2021-11-02 05:49] LABS: Basophils # (auto) 0.02 K/uL (0-0.2); Basophils % (auto) 0.3 %; Eosinophils # (auto) 0.03 K/uL (0-0.5); Eosinophils % (auto) 0.4 %; Hematocrit (blood only) 33.3 % (42-52); Hemoglobin 11.1 g/dL (14.0-18.0); Immature Granulocytes # (auto) 0.01 K/uL (0.00-0.02); Immature Granulocytes % (auto) 0.1 %; Lymphocytes # (auto) 1.58 K/uL (1.2-3.4); Lymphocytes % (auto) 23.6 %; Mean Corpuscular Hemoglobin 32.5 pg (25-34); Mean Corpuscular Hgb Conc 33.3 g/dL (32-36); Mean Corpuscular Volume 97.4 fL (80-100); Mean Platelet Volume 9.6 fL (7.4-10.4); Neutrophils # (auto) 4.45 K/uL (1.4-6.5); Neutrophils % (auto) 66.6 %; Platelet Count 177 K/uL (130-400); RDW Coefficient of Variation 13.4 % (11.5-14.5); RDW Standard Deviation 47.8 fL (36.4-46.3); Red Blood Count 3.42 M/uL (4.7-6.1); White Blood Count 6.69 K/uL (4.8-10.8)
[2021-11-02 06:26] LABS: BUN Creatinine Ratio 19.6 (10-20); Calcium 8.3 mg/dl (8.5-10.1); Creatinine Clr Calc Pharmacy 74.1 ml/min; Est GFR (African American) 95.4 ml/min; Est GFR (Non-African American) 82.3 ml/min; Potassium 3.8 mmol/L (3.5-5.1)
--- NOTE | 2021-11-02 08:13 | Electrocardiogram Report ---
Test Reason : Blood Pressure : / mmHG Vent. Rate : 075 BPM Atrial Rate : 075 BPM P-R Int : 186 ms QRS Dur : 086 ms QT Int : 394 ms P-R-T Axes : 015 -26 045 degrees QTc Int : 439 ms Sinus rhythm Low voltage QRS Possible Inferior infarct When compared with ECG of 31-OCT-2021 11:10, No significant change Confirmed by Julius Lozano ([id number]) on 11/02/2021 8:13:09 AM Referred By: REFERRED SELF Confirmed By:Julius Lozano
[2021-11-02] MEDS: ACETAMINOPHEN 325 MG TAB PO SCH ×3 (08:40→21:16)
[2021-11-02] MEDS: DOCUSATE SODIUM 100 MG CAP PO SCH ×2 (08:41→21:17)
[2021-11-02] MEDS: EZETIMIBE 10 MG TABLET PO SCH (08:41)
[2021-11-02] MEDS: MULTIVITAMIN TAB PO SCH (08:41)
--- NOTE | 2021-11-02 08:58 | XRay Report ---
XR chest 1V portable CLINICAL HISTORY: fever, eval pneumonia TECHNIQUE: Single frontal radiograph of the chest was obtained. Comparison: Comparison is made to chest one view 10/30/2021 FINDINGS: Interval placement of a left humeral orthopedic fixation device with surgical mabel seen. Interval stability of median sternotomy wires. The cardiomediastinal silhouette is normal. Lungs are underinfl ated. There is bibasilar atelectasis. No evidence of pleural effusion or pneumothorax. IMPRESSION: Underinflated lungs with bibasilar atelectasis. No definite evidence of pneumonia, although superimpo sed pneumonia cannot be entirely excluded. ACT 112: Negative or not required by law. Electronically signed by: Issac Mcknight M.D. 11/02/2021 8:57 AM
--- NOTE | 2021-11-02 09:33 | Operative Report (OR) ---
DATE OF SURGERY: 11/01/2021. INDICATIONS: The patient is an 86-year-old male who suffered a mechanical fall and fractured his lef t proximal humerus with radiographic mildly comminuted transverse but angulated and moderately displa tyrell proximal humerus fracture. PREOPERATIVE DIAGNOSIS: Left proximal humerus fracture. POSTOPERATIVE DIAGNOSIS: Left proximal humerus fracture. PROCEDURE: Open reduction and internal fixation of left proximal humerus fracture with a [employer] loc elda plate and screw fixation. SURGEON: Jatin Yeung MD EDUCATOR SENIOR CLINICAL: HIRO Jett ANESTHESIA: Regional block and general. OPERATIVE PROCEDURE: The patient was anesthetized under general and regional block anesthesia, posit ioned on the beach chair position on the operating room table. A towel roll was placed under his lef t medial scapula. He was translated to left side of the bed so his arm could be manipulated off the bed as necessary. The left upper extremity was prepped and draped with ChloraPrep. The patient had Ancef preoperatively and TXA. An anterior deltopectoral approach was performed. A longer extension anteriorly was performed to get appropriate number of cortexes below the fracture site with the plate . The skin was incised sharply. Subcutaneous tissues were dissected down to the fascia. The cephal ic vein was identified and dissected out and protected with lateral retraction of the deltoid. The c rossing veins were tied off with silk ties and divided. The dissection was taken down on to the [facility] ture site. Fracture was at the level of the pectoralis attachment to the humeral shaft just above th at level. There were some jagged edges and some comminuted fragments with transverse oblique type ap pearance to the fracture. The biceps tendon was preserved. Rotator cuff was intact. The patient robert d previous rotator cuff surgery on that side. Some of the bursa over the rotator cuff was resected f or visualization, retraction of the deltoid and visualization of the greater tuberosity. The pectora lis attachment was maintained intact. Dissection was taken down on to the shaft of the humerus and d eltoid was reflected off of the lateral humerus so the plate could be placed there. The fracture was reduced with longitudinal traction and slight extension. C-arm fluoroscopy was used to visualize re duction of the fracture. When the fracture was noted to be satisfactorily reduced, I placed a [employer] 5-hole long shaft locking plate over the fracture site, positioned it appropriately, provisionally pinned it into the humeral head in position with threaded pins followed by a lag screw, 3.5 mm cortic al screw to lag the shaft of the plate fully reducing the fracture anatomically and then multiple loc elda screws were placed into the humeral head followed by locking screws in the shaft. The construct was stable. Reduction was anatomic. The wound was irrigated. The deltopectoral interval was then repaired with [id number] #1 Vicryl sutures. The subcutaneous tissues were repaired with interru pted 2-0 Vicryl sutures. Skin was closed with surgical mabel and sterile dressings were applied an d a sling immobilizer. HIRO Jett, was my first aid instructor. He functioned as first aid instructor for the entire procedure, assisted in arm positioning, prepping, draping, soft tissue retraction. Jose ramos assisted in all aspects of the internal fixation of the procedure and performed the superficial wou nd closure, dressing, sling application and will participate in postoperative care of the patient as well. The patient had approximately 50 mL of blood loss and tolerated the procedure well without com plication. Job ID: [id number]
--- NOTE | 2021-11-02 10:19 | Orthopedic Progress Note ---
Date of Service November 02, 2021 Assessment & Plan (1) Fracture of proximal end of left humerus: Plan: Postop day 1 post ORIF proximal humerus fracture stable. Patient allowed to use well arm to gently move left arm work on elbow wrist hand range of motion shoulder shrugs scapular retraction type exercises only otherwise stay in sling. Nonweightbearing left upper extremity. Dressing change tomorrow. Admission and Anticipated Discharge Date Admission Date: October 30, 2021 Subjective No complaints pain under control Review of Systems Review of Systems: Noncontributory Physical Exam Physical Exam: Dressing intact distal neurological exam intact Results & Data ([facility]) Vital Signs (Past 12 Hours) Vital Signs Temp Pulse Pulse Pulse Resp BP Pulse Ox 11/02/21 07:36 37.6 C H 87 18 135/73 94 11/02/21 07:22 88 11/02/21 03:52 88 11/02/21 03:33 37.3 C 88 18 134/71 95 11/01/21 23:22 36.6 C 84 16 104/61 94 Laboratory Results Mild drop in hemoglobin stable (1) Fracture of proximal end of left humerus Encounter type: initial encounter Fracture alignment: displaced Fracture morphology: other fracture Fracture type: closed Qualified Code(s): S42.292A - Other displaced fracture of upper end of left humerus, initial encounter for closed fracture
--- NOTE | 2021-11-02 14:29 | Hospitalist Progress Note ---
Date of Service November 02, 2021 Assessment & Plan (1) Fracture of proximal end of left humerus: Plan: POD #1 s/p ORIF by Dr Yeung. No 25-OH vit D level since 2019 - repeat level in am. Continue dressings, brace/sling, etc per ortho. Pain control prn. (2) Syncope: Plan: orthostasis from his PD most likely cause. also possible contributor. Metoprolol on hold due to low or low-nl BPs (3) Parkinson disease: Plan: not on meds for such office visit with [facility] [place] states he & had been declining medication for the PD Dr Benítez also mentions he has dementia from his PD (4) CAD (coronary artery disease), [place] coronary artery: Plan: Asa, statin, zetia (5) Hypertension: Plan: holding metoprolol due to low-nl BPs (6) Depression: Plan: Continue sertraline (7) DVT prophylaxis: Plan: start heparin SC in am (8) Low grade fever: Plan: 2nd atelectasis? cxr with such UTI? await u/a and urine cx follow vitals (9) Dysuria: Plan: check u/a and urine cx - r/o UTI Plan: updated at bedside today Aurora, pt's daughter and POA -- updated by phone by Dr Boateng this week ([phone]) PT, OT recommend rehab start senna + miralax for constipation Admission and Anticipated Discharge Date Admission Date: October 30, 2021 Subjective patient resting comfortably in bed at bedside pt denied any pulmonary complaints -- specifically no dyspnea or cough I removed his NC O2 -- 5 min later sats were 95% in room air patient with minimal pain over left shoulder/arm no bowel movement in several days did have dysuria 1-2 days ago, and has been incontinent in the hospital has some incontinence at home Review of Systems Review of Systems: gen - eating well cv - no chest pain pulm - no dyspnea GI - no abd pain or nausea Physical Exam Physical Exam: gen - NAD, masked facies, mild confusion mouth - mmm neck - no JVD heart - 2-3/6 holosystolic murmur RUSB, RRR, s1 s2 lungs - minimal dry rales bases abd - mild distension, BS+, NT ext - no ankle edema, pulses 2+ b/l musculo - left shoulder/arm in sling, dressings intact, cap refill left hand <2 sec; can move fingers of L hand w/o difficulty Results & Data Results & Data ([facility]) Vital Signs (Past 12 Hours) Vital Signs Temp Pulse Pulse Pulse Resp BP Pulse Ox 11/02/21 11:43 37.3 C 85 18 107/64 97 11/02/21 07:36 37.6 C H 87 18 135/73 94 11/02/21 07:22 88 11/02/21 03:52 88 11/02/21 03:33 37.3 C 88 18 134/71 95 Laboratory Results Laboratory Results - last 24 hr 11/02/21 11/02/21 05:27 05:27 WBC 6.69 RBC 3.42 L Hgb 11.1 L Hct 33.3 L MCV 97.4 MCH 32.5 MCHC 33.3 RDW Std Deviation 47.8 H RDW Coeff of Clau 13.4 Plt Count 177 MPV 9.6 Immature Gran % (Auto) 0.1 Neut % (Auto) 66.6 Lymph % (Auto) 23.6 [place] % (Auto) 9.0 Eos % (Auto) 0.4 Baso % (Auto) 0.3 Neut # (Auto) 4.45 Lymph # (Auto) 1.58 [place] # (Auto) 0.60 H Eos # (Auto) 0.03 Baso # (Auto) 0.02 Immature Gran # (Auto) 0.01 Sodium 136 Potassium 3.8 Chloride 105 Carbon Dioxide 25 Anion Gap 6.0 BUN 15 Creatinine 0.78 Est Cr Clr Drug Dosing 74.1 Est GFR ( Amer) 95.4 Est GFR (Non-Af Amer) 82.3 BUN/Creatinine Ratio 19.6 Glucose 105 H Calcium 8.3 L Diagnostic Findings Chest X-Ray 11/02/21 08:21 XR chest 1V portable CLINICAL HISTORY: fever, eval pneumonia TECHNIQUE: Single frontal radiograph of the chest was obtained. Comparison: Comparison is made to chest one view 10/30/2021 FINDINGS: Interval placement of a left humeral orthopedic fixation device with surgical mabel seen. Interval stability of median sternotomy wires. The cardiomediastinal silhouette is normal. Lungs are underinflated. There is bibasilar atelectasis. No evidence of pleural effusion or pneumothorax. IMPRESSION: Underinflated lungs with bibasilar atelectasis. No definite evidence of pneumonia, although superimposed pneumonia cannot be entirely excluded. ACT 112: Negative or not required by law. Electronically signed by: Issac Mcknight M.D. 11/02/2021 8:57 AM PG Care Time/CCT Total # of Minutes Spent Total Time Spent with Patient: Total time spent is greater than 50% in coordination of care (as documented) at patient's floor/unit and/or counseling patient: Coding Level of Care Code 25983 Subseq Hosp Care Lvl 2 Diagnoses Fracture of proximal end of left humerus S42.292A Encounter type: initial encounter Fracture alignment: displaced Fracture morphology: other fracture Fracture type: closed Syncope R55 Syncope type: vasovagal syncope Parkinson disease G20 CAD (coronary artery disease), [place] coronary artery I25.10 Hypertension I10 Hypertension type: essential hypertension Depression F32.9 DVT prophylaxis Z29.9 Low grade fever R50.9 Dysuria R30.0 (1) Fracture of proximal end of left humerus Encounter type: initial encounter Fracture alignment: displaced Fracture morphology: other fracture Fracture type: closed Qualified Code(s): S42.292A - Other displaced fracture of upper end of left humerus, initial encounter for closed fracture (2) Syncope Syncope type: vasovagal syncope Qualified Code(s): R55 - Syncope and collapse (3) Hypertension Hypertension type: essential hypertension Qualified Code(s): I10 - Essential (primary) hypertension
[2021-11-02] MEDS: SENNA 8.6 MG TAB PO SCH (15:27)
[2021-11-02] MEDS: POLYETHYLENE (MIRALAX) 17 GM PACK PO SCH (15:27)
[2021-11-02] MEDS: SERTRALINE HCL 50 MG TABLET PO SCH (21:17)
[2021-11-02] MEDS: PRAVASTATIN SOD 10 MG TAB PO SCH (21:17)
[2021-11-03 02:49] LABS: Appearance Urine Clear (Clear); Bacteria Urine Automated Negative (Negative); Bilirubin Urine Negative (Negative); Blood Urine Trace (Negative); Color Urine Yellow; Epithelial Cell Urine Auto 0-5 /lpf (0-5); Glucose Urine UA Negative (Negative); Ketones Urine Negative (Negative); Leukocyte Esterase Urine Negative (Negative); Nitrite Urine Negative (Negative); Protein Urine Negative (Negative); RBC Urine Automated 0-4 /hpf (0-4); Urobilinogen Urine Negative (Negative); pH Urine 5.5 (4.5-7.5)
[2021-11-03] MEDS: EZETIMIBE 10 MG TABLET PO SCH (08:36)
[2021-11-03] MEDS: POLYETHYLENE (MIRALAX) 17 GM PACK PO SCH (08:36)
[2021-11-03] MEDS: SENNA 8.6 MG TAB PO SCH (08:37)
[2021-11-03] MEDS: ACETAMINOPHEN 325 MG TAB PO SCH ×3 (08:37→20:57)
[2021-11-03] MEDS: DOCUSATE SODIUM 100 MG CAP PO SCH ×2 (08:37→20:55)
[2021-11-03] MEDS: MULTIVITAMIN TAB PO SCH (08:37)
--- NOTE | 2021-11-03 08:45 | Orthopedic Progress Note ---
Date of Service November 03, 2021 Assessment & Plan (1) Fracture of proximal end of left humerus: Plan: 86 yo male stable POD #2 s/p ORIF left prox humerus 1. Med management 2. DVT prophylaxis 3. PT/OT 4. D/C planning- stable from ortho standpoint, f/u with Dr Yeung ~ 10-14 days Admission and Anticipated Discharge Date Admission Date: October 30, 2021 Subjective Pt sitting in chair, eating breakfast, no complaints, denies pain Physical Exam Physical Exam: Dressing d/c'd, incision clean, dry, intact, moderate swelling and ecchymosis upper arm, dressing removed elbow as was acting like tourniquet causing swelling Results & Data ([facility]) Vital Signs (Past 12 Hours) Vital Signs Temp Pulse Pulse Resp BP Pulse Ox 11/03/21 08:19 36.9 C 86 18 127/73 96 11/03/21 07:21 84 11/03/21 04:03 36.6 C 91 H 16 117/69 91 11/02/21 23:29 36.9 C 85 16 106/63 94 11/02/21 22:56 85 Laboratory Results 11/03/21 11/03/21 Range/Units 06:00 01:20 25-OH Vitamin D Total 20.7 L (30-100) ng/ml Urine Color Yellow Urine Appearance Clear (Clear) Urine pH 5.5 (4.5-7.5) Ur Specific [place] 1.020 (1.000-1.030) Urine Protein Negative (Negative) Urine Glucose (UA) Negative (Negative) Urine Ketones Negative (Negative) Urine Blood Trace H (Negative) Urine Nitrite Negative (Negative) Urine Bilirubin Negative (Negative) Urine Urobilinogen Negative (Negative) Ur Leukocyte Esterase Negative (Negative) Urine WBC (Auto) 1-5 (0-5) /hpf Urine RBC (Auto) 0-4 (0-4) /hpf U Hyaline Cast (Auto) 1-5 (0-5) /lpf U Epithel Cells (Auto) 0-5 (0-5) /lpf Urine Bacteria (Auto) Negative (Negative) (1) Fracture of proximal end of left humerus Encounter type: initial encounter Fracture alignment: displaced Fracture morphology: other fracture Fracture type: closed Qualified Code(s): S42.292A - Other displaced fracture of upper end of left humerus, initial encounter for closed fracture
[2021-11-03] MEDS ORDERED: ERGOCALCIFEROL 50,000 UNITS 1250 MCG CAP PO ONE (08:59)
[2021-11-03] MEDS: HEPARIN SOD 5,000 UNIT/0.5 ML VIAL SQ SCH ×3 (09:42→20:55)
--- NOTE | 2021-11-03 19:25 | Hospitalist Progress Note ---
Date of Service November 03, 2021 Assessment & Plan (1) Fracture of proximal end of left humerus: Plan: POD #2 s/p ORIF by Dr Yeung. 25-OH vit D level mildly low - replace as below. Continue sling, pain control, etc per ortho. Start chemical DVT proph. f/u with Dr Yeung post-discharge 10-14 days per ortho. (2) Syncope: Plan: orthostasis from his PD most likely cause. also possible contributor. Metoprolol continues to be on hold due to low or low-nl BPs (3) Parkinson disease: Plan: not on meds for such office visit with [facility] in 09/2021 states he & had been declining medication for the PD Dr Benítez also mentions he has dementia from his PD (4) CAD (coronary artery disease), [place] coronary artery: Plan: Asa, statin, zetia no ischemic symptoms (5) Hypertension: Plan: holding metoprolol due to low-nl BPs (6) Depression: Plan: Continue sertraline (7) DVT prophylaxis: Plan: start heparin SC today (8) Low grade fever: Plan: resolved, has not recurred 2nd atelectasis vs post-surgical inflammatory response vs other cxr without pneumonia ua clean and not suggestive of UTI simply follow (9) Dysuria: Plan: ua not suspicious for UTI no complaints of such today (10) Vitamin D deficiency: Plan: level = 20 11/03 -- ergocalciferol 51520 units PO x 1 replace weekly total of 8 weeks Plan: updated at bedside yesterday Aurora, pt's daughter and POA -- updated by phone by Dr Boateng this week ([phone]) PT, OT recommend rehab cont senna + miralax for constipation can likely d/c telemetry tomorrow and move to med/surg Admission and Anticipated Discharge Date Admission Date: October 30, 2021 Subjective eating his meal during the visit offered no complaints reported no pain in any location tele overnight wnl no events per staff no further low-grade fevers Review of Systems Review of Systems: ROS limited but denies chest pain, dyspnea or left shoulder pain no abdominal pain either Physical Exam Physical Exam: gen - NAD, masked facies mouth - mmm neck - no JVD heart - 2-3/6 holosystolic murmur RUSB, RRR, s1 s2 lungs - scant dry rales bases otherwise CTA b/l without wheezes or increased work of breathing abd - mild distension, BS+, NT ext - no ankle edema, pulses 2+ b/l musculo - left shoulder/arm in sling, mabel intact (very large incision), no drainage; mild ecchymoses about the shoulder/upper arm Results & Data Results & Data ([facility]) Vital Signs (Past 12 Hours) Vital Signs Temp Pulse Pulse Resp BP Pulse Ox 11/03/21 15:15 36.8 C 93 H 86 17 111/57 L 96 11/03/21 10:59 36.9 C 82 18 142/81 H 92 11/03/21 08:19 36.9 C 86 18 127/73 96 Laboratory Results Laboratory Results - last 24 hr 11/03/21 11/03/21 01:20 06:00 25-OH Vitamin D Total 20.7 L Urine Color Yellow Urine Appearance Clear Urine pH 5.5 Ur Specific [place] 1.020 Urine Protein Negative Urine Glucose (UA) Negative Urine Ketones Negative Urine Blood Trace H Urine Nitrite Negative Urine Bilirubin Negative Urine Urobilinogen Negative Ur Leukocyte Esterase Negative Urine WBC (Auto) 1-5 Urine RBC (Auto) 0-4 U Hyaline Cast (Auto) 1-5 U Epithel Cells (Auto) 0-5 Urine Bacteria (Auto) Negative PG Care Time/CCT Total # of Minutes Spent Total Time Spent with Patient: Total time spent is greater than 50% in coordination of care (as documented) at patient's floor/unit and/or counseling patient: Coding Level of Care Code 09595 Subseq Hosp Care Lvl 2 Diagnoses Fracture of proximal end of left humerus S42.292A Encounter type: initial encounter Fracture alignment: displaced Fracture morphology: other fracture Fracture type: closed Syncope R55 Syncope type: vasovagal syncope Parkinson disease G20 CAD (coronary artery disease), [place] coronary artery I25.10 Hypertension I10 Hypertension type: essential hypertension Depression F32.9 DVT prophylaxis Z29.9 Low grade fever R50.9 Dysuria R30.0 Vitamin D deficiency E55.9 (1) Fracture of proximal end of left humerus Encounter type: initial encounter Fracture alignment: displaced Fracture morphology: other fracture Fracture type: closed Qualified Code(s): S42.292A - Other displaced fracture of upper end of left humerus, initial encounter for closed fracture (2) Syncope Syncope type: vasovagal syncope Qualified Code(s): R55 - Syncope and collapse (3) Hypertension Hypertension type: essential hypertension Qualified Code(s): I10 - Essential (primary) hypertension
[2021-11-03] MEDS: ASPIRIN 81 MG ECTAB PO SCH (20:57)
[2021-11-03] MEDS: SERTRALINE HCL 50 MG TABLET PO SCH (20:58)
[2021-11-03] MEDS: PRAVASTATIN SOD 10 MG TAB PO SCH (20:58)
[2021-11-04] MEDS: HEPARIN SOD 5,000 UNIT/0.5 ML VIAL SQ SCH ×3 (06:07→20:53)
[2021-11-04 06:51] LABS: Hematocrit (blood only) 30.5 % (42-52); Hemoglobin 10.3 g/dL (14.0-18.0); Mean Corpuscular Hemoglobin 32.5 pg (25-34); Mean Corpuscular Hgb Conc 33.8 g/dL (32-36); Mean Corpuscular Volume 96.2 fL (80-100); Mean Platelet Volume 9.4 fL (7.4-10.4); Platelet Count 198 K/uL (130-400); RDW Coefficient of Variation 13.4 % (11.5-14.5); RDW Standard Deviation 47.6 fL (36.4-46.3); Red Blood Count 3.17 M/uL (4.7-6.1); White Blood Count 5.02 K/uL (4.8-10.8)
[2021-11-04 07:28] LABS: BUN Creatinine Ratio 21.5 (10-20); Calcium 8.5 mg/dl (8.5-10.1); Creatinine Clr Calc Pharmacy 85.1 ml/min; Est GFR (African American) 100.9 ml/min; Est GFR (Non-African American) 87.1 ml/min; Potassium 3.6 mmol/L (3.5-5.1)
[2021-11-04] MEDS ORDERED: HYDROCODONE/ACETAMOPHEN 5/325MG TAB PO PRN (08:03)
[2021-11-04] MEDS: ACETAMINOPHEN 325 MG TAB PO SCH ×3 (08:26→20:49)
[2021-11-04] MEDS: MULTIVITAMIN TAB PO SCH (08:26)
[2021-11-04] MEDS: SENNA 8.6 MG TAB PO SCH (08:29)
[2021-11-04] MEDS: EZETIMIBE 10 MG TABLET PO SCH (08:29)
[2021-11-04] MEDS: DOCUSATE SODIUM 100 MG CAP PO SCH ×2 (08:29→20:50)
[2021-11-04] MEDS: POLYETHYLENE (MIRALAX) 17 GM PACK PO SCH (08:29)
--- NOTE | 2021-11-04 11:16 | Orthopedic Progress Note ---
Date of Service November 04, 2021 Assessment & Plan (1) Fracture of proximal end of left humerus: Plan: 86 yo male stable POD #3 s/p ORIF left prox humerus 1. Med management 2. DVT prophylaxis 3. PT/OT 4. D/C planning- when stable per medicine, ortho to sign off, f/u with Dr Yeung ~ 10-14 days Admission and Anticipated Discharge Date Admission Date: October 30, 2021 Subjective Pt resting in chair, denies pain Physical Exam Physical Exam: Incision C/D/I, fingers mobile, NVI Results & Data ([facility]) Vital Signs (Past 12 Hours) Vital Signs Temp Pulse Pulse Pulse Resp BP Pulse Ox 11/04/21 08:00 36.5 C 70 70 20 100/61 93 11/04/21 03:08 36.6 C 82 18 112/57 L 95 11/04/21 01:41 81 11/03/21 23:28 37.6 C H 80 18 105/58 L 93 Laboratory Results 11/04/21 11/04/21 Range/Units 06:27 06:27 WBC 5.02 (4.8-10.8) K/uL RBC 3.17 L (4.7-6.1) M/uL Hgb 10.3 L (14.0-18.0) g/dL Hct 30.5 L (42-52) % MCV 96.2 (80-100) fL MCH 32.5 (25-34) pg MCHC 33.8 (32-36) g/dL RDW Std Deviation 47.6 H (36.4-46.3) fL RDW Coeff of Clau 13.4 (11.5-14.5) % Plt Count 198 (130-400) K/uL MPV 9.4 (7.4-10.4) fL Sodium 142 (136-145) mmol/L Potassium 3.6 (3.5-5.1) mmol/L Chloride 110 H (98-107) mmol/L Carbon Dioxide 28 (21-32) mmol/L Anion Gap 4.0 (3-11) BUN 15 (7-18) mg/dl Creatinine 0.68 (0.6-1.4) mg/dl Est Cr Clr Drug Dosing 85.1 ml/min Est GFR ( Amer) 100.9 ml/min Est GFR (Non-Af Amer) 87.1 ml/min BUN/Creatinine Ratio 21.5 H (10-20) Glucose 101 H (70-99) mg/dl Calcium 8.5 (8.5-10.1) mg/dl (1) Fracture of proximal end of left humerus Encounter type: initial encounter Fracture alignment: displaced Fracture morphology: other fracture Fracture type: closed Qualified Code(s): S42.292A - Other displaced fracture of upper end of left humerus, initial encounter for closed fracture
[2021-11-04] MEDS ORDERED: bisacodyL 10 MG SUPP PR STA (15:01)
--- NOTE | 2021-11-04 15:02 | Hospitalist Progress Note ---
Date of Service November 04, 2021 Assessment & Plan (1) Fracture of proximal end of left humerus: Plan: POD #3 s/p ORIF by Dr Yeung. Stable. 25-OH vit D level mildly low - replace as below. Continue sling, pain control, etc per ortho. DVT proph -- heparin TID. f/u with Dr Yeung post-discharge 10-14 days per ortho. (2) Syncope: Plan: orthostasis from his PD most likely cause. also possible contributor. Metoprolol continues to be on hold due to low or low-nl BPs Recent echo noted (3) Parkinson disease: Plan: not on meds for such office visit with [facility] [place] [facility] in 09/2021 states he & had been declining medication for the PD Dr Benítez also mentions he has dementia from his PD (4) CAD (coronary artery disease), [place] coronary artery: Plan: Asa, statin, zetia no ischemic symptoms (5) Hypertension: Plan: cont to hold metoprolol due to low-nl BPs (6) Depression: Plan: Continue sertraline (7) DVT prophylaxis: Plan: heparin 5000 TID (8) Low grade fever: Plan: low grade temp again overnight (37.6 yesterday evening) - none since recent u/a normal recent cxr normal eating well which would argue against infectious process if temps continue consider repeating a COVID test, etc low-grade temps could be 2nd to post-surgery inflammatory response follow carefully (9) Dysuria: Plan: ua not suspicious for UTI has not complained of pain in 3 days (10) Vitamin D deficiency: Plan: level = 20 11/03 -- ergocalciferol 76365 units PO x 1 replace weekly total of 8 weeks Plan: updated at bedside on Friday, and again by phone this evening Aurora, pt's daughter and POA -- updated by phone by Dr Boateng this week ([phone]) PT, OT recommend rehab; mentioned possibility of [facility] in [place] for rehab cont senna + miralax for constipation and give dulcolax suppos tonight since no BM in several days can d/c telemetry today and move to med/surg Admission and Anticipated Discharge Date Admission Date: October 30, 2021 Subjective tele overnight wnl no events per nursing still no bowel movement since admission as confirmed by nursing eating well - eating 75% of meals or more patient denies pain in left shoulder/arm Review of Systems Review of Systems: gen - weak, fatigue cv - no cp, no orthopnea pulm - no cough or congestion GI - no nausea/emesis/abd pain; +constipation Physical Exam Physical Exam: gen - NAD, masked facies; was initially taking a nap - woke up easily mouth - mmm neck - no JVD heart - 2-3/6 holosystolic murmur RUSB, RRR, s1 s2 lungs - scant dry rales bases otherwise CTA b/l without wheezes or increased work of breathing abd - mild distension still; BS+, NT, no HSM ext - no ankle edema, pulses 2+ b/l musculo - left shoulder/arm in sling, mabel intact (very large incision), no drainage from incision; mild ecchymoses about the shoulder/upper arm neuro - mild tremor Results & Data Results & Data ([facility]) Vital Signs (Past 12 Hours) Vital Signs Temp Pulse Pulse Pulse Resp BP Pulse Ox 11/04/21 14:57 72 11/04/21 11:54 36.7 C 75 24 123/69 94 11/04/21 08:00 36.5 C 70 70 20 100/61 93 11/04/21 03:08 36.6 C 82 18 112/57 L 95 Laboratory Results Laboratory Results - last 24 hr 11/04/21 11/04/21 06:27 06:27 WBC 5.02 RBC 3.17 L Hgb 10.3 L Hct 30.5 L MCV 96.2 MCH 32.5 MCHC 33.8 RDW Std Deviation 47.6 H RDW Coeff of Clau 13.4 Plt Count 198 MPV 9.4 Sodium 142 Potassium 3.6 Chloride 110 H Carbon Dioxide 28 Anion Gap 4.0 BUN 15 Creatinine 0.68 Est Cr Clr Drug Dosing 85.1 Est GFR ( Amer) 100.9 Est GFR (Non-Af Amer) 87.1 BUN/Creatinine Ratio 21.5 H Glucose 101 H Calcium 8.5 PG Care Time/CCT Total # of Minutes Spent Total Time Spent with Patient: Total time spent is greater than 50% in coordination of care (as documented) at patient's floor/unit and/or counseling patient: Coding Level of Care Code 47569 Subseq Hosp Care Lvl 2 Diagnoses Fracture of proximal end of left humerus S42.292A Encounter type: initial encounter Fracture alignment: displaced Fracture morphology: other fracture Fracture type: closed Syncope R55 Syncope type: vasovagal syncope Parkinson disease G20 CAD (coronary artery disease), [place] coronary artery I25.10 Hypertension I10 Hypertension type: essential hypertension Depression F32.9 DVT prophylaxis Z29.9 Low grade fever R50.9 Dysuria R30.0 Vitamin D deficiency E55.9 (1) Fracture of proximal end of left humerus Encounter type: initial encounter Fracture alignment: displaced Fracture morphology: other fracture Fracture type: closed Qualified Code(s): S42.292A - Other displaced fracture of upper end of left humerus, initial encounter for closed fracture (2) Syncope Syncope type: vasovagal syncope Qualified Code(s): R55 - Syncope and collapse (3) Hypertension Hypertension type: essential hypertension Qualified Code(s): I10 - Essential (primary) hypertension
[2021-11-04] MEDS: SERTRALINE HCL 50 MG TABLET PO SCH (20:50)
[2021-11-04] MEDS: ASPIRIN 81 MG ECTAB PO SCH (20:52)
[2021-11-04] MEDS: PRAVASTATIN SOD 10 MG TAB PO SCH (20:52)
[2021-11-05] MEDS: HEPARIN SOD 5,000 UNIT/0.5 ML VIAL SQ SCH ×3 (05:21→21:36)
[2021-11-05] MEDS: SENNA 8.6 MG TAB PO SCH (07:50)
[2021-11-05] MEDS: MULTIVITAMIN TAB PO SCH (07:51)
[2021-11-05] MEDS: DOCUSATE SODIUM 100 MG CAP PO SCH ×2 (07:51→21:33)
[2021-11-05] MEDS: ACETAMINOPHEN 325 MG TAB PO SCH ×3 (07:51→21:35)
[2021-11-05] MEDS: EZETIMIBE 10 MG TABLET PO SCH (07:52)
[2021-11-05] MEDS: POLYETHYLENE (MIRALAX) 17 GM PACK PO SCH (07:52)
--- NOTE | 2021-11-05 19:18 | Hospitalist Progress Note ---
Date of Service November 05, 2021 Assessment & Plan (1) Fracture of proximal end of left humerus: Plan: POD #4 s/p ORIF by Dr Yeung. Stable. Pain controlled. 25-OH vit D level mildly low - replace as below. Continue sling, pain control, etc per ortho. DVT proph -- heparin TID. f/u with Dr Yeung post-discharge 10-14 days per ortho. (2) Syncope: Plan: orthostasis from his PD most likely cause. also possible contributor. Metoprolol continues to be on hold due to low or low-nl BPs - likely to not need the metoprolol at discharge Recent echo noted (3) Parkinson disease: Plan: not on meds for such office visit with [facility] states he & had been declining medication for the PD Dr Benítez also mentions he has dementia from his PD (4) CAD (coronary artery disease), [place] coronary artery: Plan: Asa, statin, zetia no ischemic symptoms (5) Hypertension: Plan: cont to hold metoprolol due to low-nl BPs (6) Depression: Plan: Continue sertraline (7) DVT prophylaxis: Plan: heparin 5000 TID (8) Low grade fever: Plan: had 2 episodes of low grade temp (37.6) over the weekend - none since recent u/a normal recent cxr normal eating well which would argue against infectious process if temps continue consider repeating a COVID test, etc low-grade temps could be 2nd to post-surgery inflammatory response follow carefully (9) Dysuria: Plan: ua not suspicious for UTI urine cx was negative has not complained of pain in 3+ days (10) Vitamin D deficiency: Plan: level = 20 11/03/21 -- ergocalciferol 12128 units PO x 1 replace weekly total of 8 weeks (11) Constipation: Plan: resolved cont senna + miralax for maintenance Plan: updated at bedside on Friday, and again by phone this evening Aurora, pt's daughter and POA -- updated by phone by Dr Boateng this week ([phone]) PT, OT recommend rehab referral made to [facility] in [facility] -- 's first choice for rehab Admission and Anticipated Discharge Date Admission Date: October 30, 2021 Subjective patient very awake, alert during my visit today comfortable - denies any pain in the left arm/shoulder nursing staff report he finally had a bowel movement yesterday evening he denies any new complaints he did remember that he needs rehab post-discharge Review of Systems Review of Systems: gen - good appetite cv - no chest pain pulm - no cough/congestion/dyspnea GI - no abd pain/nausea/emesis - incontinent Physical Exam Physical Exam: gen - NAD, masked facies, but very awake/alert today and bright-eyed mouth - mmm neck - no JVD heart - 2-3/6 holosystolic murmur RUSB, RRR, s1 s2 lungs - scant dry rales bases; no wheezes; CTA b/l otherwise abd - soft NT ND BS+; no HSM; distension resolved ext - no ankle edema, pulses 2+ b/l musculo - left shoulder/arm in sling, mabel intact, no drainage from incision; mild ecchymoses about the shoulder/upper arm; mild edema of upper L arm neuro - mild tremor with masked facies Results & Data Results & Data ([facility]) Vital Signs (Past 12 Hours) Vital Signs Temp Pulse Resp BP Pulse Ox 11/05/21 15:25 36.7 C 65 18 135/72 94 11/05/21 12:00 36.7 C 97 H 17 107/67 95 PG Care Time/CCT Total # of Minutes Spent Total Time Spent with Patient: Total time spent is greater than 50% in coordination of care (as documented) at patient's floor/unit and/or counseling patient: Coding Level of Care Code 36704 Subseq Hosp Care Lvl 2 Diagnoses Fracture of proximal end of left humerus S42.292A Encounter type: initial encounter Fracture alignment: displaced Fracture morphology: other fracture Fracture type: closed Syncope R55 Syncope type: vasovagal syncope Parkinson disease G20 CAD (coronary artery disease), [place] coronary artery I25.10 Hypertension I10 Hypertension type: essential hypertension Depression F32.9 DVT prophylaxis Z29.9 Low grade fever R50.9 Dysuria R30.0 Vitamin D deficiency E55.9 Constipation K59.00 (1) Fracture of proximal end of left humerus Encounter type: initial encounter Fracture alignment: displaced Fracture morphology: other fracture Fracture type: closed Qualified Code(s): S42.292A - Other displaced fracture of upper end of left humerus, initial encounter for closed fracture (2) Syncope Syncope type: vasovagal syncope Qualified Code(s): R55 - Syncope and collapse (3) Hypertension Hypertension type: essential hypertension Qualified Code(s): I10 - Essential (primary) hypertension
[2021-11-05] MEDS: ASPIRIN 81 MG ECTAB PO SCH (21:34)
[2021-11-05] MEDS: SERTRALINE HCL 50 MG TABLET PO SCH (21:34)
[2021-11-05] MEDS: PRAVASTATIN SOD 10 MG TAB PO SCH (21:34)
[2021-11-06] MEDS: HEPARIN SOD 5,000 UNIT/0.5 ML VIAL SQ SCH ×3 (06:10→21:46)
[2021-11-06] MEDS: SENNA 8.6 MG TAB PO SCH (07:52)
[2021-11-06] MEDS: EZETIMIBE 10 MG TABLET PO SCH (07:53)
[2021-11-06] MEDS: ACETAMINOPHEN 325 MG TAB PO SCH ×3 (07:53→21:45)
[2021-11-06] MEDS: MULTIVITAMIN TAB PO SCH (07:53)
[2021-11-06] MEDS: DOCUSATE SODIUM 100 MG CAP PO SCH ×2 (07:57→21:45)
[2021-11-06] MEDS: POLYETHYLENE (MIRALAX) 17 GM PACK PO SCH (07:58)
[2021-11-06 08:53] LABS: Hematocrit (blood only) 31.1 % (42-52); Hemoglobin 10.6 g/dL (14.0-18.0); Mean Corpuscular Hemoglobin 32.4 pg (25-34); Mean Corpuscular Hgb Conc 34.1 g/dL (32-36); Mean Corpuscular Volume 95.1 fL (80-100); Mean Platelet Volume 8.8 fL (7.4-10.4); Platelet Count 249 K/uL (130-400); RDW Coefficient of Variation 13.2 % (11.5-14.5); RDW Standard Deviation 46.1 fL (36.4-46.3); Red Blood Count 3.27 M/uL (4.7-6.1); White Blood Count 5.11 K/uL (4.8-10.8)
[2021-11-06 09:12] LABS: BUN Creatinine Ratio 16.2 (10-20); Calcium 8.6 mg/dl (8.5-10.1); Creatinine Clr Calc Pharmacy 78.5 ml/min; Est GFR (African American) 97.5 ml/min; Est GFR (Non-African American) 84.1 ml/min; Potassium 3.7 mmol/L (3.5-5.1)
--- NOTE | 2021-11-06 17:23 | Hospitalist Progress Note ---
Date of Service November 06, 2021 Assessment & Plan (1) Fracture of proximal end of left humerus: Plan: S/p ORIF by Dr Yeung on 11/01/2021 - Stable. - Pain controlled. - Continue sling, pain control, etc per ortho. - For low vitamin D level - Ergocalciferol 35766 units PO x 6 weeks. First dose in the hospital. - F/u with Dr Yeung post-discharge 10-14 days per ortho. (2) Syncope: Plan: Orthostasis from his PD most likely cause. Aortic stenosis also possible contributor as it is moderate/severe on echo this admission. 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 - Hold metoprolol due to low or low-nl BPs (3) Parkinson disease: Plan: Not on meds for such. Office visit with [facility] in 09/2021 states he & had been declining medication for the PD. - Dr Benítez also mentions he has dementia from his PD. (4) CAD (coronary artery disease), [place] coronary artery: Plan: No ischemic symptoms or complaints. - Continue ASA, statin, Zetia (5) Hypertension: Plan: BP was 100/50 today. - Continue to hold metoprolol as above (6) Depression: Plan: - Continue sertraline (7) DVT prophylaxis: Plan: Heparin 5000 units SQ TID Admission and Anticipated Discharge Date Admission Date: October 30, 2021 Subjective No major issues today. He denies arm pain. Reports no fevers/chills, chest pain, shortness of breath, abdominal pain, nausea, or vomiting. Physical Exam Constitutional: WD/WN, vitals as above Eyes: EOM intact bilaterally; no conjunctival abnormality ENMT: external ear and nose normal, oropharynx normal Neck: trachea midline, no thyromegaly normal visual inspection Respiratory: normal respiratory effort, lungs clear to auscultation no respiratory distress Cardiovascular: RRR, no murmur, no edema Gastrointestinal (Abdomen): Inspection/Auscultation: abdomen normal to inspection; abdomen not distended Musculoskeletal: no cyanosis or clubbing, extremities motor strength 5/5 Extremities: + upper extremity abnormal to inspection Left (In sling) Skin: no rashes, warm and dry Neurologic: moves all extremities and awake Psychiatric: Orientation: alert, oriented to person and cooperative Results & Data Results & Data ([facility]) Vital Signs (Past 12 Hours) Vital Signs Temp Pulse Resp BP Pulse Ox 11/06/21 15:03 36.6 C 73 18 100/55 L 93 11/06/21 07:42 36.7 C 66 16 121/64 91 PG Care Time/CCT Total # of Minutes Spent Total Time Spent with Patient: Total time spent is greater than 50% in coordination of care (as documented) at patient's floor/unit and/or counseling patient: Coding Level of Care Code 29460 Subseq Hosp Care Lvl 2 Diagnoses Fracture of proximal end of left humerus S42.292A Encounter type: initial encounter Fracture alignment: displaced Fracture morphology: other fracture Fracture type: closed Syncope R55 Syncope type: vasovagal syncope Parkinson disease G20 CAD (coronary artery disease), [place] coronary artery I25.10 Hypertension I10 Hypertension type: essential hypertension Depression F32.9 DVT prophylaxis Z29.9 (1) Fracture of proximal end of left humerus Encounter type: initial encounter Fracture alignment: displaced Fracture morphology: other fracture Fracture type: closed Qualified Code(s): S42.292A - Other displaced fracture of upper end of left humerus, initial encounter for closed fracture (2) Syncope Syncope type: vasovagal syncope Qualified Code(s): R55 - Syncope and collapse (3) Hypertension Hypertension type: essential hypertension Qualified Code(s): I10 - Essential (primary) hypertension
[2021-11-06] MEDS: SERTRALINE HCL 50 MG TABLET PO SCH (21:45)
[2021-11-06] MEDS: ASPIRIN 81 MG ECTAB PO SCH (21:45)
[2021-11-06] MEDS: PRAVASTATIN SOD 10 MG TAB PO SCH (21:45)
[2021-11-07] MEDS: HEPARIN SOD 5,000 UNIT/0.5 ML VIAL SQ SCH ×3 (05:46→21:30)
[2021-11-07] MEDS: POLYETHYLENE (MIRALAX) 17 GM PACK PO SCH (07:59)
[2021-11-07] MEDS: ACETAMINOPHEN 325 MG TAB PO SCH ×3 (08:00→21:28)
[2021-11-07] MEDS: SENNA 8.6 MG TAB PO SCH (08:00)
[2021-11-07] MEDS: DOCUSATE SODIUM 100 MG CAP PO SCH ×2 (08:00→21:28)
[2021-11-07] MEDS: MULTIVITAMIN TAB PO SCH (08:00)
[2021-11-07] MEDS: EZETIMIBE 10 MG TABLET PO SCH (08:00)
--- NOTE | 2021-11-07 15:35 | Hospitalist Progress Note ---
Date of Service November 07, 2021 Assessment & Plan (1) Fracture of proximal end of left humerus: Plan: S/p ORIF by Dr. Yeung on 11/01/2021 - Stable. - Pain controlled. - Continue sling, pain control, etc per ortho. - For low vitamin D level - Ergocalciferol 30531 units PO x 6 weeks. First dose in the hospital. - F/u with Dr Yeung post-discharge 10-14 days per ortho. Plan for [facility] tomorrow. (2) Syncope: Plan: Orthostasis from his PD most likely cause. Aortic stenosis also possible contributor as it is moderate/severe on echo this admission. 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 - Hold metoprolol due to low or low-nl BPs (3) Parkinson disease: Plan: Not on meds for such. Office visit with [facility] [place] [facility] in 09/[place] states he & had been declining medication for the PD. - Dr. Benítez also mentions he has dementia from his PD. (4) CAD (coronary artery disease), [place] coronary artery: Plan: No ischemic symptoms or complaints. - Continue ASA, statin, Zetia (5) Hypertension: Plan: BP was 150/70 today. - Continue to hold metoprolol as above (6) Depression: Plan: - Continue sertraline (7) DVT prophylaxis: Plan: Heparin 5000 units SQ TID Admission and Anticipated Discharge Date Admission Date: October 30, 2021 Subjective Doing well today. No major pain. Reports no fevers/chills, chest pain, shortness of breath, abdominal pain, nausea, or vomiting. Physical Exam Constitutional: WD/WN, vitals as above Eyes: EOM intact bilaterally; no conjunctival abnormality ENMT: external ear and nose normal, oropharynx normal Neck: trachea midline, no thyromegaly normal visual inspection Respiratory: normal respiratory effort, lungs clear to auscultation no respiratory distress Cardiovascular: RRR, no murmur, no edema Gastrointestinal (Abdomen): Inspection/Auscultation: abdomen normal to inspection; abdomen not distended Musculoskeletal: no cyanosis or clubbing, extremities motor strength 5/5 Extremities: + upper extremity abnormal to inspection Left (In sling) Skin: no rashes, warm and dry Neurologic: moves all extremities and awake Psychiatric: Orientation: alert, oriented to person and cooperative Results & Data Results & Data ([facility]) Vital Signs (Past 12 Hours) Vital Signs Temp Pulse Resp BP Pulse Ox 11/07/21 07:13 36.7 C 68 18 148/72 H 93 PG Care Time/CCT Total # of Minutes Spent Total Time Spent with Patient: Total time spent is greater than 50% in coordination of care (as documented) at patient's floor/unit and/or counseling patient: Coding Level of Care Code 67587 Subseq Hosp Care Lvl 2 Diagnoses Fracture of proximal end of left humerus S42.292A Encounter type: initial encounter Fracture alignment: displaced Fracture morphology: other fracture Fracture type: closed Syncope R55 Syncope type: vasovagal syncope Parkinson disease G20 CAD (coronary artery disease), [place] coronary artery I25.10 Hypertension I10 Hypertension type: essential hypertension Depression F32.9 DVT prophylaxis Z29.9 (1) Fracture of proximal end of left humerus Encounter type: initial encounter Fracture alignment: displaced Fracture morphology: other fracture Fracture type: closed Qualified Code(s): S42.292A - Other displaced fracture of upper end of left humerus, initial encounter for closed fracture (2) Syncope Syncope type: vasovagal syncope Qualified Code(s): R55 - Syncope and collapse (3) Hypertension Hypertension type: essential hypertension Qualified Code(s): I10 - Essential (primary) hypertension
[2021-11-07] MEDS: SERTRALINE HCL 50 MG TABLET PO SCH (21:29)
[2021-11-07] MEDS: PRAVASTATIN SOD 10 MG TAB PO SCH (21:29)
[2021-11-07] MEDS: ASPIRIN 81 MG ECTAB PO SCH (21:29)
[2021-11-08] MEDS: HEPARIN SOD 5,000 UNIT/0.5 ML VIAL SQ SCH ×3 (05:16→21:29)
[2021-11-08] MEDS: SENNA 8.6 MG TAB PO SCH (07:35)
[2021-11-08] MEDS: EZETIMIBE 10 MG TABLET PO SCH (07:36)
[2021-11-08] MEDS: MULTIVITAMIN TAB PO SCH (07:36)
[2021-11-08] MEDS: POLYETHYLENE (MIRALAX) 17 GM PACK PO SCH (07:40)
[2021-11-08] MEDS: DOCUSATE SODIUM 100 MG CAP PO SCH ×2 (07:40→20:31)
[2021-11-08] MEDS: ACETAMINOPHEN 325 MG TAB PO SCH ×3 (07:42→20:29)
--- NOTE | 2021-11-08 15:08 | Hospitalist Progress Note ---
Date of Service November 08, 2021 Assessment & Plan (1) Fracture of proximal end of left humerus: Plan: S/p ORIF by Dr. Yeung on 11/01/2021 - Stable. - Pain controlled. - Continue sling, pain control, etc per ortho. - For low vitamin D level - Ergocalciferol 59909 units PO x 6 weeks. First dose in the hospital. - F/u with Dr Yeung post-discharge 10-14 days per ortho. Plan for [facility] if avaiable tomorrow. (2) Syncope: Plan: Orthostasis from his PD most likely cause. Aortic stenosis also possible contributor as it is moderate/severe on echo this admission. 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 - Hold metoprolol due to low or low-nl BPs (3) Parkinson disease: Plan: Not on meds for such. Office visit with [facility] [place] [facility] in 09/2021 states he & had been declining medication for the PD. - Dr. Benítez also mentions he has dementia from his PD. (4) CAD (coronary artery disease), [place] coronary artery: Plan: No ischemic symptoms or complaints. - Continue ASA, statin, Zetia (5) Hypertension: Plan: BP was 115/60 today. - Continue to hold metoprolol as above (6) Depression: Plan: - Continue sertraline (7) DVT prophylaxis: Plan: Heparin 5000 units SQ TID Admission and Anticipated Discharge Date Admission Date: October 30, 2021 Subjective Doing well today. No major pain. Reports no fevers/chills, chest pain, shortness of breath, abdominal pain, nausea, or vomiting. Physical Exam Constitutional: WD/WN, vitals as above Eyes: EOM intact bilaterally; no conjunctival abnormality ENMT: external ear and nose normal, oropharynx normal Neck: trachea midline, no thyromegaly normal visual inspection Respiratory: normal respiratory effort, lungs clear to auscultation no respiratory distress Cardiovascular: RRR, no murmur, no edema Gastrointestinal (Abdomen): Inspection/Auscultation: abdomen normal to inspection; abdomen not distended Musculoskeletal: no cyanosis or clubbing, extremities motor strength 5/5 Extremities: + upper extremity abnormal to inspection Left (In sling) Skin: no rashes, warm and dry Neurologic: moves all extremities and awake Psychiatric: Orientation: alert, oriented to person and cooperative Results & Data Results & Data ([facility]) Vital Signs (Past 12 Hours) Vital Signs Temp Pulse Resp BP Pulse Ox 11/08/21 07:50 37.0 C 67 18 115/59 L 92 PG Care Time/CCT Total # of Minutes Spent Total Time Spent with Patient: Total time spent is greater than 50% in coordination of care (as documented) at patient's floor/unit and/or counseling patient: Coding Level of Care Code 92062 Subseq Hosp Care Lvl 2 Diagnoses Fracture of proximal end of left humerus S42.292A Encounter type: initial encounter Fracture alignment: displaced Fracture morphology: other fracture Fracture type: closed Syncope R55 Syncope type: vasovagal syncope Parkinson disease G20 CAD (coronary artery disease), [place] coronary artery I25.10 Hypertension I10 Hypertension type: essential hypertension Depression F32.9 DVT prophylaxis Z29.9 (1) Fracture of proximal end of left humerus Encounter type: initial encounter Fracture alignment: displaced Fracture morphology: other fracture Fracture type: closed Qualified Code(s): S42.292A - Other displaced fracture of upper end of left humerus, initial encounter for closed fracture (2) Syncope Syncope type: vasovagal syncope Qualified Code(s): R55 - Syncope and collapse (3) Hypertension Hypertension type: essential hypertension Qualified Code(s): I10 - Essential (primary) hypertension
[2021-11-08] MEDS: ASPIRIN 81 MG ECTAB PO SCH (20:29)
[2021-11-08] MEDS: PRAVASTATIN SOD 10 MG TAB PO SCH (20:31)
[2021-11-08] MEDS: SERTRALINE HCL 50 MG TABLET PO SCH (20:31)
[2021-11-09] MEDS: HEPARIN SOD 5,000 UNIT/0.5 ML VIAL SQ SCH (05:51)
[2021-11-09 07:56] LABS: Hematocrit (blood only) 31.2 % (42-52); Hemoglobin 10.6 g/dL (14.0-18.0); Mean Corpuscular Hemoglobin 32.6 pg (25-34); Mean Platelet Volume 8.4 fL (7.4-10.4); Platelet Count 294 K/uL (130-400); RDW Coefficient of Variation 13.3 % (11.5-14.5); RDW Standard Deviation 46.8 fL (36.4-46.3); Red Blood Count 3.25 M/uL (4.7-6.1); White Blood Count 5.83 K/uL (4.8-10.8)
[2021-11-09] MEDS: EZETIMIBE 10 MG TABLET PO SCH (08:33)
[2021-11-09] MEDS: SENNA 8.6 MG TAB PO SCH (08:33)
[2021-11-09] MEDS: MULTIVITAMIN TAB PO SCH (08:33)
[2021-11-09] MEDS: DOCUSATE SODIUM 100 MG CAP PO SCH ×2 (08:34→20:19)
[2021-11-09] MEDS: POLYETHYLENE (MIRALAX) 17 GM PACK PO SCH (08:34)
[2021-11-09] MEDS: ACETAMINOPHEN 325 MG TAB PO SCH ×3 (08:34→20:17)
[2021-11-09 08:49] LABS: Calcium 8.7 mg/dl (8.5-10.1); Creatinine Clr Calc Pharmacy 76.4 ml/min; Est GFR (African American) 96.4 ml/min; Est GFR (Non-African American) 83.2 ml/min; Magnesium 2.3 mg/dl (1.8-2.4); Potassium 3.9 mmol/L (3.5-5.1)
--- NOTE | 2021-11-09 12:20 | Hospitalist Progress Note ---
Date of Service November 09, 2021 Assessment & Plan (1) Fracture of proximal end of left humerus: Plan: S/p ORIF by Dr. Yeung on 11/01/2021 - Stable. - Pain controlled. - Continue sling, pain control, etc per ortho. - For low vitamin D level - Ergocalciferol 01405 units PO x 6 weeks. First dose in the hospital. - F/u with Dr Yeung post-discharge 10-14 days per ortho. Plan for [facility] if available. Awaiting response from them as well as insurance. (2) Syncope: Plan: Orthostasis from his PD most likely cause. Aortic stenosis also possible contributor as it is moderate/severe on echo this admission. 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 - Hold metoprolol due to low or low-nl BPs (3) Parkinson disease: Plan: Not on meds for such. Office visit with [facility] in 09/2021 states he & had been declining medication for the PD. - Dr. Benítez also mentions he has dementia from his PD. (4) CAD (coronary artery disease), [place] coronary artery: Plan: No ischemic symptoms or complaints. - Continue ASA, statin, Zetia (5) Hypertension: Plan: BP was 115/60 today. - Continue to hold metoprolol as above (6) Depression: Plan: Spirits seem to be pretty good, though obviously getting discouraged about being stuck in the hospital so long. - Continue sertraline (7) DVT prophylaxis: Plan: Lovenox 40 mg SQ daily Admission and Anticipated Discharge Date Admission Date: October 30, 2021 Subjective Doing well today. No major pain. Reports no fevers/chills, chest pain, shortness of breath, abdominal pain, nausea, or vomiting. Physical Exam Constitutional: WD/WN, vitals as above Eyes: EOM intact bilaterally; no conjunctival abnormality ENMT: external ear and nose normal, oropharynx normal Neck: trachea midline, no thyromegaly normal visual inspection Respiratory: normal respiratory effort, lungs clear to auscultation no respiratory distress Cardiovascular: RRR, no murmur, no edema Gastrointestinal (Abdomen): Inspection/Auscultation: abdomen normal to inspection; abdomen not distended Musculoskeletal: Extremities: + upper extremity abnormal to inspection Left (In sling. Mercedes look good.) Skin: no rashes, warm and dry Neurologic: moves all extremities and awake Psychiatric: Orientation: alert, oriented to person and cooperative Results & Data Results & Data ([facility]) Vital Signs (Past 12 Hours) Vital Signs Temp Pulse Resp BP Pulse Ox 11/09/21 07:39 36.7 C 62 18 113/63 94 PG Care Time/CCT Total # of Minutes Spent Total Time Spent with Patient: Total time spent is greater than 50% in coordination of care (as documented) at patient's floor/unit and/or counseling patient: Coding Level of Care Code 81075 Subseq Hosp Care Lvl 2 Diagnoses Fracture of proximal end of left humerus S42.292A Encounter type: initial encounter Fracture alignment: displaced Fracture morphology: other fracture Fracture type: closed Syncope R55 Syncope type: vasovagal syncope Parkinson disease G20 CAD (coronary artery disease), [place] coronary artery I25.10 Hypertension I10 Hypertension type: essential hypertension Depression F32.9 DVT prophylaxis Z29.9 (1) Fracture of proximal end of left humerus Encounter type: initial encounter Fracture alignment: displaced Fracture morphology: other fracture Fracture type: closed Qualified Code(s): S42.292A - Other displaced fracture of upper end of left humerus, initial encounter for closed fracture (2) Syncope Syncope type: vasovagal syncope Qualified Code(s): R55 - Syncope and collapse (3) Hypertension Hypertension type: essential hypertension Qualified Code(s): I10 - Essential (primary) hypertension
[2021-11-09] MEDS: ASPIRIN 81 MG ECTAB PO SCH (20:17)
[2021-11-09] MEDS: PRAVASTATIN SOD 10 MG TAB PO SCH (20:18)
[2021-11-09] MEDS: SERTRALINE HCL 50 MG TABLET PO SCH (20:18)
[2021-11-10] MEDS: MULTIVITAMIN TAB PO SCH (08:17)
[2021-11-10] MEDS: EZETIMIBE 10 MG TABLET PO SCH (08:17)
[2021-11-10] MEDS: ENOXAPARIN INJ 40 MG/0.4 ML SYR SQ SCH (08:17)
[2021-11-10] MEDS: SENNA 8.6 MG TAB PO SCH (08:17)
[2021-11-10] MEDS: DOCUSATE SODIUM 100 MG CAP PO SCH ×2 (08:23→20:11)
[2021-11-10] MEDS: ACETAMINOPHEN 325 MG TAB PO SCH ×3 (08:23→20:10)
[2021-11-10] MEDS: POLYETHYLENE (MIRALAX) 17 GM PACK PO SCH (08:25)
--- NOTE | 2021-11-10 17:36 | Hospitalist Progress Note ---
Date of Service November 10, 2021 Assessment & Plan (1) Fracture of proximal end of left humerus: Plan: Pending placement. Unsafe for D/c home per PT, placement pending hopefully to [facility] on Friday. S/p ORIF by Dr. Yeung on 11/01/2021 - Stable. - Pain controlled. - Continue sling, pain control, etc per ortho. - For low vitamin D level - Ergocalciferol 43064 units PO x 6 weeks. First dose in the hospital. - F/u with Dr Yeung post-discharge 10-14 days per ortho. Plan for [facility] if available. Awaiting response from them as well as insurance. (2) Syncope: Plan: Orthostasis from his PD most likely cause. Aortic stenosis also possible contributor as it is moderate/severe on echo this admission. 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 - Hold metoprolol due to low or low-nl BPs (3) Parkinson disease: Plan: Not on meds for such. Office visit with [facility] in 09/2021 states he & had been declining medication for the PD. - Dr. Benítez also mentions he has dementia from his PD. (4) CAD (coronary artery disease), [place] coronary artery: Plan: No ischemic symptoms or complaints. - Continue ASA, statin, Zetia (5) Hypertension: Plan: BP was 115/60 today. - Continue to hold metoprolol as above (6) Depression: Plan: Spirits seem to be pretty good, though obviously getting discouraged about being stuck in the hospital so long. - Continue sertraline (7) DVT prophylaxis: Plan: Lovenox 40 mg SQ daily Admission and Anticipated Discharge Date Admission Date: October 30, 2021 Subjective Patient resting comfortably in bed. No chest pain, arm pain today. Is wondering where his is, otherwise no questions. Review of Systems Review of Systems: All systems reviewed & are unremarkable except as noted in Subjective Physical Exam Physical Exam: General: Resting comfortably at time of visit. HEENT: Atraumatic, normocephalic. Pulm: Radial pulse intact, symmetrical chest rise. No increase work of breathing. No respiratory distress. Cardiac: Regular rate. Extremities: Left upper extremity in sling. Radial pulses intact and symmetrical. Results & Data Results & Data ([facility]) Vital Signs (Past 12 Hours) Vital Signs Temp Pulse Resp BP Pulse Ox 11/10/21 06:35 36.7 C 65 18 117/62 94 PG Care Time/CCT Total # of Minutes Spent Total Time Spent with Patient: Total time spent is greater than 50% in coordination of care (as documented) at patient's floor/unit and/or counseling patient: Coding Level of Care Code 87890 Subseq Hosp Care Lvl 1 Diagnoses Fracture of proximal end of left humerus S42.292A Encounter type: initial encounter Fracture alignment: displaced Fracture morphology: other fracture Fracture type: closed Syncope R55 Syncope type: vasovagal syncope Parkinson disease G20 CAD (coronary artery disease), [place] coronary artery I25.10 Hypertension I10 Hypertension type: essential hypertension Depression F32.9 DVT prophylaxis Z29.9 (1) Fracture of proximal end of left humerus Encounter type: initial encounter Fracture alignment: displaced Fracture morphology: other fracture Fracture type: closed Qualified Code(s): S42.292A - Other displaced fracture of upper end of left humerus, initial encounter for closed fracture (2) Syncope Syncope type: vasovagal syncope Qualified Code(s): R55 - Syncope and collapse (3) Hypertension Hypertension type: essential hypertension Qualified Code(s): I10 - Essential (primary) hypertension
[2021-11-10] MEDS: ASPIRIN 81 MG ECTAB PO SCH (20:10)
[2021-11-10] MEDS: SERTRALINE HCL 50 MG TABLET PO SCH (20:11)
[2021-11-10] MEDS: PRAVASTATIN SOD 10 MG TAB PO SCH (20:11)
[2021-11-11] MEDS: MULTIVITAMIN TAB PO SCH (09:12)
[2021-11-11] MEDS: EZETIMIBE 10 MG TABLET PO SCH (09:12)
[2021-11-11] MEDS: SENNA 8.6 MG TAB PO SCH (09:13)
[2021-11-11] MEDS: ENOXAPARIN INJ 40 MG/0.4 ML SYR SQ SCH (09:14)
[2021-11-11] MEDS: DOCUSATE SODIUM 100 MG CAP PO SCH ×2 (09:20→20:02)
[2021-11-11] MEDS: POLYETHYLENE (MIRALAX) 17 GM PACK PO SCH (09:20)
[2021-11-11] MEDS: ACETAMINOPHEN 325 MG TAB PO SCH ×3 (09:20→20:01)
--- NOTE | 2021-11-11 18:03 | Hospitalist Progress Note ---
Date of Service November 11, 2021 Assessment & Plan (1) Fracture of proximal end of left humerus: Plan: Pending placement. Unsafe for D/c home per PT, placement pending hopefully to [facility] on Friday. S/p ORIF by Dr. Yeung on 11/01/2021 - Stable. - Pain controlled. - Continue sling, pain control, etc per ortho. - For low vitamin D level - Ergocalciferol 82971 units PO x 6 weeks. First dose in the hospital. - F/u with Dr Yeung post-discharge 10-14 days per ortho. Plan for [facility] if available. Awaiting response from them as well as insurance. - Medically stable for D/C (2) Syncope: Plan: Orthostasis from his PD most likely cause. Aortic stenosis also possible contributor as it is moderate/severe on echo this admission. 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 - Hold metoprolol due to low or low-nl BPs - reports this occurred AFTER the fall and was not a cause of the fall. (3) Parkinson disease: Plan: Not on meds for such. Office visit with [facility] in 09/2021 states he & had been declining medication for the PD. - Dr. Benítez also mentions he has dementia from his PD. (4) CAD (coronary artery disease), [place] coronary artery: Plan: No ischemic symptoms or complaints. - Continue ASA, statin, Zetia (5) Hypertension: Plan: BP was 115/60 today. - Continue to hold metoprolol as above (6) Depression: Plan: Spirits seem to be pretty good, though obviously getting discouraged about being stuck in the hospital so long. - Continue sertraline (7) DVT prophylaxis: Plan: Lovenox 40 mg SQ daily Plan: No changes in treatment plan. Medically stable for discharge. Awaiting placement Admission and Anticipated Discharge Date Admission Date: October 30, 2021 Supervising Physician Co-Signing Physician Notes chart reviewed and case d/w Mayra Tomas PAC - agree with above. Subjective Patient seen on daily rounds today. No c/c. Pain controlled. Denies F/C, CP, SOB, abd pain, N/V. Moving bowel and bladder without difficulty. Awaiting placement. Review of Systems Review of Systems: All systems reviewed and are unremarkable except as noted i n HPI and below Denies fevers, chills, headache, nasal congestion, sore throat, cough, chest pain, shortness of breath, palpitations, orthopnea, PND, abdominal pain, nausea, vomiting, diarrhea, constipation, dysuria, hematuria, frequency, back pain, joint pain or swelling, easy bruising or bleeding, skin lesions or rashes. Physical Exam Physical Exam: General: Resting comfortably in his hospital bed. Resting tremor noted.. NAD. HEENT: Head is AT/NC buccal mucosa is moist and pink Neck: No JVD. Negative hepatojugular reflex Cardiac: RRR with 3/6 holosystolic murmur Lungs: CTA without W/R/R Abdomen: Normoactive X4. Soft and nontender in all quadrants. Extremities: Left upper extremity in a splint. Neurovascular intact Neuro: A&O X4 cranial nerves II through XII are grossly intact no focal neuro deficits Skin: No obvious skin lesions or rashes Psych: Appropriate affect pleasant and cooperative Results & Data Results & Data ([facility]) Vital Signs (Past 12 Hours) Vital Signs Temp Pulse Resp BP Pulse Ox 11/11/21 16:15 37.1 C 71 18 112/62 95 11/11/21 07:32 36.7 C 62 16 107/60 92 Laboratory Results No lab data today PG Care Time/CCT Total # of Minutes Spent Total Time Spent with Patient: Total time spent is greater than 50% in coordination of care (as documented) at patient's floor/unit and/or counseling patient: Coding Level of Care Code 79328 Subseq Hosp Care Lvl 1 Diagnoses Fracture of proximal end of left humerus S42.292A Encounter type: initial encounter Fracture alignment: displaced Fracture morphology: other fracture Fracture type: closed Syncope R55 Syncope type: vasovagal syncope Parkinson disease G20 CAD (coronary artery disease), [place] coronary artery I25.10 Hypertension I10 Hypertension type: essential hypertension Depression F32.9 DVT prophylaxis Z29.9 (1) Fracture of proximal end of left humerus Encounter type: initial encounter Fracture alignment: displaced Fracture morphology: other fracture Fracture type: closed Qualified Code(s): S42.292A - Other displaced fracture of upper end of left humerus, initial encounter for closed fracture (2) Syncope Syncope type: vasovagal syncope Qualified Code(s): R55 - Syncope and collapse (3) Hypertension Hypertension type: essential hypertension Qualified Code(s): I10 - Essential (primary) hypertension
[2021-11-11] MEDS: ASPIRIN 81 MG ECTAB PO SCH (20:01)
[2021-11-11] MEDS: PRAVASTATIN SOD 10 MG TAB PO SCH (20:03)
[2021-11-11] MEDS: SERTRALINE HCL 50 MG TABLET PO SCH (20:04)
[2021-11-12] MEDS: MULTIVITAMIN TAB PO SCH (08:16)
[2021-11-12] MEDS: SENNA 8.6 MG TAB PO SCH (08:16)
[2021-11-12] MEDS: EZETIMIBE 10 MG TABLET PO SCH (08:16)
[2021-11-12] MEDS: ENOXAPARIN INJ 40 MG/0.4 ML SYR SQ SCH (08:16)
[2021-11-12] MEDS: DOCUSATE SODIUM 100 MG CAP PO SCH ×2 (08:18→20:53)
[2021-11-12] MEDS: ACETAMINOPHEN 325 MG TAB PO SCH ×3 (08:18→20:53)
[2021-11-12] MEDS: POLYETHYLENE (MIRALAX) 17 GM PACK PO SCH (08:21)
--- NOTE | 2021-11-12 13:06 | Hospitalist Progress Note ---
Date of Service November 12, 2021 Assessment & Plan (1) Fracture of proximal end of left humerus: Plan: Pending placement. Unsafe for D/c home per PT--patient with underlying Parkinson's. Is left hand dominant S/p ORIF by Dr. Yeung on 11/01/2021 - Stable. - Pain controlled. - Continue sling, pain control, etc per ortho. - For low vitamin D level - Ergocalciferol 46485 units PO x 6 weeks. First dose in the hospital. - F/u with Dr Yeung post-discharge 10-14 days per ortho. Plan for [facility] if available. Awaiting response from them as well as insurance. - Medically stable for D/C (2) Syncope: Plan: Orthostasis from his PD most likely cause. Aortic stenosis also possible contributor as it is moderate/severe on echo this admission. 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 - metoprolol held/stopped due to low or low-nl BPs. BP currently 100/56 without BB on board - reports this occurred AFTER the fall and was not the cause of the fall. (3) Parkinson disease: Plan: Not on meds for such. Office visit with [facility] in 09/[place] states he & had been declining medication for the PD. - Dr. Benítez also mentions he has dementia from his PD. (4) CAD (coronary artery disease), [place] coronary artery: Plan: No ischemic symptoms or complaints. - Continue ASA, statin, Zetia (5) Hypertension: Plan: BP was 100/56 today. - Continue to hold metoprolol as above (6) Depression: Plan: Spirits seem to be pretty good, though obviously getting discouraged about being stuck in the hospital so long. - Continue sertraline (7) DVT prophylaxis: Plan: Lovenox 40 mg SQ daily Plan: No changes in treatment plan. Medically stable for discharge. Awaiting placement Admission and Anticipated Discharge Date Admission Date: October 30, 2021 Subjective Patient seen on daily rounds today. Denies fevers, chills, chest pain, shortness of breath, abdominal pain, nausea or vomiting. Nursing voices no c/c. Review of Systems Review of Systems: All systems reviewed and are unremarkable except as noted in HPI and below Denies fevers, chills, headache, nasal congestion, sore throat, cough, chest pain, shortness of breath, palpitations, orthopnea, PND, abdominal pain, nausea, vomiting, diarrhea, constipation, dysuria, hematuria, frequency, back pain, joint pain or swelling, easy bruising or bleeding, skin lesions or rashes. Physical Exam Physical Exam: General: Resting comfortably in his hospital bed. resting tremor noted. NAD. HEENT: Head is AT/NC buccal mucosa is moist and pink Neck: No JVD. Negative hepatojugular reflex Cardiac: RRR without M/G/R Lungs: CTA without W/R/R Abdomen: Normoactive X4. Soft and nontender in all quadrants. Extremities: Left upper extremity in postsurgical sling. Cap refill intact. Radial pulses intact and symmetrical Neuro: A&O X4 cranial nerves II through XII are grossly intact no focal neuro deficits Skin: No obvious skin lesions or rashes Psych: Appropriate affect pleasant and cooperative Results & Data Results & Data ([facility]) Vital Signs (Past 12 Hours) Vital Signs Temp Pulse Resp BP Pulse Ox 11/12/21 11:05 36.9 C 67 18 100/56 L 94 11/12/21 07:14 36.5 C 58 L 16 105/62 94 Laboratory Results No lab data Repeat blood cultures PG Care Time/CCT Total # of Minutes Spent Total Time Spent with Patient: Total time spent is greater than 50% in coordination of care (as documented) at patient's floor/unit and/or counseling patient: Coding Level of Care Code 93552 Subseq Hosp Care Lvl 1 Diagnoses Fracture of proximal end of left humerus S42.292A Encounter type: initial encounter Fracture alignment: displaced Fracture morphology: other fracture Fracture type: closed Syncope R55 Syncope type: vasovagal syncope Parkinson disease G20 CAD (coronary artery disease), [place] coronary artery I25.10 Hypertension I10 Hypertension type: essential hypertension Depression F32.9 DVT prophylaxis Z29.9 (1) Fracture of proximal end of left humerus Encounter type: initial encounter Fracture alignment: displaced Fracture morphology: other fracture Fracture type: closed Qualified Code(s): S42.292A - Other displaced fracture of upper end of left humerus, initial encounter for closed fracture (2) Syncope Syncope type: vasovagal syncope Qualified Code(s): R55 - Syncope and collapse (3) Hypertension Hypertension type: essential hypertension Qualified Code(s): I10 - Essential (primary) hypertension
[2021-11-12] MEDS: SERTRALINE HCL 50 MG TABLET PO SCH (20:53)
[2021-11-12] MEDS: PRAVASTATIN SOD 10 MG TAB PO SCH (20:53)
[2021-11-12] MEDS: ASPIRIN 81 MG ECTAB PO SCH (20:53)
[2021-11-13] MEDS: ACETAMINOPHEN 325 MG TAB PO SCH ×2 (09:23→13:56)
[2021-11-13] MEDS: EZETIMIBE 10 MG TABLET PO SCH (09:23)
[2021-11-13] MEDS: ENOXAPARIN INJ 40 MG/0.4 ML SYR SQ SCH ×2 (09:23→09:44)
[2021-11-13] MEDS: MULTIVITAMIN TAB PO SCH (09:23)
[2021-11-13] MEDS: SENNA 8.6 MG TAB PO SCH (09:23)
[2021-11-13] MEDS: POLYETHYLENE (MIRALAX) 17 GM PACK PO SCH (09:25)
[2021-11-13] MEDS: DOCUSATE SODIUM 100 MG CAP PO SCH (09:25)
--- NOTE | 2021-11-13 15:46 | Discharge Summary ---
Date of Service November 13, 2021 Admission HPI Per Admitting Provider 86 yo M Hx CAD, ROBERT, HTN, HLD, Parkinson's disease presented to the ER following a fall at home, where he slipped going down a ramp and hit his head. CBC and BMP in ER without acute abnormalities. Given patient hit his head CT Head was performed which did not show any evidence of acute bleeding or skull fractures. Left arm XRays revealed acute mildly displaced, angulated and impacted fracture of the proximal humeral diaphysis. CT Shoulder confirmed fracture as well as posttraumatic intramuscular hemorrhage of the shoulder and upper arm. Patient was initially discharged to home but on ambulating out of the ER had a syncopal event. EKG showed sinus bradycardia to 57. Troponin negative. Hospitalist service was consulted for admission for syncope as well as for concern from family regarding ambulatory dysfunction. Patient on my interview reports some left shoulder pain worst with movement of the arm. Sling not in place during my interview. He admits that he did not have any food or anything to drink today and his last meal was yesterday at dinnertime. He reports a history of low blood pressure. He takes metoprolol 12.5mg daily for Hx CAD.He does not endorse recent illness. He did not lose consciousness when he hit his head earlier today when he slipped and fell. He lives at home with his . Principal Diagnosis 1. Fracture of Proximal Humerus S/P ORIF (Left) 2. Ground Level Fall- slipped on wet ramp 3. Syncope (FOLLOWING the fall- likely vasovagal from pain) 4. Marginal hypotension- Metoprolol stopped 5. Parkinson's Disease Discharge Exam General: Resting comfortably in his hospital bed. resting tremor noted. NAD. HEENT: Head is AT/NC buccal mucosa is moist and pink Neck: No JVD. Negative hepatojugular reflex Cardiac: RRR without M/G/R Lungs: CTA without W/R/R Abdomen: Normoactive X4. Soft and nontender in all quadrants. Extremities: Left upper extremity in postsurgical sling. Cap refill intact. Radial pulses intact and symmetrical Neuro: A&O X4 cranial nerves II through XII are grossly intact no focal neuro deficits Skin: No obvious skin lesions or rashes Psych: Appropriate affect pleasant and cooperative Discharge Data Allergies Allergy/AdvReac Type Severity Reaction Status Date / Time Iodinated Contrast Media Allergy Intermediate Hypotension Verified 10/30/21 13:31 [Iodinated Contrast- Oral and IV Dye] iodine Allergy Unknown Unknown Verified 10/30/21 13:31 atorvastatin AdvReac Intermediate Muscle Pain Verified 10/30/21 13:31 rosuvastatin AdvReac Intermediate Muscle Pain Verified 10/30/21 13:31 Consultations 10/30/21 19:36 ED Decision to Admit Stat 10/30/21 20:53 Consult Orthopedic Surgery Routine Procedures Performed Operation Date: 10/31/21 08:20 <No data on this case meets the specified criteria> Operation Date: 11/01/21 11:10 Actual Procedures p Left Proximal Humerus Fracture Open Reduction Internal Fixation(Left) - Jatin Yeung MD Ordered Studies 10/30/21 12:07 CT cervical spine wo con Stat CT head/brain wo con Stat 10/30/21 14:25 CT shoulder LT wo con Stat 11/01/21 07:58 US - OR guided needle placemen Routine 11/01/21 11:30 FL shoulder LT min 2V Routine Hospital Course (1) Fracture of proximal end of left humerus: Pending placement. Unsafe for D/c home per PT--patient with underlying Parkinson's. Is left hand dominant S/p ORIF by Dr. Yeung on 11/01/2021 - Stable. - Pain controlled. - Continue sling, pain control, etc per ortho. - vitamin D level low for which he was given vitamin D while in house. Can continue this upon D/C - F/u with Dr Yeung post-discharge 10-14 days per ortho. D/C to [facility]. Did call and speak with Nai PINEDA) to arrange hospital FU - Medically stable for D/C (2) Syncope: Orthostasis from his PD most likely cause. Aortic stenosis also possible contributor as it is moderate/severe on echo this admission. Hard to contact center agent given echo could not fully get measurements. - metoprolol held/stopped due to low or low-nl BPs. BP currently 100/56 without BB on board - reports this occurred AFTER the fall and was not the cause of the fall. (3) Parkinson disease: Not on meds for such. Office visit with [facility] in 09/2021 states he & had been declining medication for the PD. - Dr. Benítez also mentions he has dementia from his PD. (4) CAD (coronary artery disease), [place] coronary artery: No ischemic symptoms or complaints. - Continue ASA, statin, Zetia (5) Hypertension: BP was 100/56 today. - Continue to hold metoprolol as above (6) Depression: Spirits seem to be pretty good, though obviously getting discouraged about being stuck in the hospital so long. - Continue sertraline (7) DVT prophylaxis: Lovenox 40 mg SQ daily No changes in treatment plan. Medically stable for discharge. Awaiting placement Total Time Total Time Spent Total Time Spent (In Minutes): 35 Discharge Plan Discharge Items Patient Disposition: Transfer Inpatient Rehab Fac Reason For Visit: SYNCOPE, AMBULATORY DYSFUNCTION Discharge Diagnosis: 1. Left Proximal Humeral Fx- s/p ORIF 2. Ground Level Fall- slipped on wet ramp 3. Syncope- Occurred AFTER the Fall and likely vasovagal from pain Activity: Resume your previous activity Non-emergency contact: Primary Care Provider and Surgeon Call non-emergency contact if: you have any medication questions Follow-up/Referrals: Mingo Sanches MD [Primary Care Provider] - Jatin Yeung MD [Surgeon] - Diet: Regular Addtl Attending Provider Instructions: Pt may shower and get shoulder incision wet. May leave wound open to air or apply let dressing if needed for mild drainage. Ice to shoulder/upper arm 20-30 minutes multiple times throughout the day as needed. Maintain sling, may remove several times daily for hand, wrist, and elbow range of motion as tolerated. May perform gentle pendulum exercises left shoulder but no active range of motion at this time. Follow-up with Dr Yeung ~ 10-14 days, call [phone] for appt. May call sooner if increased pain, wound drainage or erythema, or concerns/problems. - patient sustained a ground level fall (down a wet ramp) resulting in a proximal humeral Fx - following the fracture, he had a syncopal event (which was likely vasovagal from pain) - underwent ORIF on 11/01 and had an uneventful course - While in house, his metoprolol was held/stopped for marginal hypotension (As this was thought to possibly contribute to the Syncope and with Parkinsons, could have orthostasis) - take medications as outlined - follow up with Ortho as outlined above - return to the ED for new or worsening symptoms Pending Studies at Discharge: No Stand-Alone Forms: My [facility] Skilled Items Patient informed of condition?: Yes DNR: No Discharge Level of Care: Acute rehab Communicable Disease: No Discharge Prognosis: Stable Lines: None Urinary Catheter: No Medications and DC Order Prescriptions: New polyethylene glycol 3350 [Miralax] 17 gram Powder In Packet 17 g PO DAILY Qty: 30 RF: 0 hydrocodone-acetaminophen 5-325 mg Tablet 1 tab PO Q6H PRN (Reason: pain) Qty: 12 RF: 0 docusate sodium 100 mg Capsule 100 mg PO BID Qty: 30 RF: 0 Continued ezetimibe [Zetia] 10 mg tablet 10 mg PO QAM RF: 0 pravastatin 10 mg tablet 10 mg PO HS RF: 0 aspirin 81 mg tablet,chewable 81 mg PO HS RF: 0 Flax, Fish and Borage Oil 400-5 mg-unit Capsule 1 cap PO QAM RF: 0 sertraline 50 mg tablet 50 mg PO HS RF: 0 Discontinued metoprolol tartrate 25 mg tablet 12.5 mg PO QAM RF: 0 Discharge Orders: Discharge Order (Routine); Ordered 11/13/21 Ordered By: Mayra Tomas Admission Data Admit Date/Time: 10/30/21 20:53 Attending Provider: Jamin Yeboah Admit Provider: Judy Villegas Primary Care Provider: Mingo Sanches Other Providers: [facility] ; Luis Courtney ; Jamin Yeboah Other Interventions: Discharge Summary Assessment (RN) Last Done: 11/13/21 14:16 Supervising Physician Co-Signing Physician Notes I supervised Mayra Tomas PA-C on the care of this patient. I interviewed and examined the patient independently of her. The plan is as written in her note except for any following changes/exceptions: None Doing well. Still not having any pain in the left arm. Ready for rehab and hopefully home soon. Coding Level of Care Code D/C DAY MANAGEMENT >30 MINS Diagnoses Fracture of proximal end of left humerus S42.292A Encounter type: initial encounter Fracture alignment: displaced Fracture morphology: other fracture Fracture type: closed Syncope R55 Syncope type: vasovagal syncope Parkinson disease G20 CAD (coronary artery disease), [place] coronary artery I25.10 Hypertension I10 Hypertension type: essential hypertension Depression F32.9 DVT prophylaxis Z29.9
== END 2021-11-13 14:30 | DRG 494 ==
LOC: ED 11:08 → SUATTDRO 20:53 → EDINP 20:53 → 2N 10-31 10:17 → 3W 11-13 02:21